=== PATIENT | female | born 1965 | race American Indian/Alaskan Native ===

== ENCOUNTER 2017-05-26 22:11 | Inpatient (IN) | payer MEDICAID ==
[2017-05-26 23:14] LABS: BASO # 0.1 K/uL (0.0-0.2); BASO % 0.5 % (0.0-2.0); EOS # 0.1 K/uL (0.0-0.7); EOS % 0.6 % (0.0-4.0); HEMOGLOBIN 8.6 g/dL (11.0-16.0); LYMPH # 1.1 K/uL (1.0-4.3); LYMPH % 8.5 % (20.0-40.0); MEAN CELL VOLUME 102.9 fL (81.0-99.0); MEAN CORPUSCULAR HEMOGLOBIN 32.9 pg (27.0-31.0); MEAN PLATELET VOLUME 8.5 fL (7.2-11.7); MONO # 1.2 K/uL (0.0-0.8); MONO % 9.3 % (0.0-10.0); NEUT # 10.1 K/uL (1.8-7.0); NEUT % 81.1 % (50.0-75.0); PLATELET COUNT 229 K/uL (130-400); RED CELL DISTRIBUTION WIDTH 14.6 % (11.5-14.5); WHITE BLOOD COUNT 12.5 K/uL (4.8-10.8)
[2017-05-26 23:17] LABS: SQUAMOUS EPITHIAL 3 /hpf (0-5); URINE BACTERIA RARE (<OCC); URINE BILIRUBIN NEGATIVE (NEGATIVE); URINE BLOOD NEGATIVE (NEGATIVE); URINE CLARITY Clear (Clear); URINE COLOR Straw (YELLOW); URINE GLUCOSE (UA) 1+ mg/dL (Normal); URINE LEUKOCYTE ESTERASE NEG Leu/uL (Negative); URINE PROTEIN 2+ mg/dL (NEGATIVE); URINE UROBILINOGEN NORMAL mg/dL (0.2-1.0)
[2017-05-26 23:26] LABS: ALB/GLOB RATIO 0.8 (1.0-2.1); ALBUMIN 3.8 g/dL (3.5-5.0); ALT/SGPT 21 U/L (9-52); AST/SGOT 21 U/L (14-36); BLOOD UREA NITROGEN 63 mg/dL (7-17); CALCIUM 9.3 mg/dl (8.6-10.4); GFR AFRICAN-AMERICAN 11; GFR NON-AFRICAN AMERICAN 9; LIPASE 353 U/L (23-300)
[2017-05-26 23:30] LABS: BENZODIAZEPINES, UR NEGATIVE (NEGATIVE); OPIATES, UR NEGATIVE (NEGATIVE); PHENCYCLIDINE, UR NEGATIVE (NEGATIVE)
[2017-05-26 23:35] LABS: BARBITURATES, UR POSITIVE (NEGATIVE)
[2017-05-26 23:43] LABS: ANISOCYTOSIS SLIGHT; BASOPHIL 1 % (0-2); EOSINOPHIL 1 % (0-4); LYMPHOCYTE 11 % (20-40); MONOCYTE 4 % (0-10); NEUTROPHIL 83 % (50-75); PLATELET ESTIMATE NORMAL (NORMAL); POIKILOCYTOSIS SLIGHT; TOTAL CELLS COUNTED 100
--- NOTE | 2017-05-27 00:52 | CT ---
EXAM: CT Abdomen and Pelvis Without Intravenous Contrast EXAM DATE/TIME: 05/26/2017 11:35 PM CLINICAL HISTORY: 52 years old, female; Pain; Abdominal pain; Localized; Upper; Additional info: Upper abdominal pain. R/O pancreatitis. TECHNIQUE: Axial computed tomography images of the abdomen and pelvis without intravenous contrast. All CT scans at this facility use one or more dose reduction techniques, viz.: automated exposure control; ma/kV adjustment per patient size (including targeted exams where dose is matched to indication; i.e. head); or iterative reconstruction technique. Coronal and sagittal reformatted images were created and reviewed. COMPARISON: There are no prior studies for comparison. FINDINGS: Limitations: Evaluation of the abdomen and pelvis is limited by lack of intravenous and oral contrast. Lower thorax: Heart size is normal. Lung bases are clear ABDOMEN: Liver: unremarkable Gallbladder and bile ducts: unremarkable Pancreas: There are coarse calcifications in the pancreas greatest in the pancreatic head. Lack of contrast limits evaluation of the pancreas. Spleen: There is a 4.4 x 4.3 x 4.7 cm cystic mass in the inferior aspect of the spleen. There is rim calcification. Adrenals: There is mild thickening of both adrenals. Kidneys and ureters: unremarkable Stomach and bowel: Stomach is incompletely distended which accentuates the gastric wall. There is a 5.5 x 5.7 x 6 cm cystic mass with a partially calcified rim in the left upper quadrant which appears to be within the gastric wall. There is an air-fluid level in the lesion.There is thickening of the duodenal wall. There is a duodenal diverticulum. Rotation is normal. There is mild proximal small bowel wall and fold thickening. There is fluid and air throughout the small bowel. There is no small bowel obstruction. Ileocecal region is unremarkable. Appendix and terminal ileum are unremarkable. There is moderate stool and contrast in the colon. There is diverticulosis Appendix: See stomach and bowel PELVIS: Bladder: unremarkable Reproductive: Uterus and adnexal structures are unremarkable. ABDOMEN and PELVIS: Intraperitoneal space: There is no free air or free fluid. Bones/joints: There are degenerative changes in the osseus structures. Soft tissues: There is a small fat containing umbilical hernia. Vasculature: There are multiple phleboliths. There are vascular calcifications. Lymph nodes: There is shotty adenopathy. IMPRESSION: Limited evaluation due to lack of oral and intravenous contrast; chronic calcific pancreatitis; gastric wall thickening with cystic lesion in the gastric wall possibly pseudocyst; cystic lesion in the spleen; mild duodenal and proximal jejunal wall thickening, no bowel obstruction Additional nonemergent findings as described above.
--- NOTE | 2017-05-27 01:04 | C.PDOC ---
Time Seen by Provider: 05/26/17 22:38 Chief Complaint (Nursing): Abdominal Pain History Per: Patient Onset/Duration Of Symptoms: Days (2) Current Symptoms Are (Timing): Still Present Severity: Moderate Location Of Pain/Discomfort: Epigastric, LUQ Radiation Of Pain To:: Back Quality Of Discomfort: "Pain" Associated Symptoms: Nausea, Vomiting Alleviating Factors: None Additional History Per: Prior Records Past Medical History Reviewed: Historical Data, Nursing Documentation, Vital Signs Vital Signs: Last Vital Signs Temp 98.1 F 05/26/17 22:18 Pulse 102 H 05/26/17 22:18 Resp 20 05/26/17 22:18 BP 148/78 05/26/17 22:18 Pulse Ox 100 05/26/17 22:18 - Medical History PMH: Asthma, HTN, Chronic Kidney Disease Other Surgeries: Dialysis shunt in left arm (not ready for use yet). Family History: States: Unknown Family Hx - Social History Hx Alcohol Use: No Hx Substance Use: Yes - Immunization History Hx Tetanus Toxoid Vaccination: No Hx Influenza Vaccination: Yes Hx Pneumococcal Vaccination: No Review Of Systems Except As Marked, All Systems Reviewed And Found Negative. Constitutional: Negative for: Fever Cardiovascular: Negative for: Chest Pain Respiratory: Negative for: Shortness of Breath Gastrointestinal: Positive for: Abdominal Pain Genitourinary: Negative for: Dysuria Musculoskeletal: Negative for: Neck Pain Neurological: Negative for: Weakness, Numbness Physical Exam - Physical Exam Appears: Chronically Ill, Other (Uncomfortable) Skin: Warm, Dry Head: Atraumatic, Normacephalic Eye(s): bilateral: PERRL, EOMI Neck: Normal ROM, Supple Cardiovascular: Rhythm Regular Respiratory: Normal Breath Sounds, No Accessory Muscle Use Gastrointestinal/Abdominal: Soft, Tenderness (epigastric/LUQ) Extremity: Normal ROM, Other (dialysis shunt in left arm with good thrill) Neurological/Psych: Oriented x3, Normal Motor, Normal Sensation ED Course And Treatment - Laboratory Results Result Diagrams: 05/26/17 23:11 05/26/17 23:11 Lab Interpretation: Abnormal Interpretation Of Abnormal: Elevated Lipase. Renal failure. O2 Sat by Pulse Oximetry: 100 Pulse Ox Interpretation: Normal - CT Scan/US CT abd/pelv Other Rad Studies (CT/US): Read By Radiologist, Radiology Report Reviewed CT/US Interpretation: IMPRESSION: Limited evaluation due to lack of oral and intravenous contrast;. chronic calcific pancreatitis; gastric wall thickening with cystic lesion in. the gastric wall possibly pseudocyst; cystic lesion in the spleen; mild. duodenal and proximal jejunal wall thickening, no bowel obstruction Progress Note: Pt is still in pain and tender after GI meds. Progress - Interventions Interventions:: Observation - Medications Administered Intravenous: Antiemetic, H-2 tito - Data Reviewed Data Reviewed: Lab, Diagnostic imaging, Old records - Patient Status Patient status: Unchanged - Continuity of Care Discussed patient case with:: Patient, ED Nurse, On-call PMD-pt unassigned - Patient Plan Patient Plan: Admission Disposition Discussed With : Baltazar Layne Comment: He accepted pt on hospitalist service. Doctor Will See Patient In The: Hospital Counseled Patient/Family Regarding: Studies Performed, Diagnosis - Disposition Disposition: HOSPITALIZED Disposition Time: 01:08 Condition: GUARDED - Clinical Impression Clinical Impression: Acute on chronic pancreatitis, Renal failure, Upper abdominal pain
[2017-05-27] MEDS ORDERED: Sodium Chloride 0.9% 500 ML IV ONE (01:10)
[2017-05-27] MEDS ORDERED: Sodium Chloride 0.9% 1,000 ML ONE (01:19)
[2017-05-27] MEDS ORDERED: Albuterol 0.083% Inhal Sol (2.5 mg/3 mL) UD INH PRN (01:48)
[2017-05-27] MEDS ORDERED: Sod Polystyrene Sulf 15 gm/60 ml Susp PO ONE ×2 (01:53→06:26)
[2017-05-27] MEDS ORDERED: Sod Polystyrene Sulf 15 gm/60 ml Susp ONE ×2 (02:03→06:33)
--- NOTE | 2017-05-27 02:25 | CP.PCM.HP ---
<AlaynaLaurie Chavo - Last Filed: 05/27/17 03:13> History of Present Illness - History of Present Illness History of Present Illness: CC: abdominal pain HPI: 52 year old female with PMHx of HTN, ESRD, Hep C, and asthma presents for 1 week of abdominal pain. Patient was discharged form [facility] yesterday where she said she was for 2 days for the same complaint. Patient said her abdominal pain is not better and she rates it 30/10. Patient says the abdominal pain is mostly on the left side. Patient has had decreased appetite with nausea and one episode of nonbilious nonbloody vomitus today. Patient did not take any medications today and did not get the medications she was discharged on yet. Patient also complains of constipation, although she had a bowel movement yesterday. Patient says she feels feverish, but does not know if she has had a fever. Patient denies chest pain, shortness of breath, or urinary symptoms. PMD: Dr. Michael Allergies: tylenol- nausea/ vomiting PMHx: HTN, ESRD, Hep C, Asthma Psurg: L av fistula placement 1 week ago at [facility] Famhx: Sister: DM, at 55 Mom: of brain aneurysm at 56 Social: smokes 2-3 cigarettes a day since 17y/o- stopped a few weeks ago, drinks 1/2 pint of liquor a day (last drink was before her last hospitalization) , drugs: marijuana, rehab in 2007 and was sober for 1 year Present on Admission - Present on Admission Any Indicators Present on Admission: No History of DVT/PE: No History of Uncontrolled Diabetes: No Urinary Catheter: No Decubitus Ulcer Present: No Review of Systems - Constitutional Constitutional: Fever - EENT Eyes: absent: Blurred Vision Nose/Mouth/Throat: absent: Sore Throat - Cardiovascular Cardiovascular: absent: Dyspnea, Leg Edema - Respiratory Respiratory: absent: Cough, Dyspnea, Dyspnea on Exertion - Gastrointestinal Gastrointestinal: Abdominal Pain, Constipation, Nausea, Vomiting. absent: Diarrhea, Hematochezia, Melena - Genitourinary Genitourinary: absent: Difficulty Urinating, Dysuria, Hematuria - Musculoskeletal Musculoskeletal: absent: Numbness, Tingling - Integumentary Integumentary: absent: Rash - Hematologic/Lymphatic Hematologic: absent: Easy Bleeding, Easy Bruising Past Patient History - Past Social History Smoking Status: Former Smoker - CARDIAC Hx Hypertension: Yes - PULMONARY Hx Asthma: Yes - NEUROLOGICAL HX Cerebrovascular Accident: Yes - RENAL Hx Chronic Kidney Disease: Yes - PSYCHIATRIC Hx Substance Use: Yes - SURGICAL HISTORY Other/Comment: RIGHT ARM SURGERY - BOIL - ANESTHESIA Hx Anesthesia: Yes Hx Anesthesia Reactions: No Meds Allergies/Adverse Reactions: Allergies Allergy/AdvReac Type Severity Reaction Status Date / Time acetaminophen [From Tylenol] Allergy Verified 05/26/17 22:29 Physical Exam - Constitutional Appears: Non-toxic, In Acute Distress - Head Exam Head Exam: ATRAUMATIC, NORMAL INSPECTION, NORMOCEPHALIC - Eye Exam Eye Exam: EOMI, Normal appearance - ENT Exam ENT Exam: Mucous Membranes Moist - Respiratory Exam Respiratory Exam: Clear to Auscultation Bilateral, NORMAL BREATHING PATTERN. absent: Rales, Rhonchi, Wheezes, Respiratory Distress, Stridor - Cardiovascular Exam Cardiovascular Exam: Tachycardia, REGULAR RHYTHM, +S1, +S2 - GI/Abdominal Exam GI & Abdominal Exam: Guarding, Normal Bowel Sounds, Tenderness. absent: Distended, Firm - Extremities Exam Extremities exam: Positive for: normal inspection. Negative for: pedal edema - Neurological Exam Neurological exam: Alert, Oriented x3 - Psychiatric Exam Psychiatric exam: Anxious - Skin Skin Exam: Intact, Normal Color, Warm Results - Vital Signs Recent Vital Signs: Last Vital Signs Temp 98.1 F 05/26/17 22:18 Pulse 102 H 05/26/17 22:18 Resp 20 05/26/17 22:18 BP 148/78 05/26/17 22:18 Pulse Ox 100 05/27/17 01:09 - Labs Result Diagrams: 05/26/17 23:11 05/26/17 23:11 Labs: Laboratory Results - last 24 hr 05/26/17 05/26/17 05/26/17 23:11 23:11 23:11 WBC 12.5 H RBC 2.60 L Hgb 8.6 L Hct 26.8 L MCV 102.9 H MCH 32.9 H MCHC 32.0 L RDW 14.6 H Plt Count 229 MPV 8.5 Neut % (Auto) 81.1 H Lymph % (Auto) 8.5 L [place] % (Auto) 9.3 Eos % (Auto) 0.6 Baso % (Auto) 0.5 Neut # (Auto) 10.1 H Lymph # (Auto) 1.1 [place] # (Auto) 1.2 H Eos # (Auto) 0.1 Baso # (Auto) 0.1 Neutrophils % (Manual) 83 H Lymphocytes % (Manual) 11 L Monocytes % (Manual) 4 Eosinophils % (Manual) 1 Basophils % (Manual) 1 Platelet Estimate Normal Poikilocytosis (manual Slight Anisocytosis (manual) Slight Macrocytosis (manual) Slight Sodium 141 Potassium 5.3 H Chloride 108 H Carbon Dioxide 17 L Anion Gap 22 H BUN 63 H Creatinine 5.1 H Est GFR ( Amer) 11 Est GFR (Non-Af Amer) 9 Random Glucose 120 H Calcium 9.3 Total Bilirubin 0.5 AST 21 ALT 21 Alkaline Phosphatase 88 Total Protein 8.3 Albumin 3.8 Globulin 4.6 H Albumin/Globulin Ratio 0.8 L Lipase 353 H Urine Color Straw Urine Clarity Clear Urine pH 7.0 Ur Specific [place] 1.012 Urine Protein 2+ H Urine Glucose (UA) 1+ Urine Ketones Negative Urine Blood Negative Urine Nitrate Negative Urine Bilirubin Negative Urine Urobilinogen Normal Ur Leukocyte Esterase Neg Urine WBC (Auto) 1 Ur Squamous Epith Cells 3 Urine Bacteria Rare Urine Opiates Screen Urine Methadone Screen Ur Barbiturates Screen Ur Phencyclidine Scrn Ur Amphetamines Screen U Benzodiazepines Scrn U Oth Cocaine Metabols U Cannabinoids Screen Alcohol, Quantitative < 10 05/26/17 23:11 WBC RBC Hgb Hct MCV MCH MCHC RDW Plt Count MPV Neut % (Auto) Lymph % (Auto) [place] % (Auto) Eos % (Auto) Baso % (Auto) Neut # (Auto) Lymph # (Auto) [place] # (Auto) Eos # (Auto) Baso # (Auto) Neutrophils % (Manual) Lymphocytes % (Manual) Monocytes % (Manual) Eosinophils % (Manual) Basophils % (Manual) Platelet Estimate Poikilocytosis (manual Anisocytosis (manual) Macrocytosis (manual) Sodium Potassium Chloride Carbon Dioxide Anion Gap BUN Creatinine Est GFR ( Amer) Est GFR (Non-Af Amer) Random Glucose Calcium Total Bilirubin AST ALT Alkaline Phosphatase Total Protein Albumin Globulin Albumin/Globulin Ratio Lipase Urine Color Urine Clarity Urine pH Ur Specific [place] Urine Protein Urine Glucose (UA) Urine Ketones Urine Blood Urine Nitrate Urine Bilirubin Urine Urobilinogen Ur Leukocyte Esterase Urine WBC (Auto) Ur Squamous Epith Cells Urine Bacteria Urine Opiates Screen Negative Urine Methadone Screen Negative Ur Barbiturates Screen Positive H Ur Phencyclidine Scrn Negative Ur Amphetamines Screen Negative U Benzodiazepines Scrn Negative U Oth Cocaine Metabols Negative U Cannabinoids Screen Positive H Alcohol, Quantitative Assessment & Plan - Assessment and Plan (Free Text) Assessment: Pancreatitis CT abd: chronic calcific pancreatitis, gastric wall thickening with cystic lesion in the gastric wall possibly pseudocyst, cystic lesion in the spleen, mild duodenal and proximal jejunal wall thickening, no bowel obstruction Lipase: .353 morphine .5mg q6h prn for pain NPO NS @100cc/hr Hyperkalemia K+: 5.3 monitor Kayexalate given EKG: sinus tach Anemia H/H: 8.6/26.8 Feosol 325mg daily f/u iron studies ESRD patient not currently on dialysis Nephro, Dr. Guzman consulted, help appreciated continue to monitor BUN/Cr Neurontin 200mg po BID Alcohol abuse seizure precautions CIWA protocol Ativan 1 mg q4h PRN Folic Acid, Thiamine, Multivitamin HTN Amlodipine 5mg po daily continue to monitor HLD Crestor 5mg po HS Asthma Albuterol nebulizer q6h PRN Prophylaxis SCDs Protonix 40mg po daily <Baltazar Layne - Last Filed: 05/27/17 06:33> Results - Vital Signs Recent Vital Signs: Last Vital Signs Temp 98.7 F 05/27/17 03:27 Pulse 94 H 05/27/17 03:27 Resp 20 05/27/17 03:27 BP 148/74 05/27/17 03:27 Pulse Ox 100 05/27/17 03:27 - Labs Result Diagrams: 05/27/17 05:17 05/27/17 05:17 Labs: Laboratory Results - last 24 hr 05/26/17 05/26/17 05/26/17 23:11 23:11 23:11 WBC 12.5 H RBC 2.60 L Hgb 8.6 L Hct 26.8 L MCV 102.9 H MCH 32.9 H MCHC 32.0 L RDW 14.6 H Plt Count 229 MPV 8.5 Neut % (Auto) 81.1 H Lymph % (Auto) 8.5 L [place] % (Auto) 9.3 Eos % (Auto) 0.6 Baso % (Auto) 0.5 Neut # (Auto) 10.1 H Lymph # (Auto) 1.1 [place] # (Auto) 1.2 H Eos # (Auto) 0.1 Baso # (Auto) 0.1 Neutrophils % (Manual) 83 H Lymphocytes % (Manual) 11 L Monocytes % (Manual) 4 Eosinophils % (Manual) 1 Basophils % (Manual) 1 Platelet Estimate Normal Poikilocytosis (manual Slight Anisocytosis (manual) Slight Macrocytosis (manual) Slight Sodium 141 Potassium 5.3 H Chloride 108 H Carbon Dioxide 17 L Anion Gap 22 H BUN 63 H Creatinine 5.1 H Est GFR ( Amer) 11 Est GFR (Non-Af Amer) 9 Random Glucose 120 H Calcium 9.3 Phosphorus Magnesium Iron TIBC % Saturation Total Bilirubin 0.5 AST 21 ALT 21 Alkaline Phosphatase 88 Total Protein 8.3 Albumin 3.8 Globulin 4.6 H Albumin/Globulin Ratio 0.8 L Triglycerides Cholesterol LDL Cholesterol Direct HDL Cholesterol Lipase 353 H Urine Color Straw Urine Clarity Clear Urine pH 7.0 Ur Specific [place] 1.012 Urine Protein 2+ H Urine Glucose (UA) 1+ Urine Ketones Negative Urine Blood Negative Urine Nitrate Negative Urine Bilirubin Negative Urine Urobilinogen Normal Ur Leukocyte Esterase Neg Urine WBC (Auto) 1 Ur Squamous Epith Cells 3 Urine Bacteria Rare Urine Opiates Screen Urine Methadone Screen Ur Barbiturates Screen Ur Phencyclidine Scrn Ur Amphetamines Screen U Benzodiazepines Scrn U Oth Cocaine Metabols U Cannabinoids Screen Alcohol, Quantitative < 10 Blood Type Antibody Screen 05/26/17 05/27/17 05/27/17 23:11 05:17 05:17 WBC 12.3 H RBC 2.78 L Hgb 9.1 L Hct 28.4 L MCV 102.2 H MCH 32.8 H MCHC 32.1 L RDW 14.5 Plt Count 269 MPV 8.4 Neut % (Auto) 87.0 H Lymph % (Auto) 6.2 L [place] % (Auto) 6.6 Eos % (Auto) 0.1 Baso % (Auto) 0.1 Neut # (Auto) 10.7 H Lymph # (Auto) 0.8 L [place] # (Auto) 0.8 Eos # (Auto) 0.0 Baso # (Auto) 0.0 Neutrophils % (Manual) 87 H Lymphocytes % (Manual) 6 L Monocytes % (Manual) 7 Eosinophils % (Manual) Basophils % (Manual) Platelet Estimate Normal Poikilocytosis (manual Slight Anisocytosis (manual) Slight Macrocytosis (manual) Sodium 142 Potassium 6.3 H* Chloride 112 H Carbon Dioxide 16 L Anion Gap 20 BUN 59 H Creatinine 4.8 H Est GFR ( Amer) 11 Est GFR (Non-Af Amer) 9 Random Glucose 132 H Calcium 9.1 Phosphorus 4.7 H Magnesium 1.4 L Iron TIBC % Saturation Total Bilirubin 0.5 AST 21 ALT 23 Alkaline Phosphatase 92 Total Protein 8.1 Albumin 3.7 Globulin 4.4 H Albumin/Globulin Ratio 0.8 L Triglycerides 153 H Cholesterol 164 LDL Cholesterol Direct 66 HDL Cholesterol 28 L Lipase Urine Color Urine Clarity Urine pH Ur Specific [place] Urine Protein Urine Glucose (UA) Urine Ketones Urine Blood Urine Nitrate Urine Bilirubin Urine Urobilinogen Ur Leukocyte Esterase Urine WBC (Auto) Ur Squamous Epith Cells Urine Bacteria Urine Opiates Screen Negative Urine Methadone Screen Negative Ur Barbiturates Screen Positive H Ur Phencyclidine Scrn Negative Ur Amphetamines Screen Negative U Benzodiazepines Scrn Negative U Oth Cocaine Metabols Negative U Cannabinoids Screen Positive H Alcohol, Quantitative Blood Type Antibody Screen 05/27/17 05/27/17 05/27/17 05:17 05:17 05:17 WBC RBC Hgb Hct MCV MCH MCHC RDW Plt Count MPV Neut % (Auto) Lymph % (Auto) [place] % (Auto) Eos % (Auto) Baso % (Auto) Neut # (Auto) Lymph # (Auto) [place] # (Auto) Eos # (Auto) Baso # (Auto) Neutrophils % (Manual) Lymphocytes % (Manual) Monocytes % (Manual) Eosinophils % (Manual) Basophils % (Manual) Platelet Estimate Poikilocytosis (manual Anisocytosis (manual) Macrocytosis (manual) Sodium Potassium Chloride Carbon Dioxide Anion Gap BUN Creatinine Est GFR ( Amer) Est GFR (Non-Af Amer) Random Glucose Calcium Phosphorus Magnesium Iron 11 L TIBC 215 L 217 L % Saturation 4.7 L 6 L Total Bilirubin AST ALT Alkaline Phosphatase Total Protein Albumin Globulin Albumin/Globulin Ratio Triglycerides Cholesterol LDL Cholesterol Direct HDL Cholesterol Lipase Urine Color Urine Clarity Urine pH Ur Specific [place] Urine Protein Urine Glucose (UA) Urine Ketones Urine Blood Urine Nitrate Urine Bilirubin Urine Urobilinogen Ur Leukocyte Esterase Urine WBC (Auto) Ur Squamous Epith Cells Urine Bacteria Urine Opiates Screen Urine Methadone Screen Ur Barbiturates Screen Ur Phencyclidine Scrn Ur Amphetamines Screen U Benzodiazepines Scrn U Oth Cocaine Metabols U Cannabinoids Screen Alcohol, Quantitative Blood Type O POSITIVE Antibody Screen Negative Assessment & Plan - Date & Time Date: 05/27/17 (I have seen and examined the patient. I agree with the findings and plan of care as documented by Dr. Catalan. Patient with acute pancreatitis. History of prior pancreatitis. Alcohol abuse. [facility] protocol. Symptomatic treatment. NPO. IVF. ESRD. Consult to nephro. Not currently on dialysis. Hyperkalemia. Kayexylate for now. Monitor and treat accordingly if continues to increase. Monitor for acute changes) Time: 06:31 Attending/Attestation - Attestation I have personally seen and examined this patient.: Yes I have fully participated in the care of the patient.: Yes I have reviewed all pertinent clinical information: Yes
[2017-05-27] MEDS: Sodium Chloride 0.9% 1,000 ML IV SCH ×3 (03:00→23:04)
[2017-05-27 05:35] LABS: BASO % 0.1 % (0.0-2.0); EOS % 0.1 % (0.0-4.0); HEMOGLOBIN 9.1 g/dL (11.0-16.0); LYMPH # 0.8 K/uL (1.0-4.3); LYMPH % 6.2 % (20.0-40.0); MEAN CELL VOLUME 102.2 fL (81.0-99.0); MEAN CORPUSCULAR HEMOGLOBIN 32.8 pg (27.0-31.0); MEAN CORPUSCULAR HGB CONC 32.1 g/dL (33.0-37.0); MEAN PLATELET VOLUME 8.4 fL (7.2-11.7); MONO # 0.8 K/uL (0.0-0.8); MONO % 6.6 % (0.0-10.0); NEUT # 10.7 K/uL (1.8-7.0); PLATELET COUNT 269 K/uL (130-400); RBC 2.78 Mil/uL (3.80-5.20); RED CELL DISTRIBUTION WIDTH 14.5 % (11.5-14.5); WHITE BLOOD COUNT 12.3 K/uL (4.8-10.8)
[2017-05-27 05:46] LABS: % IRON SATURATION 6 (20-55); TOTAL IRON BINDING CAPACITY 217 ug/dL (250-450)
[2017-05-27 05:49] LABS: LDL CHOLESTEROL 66 mg/dL (0-129)
[2017-05-27 06:09] LABS: LYMPHOCYTE 6 % (20-40); MONOCYTE 7 % (0-10); NEUTROPHIL 87 % (50-75); PLATELET ESTIMATE NORMAL (NORMAL); TOTAL CELLS COUNTED 100
[2017-05-27 06:10] LABS: ANISOCYTOSIS SLIGHT; POIKILOCYTOSIS SLIGHT
[2017-05-27 06:13] LABS: ALB/GLOB RATIO 0.8 (1.0-2.1); ALBUMIN 3.7 g/dL (3.5-5.0); ALT/SGPT 23 U/L (9-52); AST/SGOT 21 U/L (14-36); BLOOD UREA NITROGEN 59 mg/dL (7-17); CALCIUM 9.1 mg/dl (8.6-10.4); GFR AFRICAN-AMERICAN 11; GFR NON-AFRICAN AMERICAN 9; HDL CHOLESTEROL 28 mg/dL (30-70)
[2017-05-27] MEDS ORDERED: Calcium Gluconate 4.65 mEq/10 ml Inj IVP ONE (06:21)
[2017-05-27 06:23] LABS: IRON 11 ug/dL (37-170)
[2017-05-27] MEDS ORDERED: Albuterol 0.083% Inhal Sol (2.5 mg/3 mL) UD INH STA (06:23)
[2017-05-27] MEDS ORDERED: Sodium Bicarbonate (8.4%) 50 Meq Syringe IVP ONE (06:25)
[2017-05-27] MEDS ORDERED: Albuterol 0.083% Inhal Sol (2.5 mg/3 mL) UD ONE (06:30)
[2017-05-27 06:33] LABS: % IRON SATURATION 5 (20-55); TOTAL IRON BINDING CAPACITY 213 ug/dL (250-450)
[2017-05-27] MEDS ORDERED: Sodium Bicarbonate (8.4%) 50 Meq Syringe ONE (06:33)
[2017-05-27] MEDS ORDERED: Calcium Gluconate 4.65 mEq/10 ml Inj ONE (06:33)
[2017-05-27 06:44] LABS: FOLATE > 20.0 ng/mL
--- NOTE | 2017-05-27 07:59 | CP.PCM.PN ---
<Laurie Power - Last Filed: 05/27/17 16:37> Subjective - Date & Time of Evaluation Date of Evaluation: 05/27/17 Time of Evaluation: 07:58 - Subjective Subjective: Medicine progress note for Dr. Pacheco's service Patient was seen and examined at bedside in no acute distress. Patient reports feeling slightly better than when she came to the hospital. Patient says she still has abdominal pain, but it has improved. Patient denies chest pain, dyspnea, nausea, vomiting, fevers, headaches, dysuria, constipation. Per nursing , patient had a fever this morning. Objective - Vital Signs/Intake and Output Vital Signs (last 24 hours): Temp Pulse Resp BP Pulse Ox 98.3 F 99 H 16 160/89 H 98 05/27/17 06:52 05/27/17 06:52 05/27/17 06:52 05/27/17 06:52 05/27/17 06:52 - Medications Medications: Current Medications Albuterol Sulfate (Albuterol 0.083% Inhal Linda (2.5 Mg/3 Ml) Ud) 2.5 mg INH RQ6 PRN PRN Reason: Shortness of Breath Amlodipine Besylate (Norvasc) 5 mg PO DAILY [facility] Ferrous Sulfate (Feosol) 325 mg PO DAILY [facility] Folic Acid (Folic Acid) 1 mg PO DAILY [facility] Gabapentin (Neurontin) 200 mg PO BID [facility] Sodium Chloride (Sodium Chloride 0.9%) 1,000 mls @ 100 mls/hr IV .Q10H [facility] Last Admin: 05/27/17 03:00 Dose: 100 mls/hr Lorazepam (Ativan) 1 mg IVP Q4H PRN PRN Reason: Symptoms of alcohol withdrawl Morphine Sulfate (Morphine) 0.5 mg IVP Q6H PRN PRN Reason: Pain, severe (8-10) Last Admin: 05/27/17 02:54 Dose: 0.5 mg Multivitamins (Hexavitamin) 1 tab PO DAILY [facility] Pantoprazole Sodium (Protonix Ec Tab) 40 mg PO DAILY [facility] Rosuvastatin Calcium (Crestor) 5 mg PO HS [facility] Thiamine HCl (Vitamin B1 Tab) 100 mg PO DAILY [facility] - Labs Labs: 05/27/17 05:17 05/27/17 05:17 - Constitutional Appears: No Acute Distress - Head Exam Head Exam: ATRAUMATIC, NORMAL INSPECTION - Eye Exam Eye Exam: EOMI, Normal appearance - ENT Exam ENT Exam: Mucous Membranes Moist - Respiratory Exam Respiratory Exam: Clear to Ausculation Bilateral, Respiratory Distress, NORMAL BREATHING PATTERN. absent: Rales, Rhonchi, Wheezes - Cardiovascular Exam Cardiovascular Exam: REGULAR RHYTHM, +S1, +S2 - GI/Abdominal Exam GI & Abdominal Exam: Soft, Tenderness (mild epigastric with palpation), Normal Bowel Sounds. absent: Distended - Extremities Exam Extremities Exam: Normal Inspection. absent: Pedal Edema, Tenderness - Neurological Exam Neurological Exam: Alert, Awake, Oriented x3 - Psychiatric Exam Psychiatric exam: Normal Affect, Normal Mood - Skin Skin Exam: Dry, Intact, Normal Color, Warm Assessment and Plan (1) Alcohol abuse Status: Acute (2) Acute on chronic pancreatitis Status: Acute (3) ESRD (end stage renal disease) Status: Acute (4) Hyperkalemia Status: Acute - Assessment and Plan (Free Text) Assessment: Pancreatitis * CT abd: chronic calcific pancreatitis, gastric wall thickening with cystic lesion in the gastric wall possibly pseudocyst, cystic lesion in the spleen, mild duodenal and proximal jejunal wall thickening, no bowel obstruction * Lipase: .353 * Discontinued morphine .5mg q6h prn for pain (patient's pain is mild with deep palpation; otherwise, abdominal exam is negative; no facial grimacing) * NPO [patient is hungry; will consider advancing diet to CLD tomorrow] * NS @100cc/hr Hyperkalemia * K+: 5.3 at admission, Kayexalate given * Repeat CMP showed K+ increased to 6.9--> Kayexalate, calcium gluconate, sodium bicarb was given once * Repeat BMP s/p medications--> K+ 4.9 * EKG: sinus tach * Continue to monitor Anemia * H/H: 8.6/26.8 * Feosol 325mg daily * Iron, TIBC, %sat- low; likely due to iron deficiency and ERSD ESRD * Patient not currently on dialysis; AV fistula (LUE) [facility] 1 [place] ago [place] [facility] (per patient) * Nephro, Dr. Guzman consulted, help appreciated * Per nephro, patient will get dialysis today, 05/26/17, post phillip-cath placement with Dr. Luis * Surgery consult: Dr. Luis, help appreciated * patient going to the OR for portacath placement 05/26/17 * Continue to monitor BUN/Cr * Neurontin 200mg po BID Fever * Blood cx: f/u results * Urine cx: f/u results * Ice packs applied and Ibuprofen given Alcohol abuse * Seizure precautions * CIWA protocol * Ativan 1 mg q4h PRN * Folic Acid, Thiamine, Multivitamin HTN * Amlodipine 5mg po daily * continue to monitor HLD * Crestor 5mg po HS Asthma * Albuterol nebulizer q6h PRN Prophylaxis * SCDs * Protonix 40mg po daily * Heparin 5000 sc * NPO <Loc Pacheco - Last Filed: 05/27/17 19:08> Objective - Vital Signs/Intake and Output Vital Signs (last 24 hours): Temp Pulse Resp BP Pulse Ox 99 F 92 H 14 118/75 98 05/27/17 18:30 05/27/17 18:30 05/27/17 18:30 05/27/17 18:30 05/27/17 18:30 Intake and Output: 05/27/17 05/28/17 18:59 06:59 Intake Total 950 Balance 950 - Medications Medications: Current Medications Albuterol Sulfate (Albuterol 0.083% Inhal Linda (2.5 Mg/3 Ml) Ud) 2.5 mg INH RQ6 PRN PRN Reason: Shortness of Breath Amlodipine Besylate (Norvasc) 5 mg PO DAILY [facility] Last Admin: 05/27/17 09:04 Dose: 5 mg Calcium Acetate (Phoslo) 667 mg PO TIDCC [facility] Last Admin: 05/27/17 14:22 Dose: 667 mg Ferric Sodium Gluconate Complex (Ferrlecit) 125 mg IVPB DAILY [facility] Stop: 06/04/17 14:01 Last Admin: 05/27/17 14:22 Dose: 125 mg Folic Acid (Folic Acid) 1 mg PO DAILY [facility] Last Admin: 05/27/17 10:51 Dose: 1 mg Gabapentin (Neurontin) 100 mg PO DAILY [facility] Heparin Sodium (Porcine) (Heparin) 5,000 units SC Q12 [facility] Last Admin: 05/27/17 10:52 Dose: 5,000 units Hydromorphone HCl (Dilaudid) 0.5 mg IVP Q4H PRN PRN Reason: Pain, moderate (4-7) Sodium Chloride (Sodium Chloride 0.9%) 1,000 mls @ 100 mls/hr IV .Q10H [facility] Last Admin: 05/27/17 14:34 Dose: Not Given Lorazepam (Ativan) 1 mg IVP Q4H PRN PRN Reason: Symptoms of alcohol withdrawl Multivitamins (Hexavitamin) 1 tab PO DAILY [facility] Last Admin: 05/27/17 10:51 Dose: 1 tab Pantoprazole Sodium (Protonix Ec Tab) 40 mg PO DAILY [facility] Last Admin: 05/27/17 14:22 Dose: 40 mg Rosuvastatin Calcium (Crestor) 5 mg PO [facility] Thiamine HCl (Vitamin B1 Tab) 100 mg PO DAILY [facility] Last Admin: 05/27/17 10:56 Dose: 100 mg - Labs Labs: 05/27/17 05:17 05/27/17 13:28 Attending/Attestation - Attestation I have personally seen and examined this patient.: Yes I have fully participated in the care of the patient.: Yes I have reviewed all pertinent clinical information, including history, physical exam and plan: Yes Notes (Text): 05/27/17 19:03 Patient was seen and examined at 1:00 PM 05/27/17 569 A Exam, assessment and plan were gone over with the resident Also on ROS: Pain in the epigastric area is now more of a "soreness" Has not moved bowels NO n/v Also on Exam: GI: epigastric and RLQ soreness upon deep palpation, NO guarding/rebound tenderness Left Arm AV Fistula with + Thrill Spoke with Nephrology Dr. Handley who recommended HD later today after Perm Cath Placement Spoke with Vascular Surgeon Dr. Luis and his team will place Per Cath later today. Patient with fever: Ibuprofen 400 mg PO x 1 dose given. F/U Blood and Urine Cultures. Will likely start Clear Liquid morning 05/28/17. Loc Pacheco D.O.
[2017-05-27] MEDS ORDERED: Multiple Vitamins Oral Solution PO SCH (10:00)
[2017-05-27] MEDS: Multiple Vitamins Tab PO SCH (10:51)
--- NOTE | 2017-05-27 12:42 | CP.PCM.CON ---
History of Present Illness - History of Present Illness History of Present Illness: HPI: 52 year old female with PMHx of HTN, ESRD, Hep C, and asthma presents for 1 week of abdominal pain. Patient was discharged form [facility] yesterday where she said she was for 2 days for the same complaint. Patient said her abdominal pain is not better and she rates it 30/10. Patient says the abdominal pain is mostly on the left side. Patient has had decreased appetite with nausea and one episode of non-bilious nonbloody vomitus today. Patient did not take any medications today and did not get the medications she was discharged on yet. Patient also complains of constipation, although she had a bowel movement yesterday. Patient says she feels feverish, but does not know if she has had a fever. Patient denies chest pain, shortness of breath, or urinary symptoms. PMD: Dr. Michael Allergies: tylenol- nausea/ vomiting PMHx: HTN, ESRD, Hep C, Asthma Psurg: L av fistula placement 1 week ago at [facility]; I and D of right axillary boil Famhx: Sister: DM, at 55; no CKD Mom: of brain aneurysm at 56 Social: smokes 2-3 cigarettes a day since 17y/o- stopped a few weeks ago, drinks 1/2 pint of liquor a day (last drink was before her last hospitalization) , drugs: marijuana, rehab in 2007 and was sober for 1 year Review of Systems - Constitutional Constitutional: Chills, Fatigue, Weight Loss, Weakness - EENT Eyes: absent: As Per HPI, Blind Spots, Blurred Vision, Change in Vision, Decreased Night Vision, Diplopia, Discharge, Dry Eye, Exophthalmos, Floaters, Irritation, Itchy Eyes, Loss of Peripheral Vision, Pain, Photophobia, Requires Corrective Lenses, Sees Flashes, Spots in Vision, Tunnel Vision, Other Visual Disturbances, Loss of Vision, Other Ears: absent: As Per HPI, Decreased Hearing, Ear Discharge, Ear Pain, Tinnitus, Abnormal Hearing, Disequilibrium, Dizziness, Other Nose/Mouth/Throat: absent: As Per HPI, Epistaxis, Nasal Congestion, Nasal Discharge, Nasal Obstruction, Nasal Trauma, Nose Pain, Post Nasal Drip, Sinus Pain, Sinus Pressure, Bleeding Gums, Change in Voice, Dental Pain, Dry Mouth, Dysphagia, Halitosis, Hoarsness, Lip Swelling, Mouth Lesions, Mouth Pain, Odynophagia, Sore Throat, Throat Swelling, Tongue Swelling, Facial Pain, Neck Pain, Neck Mass, Other - Cardiovascular Cardiovascular: Dyspnea on Exertion - Respiratory Respiratory: Cough, Pain with Coughing - Gastrointestinal Gastrointestinal: Nausea, Vomiting - Genitourinary Genitourinary: As Per HPI - Musculoskeletal Musculoskeletal: Muscle Cramps, Muscle Weakness - Integumentary Integumentary: absent: As Per HPI, Acne, Alopecia, Bleeding Lesions, Change in Hair, Change in Nails, Change in Pigmentation, Changing Lesions, Dry Skin, Erythema, Furuncle, Hirsutism, Lesions, New Lesions, Non-Healing Lesions, Photosensitivity, Pruritus, Rash, Skin Pain, Skin Ulcer, Sores, Striae, Swelling , Unusual Bruising, Wounds, Jaundice, Other - Neurological Neurological: Headaches, Weakness Past Patient History - Past Medical History & Family History Past Medical History?: Yes - Past Social History Smoking Status: Former Smoker Chewing Tobacco Use: No Cigar Use: No Alcohol: > 2 Drinks/Day Drugs: Cannabis, Cocaine - CARDIAC Hx Cardiac Disorders: Yes Hx Hypertension: Yes - PULMONARY Hx Asthma: Yes - NEUROLOGICAL Hx Neurological Disorder: Yes HX Cerebrovascular Accident: Yes - HEENT Hx HEENT Problems: No - RENAL Hx Chronic Kidney Disease: Yes Hx Renal Failure: Yes Other/Comment: LEFT AVS - HD ACCESS NOT STARTED YET - ENDOCRINE/METABOLIC Hx Endocrine Disorders: No - HEMATOLOGICAL/ONCOLOGICAL Hx Blood Disorders: Yes Hx Hepatitis C: Yes - INTEGUMENTARY Hx Dermatological Problems: No - MUSCULOSKELETAL/RHEUMATOLOGICAL Hx Musculoskeletal Disorders: Yes Hx Falls: Yes - GASTROINTESTINAL Hx Gastrointestinal Disorders: Yes Hx Pancreatitis: Yes - GENITOURINARY/GYNECOLOGICAL Hx Genitourinary Disorders: No - PSYCHIATRIC Hx Psychophysiologic Disorder: Yes Hx Substance Use: Yes - SURGICAL HISTORY Hx Surgeries: Yes Hx Vascular Surgery: Yes Other/Comment: RIGHT ARM SURGERY - BOIL - ANESTHESIA Hx Anesthesia: Yes Hx Anesthesia Reactions: No Hx Malignant Hyperthermia: No Has any member of the family had a problem w/ anesthesia?: No Meds Allergies/Adverse Reactions: Allergies Allergy/AdvReac Type Severity Reaction Status Date / Time acetaminophen [From Tylenol] Allergy Verified 05/26/17 22:29 - Medications Medications: Current Medications Albuterol Sulfate (Albuterol 0.083% Inhal Linda (2.5 Mg/3 Ml) Ud) 2.5 mg INH RQ6 PRN PRN Reason: Shortness of Breath Amlodipine Besylate (Norvasc) 5 mg PO DAILY [facility] Last Admin: 05/27/17 09:04 Dose: 5 mg Ferrous Sulfate (Feosol) 325 mg PO DAILY [facility] Last Admin: 05/27/17 10:51 Dose: 325 mg Folic Acid (Folic Acid) 1 mg PO DAILY [facility] Last Admin: 05/27/17 10:51 Dose: 1 mg Gabapentin (Neurontin) 200 mg PO BID [facility] Last Admin: 05/27/17 10:51 Dose: 200 mg Heparin Sodium (Porcine) (Heparin) 5,000 units SC Q12 [facility] Last Admin: 05/27/17 10:52 Dose: 5,000 units Sodium Chloride (Sodium Chloride 0.9%) 1,000 mls @ 100 mls/hr IV .Q10H [facility] Last Admin: 05/27/17 03:00 Dose: 100 mls/hr Lorazepam (Ativan) 1 mg IVP Q4H PRN PRN Reason: Symptoms of alcohol withdrawl Morphine Sulfate (Morphine) 0.5 mg IVP Q6H PRN PRN Reason: Pain, severe (8-10) Last Admin: 05/27/17 02:54 Dose: 0.5 mg Multivitamins (Hexavitamin) 1 tab PO DAILY [facility] Last Admin: 05/27/17 10:51 Dose: 1 tab Pantoprazole Sodium (Protonix Ec Tab) 40 mg PO DAILY [facility] Rosuvastatin Calcium (Crestor) 5 mg PO HS [facility] Thiamine HCl (Vitamin B1 Tab) 100 mg PO DAILY [facility] Last Admin: 05/27/17 10:56 Dose: 100 mg Physical Exam - Constitutional Appears: No Acute Distress, Chronically Ill - Head Exam Head Exam: ATRAUMATIC, NORMAL INSPECTION - Eye Exam Eye Exam: EOMI, Normal appearance - Neck Exam Neck exam: Positive for: Normal Inspection. Negative for: Tenderness - Respiratory Exam Respiratory Exam: Clear to Auscultation Bilateral, NORMAL BREATHING PATTERN - Cardiovascular Exam Cardiovascular Exam: REGULAR RHYTHM, +S1 - GI/Abdominal Exam GI & Abdominal Exam: Soft, Tenderness - Extremities Exam Extremities exam: Positive for: normal inspection. Negative for: pedal edema - Neurological Exam Neurological exam: Alert, CN II-XII Intact - Skin Skin Exam: Dry, Warm Results - Vital Signs Recent Vital Signs: Last Vital Signs Temp 98.3 F 05/27/17 06:52 Pulse 99 H 05/27/17 06:52 Resp 16 05/27/17 06:52 BP 160/89 H 05/27/17 06:52 Pulse Ox 98 05/27/17 06:52 - Labs Result Diagrams: 05/27/17 05:17 05/27/17 05:17 Labs: Laboratory Results - last 24 hr 05/26/17 05/26/17 05/26/17 23:11 23:11 23:11 WBC 12.5 H RBC 2.60 L Hgb 8.6 L Hct 26.8 L MCV 102.9 H MCH 32.9 H MCHC 32.0 L RDW 14.6 H Plt Count 229 MPV 8.5 Neut % (Auto) 81.1 H Lymph % (Auto) 8.5 L [place] % (Auto) 9.3 Eos % (Auto) 0.6 Baso % (Auto) 0.5 Neut # (Auto) 10.1 H Lymph # (Auto) 1.1 [place] # (Auto) 1.2 H Eos # (Auto) 0.1 Baso # (Auto) 0.1 Neutrophils % (Manual) 83 H Lymphocytes % (Manual) 11 L Monocytes % (Manual) 4 Eosinophils % (Manual) 1 Basophils % (Manual) 1 Platelet Estimate Normal Poikilocytosis (manual Slight Anisocytosis (manual) Slight Macrocytosis (manual) Slight Sodium 141 Potassium 5.3 H Chloride 108 H Carbon Dioxide 17 L Anion Gap 22 H BUN 63 H Creatinine 5.1 H Est GFR ( Amer) 11 Est GFR (Non-Af Amer) 9 Random Glucose 120 H Hemoglobin A1c Calcium 9.3 Phosphorus Magnesium Iron TIBC % Saturation Total Bilirubin 0.5 AST 21 ALT 21 Alkaline Phosphatase 88 Total Protein 8.3 Albumin 3.8 Globulin 4.6 H Albumin/Globulin Ratio 0.8 L Triglycerides Cholesterol LDL Cholesterol Direct HDL Cholesterol Lipase 353 H Vitamin B12 Folate Urine Color Straw Urine Clarity Clear Urine pH 7.0 Ur Specific [place] 1.012 Urine Protein 2+ H Urine Glucose (UA) 1+ Urine Ketones Negative Urine Blood Negative Urine Nitrate Negative Urine Bilirubin Negative Urine Urobilinogen Normal Ur Leukocyte Esterase Neg Urine WBC (Auto) 1 Ur Squamous Epith Cells 3 Urine Bacteria Rare Urine Opiates Screen Urine Methadone Screen Ur Barbiturates Screen Ur Phencyclidine Scrn Ur Amphetamines Screen U Benzodiazepines Scrn U Oth Cocaine Metabols U Cannabinoids Screen Alcohol, Quantitative < 10 Blood Type Antibody Screen 05/26/17 05/27/17 05/27/17 23:11 05:17 05:17 WBC 12.3 H RBC 2.78 L Hgb 9.1 L Hct 28.4 L MCV 102.2 H MCH 32.8 H MCHC 32.1 L RDW 14.5 Plt Count 269 MPV 8.4 Neut % (Auto) 87.0 H Lymph % (Auto) 6.2 L [place] % (Auto) 6.6 Eos % (Auto) 0.1 Baso % (Auto) 0.1 Neut # (Auto) 10.7 H Lymph # (Auto) 0.8 L [place] # (Auto) 0.8 Eos # (Auto) 0.0 Baso # (Auto) 0.0 Neutrophils % (Manual) 87 H Lymphocytes % (Manual) 6 L Monocytes % (Manual) 7 Eosinophils % (Manual) Basophils % (Manual) Platelet Estimate Normal Poikilocytosis (manual Slight Anisocytosis (manual) Slight Macrocytosis (manual) Sodium 142 Potassium 6.3 H* Chloride 112 H Carbon Dioxide 16 L Anion Gap 20 BUN 59 H Creatinine 4.8 H Est GFR ( Amer) 11 Est GFR (Non-Af Amer) 9 Random Glucose 132 H Hemoglobin A1c Calcium 9.1 Phosphorus 4.7 H Magnesium 1.4 L Iron TIBC % Saturation Total Bilirubin 0.5 AST 21 ALT 23 Alkaline Phosphatase 92 Total Protein 8.1 Albumin 3.7 Globulin 4.4 H Albumin/Globulin Ratio 0.8 L Triglycerides 153 H Cholesterol 164 LDL Cholesterol Direct 66 HDL Cholesterol 28 L Lipase Vitamin B12 808 Folate > 20.0 Urine Color Urine Clarity Urine pH Ur Specific [place] Urine Protein Urine Glucose (UA) Urine Ketones Urine Blood Urine Nitrate Urine Bilirubin Urine Urobilinogen Ur Leukocyte Esterase Urine WBC (Auto) Ur Squamous Epith Cells Urine Bacteria Urine Opiates Screen Negative Urine Methadone Screen Negative Ur Barbiturates Screen Positive H Ur Phencyclidine Scrn Negative Ur Amphetamines Screen Negative U Benzodiazepines Scrn Negative U Oth Cocaine Metabols Negative U Cannabinoids Screen Positive H Alcohol, Quantitative Blood Type Antibody Screen 05/27/17 05/27/17 05/27/17 05:17 05:17 05:17 WBC RBC Hgb Hct MCV MCH MCHC RDW Plt Count MPV Neut % (Auto) Lymph % (Auto) [place] % (Auto) Eos % (Auto) Baso % (Auto) Neut # (Auto) Lymph # (Auto) [place] # (Auto) Eos # (Auto) Baso # (Auto) Neutrophils % (Manual) Lymphocytes % (Manual) Monocytes % (Manual) Eosinophils % (Manual) Basophils % (Manual) Platelet Estimate Poikilocytosis (manual Anisocytosis (manual) Macrocytosis (manual) Sodium Potassium Chloride Carbon Dioxide Anion Gap BUN Creatinine Est GFR ( Amer) Est GFR (Non-Af Amer) Random Glucose Hemoglobin A1c 5.4 Calcium Phosphorus Magnesium Iron 11 L TIBC 213 L 217 L % Saturation 5 L 6 L Total Bilirubin AST ALT Alkaline Phosphatase Total Protein Albumin Globulin Albumin/Globulin Ratio Triglycerides Cholesterol LDL Cholesterol Direct HDL Cholesterol Lipase Vitamin B12 Folate Urine Color Urine Clarity Urine pH Ur Specific [place] Urine Protein Urine Glucose (UA) Urine Ketones Urine Blood Urine Nitrate Urine Bilirubin Urine Urobilinogen Ur Leukocyte Esterase Urine WBC (Auto) Ur Squamous Epith Cells Urine Bacteria Urine Opiates Screen Urine Methadone Screen Ur Barbiturates Screen Ur Phencyclidine Scrn Ur Amphetamines Screen U Benzodiazepines Scrn U Oth Cocaine Metabols U Cannabinoids Screen Alcohol, Quantitative Blood Type Antibody Screen 05/27/17 05:17 WBC RBC Hgb Hct MCV MCH MCHC RDW Plt Count MPV Neut % (Auto) Lymph % (Auto) [place] % (Auto) Eos % (Auto) Baso % (Auto) Neut # (Auto) Lymph # (Auto) [place] # (Auto) Eos # (Auto) Baso # (Auto) Neutrophils % (Manual) Lymphocytes % (Manual) Monocytes % (Manual) Eosinophils % (Manual) Basophils % (Manual) Platelet Estimate Poikilocytosis (manual Anisocytosis (manual) Macrocytosis (manual) Sodium Potassium Chloride Carbon Dioxide Anion Gap BUN Creatinine Est GFR ( Amer) Est GFR (Non-Af Amer) Random Glucose Hemoglobin A1c Calcium Phosphorus Magnesium Iron TIBC % Saturation Total Bilirubin AST ALT Alkaline Phosphatase Total Protein Albumin Globulin Albumin/Globulin Ratio Triglycerides Cholesterol LDL Cholesterol Direct HDL Cholesterol Lipase Vitamin B12 Folate Urine Color Urine Clarity Urine pH Ur Specific [place] Urine Protein Urine Glucose (UA) Urine Ketones Urine Blood Urine Nitrate Urine Bilirubin Urine Urobilinogen Ur Leukocyte Esterase Urine WBC (Auto) Ur Squamous Epith Cells Urine Bacteria Urine Opiates Screen Urine Methadone Screen Ur Barbiturates Screen Ur Phencyclidine Scrn Ur Amphetamines Screen U Benzodiazepines Scrn U Oth Cocaine Metabols U Cannabinoids Screen Alcohol, Quantitative Blood Type O POSITIVE Antibody Screen Negative Assessment & Plan (1) Hepatitis C carrier Status: Acute (2) ESRD (end stage renal disease) Status: Acute (3) Hypertensive CKD, ESRD on dialysis Status: Acute (4) Hyperkalemia Status: Acute (5) Iron deficiency anemia Status: Acute - Assessment and Plan (Free Text) Plan: Needs permcath- AV access not mature Dialysis later IV Fe check hep panel, HIV follow up chemistries
--- NOTE | 2017-05-27 13:22 | CP.PCM.PCO ---
Physician Communication Note - Physician Communication Note Physician Communication Note: To OR for Permacath today
[2017-05-27 13:54] LABS: CALCIUM 8.9 mg/dl (8.6-10.4)
[2017-05-27] MEDS: Ferric Sodium Gluconat Complex 62.5 mg/5 ml Vial IVPB SCH (14:22)
[2017-05-27] MEDS: Pantoprazole 40 mg EC Tab PO SCH (14:22)
[2017-05-27] MEDS ORDERED: HEPARIN-NS 5,000 UNITS/500 ML 5,000 UNIT/500 ML BAG IV ONE (16:17)
[2017-05-27] MEDS ORDERED: Propofol 10 mg/ml Inj (20 ML) ONE (16:21)
[2017-05-27] MEDS ORDERED: Midazolam 2 MG/2 ML VIAL ONE (16:21)
[2017-05-27] MEDS ORDERED: HYDROmorphone 0.5 mg/0.5 ml ISec IVP PRN (16:28)
[2017-05-27] MEDS ORDERED: ceFAZolin 1 gm in NS 1 GM/100 ML BAG IVPB ONE (16:45)
[2017-05-27] MEDS ORDERED: Lidocaine 2% Inj (20ml) ONE (16:48)
[2017-05-27] MEDS ORDERED: Sodium Chloride 0.9% 0 ML IV ONE (16:49)
--- NOTE | 2017-05-27 17:52 | PCM.SURG1 ---
Surgeon's Initial Post Op Note - Surgeon's Notes Surgeon: Dr. Luis Tap Dancer: Pedro PGY1 Type of Anesthesia: IV Sedation, Local Pre-Operative Diagnosis: Renal Disease Operative Findings: see operative report Post-Operative Diagnosis: same Operation Performed: Right IJ Permacath Placement Specimen/Specimens Removed: none Estimated Blood Loss: EBL {In ML}: 100 Blood Products Given: N/A Drains Used: No Drains Post-Op Condition: Good Date of Surgery/Procedure: 05/27/17 Time of Surgery/Procedure: 17:52
--- NOTE | 2017-05-27 18:52 | RAD ---
HISTORY: R IJ Permacath COMPARISON: No prior. FINDINGS: LUNGS: No active pulmonary disease. PLEURA: No significant pleural effusion identified, no pneumothorax apparent. CARDIOVASCULAR: No radiographic findings to suggest acute or significant cardiovascular disease. Venous access catheter in satisfactory position. OSSEOUS STRUCTURES: No significant abnormalities. VISUALIZED UPPER ABDOMEN: Normal. OTHER FINDINGS: None. IMPRESSION: No adverse findings/ no pneumothorax following PermCath placement which appears to be in satisfactory position.
[2017-05-27 20:52] LABS: HEPATITIS B SURFACE AG Negative (NEGATIVE)
[2017-05-27 20:57] LABS: HEPATITIS B CORE AB NEGATIVE (NEGATIVE)
[2017-05-27 22:12] LABS: HEPATITIS C ANTIBODY REACTIVE (NEGATIVE)
[2017-05-27] MEDS: HYDROmorphone 0.5 mg/0.5 ml ISec IVP PRN (23:58)
[2017-05-28] MEDS: Sodium Chloride 0.9% 1,000 ML IV SCH ×2 (01:14→08:04)
--- NOTE | 2017-05-28 04:58 | OP ---
PROCEDURE DATE: 05/27/2017 PREOPERATIVE DIAGNOSIS: Renal failure. POSTOPERATIVE DIAGNOSIS: Renal failure. PROCEDURES CARRIED OUT: Placement of Perm-A-Cath in right jugular vein with C-arm fluoroscopy with ultrasound-guided puncture and micropuncture technique. SURGEON: Ankur Luis Jr., MD BOARD CERTIFIED ORTHODONTIST: Dr. Grayson Vasquez. ANESTHESIOLOGIST: Mr. Hernandez. INDICATIONS: The patient is a 52-year-old woman who recently had a fistula created in left arm in another hospital, which is excellent fistula, but is not ready for use. OPERATIVE FINDINGS: The catheter was inserted relatively uneventfully via the jugular vein. Using micropuncture technique and ultrasound guidance, the right jugular vein was cannulated. Under fluoroscopic control, the guidewire was advanced centrally. The initial wire did not go as planned. We have to open the second kit to allow for the second puncture. After this, stent underwent unremarkably. We then brought the catheter out in the appropriate location on the right chest wall, had good flow both in and out ____ ,so the catheter originated on the right chest wall, went to the jugular vein, and terminated in the superior vena cava. It was secured to the skin with sutures, and the procedure was terminated. So the operation carried out was Perm-A-Cath in right jugular vein with C-arm fluoroscopy with ultrasound-guided puncture and micropuncture technique. Ultrasound images of the neck showed that the vein was 13 mm in diameter with normal compressibility and no intraluminal thrombosis. Ankur Luis Jr., MD
[2017-05-28] MEDS: HYDROmorphone 0.5 mg/0.5 ml ISec IVP PRN (05:20)
--- NOTE | 2017-05-28 07:53 | CP.PCM.PN ---
Subjective - Date & Time of Evaluation Date of Evaluation: 05/28/17 Time of Evaluation: 07:00 - Subjective Subjective: Vascular Surgery progress note. Dr. Luis Pt seen and examined at bedside. No N/V/D. No Abdominal pain. Does report some tenderness at right chest permacath site. No new complaints. Objective - Vital Signs/Intake and Output Vital Signs (last 24 hours): Temp Pulse Resp BP Pulse Ox 99.2 F 103 H 20 155/87 H 97 05/28/17 00:24 05/28/17 00:24 05/28/17 00:24 05/28/17 00:24 05/28/17 00:24 Intake and Output: 05/28/17 05/28/17 06:59 18:59 Intake Total 800 Balance 800 - Medications Medications: Current Medications Albuterol Sulfate (Albuterol 0.083% Inhal Linda (2.5 Mg/3 Ml) Ud) 2.5 mg INH RQ6 PRN PRN Reason: Shortness of Breath Amlodipine Besylate (Norvasc) 5 mg PO DAILY [facility] Last Admin: 05/27/17 09:04 Dose: 5 mg Calcium Acetate (Phoslo) 667 mg PO TIDCC [facility] Last Admin: 05/27/17 23:03 Dose: Not Given Ferric Sodium Gluconate Complex (Ferrlecit) 125 mg IVPB DAILY [facility] Stop: 06/04/17 14:01 Last Admin: 05/27/17 14:22 Dose: 125 mg Folic Acid (Folic Acid) 1 mg PO DAILY [facility] Last Admin: 05/27/17 10:51 Dose: 1 mg Gabapentin (Neurontin) 100 mg PO DAILY [facility] Heparin Sodium (Porcine) (Heparin) 5,000 units SC Q12 [facility] Last Admin: 05/27/17 10:52 Dose: 5,000 units Hydromorphone HCl (Dilaudid) 0.5 mg IVP Q4H PRN PRN Reason: Pain, moderate (4-7) Last Admin: 05/28/17 05:20 Dose: 0.5 mg Sodium Chloride (Sodium Chloride 0.9%) 1,000 mls @ 100 mls/hr IV .Q10H [facility] Last Admin: 05/28/17 01:14 Dose: 100 mls/hr Lorazepam (Ativan) 1 mg IVP Q4H PRN PRN Reason: Symptoms of alcohol withdrawl Multivitamins (Hexavitamin) 1 tab PO DAILY [facility] Last Admin: 05/27/17 10:51 Dose: 1 tab Pantoprazole Sodium (Protonix Ec Tab) 40 mg PO DAILY [facility] Last Admin: 05/27/17 14:22 Dose: 40 mg Rosuvastatin Calcium (Crestor) 5 mg PO HS [facility] Last Admin: 05/27/17 23:03 Dose: Not Given Thiamine HCl (Vitamin B1 Tab) 100 mg PO DAILY [facility] Last Admin: 05/27/17 10:56 Dose: 100 mg - Labs Labs: 05/27/17 05:17 05/27/17 13:28 - Constitutional Appears: Well, Non-toxic - Head Exam Head Exam: ATRAUMATIC, NORMAL INSPECTION, NORMOCEPHALIC - Eye Exam Eye Exam: EOMI - ENT Exam ENT Exam: Mucous Membranes Moist - Respiratory Exam Respiratory Exam: NORMAL BREATHING PATTERN. absent: Accessory Muscle Use, Respiratory Distress - Cardiovascular Exam Cardiovascular Exam: absent: RRR Additional comments: Right chest wall permacath site tender to palpation. Dressings clean, dry and intact. No signs of bleeding. - GI/Abdominal Exam GI & Abdominal Exam: Soft. absent: Distended, Guarding, Rigid, Tenderness - Extremities Exam Extremities Exam: Normal Inspection. absent: Calf Tenderness - Neurological Exam Neurological Exam: Alert, Awake, Oriented x3 - Skin Skin Exam: Dry, Intact, Normal Color, Warm Assessment and Plan - Assessment and Plan (Free Text) Assessment: 52yo F s/p Right IJ Permacath placement. POD 1 Plan: - monitor for signs of bleeding - may continue to use permacath for HD until AVF matures - No further vascular surgery intervention Further recs as per Dr. Janelle Vasquez PGY1 surgery pager: [phone]
[2017-05-28 08:40] LABS: BASO % 0.4 % (0.0-2.0); EOS # 0.1 K/uL (0.0-0.7); EOS % 0.5 % (0.0-4.0); HEMOGLOBIN 7.6 g/dL (11.0-16.0); LYMPH # 1.2 K/uL (1.0-4.3); LYMPH % 10.6 % (20.0-40.0); MEAN CELL VOLUME 100.8 fL (81.0-99.0); MEAN CORPUSCULAR HEMOGLOBIN 32.7 pg (27.0-31.0); MEAN CORPUSCULAR HGB CONC 32.4 g/dL (33.0-37.0); MEAN PLATELET VOLUME 8.1 fL (7.2-11.7); MONO # 0.8 K/uL (0.0-0.8); MONO % 7.6 % (0.0-10.0); NEUT % 80.9 % (50.0-75.0); RBC 2.32 Mil/uL (3.80-5.20); RED CELL DISTRIBUTION WIDTH 14.4 % (11.5-14.5); WHITE BLOOD COUNT 11.1 K/uL (4.8-10.8)
[2017-05-28 09:03] LABS: ALB/GLOB RATIO 0.8 (1.0-2.1); ALBUMIN 3.2 g/dL (3.5-5.0)
--- NOTE | 2017-05-28 10:19 | CP.PCM.PN ---
Addendum entered and electronically signed by Laurie Power 05/28/17 16:39 : Hepatitis C Hepatitis C Ab: reactive Patient must follow up outpatient for further long-term management. Original Note: <Laurie Power - Last Filed: 05/28/17 15:42> Subjective - Date & Time of Evaluation Date of Evaluation: 05/28/17 Time of Evaluation: 10:16 - Subjective Subjective: Medicine progress note for Dr. Pacheco's service Pateint was seen and examined at bedside in no acute distress. Patient reports having abdominal pain in the rlq and epigastric areas. She also reports she is hungry, but has a decreased appetite. She is interested in trying clear liquids today. Patient says she had a normal BM this morning. Paitent denies chest pain , nausea, vomiting, leg pain and swelling, dyspnea, and dysuria. Objective - Vital Signs/Intake and Output Vital Signs (last 24 hours): Temp Pulse Resp BP Pulse Ox 99.8 F H 100 H 18 130/77 100 05/28/17 07:25 05/28/17 07:25 05/28/17 07:25 05/28/17 07:25 05/28/17 07:25 Intake and Output: 05/28/17 05/28/17 06:59 18:59 Intake Total 800 Balance 800 - Medications Medications: Current Medications Albuterol Sulfate (Albuterol 0.083% Inhal Linda (2.5 Mg/3 Ml) Ud) 2.5 mg INH RQ6 PRN PRN Reason: Shortness of Breath Amlodipine Besylate (Norvasc) 5 mg PO DAILY [facility] Last Admin: 05/27/17 09:04 Dose: 5 mg Calcium Acetate (Phoslo) 667 mg PO TIDCC [facility] Last Admin: 05/28/17 08:21 Dose: 667 mg Ferric Sodium Gluconate Complex (Ferrlecit) 125 mg IVPB DAILY [facility] Stop: 06/04/17 14:01 Last Admin: 05/27/17 14:22 Dose: 125 mg Folic Acid (Folic Acid) 1 mg PO DAILY [facility] Last Admin: 05/27/17 10:51 Dose: 1 mg Gabapentin (Neurontin) 100 mg PO DAILY [facility] Heparin Sodium (Porcine) (Heparin) 5,000 units SC Q12 [facility] Last Admin: 05/27/17 10:52 Dose: 5,000 units Hydromorphone HCl (Dilaudid) 0.5 mg IVP Q4H PRN PRN Reason: Pain, moderate (4-7) Last Admin: 05/28/17 05:20 Dose: 0.5 mg Sodium Chloride (Sodium Chloride 0.9%) 1,000 mls @ 100 mls/hr IV .Q10H [facility] Last Admin: 05/28/17 08:04 Dose: Not Given Lorazepam (Ativan) 1 mg IVP Q4H PRN PRN Reason: Symptoms of alcohol withdrawl Multivitamins (Hexavitamin) 1 tab PO DAILY [facility] Last Admin: 05/27/17 10:51 Dose: 1 tab Pantoprazole Sodium (Protonix Ec Tab) 40 mg PO DAILY [facility] Last Admin: 05/27/17 14:22 Dose: 40 mg Rosuvastatin Calcium (Crestor) 5 mg PO HS [facility] Last Admin: 05/27/17 23:03 Dose: Not Given Thiamine HCl (Vitamin B1 Tab) 100 mg PO DAILY [facility] Last Admin: 05/27/17 10:56 Dose: 100 mg - Labs Labs: 05/28/17 08:36 05/28/17 08:36 - Additional Findings Additional findings: - Constitutional Appears: No Acute Distress - Head Exam Head Exam: ATRAUMATIC, NORMAL INSPECTION - Eye Exam Eye Exam: EOMI, Normal appearance - ENT Exam ENT Exam: Mucous Membranes Moist - Respiratory Exam Respiratory Exam: Clear to Ausculation Bilateral, Respiratory Distress, NORMAL BREATHING PATTERN. absent: Rales, Rhonchi, Wheezes - Cardiovascular Exam Cardiovascular Exam: REGULAR RHYTHM, +S1, +S2 - GI/Abdominal Exam GI & Abdominal Exam: Soft, Tenderness (mild epigastric with palpation), Normal Bowel Sounds. absent: Distended - Extremities Exam Extremities Exam: Normal Inspection. absent: Pedal Edema, Tenderness - Neurological Exam Neurological Exam: Alert, Awake, Oriented x3 - Psychiatric Exam Psychiatric exam: Normal Affect, Normal Mood - Skin Skin Exam: Dry, Intact, Normal Color, Warm; right chest-dialysis catheter; left UE AV fistula Assessment and Plan (1) Alcohol abuse Status: Acute (2) Acute on chronic pancreatitis Status: Acute (3) ESRD (end stage renal disease) Status: Acute (4) Hyperkalemia Status: Acute - Assessment and Plan (Free Text) Plan: Pancreatitis * CT abd: chronic calcific pancreatitis, gastric wall thickening with cystic lesion in the gastric wall possibly pseudocyst, cystic lesion in the spleen, mild duodenal and proximal jejunal wall thickening, no bowel obstruction * Lipase: .353 * Discontinued morphine .5mg q6h prn for pain (patient's pain is mild with deep palpation; otherwise, abdominal exam is negative; no facial grimacing) * Advanced diet to [facility]D * NS @100cc/hr Hyperkalemia * K+: 5.3 at admission, Kayexalate given * Repeat CMP showed K+ increased to 6.9--> Kayexalate, calcium gluconate, sodium bicarb was given once * Repeat BMP s/p medications--> K+ 4.9 * EKG: sinus tach * Continue to monitor * s/p dialysis, electrolytes have improved Anemia * H/H: 8.6/26.8 * Feosol 325mg daily * Iron, TIBC, %sat- low; likely due to iron deficiency and ERSD * 05/28/17, Hgb 7.6--> type and cross ordered * Transfused 1 unit PRBC on 05/28/17 * Bedside guaiac performed by resident- negative ESRD * [place] [facility] [place] * Dialysis MWF via phillip-cath * Nephro, Dr. Guzman consulted, help appreciated * Per nephro, patient will get dialysis today, 05/26/17, post phillip-cath placement with Dr. Luis * Surgery consult: Dr. Luis, help appreciated * patient going to the OR for portacath placement 05/26/17 * s/p dialysis- BUN/Cr * Continue to monitor BUN/Cr Fever * Blood cx: f/u results * Urine cx: f/u results * Lactate: 0.7 * Ice packs applied and Ibuprofen given once on 05/27/17 * Ibuprofen given for fever and pain on 05/28/17 Alcohol abuse * Seizure precautions * CIWA protocol * Ativan 1 mg q4h PRN * Folic Acid, Thiamine, Multivitamin HTN * Amlodipine 5mg po daily * continue to monitor HLD * Crestor 5mg po HS Asthma * Albuterol nebulizer q6h PRN Prophylaxis * SCDs * Protonix 40mg po daily * Heparin 5000 sc- HOLD, anemia * Advance diet to [facility]D <Waqar Pachecoantonio Avendano - Last Filed: 05/28/17 20:00> Objective - Vital Signs/Intake and Output Vital Signs (last 24 hours): Temp Pulse Resp BP Pulse Ox 98.7 F 92 H 18 125/66 96 05/28/17 18:01 05/28/17 16:52 05/28/17 15:21 05/28/17 15:21 05/28/17 15:21 Intake and Output: 05/28/17 05/29/17 18:59 06:59 Intake Total 600 Balance 600 - Medications Medications: Current Medications Acetaminophen (Tylenol 325mg Tab) 650 mg PO Q6 PRN Stop: 05/29/17 18:00 Last Admin: 05/28/17 18:01 Dose: 650 mg Albuterol Sulfate (Albuterol 0.083% Inhal Linda (2.5 Mg/3 Ml) Ud) 2.5 mg INH RQ6 PRN PRN Reason: Shortness of Breath Amlodipine Besylate (Norvasc) 5 mg PO DAILY [facility] Last Admin: 05/28/17 10:48 Dose: 5 mg Calcium Acetate (Phoslo) 667 mg PO TIDCC [facility] Last Admin: 05/28/17 17:10 Dose: 667 mg Ferric Sodium Gluconate Complex (Ferrlecit) 125 mg IVPB DAILY [facility] Stop: 06/04/17 14:01 Last Admin: 05/28/17 10:48 Dose: 125 mg Folic Acid (Folic Acid) 1 mg PO DAILY [facility] Last Admin: 05/28/17 10:48 Dose: 1 mg Gabapentin (Neurontin) 100 mg PO DAILY [facility] Last Admin: 05/28/17 10:49 Dose: 100 mg Heparin Sodium (Porcine) (Heparin) 5,000 units SC Q12 [facility] Last Admin: 05/28/17 13:21 Dose: Not Given Hydromorphone HCl (Dilaudid) 0.5 mg IVP Q4H PRN PRN Reason: Pain, moderate (4-7) Last Admin: 05/28/17 05:20 Dose: 0.5 mg Lorazepam (Ativan) 1 mg IVP Q4H PRN PRN Reason: Symptoms of alcohol withdrawl Multivitamins (Hexavitamin) 1 tab PO DAILY [facility] Last Admin: 03/20/18 10:48 Dose: 1 tab Pantoprazole Sodium (Protonix Ec Tab) 40 mg PO DAILY [facility] Last Admin: 05/28/17 10:49 Dose: 40 mg Rosuvastatin Calcium (Crestor) 5 mg PO HS [facility] Last Admin: 05/27/17 23:03 Dose: Not Given Thiamine HCl (Vitamin B1 Tab) 100 mg PO DAILY [facility] Last Admin: 05/28/17 10:48 Dose: 100 mg - Labs Labs: 05/28/17 18:01 05/28/17 08:36 Attending/Attestation - Attestation I have personally seen and examined this patient.: Yes I have fully participated in the care of the patient.: Yes I have reviewed all pertinent clinical information, including history, physical exam and plan: Yes Notes (Text): 05/28/17 19:51 Patient was seen and examined at 4:30 PM 05/28/17 569 A Exam, assessment and plan were gone over with the resident. Also on ROS: NO n/v with the start of clear liquids NO abdominal pain at the time of my exam Also on Exam: GI: BS x 4, NT, ND, NO HSM, NO gaurding/rebound tenderness Patient is NPO after midnight tonight for Upper EGD with Dr. Henderson in the morning 05/29/17 to rule out gastric cyst. Low HgB/Hct and patient to require transfusion. However notified by Nurse Blake that blood work was drawn proximal to NS infusion. Therefore CBC was repeated and HgB/Hct still low therefor explained to Nurse Blake to transfuse already ordered unit at 8:30 PM and another unit at 1:30 AM. Bedside Guaiac performed by resident was negative. Patient for HD #2 05/29/17. F/U Blood and Urine Cultures Please note that when further questioned patient explained that Tylenol caused her to have some nausea in the past but NO edema, NO tongue swelling, NO throat discomfort/dysphagia/odynophagia, NO pruritis, NO rashes. Therefore Tylenol will be used for Fever and/or pain as needed. Loc Pacheco D.O.
--- NOTE | 2017-05-28 10:38 | CP.PCM.PN ---
Subjective - Date & Time of Evaluation Date of Evaluation: 05/28/17 Time of Evaluation: 10:37 - Subjective Subjective: seen and examined hgb 7.6 hep c positive s/p rt permcath s/p first hd last night no n/v/d/sob/cp/cough/f/c/dizziness/weakness/numbness/rash Objective - Vital Signs/Intake and Output Vital Signs (last 24 hours): Temp Pulse Resp BP Pulse Ox 99.8 F H 100 H 18 130/77 100 05/28/17 07:25 05/28/17 07:25 05/28/17 07:25 05/28/17 07:25 05/28/17 07:25 Intake and Output: 05/28/17 05/28/17 06:59 18:59 Intake Total 800 Balance 800 - Medications Medications: Current Medications Albuterol Sulfate (Albuterol 0.083% Inhal Linda (2.5 Mg/3 Ml) Ud) 2.5 mg INH RQ6 PRN PRN Reason: Shortness of Breath Amlodipine Besylate (Norvasc) 5 mg PO DAILY [facility] Last Admin: 05/27/17 09:04 Dose: 5 mg Calcium Acetate (Phoslo) 667 mg PO TIDCC [facility] Last Admin: 05/28/17 08:21 Dose: 667 mg Ferric Sodium Gluconate Complex (Ferrlecit) 125 mg IVPB DAILY [facility] Stop: 06/04/17 14:01 Last Admin: 05/27/17 14:22 Dose: 125 mg Folic Acid (Folic Acid) 1 mg PO DAILY [facility] Last Admin: 05/27/17 10:51 Dose: 1 mg Gabapentin (Neurontin) 100 mg PO DAILY [facility] Heparin Sodium (Porcine) (Heparin) 5,000 units SC Q12 [facility] Last Admin: 05/27/17 10:52 Dose: 5,000 units Hydromorphone HCl (Dilaudid) 0.5 mg IVP Q4H PRN PRN Reason: Pain, moderate (4-7) Last Admin: 05/28/17 05:20 Dose: 0.5 mg Sodium Chloride (Sodium Chloride 0.9%) 1,000 mls @ 100 mls/hr IV .Q10H [facility] Last Admin: 05/28/17 08:04 Dose: Not Given Lorazepam (Ativan) 1 mg IVP Q4H PRN PRN Reason: Symptoms of alcohol withdrawl Multivitamins (Hexavitamin) 1 tab PO DAILY [facility] Last Admin: 05/27/17 10:51 Dose: 1 tab Pantoprazole Sodium (Protonix Ec Tab) 40 mg PO DAILY [facility] Last Admin: 05/27/17 14:22 Dose: 40 mg Rosuvastatin Calcium (Crestor) 5 mg PO HS [facility] Last Admin: 05/27/17 23:03 Dose: Not Given Thiamine HCl (Vitamin B1 Tab) 100 mg PO DAILY [facility] Last Admin: 05/27/17 10:56 Dose: 100 mg - Labs Labs: 05/28/17 08:36 05/28/17 08:36 - Constitutional Appears: Non-toxic, No Acute Distress, Chronically Ill - Head Exam Head Exam: NORMAL INSPECTION, NORMOCEPHALIC - Eye Exam Eye Exam: Normal appearance, PERRL - ENT Exam ENT Exam: Mucous Membranes Moist, Normal Exam - Neck Exam Neck Exam: Full ROM (rt chest permcath), Normal Inspection - Respiratory Exam Respiratory Exam: Clear to Ausculation Bilateral, NORMAL BREATHING PATTERN - Cardiovascular Exam Cardiovascular Exam: REGULAR RHYTHM, RRR - GI/Abdominal Exam GI & Abdominal Exam: Distended, Soft - Extremities Exam Extremities Exam: Full ROM (lue avf thrill), Normal Inspection - Neurological Exam Neurological Exam: Alert, Awake, Oriented x3 - Psychiatric Exam Psychiatric exam: Normal Affect, Normal Mood - Skin Skin Exam: Dry, Intact Assessment and Plan (1) Acute on chronic pancreatitis Status: Acute (2) Alcohol abuse Status: Acute (3) ESRD (end stage renal disease) Status: Acute (4) Hepatitis C carrier Status: Acute (5) Hyperkalemia Status: Acute (6) Iron deficiency anemia Status: Acute - Assessment and Plan (Free Text) Assessment: iv iron, tara consider blood transfusion, repeat hgb later today permcath in place hd tomorrow outpt placement, sw aware may dc iv fluids
[2017-05-28] MEDS: Multiple Vitamins Tab PO SCH (10:48)
[2017-05-28] MEDS: Ferric Sodium Gluconat Complex 62.5 mg/5 ml Vial IVPB SCH (10:48)
[2017-05-28] MEDS: Pantoprazole 40 mg EC Tab PO SCH (10:49)
--- NOTE | 2017-05-28 12:47 | PN ---
DATE: 05/28/2017. LOCATION: [facility], bed A. SUBJECTIVE: This is 52 years old female seen for GI consultation initially on 05/27/2017, reexamined again today with a complaint of abdominal pain on and off as well as some severe discomfort around the new Perma catheter, but appeared to be awake, alert, and oriented. The entire chart is reviewed including, but not limited to the most recent lab and radiologist study results current and previous medications list, current and previous medical events. Today's lab is still pending but the patient had leucocytosis with low hemoglobin and hematocrit, but normal platelet count with low CO2 content of 17 indicative of metabolic acidosis, BUN is 53, creatinine is 4.6 with normal liver function test, but elevated triglyceride with elevated lipase initially 353. Initial CAT scan of the abdomen and pelvis report reviewed indicative of chronic calcified pancreatitis with cystic lesion in the gastric wall most likely pseudocyst with cystic lesion in the spleen. PHYSICAL EXAMINATION: GENERAL: A 52 years old female. VITAL SIGNS: Temperature of 99.2, pulse of 100, blood pressure 150/80, with respiratory rate 20 to 22. HEENT: Showed pale, dry mucous membrane. Nonicteric sclerae. LUNGS: Few scattered crepitations with decreased air entry at bases. HEART: Positive S1 and S2. ABDOMEN: Soft tenderness. No mass or organomegaly. No rebound tenderness or guarding. RECTAL: The patient refused. EXTREMITIES: Without significant clubbing, cyanosis or edema. NEUROLOGIC: No reported new neurological deficits, sensory or motor. IMPRESSION: 1. Reexacerbation of acute pancreatitis on top of chronic pancreatitis. 2. Know history of hypertension, bronchial asthma and chronic renal disease on hemodialysis. 3. History of substance abuse. 4. Abnormal CAT scan of the abdomen and pelvis with evidence of gastritis as well as gastric cystic lesion as well as splenic cystic lesion. SUGGESTIONS: 1. Agree with your plan. 2. Proton pump inhibitors. 3. Repeat serum, lipase, amylase level. 4. Upper GI with small bowel follow through. 5. The patient may need upper endoscopy when she is more stable clinically. 6. Correct underlying electrolyte imbalance. 7. Further recommendation to follow. Alfonso Kent MD
[2017-05-28] MEDS ORDERED: Magnesium Sulfate 1 gm in D5W 1 GM/100 ML BAG IVPB ONE (13:02)
--- NOTE | 2017-05-28 15:17 | RAD ---
PROCEDURE: Intraoperative Fluoroscopy. HISTORY: RENAL FAILURE FINDINGS: Fluoroscopic assistance was provided for venous access. Please refer to the operative report from PORTIA Whitney , MD ANTONIO. Total fluoroscopic time (continuous mode) utilized during the procedure: 49.8 seconds. Total exam DLP: (mGy) 8.38. .
[2017-05-28 18:04] LABS: BASO % 0.3 % (0.0-2.0); EOS # 0.1 K/uL (0.0-0.7); EOS % 0.6 % (0.0-4.0); LYMPH # 1.2 K/uL (1.0-4.3); MEAN CELL VOLUME 100.4 fL (81.0-99.0); MEAN CORPUSCULAR HEMOGLOBIN 32.1 pg (27.0-31.0); MEAN PLATELET VOLUME 8.9 fL (7.2-11.7); MONO % 8.6 % (0.0-10.0); NEUT # 9.6 K/uL (1.8-7.0); NEUT % 80.5 % (50.0-75.0); RBC 2.19 Mil/uL (3.80-5.20); RED CELL DISTRIBUTION WIDTH 14.3 % (11.5-14.5); WHITE BLOOD COUNT 11.9 K/uL (4.8-10.8)
--- NOTE | 2017-05-28 19:13 | CARD ---
APPROVED REPORT EKG Measurement Heart [id number] <Conclusion> Normal sinus rhythm Normal ECG
--- NOTE | 2017-05-28 19:15 | CARD ---
APPROVED REPORT EKG Measurement Heart [id number] <Conclusion> Sinus tachycardia Otherwise normal ECG
[2017-05-29] MEDS ORDERED: Aluminum Hydroxide/Magnesium Hydroxide Susp (30 mL) PO STA (00:07)
[2017-05-29] MEDS: HYDROmorphone 0.5 mg/0.5 ml ISec IVP PRN (03:05)
--- NOTE | 2017-05-29 07:05 | CP.PCM.PN ---
<Laurie Power - Last Filed: 05/29/17 12:49> Subjective - Date & Time of Evaluation Date of Evaluation: 05/29/17 Time of Evaluation: 07:05 - Subjective Subjective: Medicine progress note for Dr. Pacheco's service Patient was seen and examined at bedside in no acute distress. Patient is upset that she keeps getting pricked and bruised with needles; she also did not like her liquid diet because it has no flavor; however, she tolerated the diet. Denies nausea/vomiting, diarrhea, constipation. She had a normal BM this morning. She also complains that she was given tylenol overnight as she says it causes her abdominal pain. Patient reports she has abdominal "soreness" but not pain. Patient denies chest pain, n/v, diarrhea, constipation, leg pain/swelling , dysuria, shortness of breath. Objective - Vital Signs/Intake and Output Vital Signs (last 24 hours): Temp Pulse Resp BP Pulse Ox 99.4 F 87 20 128/72 98 05/29/17 03:40 05/29/17 03:40 05/29/17 03:40 05/29/17 03:40 05/29/17 00:07 Intake and Output: 05/29/17 05/29/17 06:59 18:59 Intake Total 1649 Balance 1649 - Medications Medications: Current Medications Acetaminophen (Tylenol 325mg Tab) 650 mg PO Q6 PRN Stop: 05/29/17 18:00 Last Admin: 05/28/17 18:01 Dose: 650 mg Albuterol Sulfate (Albuterol 0.083% Inhal Linda (2.5 Mg/3 Ml) Ud) 2.5 mg INH RQ6 PRN PRN Reason: Shortness of Breath Amlodipine Besylate (Norvasc) 5 mg PO DAILY [facility] Last Admin: 05/28/17 10:48 Dose: 5 mg Calcium Acetate (Phoslo) 667 mg PO TIDCC [facility] Last Admin: 05/28/17 17:10 Dose: 667 mg Ferric Sodium Gluconate Complex (Ferrlecit) 125 mg IVPB DAILY [facility] Stop: 06/04/17 14:01 Last Admin: 05/28/17 10:48 Dose: 125 mg Folic Acid (Folic Acid) 1 mg PO DAILY [facility] Last Admin: 05/28/17 10:48 Dose: 1 mg Gabapentin (Neurontin) 100 mg PO DAILY [facility] Last Admin: 05/28/17 10:49 Dose: 100 mg Heparin Sodium (Porcine) (Heparin) 5,000 units SC Q12 [facility] Last Admin: 05/28/17 13:21 Dose: Not Given Hydromorphone HCl (Dilaudid) 0.5 mg IVP Q4H PRN PRN Reason: Pain, moderate (4-7) Last Admin: 05/29/17 03:05 Dose: 0.5 mg Lorazepam (Ativan) 1 mg IVP Q4H PRN PRN Reason: Symptoms of alcohol withdrawl Multivitamins (Hexavitamin) 1 tab PO DAILY [facility] Last Admin: 05/28/17 10:48 Dose: 1 tab Pantoprazole Sodium (Protonix Ec Tab) 40 mg PO DAILY [facility] Last Admin: 05/28/17 10:49 Dose: 40 mg Rosuvastatin Calcium (Crestor) 5 mg PO HS [facility] Last Admin: 05/28/17 21:36 Dose: 5 mg Thiamine HCl (Vitamin B1 Tab) 100 mg PO DAILY [facility] Last Admin: 05/28/17 10:48 Dose: 100 mg - Labs Labs: 05/28/17 18:01 05/28/17 08:36 - Additional Findings Additional findings: - Constitutional Appears: No Acute Distress - Head Exam Head Exam: ATRAUMATIC, NORMAL INSPECTION - Eye Exam Eye Exam: EOMI, Normal appearance - ENT Exam ENT Exam: Mucous Membranes Moist - Respiratory Exam Respiratory Exam: Wheezes, Respiratory Distress, NORMAL BREATHING PATTERN. absent: Rales, Rhonchi - Cardiovascular Exam Cardiovascular Exam: REGULAR RHYTHM, +S1, +S2 - GI/Abdominal Exam GI & Abdominal Exam: Soft, Tenderness (diffuse with palpation), Normal Bowel Sounds. absent: Distended - Extremities Exam Extremities Exam: Normal Inspection. absent: Pedal Edema, Tenderness - Neurological Exam Neurological Exam: Alert, Awake, Oriented x3 - Psychiatric Exam Psychiatric exam: Normal Affect, Normal Mood - Skin Skin Exam: Dry, Intact, Normal Color, Warm; right chest-dialysis catheter; left UE AV fistula Assessment and Plan (1) Alcohol abuse Status: Acute (2) Acute on chronic pancreatitis Status: Acute (3) ESRD (end stage renal disease) Status: Acute (4) Hyperkalemia Status: Acute - Assessment and Plan (Free Text) Plan: Pancreatitis * CT abd: chronic calcific pancreatitis, gastric wall thickening with cystic lesion in the gastric wall possibly pseudocyst, cystic lesion in the spleen, mild duodenal and proximal jejunal wall thickening, no bowel obstruction * Lipase: .353 * GI consulted- Dr. Henderson, help appreciated * Patient is NPO for EGD scheduled for 05/29/17. 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 * Advanced diet as tolerated * NS @100cc/hr * Sucralfate 1g PO QID for 8 weeks (per GI) * Reglan 5mg IV TID PRN (per GI) Hyperkalemia * K+: 5.3 at admission, Kayexalate given * Repeat CMP showed K+ increased to 6.9--> Kayexalate, calcium gluconate, sodium bicarb was given once * Repeat BMP s/p medications--> K+ 4.9 * EKG: sinus tach * Continue to monitor * s/p dialysis, electrolytes have improved Anemia * H/H: 8.6/26.8 * Feosol 325mg daily * Iron, TIBC, %sat- low * 05/28/17, Hgb 7.6--> type and cross ordered * Transfused 2 unit PRBC on 05/28/17--> Hgb 9.4 * Bedside guaiac performed by resident- negative ESRD * AV fistula (LUE) placed at [facility] 1 week prior to admission (per patient) * Dialysis MWF via phillip-cath * Nephro, Dr. Guzman consulted, help appreciated * Per nephro, patient will get dialysis today, 05/26/17, post phillip-cath placement with Dr. Luis * Surgery consult: Dr. Luis, help appreciated * Portacath placement 05/26/17 * Continue to monitor BUN/Cr Fever * Blood cx: negative x24hr * Urine cx: f/u results * Lactate: 0.7 * Ice packs applied and Ibuprofen given once on 05/27/17 * Ibuprofen given for fever and pain on 05/28/17 * Tylenol may be given for fever/pain per Dr. Pacheco who spoke with patient about reaction to tylenol. Hepatitis C * Hepatitis C Ab: reactive * Patient must follow up outpatient for further fpc management. Alcohol abuse * Seizure precautions * CIWA protocol * Ativan 1 mg q4h PRN * Folic Acid, Thiamine, Multivitamin HTN * Amlodipine 5mg po daily * continue to monitor HLD * Crestor 5mg po HS Asthma * Albuterol nebulizer q6h PRN Prophylaxis * SCDs * Protonix 40mg po daily * Heparin 5000 sc- HOLD, anemia * Advance diet to CLD * NO NARCOTICS <Loc Pacheco - Last Filed: 05/29/17 15:40> Objective - Vital Signs/Intake and Output Vital Signs (last 24 hours): Temp Pulse Resp BP Pulse Ox 99.1 F 92 H 20 144/81 100 05/29/17 12:05 05/29/17 12:24 05/29/17 12:05 05/29/17 12:05 05/29/17 11:41 Intake and Output: 05/29/17 05/29/17 06:59 18:59 Intake Total 1649 150 Balance 1649 150 - Medications Medications: Current Medications Acetaminophen (Tylenol 325mg Tab) 650 mg PO Q6 PRN Stop: 05/29/17 18:00 Last Admin: 05/28/17 18:01 Dose: 650 mg Albuterol Sulfate (Albuterol 0.083% Inhal Linda (2.5 Mg/3 Ml) Ud) 2.5 mg INH RQ6 PRN PRN Reason: Shortness of Breath Amlodipine Besylate (Norvasc) 5 mg PO DAILY [facility] Last Admin: 05/29/17 13:56 Dose: Not Given Calcium Acetate (Phoslo) 667 mg PO TIDCC [facility] Last Admin: 05/29/17 13:56 Dose: Not Given Ferric Sodium Gluconate Complex (Ferrlecit) 125 mg IVPB DAILY [facility] Stop: 06/04/17 14:01 Last Admin: 05/28/17 10:48 Dose: 125 mg Folic Acid (Folic Acid) 1 mg PO DAILY [facility] Last Admin: 05/29/17 13:56 Dose: Not Given Gabapentin (Neurontin) 100 mg PO DAILY [facility] Last Admin: 05/29/17 13:56 Dose: Not Given Heparin Sodium (Porcine) (Heparin) 5,000 units SC Q12 [facility] Last Admin: 05/28/17 13:21 Dose: Not Given Lorazepam (Ativan) 1 mg IVP Q4H PRN PRN Reason: Symptoms of alcohol withdrawl Multivitamins (Hexavitamin) 1 tab PO DAILY [facility] Last Admin: 05/29/17 13:56 Dose: Not Given Pantoprazole Sodium (Protonix Ec Tab) 40 mg PO DAILY [facility] Last Admin: 05/29/17 13:56 Dose: Not Given Rosuvastatin Calcium (Crestor) 5 mg PO HS [facility] Last Admin: 05/28/17 21:36 Dose: 5 mg Thiamine HCl (Vitamin B1 Tab) 100 mg PO DAILY [facility] Last Admin: 05/29/17 13:56 Dose: Not Given - Labs Labs: 05/29/17 07:03 05/29/17 07:03 Attending/Attestation - Attestation I have personally seen and examined this patient.: Yes I have fully participated in the care of the patient.: Yes I have reviewed all pertinent clinical information, including history, physical exam and plan: Yes Notes (Text): 05/29/17 15:30 Patient was seen and examined at 9:15 AM 05/29/17 569 A Exam, assessment and plan were gone over with the resident. Also on ROS: Patient was very frustrated at the time of my exam explaining that she was in and out of hospitals first at [facility] and then here and that doctors kept on ordering tests. Explained to patient that this was because the individuals involved in her health care were concerned about what happened to her. Explained to her that because of her long history of drinking alcohol that her pancreatitis was not healthy and that is why she was in and out of hospitals. Explained to her that her alcohol abuse has also lead to the possibility of the formation of inflammation in her esophagus/stomach/small intestine, formation of ulcers, and/or formation of varices in these areas that may be the cause of her anemia leading to the need for blood transfusions. Also that it was recommended that Upper EGD be performed to check for these things. I also stressed to patient that we were not forcing treatment upon her nor were we keeping her here against her will and that the extent to which she wanted care was up to her. I told her that as her physician, I had the responsibility to the do best that I could for her and I recommended her to continue with the treatment plan. She expressed understanding and appeared to be less frustrated. Also on Exam: Left Arm AV Fistula (+) Thrill Spoke with Dr. Santiago casey Upper EGD and unofficial report is that she has mild varices in the esophagus and stomach as well as gastritis and duodenitis. These are likely secondary to her alcohol abuse Considering her elevated WBC and low grade fevers and her history, MRCP without contrast was ordered to check for possibility of pancreatic cyst/abscess secondary to the history of pancreatitis. Loc Pacheco D.O.
[2017-05-29 07:38] LABS: BASO # 0.1 K/uL (0.0-0.2); EOS # 0.1 K/uL (0.0-0.7); EOS % 0.4 % (0.0-4.0)
[2017-05-29 07:43] LABS: ALB/GLOB RATIO 0.8 (1.0-2.1); CALCIUM 8.6 mg/dl (8.6-10.4)
[2017-05-29 07:45] LABS: BASO % 0.4 % (0.0-2.0); LYMPH # 0.8 K/uL (1.0-4.3); LYMPH % 5.7 % (20.0-40.0); MEAN CORPUSCULAR HEMOGLOBIN 31.8 pg (27.0-31.0); MEAN PLATELET VOLUME 8.4 fL (7.2-11.7); MONO # 0.9 K/uL (0.0-0.8); MONO % 6.9 % (0.0-10.0); NEUT # 11.6 K/uL (1.8-7.0); NEUT % 86.6 % (50.0-75.0); NRBC % 0.1 % (0.0-2.0); PLATELET COUNT 299 K/uL (130-400); RBC 2.97 Mil/uL (3.80-5.20); RED CELL DISTRIBUTION WIDTH 20.3 % (11.5-14.5); WHITE BLOOD COUNT 13.4 K/uL (4.8-10.8)
[2017-05-29 07:58] LABS: HEMOGLOBIN 9.4 g/dL (11.0-16.0)
[2017-05-29 07:59] LABS: MEAN CELL VOLUME 93.4 fL (81.0-99.0)
--- NOTE | 2017-05-29 08:29 | CP.PCM.PN ---
Subjective - Date & Time of Evaluation Date of Evaluation: 05/29/17 Time of Evaluation: 08:26 - Subjective Subjective: lying flat scheduled for HD today c/o some pain no chest pain no sob no nausea no vomiting no itch no fever no headache Objective - Vital Signs/Intake and Output Vital Signs (last 24 hours): Temp Pulse Resp BP Pulse Ox 98.7 F 87 18 125/76 96 05/29/17 07:30 05/29/17 07:30 05/29/17 07:30 05/29/17 07:30 05/29/17 07:30 Intake and Output: 05/29/17 05/29/17 06:59 18:59 Intake Total 1649 Balance 1649 - Medications Medications: Current Medications Acetaminophen (Tylenol 325mg Tab) 650 mg PO Q6 PRN Stop: 05/29/17 18:00 Last Admin: 05/28/17 18:01 Dose: 650 mg Albuterol Sulfate (Albuterol 0.083% Inhal Linda (2.5 Mg/3 Ml) Ud) 2.5 mg INH RQ6 PRN PRN Reason: Shortness of Breath Amlodipine Besylate (Norvasc) 5 mg PO DAILY [facility] Last Admin: 05/28/17 10:48 Dose: 5 mg Calcium Acetate (Phoslo) 667 mg PO TIDCC [facility] Last Admin: 05/28/17 17:10 Dose: 667 mg Ferric Sodium Gluconate Complex (Ferrlecit) 125 mg IVPB DAILY [facility] Stop: 06/04/17 14:01 Last Admin: 05/28/17 10:48 Dose: 125 mg Folic Acid (Folic Acid) 1 mg PO DAILY [facility] Last Admin: 05/28/17 10:48 Dose: 1 mg Gabapentin (Neurontin) 100 mg PO DAILY [facility] Last Admin: 05/28/17 10:49 Dose: 100 mg Heparin Sodium (Porcine) (Heparin) 5,000 units SC Q12 [facility] Last Admin: 05/28/17 13:21 Dose: Not Given Hydromorphone HCl (Dilaudid) 0.5 mg IVP Q4H PRN PRN Reason: Pain, moderate (4-7) Last Admin: 05/29/17 03:05 Dose: 0.5 mg Lorazepam (Ativan) 1 mg IVP Q4H PRN PRN Reason: Symptoms of alcohol withdrawl Multivitamins (Hexavitamin) 1 tab PO DAILY [facility] Last Admin: 05/28/17 10:48 Dose: 1 tab Pantoprazole Sodium (Protonix Ec Tab) 40 mg PO DAILY [facility] Last Admin: 05/28/17 10:49 Dose: 40 mg Rosuvastatin Calcium (Crestor) 5 mg PO HS [facility] Last Admin: 05/28/17 21:36 Dose: 5 mg Thiamine HCl (Vitamin B1 Tab) 100 mg PO DAILY [facility] Last Admin: 05/28/17 10:48 Dose: 100 mg - Labs Labs: 05/29/17 07:03 05/29/17 07:03 - Constitutional Appears: No Acute Distress, Chronically Ill - Head Exam Head Exam: ATRAUMATIC, NORMAL INSPECTION - Eye Exam Eye Exam: EOMI, Normal appearance - ENT Exam ENT Exam: Mucous Membranes Moist - Neck Exam Neck Exam: Full ROM. absent: Lymphadenopathy - Respiratory Exam Respiratory Exam: Clear to Ausculation Bilateral. absent: Accessory Muscle Use - GI/Abdominal Exam GI & Abdominal Exam: Soft. absent: Tenderness - Extremities Exam Extremities Exam: absent: Pedal Edema Additional comments: AVF on left arm with good access permcath in right chest - Neurological Exam Neurological Exam: Alert, Oriented x3 Assessment and Plan - Assessment and Plan (Free Text) Assessment: ESRD, new patient HD today await placement HTN ETOH use HCV
[2017-05-29 08:51] LABS: ANISOCYTOSIS SLIGHT; BANDS 2 % (0-2); LYMPHOCYTE 7 % (20-40); MONOCYTE 3 % (0-10); NEUTROPHIL 88 % (50-75); PLATELET ESTIMATE NORMAL (NORMAL); TOTAL CELLS COUNTED 100
[2017-05-29 08:52] LABS: HYPOCHROMIC SLIGHT; POLYCHROMIC SLIGHT
[2017-05-29] MEDS ORDERED: Propofol 10 mg/ml Inj (20 ML) ONE (10:48)
[2017-05-29] MEDS ORDERED: Lidocaine Hydrochloride 5 ML INJ ONE (11:27)
[2017-05-29] MEDS: Pantoprazole 40 mg EC Tab PO SCH (13:56)
[2017-05-29] MEDS: Multiple Vitamins Tab PO SCH (13:56)
--- NOTE | 2017-05-29 15:38 | MRI ---
PROCEDURE: Magnetic Resonance Cholangiopancreatography HISTORY: hx chronic pancreatitis; r/o pseudocyst or abscess COMPARISON: CT abdomen/ pelvis 05/27/2017. TECHNIQUE: Multiplanar, multisequence MR images of the abdomen were obtained, including heavily T2 weighted MRCP images of the biliary system. Rotating maximum intensity projection images of the biliary system were generated. FINDINGS: MRCP: The common bile duct is of a normal caliber. No evidence of choledocholithiasis. No intrahepatic biliary ductal dilatation. LIVER: Unremarkable. GALLBLADDER: Unremarkable. SPLEEN: Spleen is normal in size and signal intensity. No focal mass. PANCREAS: Two masses in the region of pancreatic tail, 1 of which displaces stomach an was described as possibly intramural on CT examination of 05/27/2017. A 2nd mass abuts the anterior inferior border of the spleen with some mass effect upon the spleen but does not appear intrasplenic. The mass associated with the posterior gastric wall shows low T1 and intermediate T2 signal and the mass in the region of the spleen shows intermediate T1 and high T2 weighted signal. These difference is likely reflect different degrees of proteinaceous/hemorrhagic content. These likely represent pseudocysts. More medial mass associated with the gastric wall measures 4.7 x 5.5 cm and the more lateral mass abutting the spleen measures 4.0 x 3.8 cm. There is questionable focal pointing of the contour of the mass abutting the stomach with tip pointing extending towards the gastric lumen, likely intramural. This may reflect communication with the gastric lumen. ADRENALS: Unremarkable. KIDNEYS: Unremarkable. AORTA: No aneurysm. ASCITES: None. OTHER FINDINGS: None. IMPRESSION: Two cystic masses in the region of the pancreatic tail, 1 possibly extending into the posterior gastric wall and the other abutting the spleen. Likely pseudocysts. Questionable communication of the gastric associated mass with the gastric lumen. This may reflect prior communication and current open communication is not clearly demonstrated on the basis of this examination.
[2017-05-29] MEDS: Ferric Sodium Gluconat Complex 62.5 mg/5 ml Vial IVPB SCH (16:33)
--- NOTE | 2017-05-30 03:40 | CON ---
DATE: 05/27/2017 I was called for GI consultation by the admitting medical team. The patient is seen and fully examined on 05/27/2017 as requested by the admitting medical staff. The entire chart is reviewed including but not limited to the most recent lab and radiology study results, current and the previous medication list, current and the previous medical events, allergies to medication list, as well as all the available medical records. HISTORY OF PRESENT ILLNESS: This is a 52-year-old female with a known history of alcoholism that was recurrent, acute on top of chronic pancreatitis, who was admitted to the hospital with a main complaint of severe abdominal pain associated with recurrent nausea and vomiting as well as left lower and left upper quadrant abdominal pain on and off. No reported active bleeding, chest pain, palpitation, chills or fever at the time of her admission. PAST MEDICAL HISTORY: Including but not limited to; 1. Bronchial asthma. 2. Chronic renal failure, on hemodialysis. 3. Hypertension. 4. Reported chronic pancreatitis. SOCIAL HISTORY: Positive for substance abuse, but denied any recent history of cigarette smoking or alcohol intake. FAMILY HISTORY: Unknown. ALLERGIES TO MEDICATIONS: NONE. CURRENT MEDICATIONS: Medication list post admission was reviewed. After being admitted to the hospital, the patient was found to have leukocytosis of 12.5, hemoglobin 8.6, hematocrit 26.8, potassium 5.3, low CO2 content of 17 indicative of metabolic acidosis, BUN 63, creatinine 5.1, blood glucose level of 120. It was reported also there was some elevation of serum lipase level. Abdominal and pelvic CAT scan report seen indicative of chronic calcified pancreatitis with calcific wall thickening with possible pseudocyst. PHYSICAL EXAMINATION: GENERAL: A 52-year-old female, awake, alert, and oriented, complaining of abdominal pain. VITAL SIGNS: Afebrile, with pulse of 98, respiratory rate 20 to 22, blood pressure 144/76. HEENT: Showed pale, dry oral mucous membrane with slightly bilateral icteric sclerae. LYMPH NODES: No lymphadenitis or lymphadenopathy. LUNGS: Few scattered crepitations with decreased air entry at bases. HEART: Positive S1 and S2, with increased rate. ABDOMEN: Soft with generalized tenderness mainly in the mid epigastric as well as mid abdominal line and left upper quadrant area. No mass or organomegaly. No rebound tenderness or guarding. RECTAL: The patient refused. EXTREMITIES: With lower extremity edematous changes. No clubbing or cyanosis. NEUROLOGIC: No reported new neurological deficits, sensory or motor. IMPRESSION: 1. Recurrent acute pancreatitis on top of chronic pancreatitis. 2. Re-exacerbation of peptic ulcer disease. 3. Reported pseudocyst, most likely it is pancreatic pseudocyst rather than gastric wall cyst. 4. Past medical history including mainly chronic renal failure, on hemodialysis; hypertension; bronchial asthma. 5. Anemia most likely secondary to above. 6. Leukocytosis, rule out infected pancreatic pseudocyst. 7. Metabolic acidosis that could be again secondary to her chronic disease and infectious process. SUGGESTIONS: 1. Agree with your plan. 2. Proton pump inhibitor. 3. Blood culture x2. 4. Upper endoscopy when the patient is more stable clinically. 5. Reglan IV. 6. Surgical consultation. 7. Further recommendation to follow. Thank you for letting me participate in your patient's case management. Alfonso Kent MD
--- NOTE | 2017-05-30 07:41 | CP.PCM.PN ---
Subjective - Date & Time of Evaluation Date of Evaluation: 05/30/17 Time of Evaluation: 07:40 - Subjective Subjective: Medicine progress note for Dr. Pacheco's service Patient was seen and examined at bedside in no acute distress. Patient reports she no longer has pain or soreness in the abdomen. She states she is tolerating her diet, but does not eat much because she does not like the food. Patient denies chest pain, abdominal pain, dyspnea, nausea, vomiting, fevers, dysuria, diarrhea, constipation. Objective - Vital Signs/Intake and Output Vital Signs (last 24 hours): Temp Pulse Resp BP Pulse Ox 98.1 F 85 20 135/80 99 05/29/17 23:25 05/29/17 23:25 05/29/17 23:25 05/29/17 23:25 05/29/17 23:25 Intake and Output: 05/30/17 05/30/17 06:59 18:59 Intake Total 400 Balance 400 - Medications Medications: Current Medications Albuterol Sulfate (Albuterol 0.083% Inhal Linda (2.5 Mg/3 Ml) Ud) 2.5 mg INH RQ6 PRN PRN Reason: Shortness of Breath Amlodipine Besylate (Norvasc) 5 mg PO DAILY [facility] Last Admin: 05/29/17 13:56 Dose: Not Given Calcium Acetate (Phoslo) 667 mg PO TIDCC [facility] Last Admin: 05/29/17 18:36 Dose: 667 mg Ferric Sodium Gluconate Complex (Ferrlecit) 125 mg IVPB DAILY [facility] Stop: 06/04/17 14:01 Last Admin: 05/29/17 16:33 Dose: 125 mg Folic Acid (Folic Acid) 1 mg PO DAILY [facility] Last Admin: 05/29/17 13:56 Dose: Not Given Gabapentin (Neurontin) 100 mg PO DAILY [facility] Last Admin: 05/29/17 13:56 Dose: Not Given Heparin Sodium (Porcine) (Heparin) 5,000 units SC Q12 [facility] Last Admin: 05/28/17 13:21 Dose: Not Given Lorazepam (Ativan) 1 mg IVP Q4H PRN PRN Reason: Symptoms of alcohol withdrawl Multivitamins (Hexavitamin) 1 tab PO DAILY [facility] Last Admin: 05/29/17 13:56 Dose: Not Given Pantoprazole Sodium (Protonix Ec Tab) 40 mg PO DAILY [facility] Last Admin: 05/29/17 13:56 Dose: Not Given Rosuvastatin Calcium (Crestor) 5 mg PO HS [facility] Last Admin: 05/29/17 21:14 Dose: 5 mg Thiamine HCl (Vitamin B1 Tab) 100 mg PO DAILY [facility] Last Admin: 05/29/17 13:56 Dose: Not Given - Labs Labs: 05/29/17 07:03 05/29/17 07:03 - Additional Findings Additional findings: - Constitutional Appears: No Acute Distress - Head Exam Head Exam: ATRAUMATIC, NORMAL INSPECTION - Eye Exam Eye Exam: EOMI, Normal appearance - ENT Exam ENT Exam: Mucous Membranes Moist - Respiratory Exam Respiratory Exam: Respiratory Distress, NORMAL BREATHING PATTERN. absent: Rales , Rhonchi, Wheezes - Cardiovascular Exam Cardiovascular Exam: REGULAR RHYTHM, +S1, +S2 - GI/Abdominal Exam GI & Abdominal Exam: Soft, Normal Bowel Sounds. absent: Distended, Tenderness - Extremities Exam Extremities Exam: Normal Inspection. absent: Pedal Edema, Tenderness - Neurological Exam Neurological Exam: Alert, Awake, Oriented x3 - Psychiatric Exam Psychiatric exam: Normal Affect, Normal Mood - Skin Skin Exam: Dry, Intact, Normal Color, Warm; right chest-dialysis catheter; left UE AV fistula Assessment and Plan (1) Alcohol abuse Status: Acute (2) Acute on chronic pancreatitis Status: Acute (3) ESRD (end stage renal disease) Status: Acute (4) Hyperkalemia Status: Acute - Assessment and Plan (Free Text) Plan: Pancreatitis * CT abd: chronic calcific pancreatitis, gastric wall thickening with cystic lesion in the gastric wall possibly pseudocyst, cystic lesion in the spleen, mild duodenal and proximal jejunal wall thickening, no bowel obstruction * Lipase: .353 * GI consulted- Dr. Henderson, help appreciated * EGD and MRCP performed on 05/29/17. 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 * Soft diet * NS @100cc/hr * Sucralfate 1g PO QID for 8 weeks (per GI) * Reglan 5mg IV TID PRN (per GI) Pancreatic pseudocyst * 2 cystic masses in pancreatitc tail, 1 possibly extending into posterior gastric wall and other abutting the spleen; likley pseudocysts; questionable communication of the gastric associated mass w/the gastric lumen; may reflect prior communication and current open communication is not clearly demonstrated. * Option would be to perform Endoscopic Drainage vs. Percutaneous Drainage vs. Surgical Drainage. * Surgery consulted, Dr. Santa; help appreciated * Dr. Henderson contacting [facility] for possible endoscopic drainage. * Patient signed form for release of medical records [place] [facility]- will compare prior imaging. Hyperkalemia * K+: 5.3 at admission, Kayexalate given * Repeat CMP showed K+ increased to 6.9--> Kayexalate, calcium gluconate, sodium bicarb was given once * Repeat BMP s/p medications--> K+ 4.9 * EKG: sinus tach * Continue to monitor * s/p dialysis, electrolytes have improved ESRD * AV fistula (LUE) placed at [facility] 1 week prior to admission (per patient) * Dialysis MWF via phillip-cath * Nephro, Dr. Guzman consulted, help appreciated * Per nephro, patient will get dialysis today, 05/26/17, post phillip-cath placement with Dr. Luis * planning and placement for outpatient dialysis, likely accepted to [facility]. * Surgery consult: Dr. Luis, help appreciated * Portacath placement 05/26/17 * Continue to monitor BUN/Cr Anemia * currently stable- hgb 11.2 on 05/30/17 * Feosol 325mg daily * Iron, TIBC, %sat- low * 05/28/17, Hgb 7.6--> type and cross ordered * Transfused 2 unit PRBC on 05/28/17--> Hgb 9.4 * Bedside guaiac performed by resident- negative Fever * Blood cx: negative * Urine cx: negative * Lactate: 0.7 * Ice packs applied and Ibuprofen given once on 05/27/17 * Ibuprofen given for fever and pain on 05/28/17 * Tylenol may be given for fever/pain per Dr. Pacheco who spoke with patient about reaction to tylenol. Hepatitis C * Hepatitis C Ab: reactive * Patient must follow up outpatient for further snf management. Alcohol abuse * Seizure precautions * CIWA protocol * Ativan 1 mg q4h PRN * Folic Acid, Thiamine, Multivitamin HTN * Amlodipine 5mg po daily * continue to monitor HLD * Crestor 5mg po HS Asthma * Albuterol nebulizer q6h PRN Prophylaxis * SCDs * Protonix 40mg po daily * Heparin 5000 sc- HOLD, anemia * Advance diet to soft * NO NARCOTICS
--- NOTE | 2017-05-30 07:45 | CP.PCM.CON ---
History of Present Illness - History of Present Illness History of Present Illness: General Surgery - Dr. Santa 52 yo F w/ hx of ETOH and substance abuse, chronic pancreatitis, presented to hospital on 05/27 with complaints of severe abdominal pain. She had recently been in [facility] but they discharged her and her pain worsened so she decided to come to [facility]. Pt describes the pain as more left sided, LUQ/LLQ and some in epigastric region. Pt states initially pain was severe but pt states it has improved since admission and currently comfortable with pain regimen. She admits to nausea but denies any vomiting and is tolerating small amount of diet. No Fevers, chills, SOB or chest pain. Yesterday pt went for EGD with Dr. Henderson and was found to have gastroesophageal varices and erythematous antrum and duodenum. An MRCP was also done which showed 2 cystic masses in the tail of the pancreas, likely pseudocysts, one abutting the stomach and another more laterally which is abutting the spleen. Surgery is consulted for pseudocyst. PMH: HTN, ESRD, HepC, Asthma PSH: L arm AVF recently done at [facility], Poss. Cystgastrostomy several years ago ( pt unclear on history) +Tobacco and ETOH use, Cocaine and Marijuana use Review of Systems - Review of Systems All systems: reviewed and no additional remarkable complaints except (as per HPI ) Past Patient History - Past Medical History & Family History Past Medical History?: Yes - Past Social History Smoking Status: Former Smoker Chewing Tobacco Use: No Cigar Use: No Alcohol: > 2 Drinks/Day Drugs: Cannabis, Cocaine - CARDIAC Hx Cardiac Disorders: Yes Hx Hypertension: Yes - PULMONARY Hx Asthma: Yes - NEUROLOGICAL Hx Neurological Disorder: Yes HX Cerebrovascular Accident: Yes - HEENT Hx HEENT Problems: No - RENAL Hx Chronic Kidney Disease: Yes Hx Renal Failure: Yes Other/Comment: LEFT AVS - HD ACCESS NOT STARTED YET - ENDOCRINE/METABOLIC Hx Endocrine Disorders: No - HEMATOLOGICAL/ONCOLOGICAL Hx Blood Disorders: Yes Hx Hepatitis C: Yes - INTEGUMENTARY Hx Dermatological Problems: No - MUSCULOSKELETAL/RHEUMATOLOGICAL Hx Musculoskeletal Disorders: Yes Hx Falls: Yes - GASTROINTESTINAL Hx Gastrointestinal Disorders: Yes Hx Pancreatitis: Yes - GENITOURINARY/GYNECOLOGICAL Hx Genitourinary Disorders: No - PSYCHIATRIC Hx Psychophysiologic Disorder: Yes Hx Substance Use: Yes - SURGICAL HISTORY Hx Surgeries: Yes Hx Vascular Surgery: Yes Other/Comment: RIGHT ARM SURGERY - BOIL - ANESTHESIA Hx Anesthesia: Yes Hx Anesthesia Reactions: No Hx Malignant Hyperthermia: No Has any member of the family had a problem w/ anesthesia?: No Meds Allergies/Adverse Reactions: Allergies Allergy/AdvReac Type Severity Reaction Status Date / Time acetaminophen [From Tylenol] Allergy Verified 05/26/17 22:29 - Medications Medications: Current Medications Albuterol Sulfate (Albuterol 0.083% Inhal Linda (2.5 Mg/3 Ml) Ud) 2.5 mg INH RQ6 PRN PRN Reason: Shortness of Breath Amlodipine Besylate (Norvasc) 5 mg PO DAILY [facility] Last Admin: 05/29/17 13:56 Dose: Not Given Calcium Acetate (Phoslo) 667 mg PO TIDCC [facility] Last Admin: 05/29/17 18:36 Dose: 667 mg Ferric Sodium Gluconate Complex (Ferrlecit) 125 mg IVPB DAILY [facility] Stop: 06/04/17 14:01 Last Admin: 05/29/17 16:33 Dose: 125 mg Folic Acid (Folic Acid) 1 mg PO DAILY [facility] Last Admin: 05/29/17 13:56 Dose: Not Given Gabapentin (Neurontin) 100 mg PO DAILY [facility] Last Admin: 05/29/17 13:56 Dose: Not Given Heparin Sodium (Porcine) (Heparin) 5,000 units SC Q12 [facility] Last Admin: 05/28/17 13:21 Dose: Not Given Lorazepam (Ativan) 1 mg IVP Q4H PRN PRN Reason: Symptoms of alcohol withdrawl Multivitamins (Hexavitamin) 1 tab PO DAILY [facility] Last Admin: 05/29/17 13:56 Dose: Not Given Pantoprazole Sodium (Protonix Ec Tab) 40 mg PO DAILY [facility] Last Admin: 05/29/17 13:56 Dose: Not Given Rosuvastatin Calcium (Crestor) 5 mg PO HS [facility] Last Admin: 05/29/17 21:14 Dose: 5 mg Thiamine HCl (Vitamin B1 Tab) 100 mg PO DAILY [facility] Last Admin: 05/29/17 13:56 Dose: Not Given Physical Exam - Constitutional Appears: No Acute Distress - Head Exam Head Exam: ATRAUMATIC, NORMAL INSPECTION, NORMOCEPHALIC - Eye Exam Eye Exam: Normal appearance - Respiratory Exam Respiratory Exam: NORMAL BREATHING PATTERN. absent: Respiratory Distress - Cardiovascular Exam Cardiovascular Exam: REGULAR RHYTHM - GI/Abdominal Exam GI & Abdominal Exam: Guarding, Soft, Tenderness (Epigastric and LUQ/LLQ). absent: Distended, Rebound, Rigid - Neurological Exam Neurological exam: Alert, Oriented x3 - Psychiatric Exam Psychiatric exam: Normal Affect, Normal Mood - Skin Skin Exam: Dry, Intact Results - Vital Signs Recent Vital Signs: Last Vital Signs Temp 98.1 F 05/29/17 23:25 Pulse 85 05/29/17 23:25 Resp 20 05/29/17 23:25 BP 135/80 05/29/17 23:25 Pulse Ox 99 05/29/17 23:25 - Labs Result Diagrams: 05/29/17 07:03 05/29/17 07:03 Labs: Laboratory Results - last 24 hr 05/27/17 05/29/17 05/29/17 19:56 07:03 07:03 WBC 13.4 H RBC 2.97 L Hgb 9.4 L D Hct 27.8 L MCV 93.4 D MCH 31.8 H MCHC 34.0 RDW 20.3 H Plt Count 299 MPV 8.4 Neut % (Auto) 86.6 H Lymph % (Auto) 5.7 L [place] % (Auto) 6.9 Eos % (Auto) 0.4 Baso % (Auto) 0.4 Neut # (Auto) 11.6 H Lymph # (Auto) 0.8 L [place] # (Auto) 0.9 H Eos # (Auto) 0.1 Baso # (Auto) 0.1 Neutrophils % (Manual) 88 H Band Neutrophils % 2 Lymphocytes % (Manual) 7 L Monocytes % (Manual) 3 Platelet Estimate Normal Polychromasia Slight Hypochromasia (manual) Slight Anisocytosis (manual) Slight Sodium 139 Potassium 4.7 Chloride 102 Carbon Dioxide 22 Anion Gap 20 BUN 20 H Creatinine 3.2 H Est GFR ( Amer) 18 Est GFR (Non-Af Amer) 15 Random Glucose 100 Calcium 8.6 Phosphorus 4.2 Magnesium 1.6 Total Bilirubin 0.8 AST 26 ALT 21 Alkaline Phosphatase 84 Total Protein 6.8 Albumin 3.0 L Globulin 3.8 Albumin/Globulin Ratio 0.8 L PTH Intact Whole Molec 231 H Assessment & Plan - Assessment and Plan (Free Text) Assessment: 52 yo F w/ chronic pancreatitis and pseudocysts -Cont. medical management for pancreatitis -Will review imaging and DW attending -Further reccs to follow
[2017-05-30 09:02] LABS: BASO % 0.4 % (0.0-2.0); EOS # 0.1 K/uL (0.0-0.7); EOS % 1.5 % (0.0-4.0); HEMOGLOBIN 11.2 g/dL (11.0-16.0); LYMPH # 1.1 K/uL (1.0-4.3); LYMPH % 12.2 % (20.0-40.0); MEAN CELL VOLUME 94.6 fL (81.0-99.0); MEAN CORPUSCULAR HGB CONC 33.8 g/dL (33.0-37.0); MEAN PLATELET VOLUME 7.9 fL (7.2-11.7); MONO # 0.6 K/uL (0.0-0.8); MONO % 6.7 % (0.0-10.0); NEUT % 79.2 % (50.0-75.0); RBC 3.5 Mil/uL (3.80-5.20); RED CELL DISTRIBUTION WIDTH 20.2 % (11.5-14.5); WHITE BLOOD COUNT 8.8 K/uL (4.8-10.8)
[2017-05-30 09:21] LABS: ALB/GLOB RATIO 0.9 (1.0-2.1); ALBUMIN 3.6 g/dL (3.5-5.0)
[2017-05-30] MEDS: Ferric Sodium Gluconat Complex 62.5 mg/5 ml Vial IVPB SCH (09:55)
[2017-05-30] MEDS: Pantoprazole 40 mg EC Tab PO SCH (09:55)
[2017-05-30] MEDS: Multiple Vitamins Tab PO SCH (09:55)
--- NOTE | 2017-05-30 10:00 | CP.PCM.PN ---
Subjective - Date & Time of Evaluation Date of Evaluation: 05/30/17 Time of Evaluation: 09:56 - Subjective Subjective: stable dialysis pt feels better no n, v, f, chills, diarrhea, SOB BP controlled Hg increased with IV Fe pancreatic pseudocyst noted- surgical plans pending Objective - Vital Signs/Intake and Output Vital Signs (last 24 hours): Temp Pulse Resp BP Pulse Ox 98.6 F 82 18 135/82 96 05/30/17 07:50 05/30/17 07:50 05/30/17 07:50 05/30/17 09:54 05/30/17 07:50 Intake and Output: 05/30/17 05/30/17 06:59 18:59 Intake Total 400 Balance 400 - Medications Medications: Current Medications Albuterol Sulfate (Albuterol 0.083% Inhal Linda (2.5 Mg/3 Ml) Ud) 2.5 mg INH RQ6 PRN PRN Reason: Shortness of Breath Amlodipine Besylate (Norvasc) 5 mg PO DAILY [facility] Last Admin: 05/30/17 09:55 Dose: 5 mg Calcium Acetate (Phoslo) 667 mg PO TIDCC [facility] Last Admin: 05/30/17 08:32 Dose: 667 mg Ferric Sodium Gluconate Complex (Ferrlecit) 125 mg IVPB DAILY [facility] Stop: 06/04/17 14:01 Last Admin: 05/30/17 09:55 Dose: 125 mg Folic Acid (Folic Acid) 1 mg PO DAILY [facility] Last Admin: 05/30/17 09:55 Dose: 1 mg Gabapentin (Neurontin) 100 mg PO DAILY [facility] Last Admin: 05/30/17 09:55 Dose: 100 mg Heparin Sodium (Porcine) (Heparin) 5,000 units SC Q12 [facility] Last Admin: 05/28/17 13:21 Dose: Not Given Lorazepam (Ativan) 1 mg IVP Q4H PRN PRN Reason: Symptoms of alcohol withdrawl Multivitamins (Hexavitamin) 1 tab PO DAILY [facility] Last Admin: 05/30/17 09:55 Dose: 1 tab Pantoprazole Sodium (Protonix Ec Tab) 40 mg PO DAILY [facility] Last Admin: 05/30/17 09:55 Dose: 40 mg Rosuvastatin Calcium (Crestor) 5 mg PO HS [facility] Last Admin: 05/29/17 21:14 Dose: 5 mg Thiamine HCl (Vitamin B1 Tab) 100 mg PO DAILY [facility] Last Admin: 05/30/17 09:55 Dose: 100 mg - Labs Labs: 05/30/17 08:58 05/30/17 08:58 - Constitutional Appears: No Acute Distress, Chronically Ill - Head Exam Head Exam: ATRAUMATIC, NORMAL INSPECTION - Eye Exam Eye Exam: EOMI, Normal appearance - Neck Exam Neck Exam: Normal Inspection. absent: Tenderness - Respiratory Exam Respiratory Exam: Clear to Ausculation Bilateral, NORMAL BREATHING PATTERN - Cardiovascular Exam Cardiovascular Exam: REGULAR RHYTHM, +S1 - GI/Abdominal Exam GI & Abdominal Exam: Soft. absent: Tenderness - Extremities Exam Extremities Exam: Normal Inspection. absent: Tenderness - Neurological Exam Neurological Exam: Alert, CN II-XII Intact - Skin Skin Exam: Dry, Warm Assessment and Plan (1) Hepatitis C carrier Status: Acute (2) ESRD (end stage renal disease) Status: Acute (3) Hypertensive CKD, ESRD on dialysis Status: Acute (4) Hyperkalemia Status: Acute (5) Iron deficiency anemia Status: Acute - Assessment and Plan (Free Text) Plan: Dialysis MWF Increase flows at dialysis Same meds- monitor Hg Await surgical plans
--- NOTE | 2017-05-30 11:01 | PN ---
DATE: 05/30/2017. LOCATION: [facility], bed A. SUBJECTIVE: This is 52 years old female, seen and examined in rounds with recurrent episode of abdominal pain again, but no reported active bleeding with intermittent period of dyspepsia, still on hemodialysis. No chest pain, palpitations, significant shortness of breath and no reported chills or fever. The patient had MRCP yesterday as directed by myself, report is seen indicative of 2 cystic mass in the region of the pancreatic tail extending to the posterior gastric wall. Today's lab is pending and the patient had leukocytosis with low hemoglobin and hematocrit, as well as increased BUN and creatinine with low albumin. Serum lipase, amylase level for today is still pending and her hepatitis profile reported to be negative. PHYSICAL EXAMINATION: GENERAL: A 52 years old female appeared to be awake, alert, and oriented, complaining of abdominal pain. VITAL SIGNS: Afebrile with pulse of 80, respiratory rate 20 to 22 and blood pressure 132/82. HEENT: Showed mildly pale dry oral mucous membrane. Non icteric sclerae. LUNGS: Few scattered crepitation. Decreased air entry at bases. HEART: Positive S1 and S2. ABDOMEN: Soft. Bowel sound are present. No mass or organomegaly. No rebound tenderness or guarding. EXTREMITIES: Without significant edema, clubbing or cyanosis. NEUROLOGIC: No reported new neurological deficits, sensory or motor. IMPRESSION: 1. Recurrent acute pancreatitis on top of chronic pancreatitis. 2. Pancreatic pseudocyst with questionable drainage into the gastric cavity only by MRCP. 3. Known history of bronchial asthma, hypertension, chronic renal disease on hemodialysis. 4. Anemia secondary to above. 5. History of substance abuse. 6. Abnormal CAT scan of the abdominal and pelvis as well as abnormal MRCP. SUGGESTIONS: 1. Continue current management. 2. Surgical reevaluation. 3. The patient is a candidate for drainage of the pancreatic cyst into the gastric cavity approach that could be done surgically also. 4. I will try to contact [facility] for possible for such approach endoscopically, which is not done in [facility] so far. This case discussed with at length. Will follow up closely. Alfonso Kent MD
[2017-05-31] MEDS: Pantoprazole 40 mg EC Tab PO SCH (09:45)
[2017-05-31] MEDS: Multiple Vitamins Tab PO SCH (09:45)
[2017-05-31] MEDS: Ferric Sodium Gluconat Complex 62.5 mg/5 ml Vial IVPB SCH (09:45)
--- NOTE | 2017-05-31 10:15 | CON ---
DATE: 05/30/2017 HISTORY OF PRESENT ILLNESS: This is a young black female with history of chronic alcoholism and repeated episodes of admission to the hospital. Her last admission recently was about a week ago at [facility] where she was seen and discharged. She was given no information as to what she has. She was admitted here because of epigastric pains and this was attributed to chronic bouts of pancreatitis and two 5 cm of possibly pseudocyst of the pancreas. She also has a history of renal failure and she is due for a dialysis. This is evident by the lab work showing high BUN and high creatinine on her lab work. All the other laboratory findings seem to be okay. At the present time, the patient does not have any complaint of any pain, but she admits to continued drinking, at least a pint of vodka everyday accompanied by multiple wine coolers. The patient is well-built, a little frail and she has a shunt that is reading temperature on the left arm, but at the present time I do not think that she is a good candidate for any bypass procedures thus far, cysts were our concern. First of all, the cysts are well reducible and they are due to recent bleeding, at least the wall of the cyst before doing any internal bypass procedures. So at the present time, I am not going to recommend any surgery for this patient and that she can promise us she would stop drinking and if the cyst gets bigger and more symptomatic, then we will consider it especially bearing in mind the possible kidney problem. Mustapha Santa MD
[2017-05-31 11:43] LABS: BASO # 0.1 K/uL (0.0-0.2); BASO % 1.1 % (0.0-2.0); EOS # 0.1 K/uL (0.0-0.7); HEMOGLOBIN 9.9 g/dL (11.0-16.0); LYMPH # 1.6 K/uL (1.0-4.3); LYMPH % 16.1 % (20.0-40.0); MEAN CELL VOLUME 94.7 fL (81.0-99.0); MEAN CORPUSCULAR HEMOGLOBIN 31.2 pg (27.0-31.0); MEAN PLATELET VOLUME 7.5 fL (7.2-11.7); MONO # 0.5 K/uL (0.0-0.8); MONO % 5.1 % (0.0-10.0); NEUT # 7.6 K/uL (1.8-7.0); NEUT % 76.7 % (50.0-75.0); RBC 3.17 Mil/uL (3.80-5.20); RED CELL DISTRIBUTION WIDTH 19.2 % (11.5-14.5); WHITE BLOOD COUNT 9.9 K/uL (4.8-10.8)
[2017-05-31 12:04] LABS: ALB/GLOB RATIO 0.8 (1.0-2.1); ALBUMIN 3.4 g/dL (3.5-5.0); CALCIUM 8.5 mg/dl (8.6-10.4)
--- NOTE | 2017-05-31 14:08 | CP.PCM.PN ---
Subjective - Date & Time of Evaluation Date of Evaluation: 05/31/17 Time of Evaluation: 14:05 - Subjective Subjective: Seen at dialysis today- UF 800ml Feels much better BP controlled No treatment for pseudocyst planned Outpt dialysis arranged- TTS starting 06/04 AV fistula patent- will monitor maturation Objective - Vital Signs/Intake and Output Vital Signs (last 24 hours): Temp Pulse Resp BP Pulse Ox 98.2 F 81 16 153/96 H 97 05/31/17 11:37 05/31/17 12:00 05/31/17 11:37 05/31/17 13:45 05/31/17 11:20 Intake and Output: 05/31/17 05/31/17 06:59 18:59 Intake Total 600 Balance 600 - Medications Medications: Current Medications Albuterol Sulfate (Albuterol 0.083% Inhal Linda (2.5 Mg/3 Ml) Ud) 2.5 mg INH RQ6 PRN PRN Reason: Shortness of Breath Last Admin: 05/31/17 08:35 Dose: 2.5 mg Amlodipine Besylate (Norvasc) 5 mg PO DAILY [facility] Last Admin: 05/31/17 09:47 Dose: Not Given Calcium Acetate (Phoslo) 667 mg PO TIDCC [facility] Last Admin: 05/31/17 07:53 Dose: 667 mg Ferric Sodium Gluconate Complex (Ferrlecit) 125 mg IVPB DAILY [facility] Stop: 06/04/17 14:01 Last Admin: 05/31/17 09:45 Dose: 125 mg Folic Acid (Folic Acid) 1 mg PO DAILY [facility] Last Admin: 05/31/17 09:45 Dose: 1 mg Gabapentin (Neurontin) 100 mg PO DAILY [facility] Last Admin: 05/31/17 09:46 Dose: 100 mg Heparin Sodium (Porcine) (Heparin) 5,000 units SC Q12 [facility] Last Admin: 05/28/17 13:21 Dose: Not Given Lorazepam (Ativan) 1 mg IVP Q4H PRN PRN Reason: Symptoms of alcohol withdrawl Mirtazapine (Remeron) 15 mg PO HS [facility] Multivitamins (Hexavitamin) 1 tab PO DAILY [facility] Last Admin: 05/31/17 09:45 Dose: 1 tab Pantoprazole Sodium (Protonix Ec Tab) 40 mg PO DAILY [facility] Last Admin: 05/31/17 09:45 Dose: 40 mg Rosuvastatin Calcium (Crestor) 5 mg PO [facility] Last Admin: 05/30/17 21:10 Dose: 5 mg Thiamine HCl (Vitamin B1 Tab) 100 mg PO DAILY [facility] Last Admin: 05/31/17 09:45 Dose: 100 mg - Labs Labs: 05/31/17 11:35 05/31/17 11:35 - Head Exam Head Exam: ATRAUMATIC, NORMAL INSPECTION - Eye Exam Eye Exam: EOMI, Normal appearance - Neck Exam Neck Exam: Normal Inspection. absent: Tenderness - Respiratory Exam Respiratory Exam: Clear to Ausculation Bilateral, NORMAL BREATHING PATTERN - Cardiovascular Exam Cardiovascular Exam: REGULAR RHYTHM, +S1 - GI/Abdominal Exam GI & Abdominal Exam: Soft. absent: Tenderness - Extremities Exam Extremities Exam: Normal Inspection. absent: Tenderness - Neurological Exam Neurological Exam: Alert, CN II-XII Intact - Skin Skin Exam: Dry, Warm Assessment and Plan (1) Hepatitis C carrier Status: Acute (2) ESRD (end stage renal disease) Status: Acute (3) Hypertensive CKD, ESRD on dialysis Status: Acute (4) Hyperkalemia Status: Acute (5) Iron deficiency anemia Status: Acute - Assessment and Plan (Free Text) Plan: Outpt dialysis arrangements made TTS; orders given Would continue present meds
--- NOTE | 2017-05-31 15:03 | CP.PCM.PN ---
Subjective - Date & Time of Evaluation Date of Evaluation: 05/31/17 Time of Evaluation: 15:01 - Subjective Subjective: Surgery Progress note. Dr. Santa Pt seen and examined at bedside. No acute events overnight. No N/V/D. Reports abd pain is slightly improved this morning. No new complaints Objective - Vital Signs/Intake and Output Vital Signs (last 24 hours): Temp Pulse Resp BP Pulse Ox 98.2 F 81 16 153/96 H 97 05/31/17 11:37 05/31/17 12:00 05/31/17 11:37 05/31/17 13:45 05/31/17 11:20 Intake and Output: 05/31/17 05/31/17 06:59 18:59 Intake Total 600 300 Balance 600 300 - Medications Medications: Current Medications Albuterol Sulfate (Albuterol 0.083% Inhal Linda (2.5 Mg/3 Ml) Ud) 2.5 mg INH RQ6 PRN PRN Reason: Shortness of Breath Last Admin: 05/31/17 08:35 Dose: 2.5 mg Amlodipine Besylate (Norvasc) 5 mg PO DAILY [facility] Last Admin: 05/31/17 09:47 Dose: Not Given Calcium Acetate (Phoslo) 667 mg PO TIDCC [facility] Last Admin: 05/31/17 12:00 Dose: Not Given Ferric Sodium Gluconate Complex (Ferrlecit) 125 mg IVPB DAILY [facility] Stop: 06/04/17 14:01 Last Admin: 05/31/17 09:45 Dose: 125 mg Folic Acid (Folic Acid) 1 mg PO DAILY [facility] Last Admin: 05/31/17 09:45 Dose: 1 mg Gabapentin (Neurontin) 100 mg PO DAILY [facility] Last Admin: 05/31/17 09:46 Dose: 100 mg Heparin Sodium (Porcine) (Heparin) 5,000 units SC Q12 [facility] Last Admin: 05/28/17 13:21 Dose: Not Given Lorazepam (Ativan) 1 mg IVP Q4H PRN PRN Reason: Symptoms of alcohol withdrawl Mirtazapine (Remeron) 15 mg PO HS [facility] Multivitamins (Hexavitamin) 1 tab PO DAILY [facility] Last Admin: 05/31/17 09:45 Dose: 1 tab Pantoprazole Sodium (Protonix Ec Tab) 40 mg PO DAILY [facility] Last Admin: 05/31/17 09:45 Dose: 40 mg Rosuvastatin Calcium (Crestor) 5 mg PO HS [facility] Last Admin: 05/30/17 21:10 Dose: 5 mg Thiamine HCl (Vitamin B1 Tab) 100 mg PO DAILY [facility] Last Admin: 05/31/17 09:45 Dose: 100 mg - Labs Labs: 05/31/17 11:35 05/31/17 11:35 - Constitutional Appears: Non-toxic, No Acute Distress - Head Exam Head Exam: ATRAUMATIC, NORMAL INSPECTION, NORMOCEPHALIC - Eye Exam Eye Exam: EOMI, Normal appearance - ENT Exam ENT Exam: Mucous Membranes Moist - Respiratory Exam Respiratory Exam: NORMAL BREATHING PATTERN. absent: Accessory Muscle Use, Respiratory Distress - Cardiovascular Exam Cardiovascular Exam: absent: RRR - GI/Abdominal Exam GI & Abdominal Exam: Soft, Tenderness (Mild epigastric tenderness to palpation) . absent: Distended, Firm, Guarding, Rigid, Rebound - Extremities Exam Extremities Exam: Normal Inspection. absent: Calf Tenderness - Neurological Exam Neurological Exam: Alert, Awake, Oriented x3 - Skin Skin Exam: Dry, Intact, Normal Color, Warm Assessment and Plan - Assessment and Plan (Free Text) Assessment: 52y F with possible pancreatic pseudocysts Plan: - No planned surgical interventions - F/u GI plan - May need ERCP vs EUS w/ intervention - Continue current management Further recs as per Dr. Kiet Vasquez PGY1 surgery pager: [phone]
--- NOTE | 2017-05-31 16:02 | CP.PCM.PCO ---
Physician Communication Note - Physician Communication Note Physician Communication Note: Please see above
[2017-05-31 16:17] VITALS: BP 134/83; RESP 20; TEMP 98.7; O2SAT 96
[2017-05-31 17:37] VITALS: PULSE 89
--- NOTE | 2017-05-31 20:09 | CP.PCM.DIS ---
Provider - Provider Date of Admission: 05/27/17 01:10 Attending physician: Loc Pacheco MD Primary care physician: PMD: Dr. Lopez Consults: GI: Dr Alfonso Henderson Gen Surg: Dr Santa Nephrology: Dr Handley Vascular Surg: Dr Luis Time Spent in preparation of Discharge (in minutes): 35 Hospital Course - Lab Results Lab Results: Micro Results 05/27/17 20:00 Blood Blood Culture - Preliminary NO GROWTH AFTER 3 DAYS 05/27/17 19:30 Blood Blood Culture - Preliminary NO GROWTH AFTER 3 DAYS 05/28/17 11:45 Urine,Clean Catch Urine Culture - Final No Growth (<1,000 CFU/ML) Most Recent Lab Values WBC 9.9 K/uL (4.8-10.8) 05/31/17 11:35 RBC 3.17 Mil/uL (3.80-5.20) L 05/31/17 11:35 Hgb 9.9 g/dL (11.0-16.0) L 05/31/17 11:35 Hct 30.0 % (34.0-47.0) L 05/31/17 11:35 MCV 94.7 fL (81.0-99.0) 05/31/17 11:35 MCH 31.2 pg (27.0-31.0) H 05/31/17 11:35 MCHC 33.0 g/dL (33.0-37.0) 05/31/17 11:35 RDW 19.2 % (11.5-14.5) H 05/31/17 11:35 Plt Count 310 K/uL (130-400) 05/31/17 11:35 MPV 7.5 fL (7.2-11.7) 05/31/17 11:35 Neut % (Auto) 76.7 % (50.0-75.0) H 05/31/17 11:35 Lymph % (Auto) 16.1 % (20.0-40.0) L 05/31/17 11:35 [place] % (Auto) 5.1 % (0.0-10.0) 05/31/17 11:35 Eos % (Auto) 1.0 % (0.0-4.0) 05/31/17 11:35 Baso % (Auto) 1.1 % (0.0-2.0) 05/31/17 11:35 Neut # (Auto) 7.6 K/uL (1.8-7.0) H 05/31/17 11:35 Lymph # (Auto) 1.6 K/uL (1.0-4.3) 05/31/17 11:35 [place] # (Auto) 0.5 K/uL (0.0-0.8) 05/31/17 11:35 Eos # (Auto) 0.1 K/uL (0.0-0.7) 05/31/17 11:35 Baso # (Auto) 0.1 K/uL (0.0-0.2) 05/31/17 11:35 Neutrophils % (Manual) 88 % (50-75) H 05/29/17 07:03 Band Neutrophils % 2 % (0-2) 05/29/17 07:03 Lymphocytes % (Manual) 7 % (20-40) L 05/29/17 07:03 Monocytes % (Manual) 3 % (0-10) 05/29/17 07:03 Eosinophils % (Manual) 1 % (0-4) 05/26/17 23:11 Basophils % (Manual) 1 % (0-2) 05/26/17 23:11 Platelet Estimate Normal (NORMAL) 05/29/17 07:03 Polychromasia Slight 05/29/17 07:03 Hypochromasia (manual) Slight 05/29/17 07:03 Poikilocytosis (manual Slight 05/27/17 05:17 Anisocytosis (manual) Slight 05/29/17 07:03 Macrocytosis (manual) Slight 05/26/17 23:11 Sodium 137 mmol/L (132-148) 05/31/17 11:35 Potassium 4.2 mmol/L (3.6-5.2) 05/31/17 11:35 Chloride 99 mmol/L (98-107) 05/31/17 11:35 Carbon Dioxide 24 mmol/L (22-30) 05/31/17 11:35 Anion Gap 18 (10-20) 05/31/17 11:35 BUN 20 mg/dL (7-17) H 05/31/17 11:35 Creatinine 2.7 mg/dL (0.7-1.2) H 05/31/17 11:35 Est GFR ( Amer) 22 05/31/17 11:35 Est GFR (Non-Af Amer) 18 05/31/17 11:35 Random Glucose 113 mg/dL (65-105) H 05/31/17 11:35 Hemoglobin A1c 5.4 % (4.2-6.5) 05/27/17 05:17 Lactic Acid 0.7 mmol/L (0.7-2.1) 05/28/17 11:45 Calcium 8.5 mg/dl (8.6-10.4) L 05/31/17 11:35 Phosphorus 3.1 mg/dL (2.5-4.5) 05/31/17 11:35 Magnesium 1.6 mg/dL (1.6-2.3) 05/31/17 11:35 Iron 11 ug/dL (37-170) L 05/27/17 05:17 TIBC 213 ug/dL (250-450) L 05/27/17 05:17 % Saturation 5 (20-55) L 05/27/17 05:17 Total Bilirubin 0.4 mg/dL (0.2-1.3) 05/31/17 11:35 AST 45 U/L (14-36) H D 05/31/17 11:35 ALT 27 U/L (9-52) 05/31/17 11:35 Alkaline Phosphatase 102 U/L (38-126) 05/31/17 11:35 Total Protein 7.4 g/dL (6.3-8.3) 05/31/17 11:35 Albumin 3.4 g/dL (3.5-5.0) L 05/31/17 11:35 Globulin 4.0 gm/dL (2.2-3.9) H 05/31/17 11:35 Albumin/Globulin Ratio 0.8 (1.0-2.1) L 05/31/17 11:35 Triglycerides 153 mg/dL (0-149) H 05/27/17 05:17 Cholesterol 164 mg/dL (0-199) 05/27/17 05:17 LDL Cholesterol Direct 66 mg/dL (0-129) 05/27/17 05:17 HDL Cholesterol 28 mg/dL (30-70) L 05/27/17 05:17 Lipase 353 U/L (23-300) H 05/26/17 23:11 Vitamin B12 808 pg/mL (239-931) 05/27/17 05:17 Folate > 20.0 ng/mL 05/27/17 05:17 PTH Intact Whole Molec 231 pg/mL (14-64) H 05/27/17 19:56 Urine Color Straw (YELLOW) 05/26/17 23:11 Urine Clarity Clear (Clear) 05/26/17 23:11 Urine pH 7.0 (5.0-8.0) 05/26/17 23:11 Ur Specific [place] 1.012 (1.003-1.030) 05/26/17 23:11 Urine Protein 2+ mg/dL (NEGATIVE) H 05/26/17 23:11 Urine Glucose (UA) 1+ mg/dL (Normal) 05/26/17 23:11 Urine Ketones Negative mg/dL (NEGATIVE) 05/26/17 23:11 Urine Blood Negative (NEGATIVE) 05/26/17 23:11 Urine Nitrate Negative (NEGATIVE) 05/26/17 23:11 Urine Bilirubin Negative (NEGATIVE) 05/26/17 23:11 Urine Urobilinogen Normal mg/dL (0.2-1.0) 05/26/17 23:11 Ur Leukocyte Esterase Neg [place]/uL (Negative) 05/26/17 23:11 Urine WBC (Auto) 1 /hpf (0-5) 05/26/17 23:11 Ur Squamous Epith Cells 3 /hpf (0-5) 05/26/17 23:11 Urine Bacteria Rare (<OCC) 05/26/17 23:11 Stool Occult Blood Negative (NEGATIVE) 05/28/17 12:34 Urine Opiates Screen Negative (NEGATIVE) 05/26/17 23:11 Urine Methadone Screen Negative (NEGATIVE) 05/26/17 23:11 Ur Barbiturates Screen Positive (NEGATIVE) H 05/26/17 23:11 Ur Phencyclidine Scrn Negative (NEGATIVE) 05/26/17 23:11 Ur Amphetamines Screen Negative (NEGATIVE) 05/26/17 23:11 U Benzodiazepines Scrn Negative (NEGATIVE) 05/26/17 23:11 U Oth Cocaine Metabols Negative (NEGATIVE) 05/26/17 23:11 U Cannabinoids Screen Positive (NEGATIVE) H 05/26/17 23:11 Alcohol, Quantitative < 10 mg/dl (0-10) 05/26/17 23:11 Hep Bs Antigen Negative (NEGATIVE) 05/27/17 19:56 Hep Bs Antibody Negative (NEGATIVE) 05/27/17 19:56 Hep B Core IgM Ab Negative (NEGATIVE) 18 19:56 Hepatitis C Antibody Reactive (NEGATIVE) 05/27/17 19:56 HIV 1&2 Antibody Screen Negative (NEGATIVE) 05/27/17 19:56 Blood Type O POSITIVE 05/28/17 11:45 Antibody Screen Negative 05/28/17 11:45 - Hospital Course Hospital Course: CC: abdominal pain HPI: 52 year old female with PMHx of HTN, ESRD, Hep C, and asthma presents for 1 week of abdominal pain. Patient was discharged form [facility] yesterday where she said she was for 2 days for the same complaint. Patient said her abdominal pain is not better and she rates it 30/10. Patient says the abdominal pain is mostly on the left side. Patient has had decreased appetite with nausea and one episode of nonbilious nonbloody vomitus today. Patient did not take any medications today and did not get the medications she was discharged on yet. Patient also complains of constipation, although she had a bowel movement yesterday. Patient says she feels feverish, but does not know if she has had a fever. Patient denies chest pain, shortness of breath, or urinary symptoms. PMD: Dr. Michael Allergies: tylenol- nausea/ vomiting PMHx: HTN, ESRD, Hep C, Asthma Psurg: L av fistula placement 1 week ago at [facility] Famhx: Sister: DM, at 55 Mom: of brain aneurysm at 56 Social: smokes 2-3 cigarettes a day since 17y/o- stopped a few weeks ago, drinks 1/2 pint of liquor a day (last drink was before her last hospitalization) , drugs: marijuana, rehab in 2007 and was sober for 1 year HOSPITAL COURSE: Patient was admitted for abdominal pain. CT showed pancreatic pseudocysts however these cysts were compared from recent imaging retrieved from [facility] and the cysts were stable (no increase in size). In addition, the cysts were smaller than the threshold for operation or intervention. Her abdominal pain was likely related to acute on chronic pancreatitis due to her alcohol use. She also had a permacath placed for HD. She received HD here in house and will start outpatient HD at [facility]. She has a AV fistula placed at [facility] prior to admission. Please see the latest A/P for further details regarding her management course: Pancreatitis * CT abd: chronic calcific pancreatitis, gastric wall thickening with cystic lesion in the gastric wall possibly pseudocyst, cystic lesion in the spleen, mild duodenal and proximal jejunal wall thickening, no bowel obstruction * Lipase: .353 * GI consulted- Dr. Henderson, help appreciated * EGD and MRCP performed on 05/29/17. 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 * Soft diet * NS @100cc/hr * Sucralfate 1g PO QID for 8 weeks (per GI) * Reglan 5mg IV TID PRN (per GI) Pancreatic pseudocyst * 2 cystic masses in pancreatitc tail, 1 possibly extending into posterior gastric wall and other abutting the spleen; likley pseudocysts; questionable communication of the gastric associated mass w/the gastric lumen; may reflect prior communication and current open communication is not clearly demonstrated. * Option would be to perform Endoscopic Drainage vs. Percutaneous Drainage vs. Surgical Drainage. * Surgery consulted, Dr. Santa; help appreciated * Dr. Henderson contacting [facility] for possible endoscopic drainage. * Patient signed form for release of medical records from [facility]- will compare prior imaging. Hyperkalemia * K+: 5.3 at admission, Kayexalate given * Repeat CMP showed K+ increased to 6.9--> Kayexalate, calcium gluconate, sodium bicarb was given once * Repeat BMP s/p medications--> K+ 4.9 * EKG: sinus tach * Continue to monitor * s/p dialysis, electrolytes have improved ESRD * AV fistula (LUE) placed at [facility] 1 week prior to admission (per patient) * Dialysis MWF via phillip-cath * Nephro, Dr. Guzman consulted, help appreciated * Per nephro, patient will get dialysis today, 05/26/17, post phillip-cath placement with Dr. Luis * planning and placement for outpatient dialysis, likely accepted to [facility]. * Surgery consult: Dr. Luis, help appreciated * Portacath placement 05/26/17 * Continue to monitor BUN/Cr Anemia * currently stable- hgb 11.2 on 05/30/17 * Feosol 325mg daily * Iron, TIBC, %sat- low * 05/28/17, Hgb 7.6--> type and cross ordered * Transfused 2 unit PRBC on 05/28/17--> Hgb 9.4 * Bedside guaiac performed by resident- negative Fever * Blood cx: negative * Urine cx: negative * Lactate: 0.7 * Ice packs applied and Ibuprofen given once on 05/27/17 * Ibuprofen given for fever and pain on 05/28/17 * Tylenol may be given for fever/pain per Dr. Pacheco who spoke with patient about reaction to tylenol. Hepatitis C * Hepatitis C Ab: reactive * Patient must follow up outpatient for further half-way management. Alcohol abuse * Seizure precautions * CIWA protocol * Ativan 1 mg q4h PRN * Folic Acid, Thiamine, Multivitamin HTN * Amlodipine 5mg po daily * continue to monitor HLD * Crestor 5mg po HS Asthma * Albuterol nebulizer q6h PRN Prophylaxis * SCDs * Protonix 40mg po daily * Heparin 5000 sc- HOLD, anemia * Advance diet to soft * NO NARCOTICS Discharge Exam - Additional Findings Additional findings: - Additional Findings Additional findings: - Constitutional Appears: No Acute Distress - Head Exam Head Exam: ATRAUMATIC, NORMAL INSPECTION - Eye Exam Eye Exam: EOMI, Normal appearance - ENT Exam ENT Exam: Mucous Membranes Moist - Respiratory Exam Respiratory Exam: Respiratory Distress, NORMAL BREATHING PATTERN. absent: Rales , Rhonchi, Wheezes - Cardiovascular Exam Cardiovascular Exam: REGULAR RHYTHM, +S1, +S2 - GI/Abdominal Exam GI & Abdominal Exam: Soft, Normal Bowel Sounds. absent: Distended, Tenderness - Extremities Exam Extremities Exam: Normal Inspection. absent: Pedal Edema, Tenderness - Neurological Exam Neurological Exam: Alert, Awake, Oriented x3 - Psychiatric Exam Psychiatric exam: Normal Affect, Normal Mood - Skin Skin Exam: Dry, Intact, Normal Color, Warm; right chest-dialysis catheter; left UE AV fistula Discharge Plan - Discharge Medications Prescriptions: amLODIPine [Norvasc] 5 mg PO DAILY #30 tab Atorvastatin 20 mg PO DAILY #30 Calcium Acetate [Phoslo] 667 mg PO TIDCC #90 tab Ferrous Sulfate 325 mg PO DAILY #30 Folic Acid 1 mg PO DAILY #30 tab Gabapentin [Neurontin] 100 mg PO DAILY #30 cap Pantoprazole [Protonix EC Tab] 40 mg PO DAILY #30 tab Thiamine [Vitamin B1 Tab] 100 mg PO DAILY #30 tab - Follow Up Plan Condition: GUARDED Disposition: HOME/ ROUTINE Instructions: Smoking: Not Just Harmful to Your Lungs and Heart, Hyperkalemia ( DC), Anemia Caused by Low Iron, Adult (DC), Quitting Smoking, Alcohol Abuse and Alcoholism (DC), Chronic Pancreatitis (DC), Amlodipine, Atorvastatin, Calcium Acetate, Ferrous Sulfate, Folic Acid, Gabapentin, Pantoprazole, Thiamine, End Stage Kidney Disease (DC), Renal Failure Diet (DC), Acute Abdominal Pain (DC), Acute Abdominal Pain (GEN) Additional Instructions: The following instructions were given to patient: 1). Please have the following prescriptions filled at your pharmacy and take as directed: Amlodipine 5 mg, 1 tablet by mouth 1x/day (breakfast), Dispense #30, NO refills Calcium Acetate 667 mg, 1 tablet by mouth 3x/day (breakfast, lunch, dinner), Dispense #90, NO refills Ferrous Sulfate 325 mg, 1 tablet by mouth 1x/day (breakfast), Dispense #30, NO refills Folic Acid 1 mg, 1 tablet by mouth 1x/day (breakfast), Dispense #30, NO refills Gabapentin 100 mg, 1 tablet by mouth 1x/day (breakfast), Dispense #30, NO refills Atorvastatin 20 mg, 1 tablet by mouth 1x/day (lunch), Dispense #30, NO refills Protonix 40 mg, 1 tablet by mouth 1x/day (breakfast), Dispense #30, NO refills Thiamine 100 mg, 1 tablet by mouth 1x/day (breakfast), Dispense #30, NO refills 2). You have been set up for outpatient Dialysis at [facility] located at [facility] [address] [place] [address] in [place], [place] for Tuesdays, , and Saturday. Your first Dialysis day starts on Saturday06/04/17 at 10:15 AM. Your transportation has also been arranged to and from [facility] with [employer] and they will be by your residence at 9:30 AM on your Dialysis days. 3). You must schedule follow up with your Primary Care Physician Dr. Lopez. Through Dr. Lopez's office you must obtain referral for [facility] for continued monitoring of your Pancreatic Cysts for which you will need to have repeat CT Abdomen in 3 months time to make sure that the 2 cysts have not increased in size. 4). You will need to follow up with [facility] recommended to you by Dr. Lopez for follow up of your Hepatitis C. 5). You must STOP drinking alcohol as you will worsen your Liver and Pancreas, both of which you will not be able to live without as in you will . Please call [phone] or [phone] to find a Alcoholics Anonymous near you. Please do this as this will save your life. 6). Please follow up with the Vascular Surgeon Dr. Tim Simms at [facility] who placed your Left Arm AV Fistula as instructed by him. 7). If your symptoms return, please safely go to nearest Emergency Room. 8). I believe you are good person. Be good to yourself. Believe in yourself. Please take care.
== END 2017-05-31 18:30 | disposition home or self-care (01) | DRG 557 ==
LOC: C.ER 22:11 → C.9E 05-27 01:10 → C.5S 05-27 06:53
PROVIDERS: ADMIT Family Medicine; ATTEND Family Medicine
PROC: 0JH63XZ Insertion of Tunneled Vascular Access Device into Chest Subcutaneous Tissue and Fascia, Percutaneous Approach (ICD-10-PCS; 2017-05-27)
PROC: 02HV33Z Insertion of Infusion Device into Superior Vena Cava, Percutaneous Approach (ICD-10-PCS; 2017-05-27)
PROC: B518ZZA Fluoroscopy of Superior Vena Cava, Guidance (ICD-10-PCS; 2017-05-27)
PROC: 5A1D70Z Performance of Urinary Filtration, Intermittent, Less than 6 Hours Per Day (ICD-10-PCS; 2017-05-27)
PROC: 5A1D70Z Performance of Urinary Filtration, Intermittent, Less than 6 Hours Per Day (ICD-10-PCS; 2017-05-29)
PROC: 0DB68ZX Excision of Stomach, Via Natural or Artificial Opening Endoscopic, Diagnostic (ICD-10-PCS; principal; 2017-05-29 10:53)
PROC: 5A1D70Z Performance of Urinary Filtration, Intermittent, Less than 6 Hours Per Day (ICD-10-PCS; 2017-05-31)
DX: K85.20 Alcohol induced acute pancreatitis without necrosis or infection (principal); K86.3 Pseudocyst of pancreas; E87.2 Acidosis; I12.0 Hypertensive chronic kidney disease with stage 5 chronic kidney disease or end stage renal disease; E87.5 Hyperkalemia; N18.6 End stage renal disease; I85.00 Esophageal varices without bleeding; D50.9 Iron deficiency anemia, unspecified; F10.10 Alcohol abuse, uncomplicated; B18.2 Chronic viral hepatitis C; K29.50 Unspecified chronic gastritis without bleeding; K44.9 Diaphragmatic hernia without obstruction or gangrene; K86.0 Alcohol-induced chronic pancreatitis; K29.80 Duodenitis without bleeding; K59.00 Constipation, unspecified; K21.0 Gastro-esophageal reflux disease with esophagitis; E78.5 Hyperlipidemia, unspecified; I86.4 Gastric varices; J45.909 Unspecified asthma, uncomplicated; F10.21 Alcohol dependence, in remission; F12.11 Cannabis abuse, in remission; Z99.2 Dependence on renal dialysis; Z86.73 Personal history of transient ischemic attack (TIA), and cerebral infarction without residual deficits; Z87.891 Personal history of nicotine dependence

== ENCOUNTER 2017-08-28 16:10 | Observation (INO) | payer MEDICAID ==
--- NOTE | 2017-08-28 17:08 | C.PDOC ---
History Of Present Illness 52 yo female comes to ER for evaluation due to missed her dialysis session yesterday as "they did not come to pick me up"; she states she was supposed to have another session today but again transportation did not show up. Patient states her regular dialysis is scheduled on Tuesdays, , and Saturdays, last dialysius was Saturday. She reports currently feeling nauseous and weak; otherwise patient denie fever, chills, chest pain or shortness of breath. She has no other complaints. Hop Weigher: Dr. Sam Alfaro Time Seen by Provider: 08/28/17 16:38 Chief Complaint (Nursing): Medical Clearance History Per: Patient History/Exam Limitations: no limitations Onset/Duration Of Symptoms: Days (3) Current Symptoms Are (Timing): Still Present Severity: Mild Additional History Per: Patient Past Medical History Reviewed: Historical Data, Nursing Documentation, Vital Signs Vital Signs: Last Vital Signs Temp 98.3 F 08/30/17 07:30 Pulse 76 08/30/17 07:30 Resp 20 08/30/17 07:30 BP 140/72 08/30/17 07:30 Pulse Ox 100 08/30/17 07:30 - Medical History PMH: Asthma, HTN, Pancreatitis, Chronic Kidney Disease Surgical History: No Surg Hx - [facility] Procedures (05/27/17) EXCISION OF STOMACH, ENDO, DIAGN (05/27/17) FLUOROSCOPY OF SUPERIOR VENA CAVA, GUIDANCE (05/27/17) INSERTION OF INFUSION DEV INTO SUP VENA CAVA, PERC APPROACH (05/27/17) INSERTION OF VAD INTO CHEST SUBCU/FASCIA, PERC APPROACH (05/27/17) Family History: States: No Known Family Hx - Social History Hx Alcohol Use: No Hx Substance Use: Yes - Immunization History Hx Tetanus Toxoid Vaccination: No Hx Influenza Vaccination: Yes Hx Pneumococcal Vaccination: No Review Of Systems Constitutional: Positive for: Weakness. Negative for: Fever, Chills Cardiovascular: Negative for: Chest Pain, Palpitations Respiratory: Negative for: Cough, Shortness of Breath Gastrointestinal: Positive for: Nausea. Negative for: Vomiting, Abdominal Pain Neurological: Negative for: Headache, Dizziness Physical Exam - Physical Exam Appears: Well, Non-toxic, No Acute Distress Skin: Normal Color, Warm, Dry, No Rash Eye(s): bilateral: Normal Inspection Oral Mucosa: Moist Neck: Normal ROM, Supple Chest: Other (dialysis catheter in right uppper chest) Cardiovascular: Rhythm Regular, Murmur (3/6 holosystolic murmur) Respiratory: Normal Breath Sounds, No Rales, No Rhonchi Gastrointestinal/Abdominal: Normal Exam, Bowel Sounds, Soft, No Tenderness Back: Normal Inspection Extremity: Normal ROM, No Pedal Edema, No Deformity, No Swelling, Other (AV fistula in left forearm, + palpable thrill) Pulses: Left Dorsalis Pedis: Normal, Right Dorsalis Pedis: Normal Neurological/Psych: Oriented x3 ED Course And Treatment - Laboratory Results Result Diagrams: 08/28/17 16:58 08/28/17 16:58 ECG: Interpreted By Me, Viewed By Me (NSR 76 bpm, normal axis, no acute ST/T wave changes, no peaked T waves) ECG Interpretation: Normal - Radiology CXR: Interpreted by Me, Viewed By Me CXR Interpretation: Yes: No Acute Disease. No: Infiltrates Progress Note: Blood work, EKG, CXR ordered and reviewed. Patient's PMD is Dr. Michael, typically admits to Dr. Noriega, however he does not accept medicaid/ care patients. Admitted patient to medical service manager mission. - Physician Consult Information Physician Contacted: Shlomo Barrios Outcome Of Conversation: Discussed patient with medicine manager mission, agrees with admission for ESRD on HD needing dialysis, acidosis. Disposition - Disposition Disposition: HOSPITALIZED Disposition Time: 18:20 Condition: STABLE - Clinical Impression Clinical Impression: ESRD (end stage renal disease) on dialysis, ESRD needing dialysis, Acidosis - Scribe Statement The provider has reviewed the documentation as recorded by the Scribe (Jolynn Isidro) Provider Attestation: All medical record entries made by the Scribe were at my direction and personally dictated by me. I have reviewed the chart and agree that the record accurately reflects my personal performance of the history, physical exam, medical decision making, and the department course for this patient. I have also personally directed, reviewed, and agree with the discharge instructions and disposition. Decision To Admit - Pt Status Changed To: Hospital Disposition Of: Observation - . Bed Request Type: Telemetry Admitting Physician: Shlomo Barrios Patient Diagnosis: ESRD (end stage renal disease) on dialysis, Acidosis, ESRD needing dialysis
[2017-08-28 17:10] LABS: BASO % 0.6 % (0.0-2.0); EOS # 0.1 K/uL (0.0-0.7); EOS % 2.8 % (0.0-4.0); LYMPH # 1.9 K/uL (1.0-4.3); LYMPH % 36.8 % (20.0-40.0); MEAN CORPUSCULAR HEMOGLOBIN 33.2 pg (27.0-31.0); MEAN CORPUSCULAR HGB CONC 33.5 g/dL (33.0-37.0); MEAN PLATELET VOLUME 7.7 fL (7.2-11.7); MONO # 0.3 K/uL (0.0-0.8); MONO % 5.6 % (0.0-10.0); NEUT # 2.9 K/uL (1.8-7.0); NEUT % 54.2 % (50.0-75.0); NRBC % 0.1 % (0.0-2.0); RED CELL DISTRIBUTION WIDTH 16.3 % (11.5-14.5); WHITE BLOOD COUNT 5.3 K/uL (4.8-10.8)
[2017-08-28 17:14] LABS: MEAN CELL VOLUME 99.3 fL (81.0-99.0)
[2017-08-28 17:34] LABS: ALB/GLOB RATIO 1.2 (1.0-2.1); ALBUMIN 4.4 g/dL (3.5-5.0); ALT/SGPT 22 U/L (9-52); AST/SGOT 32 U/L (14-36); BLOOD UREA NITROGEN 50 mg/dL (7-17); CALCIUM 9.3 mg/dl (8.6-10.4); GFR AFRICAN-AMERICAN 12; GFR NON-AFRICAN AMERICAN 10
[2017-08-28 18:17] LABS: B-TYPE NATRIURETIC PEPTIDE 2930 pg/mL (0-900)
--- NOTE | 2017-08-28 19:35 | RAD ---
PROCEDURE: CHEST RADIOGRAPH, 1 VIEW HISTORY: SOB COMPARISON: Portable chest 05/27/2017. FINDINGS: LUNGS: No acute pulmonary disease appreciated. PLEURA: No pneumothorax or pleural fluid seen. CARDIOVASCULAR: Normal. OSSEOUS STRUCTURES: No significant abnormalities. VISUALIZED UPPER ABDOMEN: Normal. OTHER FINDINGS: Permanent right central venous dialysis catheter again evident. IMPRESSION: No interval acute cardiopulmonary disease appreciated.
--- NOTE | 2017-08-28 23:53 | CP.PCM.HP ---
History of Present Illness - History of Present Illness History of Present Illness: History Of Present Illness 52yo female, comes to ER for evaluation because the patient missed her dialysis session yesterday as "they did not come to pick her up"; she states she was supposed to have another session today but did not have transportation as well. Patient states her regular dialysis is scheduled on Saturday, , and Saturday. She reports feeling nauseous and weak; otherwise patient denies any fever, chills, chest pain or shortness of breath. She has no other medical complaints. Past Patient History - Past Medical History & Family History Past Medical History?: Yes - Past Social History Smoking Status: Former Smoker - CARDIAC Hx Hypertension: Yes - PULMONARY Hx Asthma: Yes - NEUROLOGICAL Hx Neurological Disorder: Yes HX Cerebrovascular Accident: Yes - HEENT Hx HEENT Problems: No - RENAL Hx Chronic Kidney Disease: Yes - ENDOCRINE/METABOLIC Hx Endocrine Disorders: No - HEMATOLOGICAL/ONCOLOGICAL Hx Blood Disorders: Yes Hx Hepatitis C: Yes - INTEGUMENTARY Hx Dermatological Problems: No - MUSCULOSKELETAL/RHEUMATOLOGICAL Hx Musculoskeletal Disorders: Yes Hx Falls: Yes - GASTROINTESTINAL Hx Pancreatitis: Yes - GENITOURINARY/GYNECOLOGICAL Hx Genitourinary Disorders: No - PSYCHIATRIC Hx Substance Use: Yes - SURGICAL HISTORY Hx Surgeries: Yes Hx Vascular Surgery: Yes Other/Comment: RIGHT ARM SURGERY - BOIL - ANESTHESIA Hx Anesthesia: Yes Hx Anesthesia Reactions: No Hx Malignant Hyperthermia: No Meds Allergies/Adverse Reactions: Allergies Allergy/AdvReac Type Severity Reaction Status Date / Time acetaminophen [From Tylenol] Allergy Verified 08/28/17 16:27 Results - Vital Signs Recent Vital Signs: Last Vital Signs Temp 98.2 F 08/28/17 20:15 Pulse 73 08/28/17 20:48 Resp 20 08/28/17 20:15 BP 142/80 08/28/17 20:15 Pulse Ox 98 08/28/17 20:48 - Labs Result Diagrams: 08/28/17 16:58 08/28/17 16:58 Labs: Laboratory Results - last 24 hr 08/28/17 08/28/17 08/28/17 16:58 16:58 17:16 WBC 5.3 RBC 3.00 L Hgb 10.0 L Hct 29.8 L MCV 99.3 H D MCH 33.2 H MCHC 33.5 RDW 16.3 H Plt Count 236 MPV 7.7 Neut % (Auto) 54.2 Lymph % (Auto) 36.8 [place] % (Auto) 5.6 Eos % (Auto) 2.8 Baso % (Auto) 0.6 Neut # (Auto) 2.9 Lymph # (Auto) 1.9 [place] # (Auto) 0.3 Eos # (Auto) 0.1 Baso # (Auto) 0.0 Sodium 143 Potassium 5.2 Chloride 113 H Carbon Dioxide 14 L Anion Gap 20 BUN 50 H Creatinine 4.5 H Est GFR ( Amer) 12 Est GFR (Non-Af Amer) 10 POC Glucose (mg/dL) Random Glucose 86 Calcium 9.3 Total Bilirubin 0.5 AST 32 ALT 22 Alkaline Phosphatase 147 H D Troponin I < 0.0120 NT-Pro-B Natriuret Pep 2930 H Total Protein 8.1 Albumin 4.4 Globulin 3.7 Albumin/Globulin Ratio 1.2 Beta HCG, Quant 3.95 08/28/17 20:53 WBC RBC Hgb Hct MCV MCH MCHC RDW Plt Count MPV Neut % (Auto) Lymph % (Auto) [place] % (Auto) Eos % (Auto) Baso % (Auto) Neut # (Auto) Lymph # (Auto) [place] # (Auto) Eos # (Auto) Baso # (Auto) Sodium Potassium Chloride Carbon Dioxide Anion Gap BUN Creatinine Est GFR ( Amer) Est GFR (Non-Af Amer) POC Glucose (mg/dL) 80 Random Glucose Calcium Total Bilirubin AST ALT Alkaline Phosphatase Troponin I NT-Pro-B Natriuret Pep Total Protein Albumin Globulin Albumin/Globulin Ratio Beta HCG, Quant
[2017-08-29] MEDS ORDERED: Simethicone 80 mg Chewtab PO ONE (02:55)
[2017-08-29] MEDS: Pantoprazole 40 mg EC Tab PO SCH (09:35)
[2017-08-29] MEDS ORDERED: Pneumococcal 23-Valent Vaccine IM ONE ×2 (10:00→14:15)
--- NOTE | 2017-08-29 11:01 | CP.PCM.CON ---
History of Present Illness - History of Present Illness History of Present Illness: 52yo female, comes to ER for evaluation because the patient missed her dialysis session yesterday as "they did not come to pick her up"; she states she was supposed to have another session today but did not have transportation as well. Patient states her regular dialysis is scheduled on Saturday, , and Saturday. She reports feeling nauseous and weak; otherwise patient denies any fever, chills, chest pain or shortness of breath. She has no other medical complaints. PMH: ESRD HTN DM 2 HEP C DL NEUROPATHY PSH: AV FISTULA Review of Systems - Constitutional Constitutional: Fatigue, Weakness - EENT Eyes: absent: As Per HPI, Blind Spots, Blurred Vision, Change in Vision, Decreased Night Vision, Diplopia, Discharge, Dry Eye, Exophthalmos, Floaters, Irritation, Itchy Eyes, Loss of Peripheral Vision, Pain, Photophobia, Requires Corrective Lenses, Sees Flashes, Spots in Vision, Tunnel Vision, Other Visual Disturbances, Loss of Vision, Other Ears: absent: As Per HPI, Decreased Hearing, Ear Discharge, Ear Pain, Tinnitus, Abnormal Hearing, Disequilibrium, Dizziness, Other Nose/Mouth/Throat: absent: As Per HPI, Epistaxis, Nasal Congestion, Nasal Discharge, Nasal Obstruction, Nasal Trauma, Nose Pain, Post Nasal Drip, Sinus Pain, Sinus Pressure, Bleeding Gums, Change in Voice, Dental Pain, Dry Mouth, Dysphagia, Halitosis, Hoarsness, Lip Swelling, Mouth Lesions, Mouth Pain, Odynophagia, Sore Throat, Throat Swelling, Tongue Swelling, Facial Pain, Neck Pain, Neck Mass, Other - Cardiovascular Cardiovascular: absent: As Per HPI, Acrocyanosis, Chest Pain, Chest Pain at Rest , Chest Pain with Activity, Claudication, Diaphoresis, Dyspnea, Dyspnea on Exertion, Edema, Irregular Heart Rhythm, Pain Radiating to Arm/Neck/Jaw, Leg Edema, Leg Ulcers, Lightheadedness, Orthopnea, Palpitations, Paroxysmal Nocturnal Dyspnea, Pedal Edema, Radiating Pain, Rapid Heart Rate, Slow Heart Rate, Syncope, Other - Respiratory Respiratory: Dyspnea - Gastrointestinal Gastrointestinal: absent: As Per HPI, Abdominal Pain, Belching, Bloating, Change in Bowel Habits, Change in Stool Character, Coffee Ground Emesis, Constipation, Cramping, Diarrhea, Dyspepsia, Dysphagia, Early Satiety, Excessive Flatus, Fecal Incontinence, Heartburn, Hematemesis, Hematochezia, Loose Stools, Melena, Nausea, Odynophagia, Temesmus, Vomiting, Other - Genitourinary Genitourinary: As Per HPI - Musculoskeletal Musculoskeletal: Muscle Cramps, Muscle Weakness, Myalgias - Integumentary Integumentary: absent: As Per HPI, Acne, Alopecia, Bleeding Lesions, Change in Hair, Change in Nails, Change in Pigmentation, Changing Lesions, Dry Skin, Erythema, Furuncle, Hirsutism, Lesions, New Lesions, Non-Healing Lesions, Photosensitivity, Pruritus, Rash, Skin Pain, Skin Ulcer, Sores, Striae, Swelling , Unusual Bruising, Wounds, Jaundice, Other - Neurological Neurological: Weakness Past Patient History - Past Medical History & Family History Past Medical History?: Yes - Past Social History Smoking Status: Former Smoker Chewing Tobacco Use: No Cigar Use: No Alcohol: Occasional Drugs: Cocaine - CARDIAC Hx Hypertension: Yes - PULMONARY Hx Asthma: Yes - NEUROLOGICAL Hx Neurological Disorder: Yes HX Cerebrovascular Accident: Yes - HEENT Hx HEENT Problems: No - RENAL Hx Chronic Kidney Disease: Yes - ENDOCRINE/METABOLIC Hx Endocrine Disorders: No - HEMATOLOGICAL/ONCOLOGICAL Hx Blood Disorders: Yes Hx Hepatitis C: Yes - INTEGUMENTARY Hx Dermatological Problems: No - MUSCULOSKELETAL/RHEUMATOLOGICAL Hx Musculoskeletal Disorders: Yes Hx Falls: Yes - GASTROINTESTINAL Hx Pancreatitis: Yes - GENITOURINARY/GYNECOLOGICAL Hx Genitourinary Disorders: No - PSYCHIATRIC Hx Substance Use: Yes - SURGICAL HISTORY Hx Surgeries: Yes Hx Vascular Surgery: Yes Other/Comment: RIGHT ARM SURGERY - BOIL - ANESTHESIA Hx Anesthesia: Yes Hx Anesthesia Reactions: No Hx Malignant Hyperthermia: No Meds Allergies/Adverse Reactions: Allergies Allergy/AdvReac Type Severity Reaction Status Date / Time acetaminophen [From Tylenol] Allergy Verified 08/28/17 16:27 - Medications Medications: Current Medications Amlodipine Besylate (Norvasc) 5 mg PO DAILY [facility]CLUD[facility] Last Admin: 08/29/17 10:49 Dose: Not Given Calcium Acetate (Phoslo) 667 mg PO TIDCC COUNT INCLUDES [facility] Last Admin: 08/29/17 08:10 Dose: 667 mg Ferrous Sulfate (Feosol) 325 mg PO DAILY [facility] Last Admin: 08/29/17 09:33 Dose: 325 mg Folic Acid (Folic Acid) 1 mg PO DAILY [facility] Last Admin: 08/29/17 09:33 Dose: 1 mg Gabapentin (Neurontin) 100 mg PO DAILY [facility] Last Admin: 08/29/17 09:33 Dose: 100 mg Heparin Sodium (Porcine) (Heparin) 5,000 units SC Q12 [facility] Last Admin: 08/29/17 09:33 Dose: 5,000 units Pantoprazole Sodium (Protonix Ec Tab) 40 mg PO DAILY [facility] Last Admin: 08/29/17 09:35 Dose: 40 mg Rosuvastatin Calcium (Crestor) 10 mg PO HS COUNT [facility] Last Admin: 08/28/17 23:09 Dose: Not Given Thiamine HCl (Vitamin B1 Tab) 100 mg PO DAILY [facility] Last Admin: 08/29/17 09:33 Dose: 100 mg Physical Exam - Constitutional Appears: Non-toxic, Chronically Ill - Head Exam Head Exam: ATRAUMATIC, NORMAL INSPECTION - Eye Exam Eye Exam: EOMI, Normal appearance - Neck Exam Neck exam: Positive for: Normal Inspection. Negative for: Tenderness - Respiratory Exam Respiratory Exam: Clear to Auscultation Bilateral, NORMAL BREATHING PATTERN - Cardiovascular Exam Cardiovascular Exam: REGULAR RHYTHM, +S1 - GI/Abdominal Exam GI & Abdominal Exam: Soft. absent: Tenderness - Extremities Exam Extremities exam: Positive for: normal inspection. Negative for: tenderness - Neurological Exam Neurological exam: Alert, CN II-XII Intact - Skin Skin Exam: Dry, Warm Results - Vital Signs Recent Vital Signs: Last Vital Signs Temp 98 F 08/29/17 10:10 Pulse 67 08/29/17 10:10 Resp 20 08/29/17 10:10 BP 144/76 08/29/17 10:10 Pulse Ox 99 08/29/17 09:27 - Labs Result Diagrams: 08/28/17 16:58 08/28/17 16:58 Labs: Laboratory Results - last 24 hr 08/28/17 08/28/17 08/28/17 16:58 16:58 17:16 WBC 5.3 RBC 3.00 L Hgb 10.0 L Hct 29.8 L MCV 99.3 H D MCH 33.2 H MCHC 33.5 RDW 16.3 H Plt Count 236 MPV 7.7 Neut % (Auto) 54.2 Lymph % (Auto) 36.8 [place] % (Auto) 5.6 Eos % (Auto) 2.8 Baso % (Auto) 0.6 Neut # (Auto) 2.9 Lymph # (Auto) 1.9 [place] # (Auto) 0.3 Eos # (Auto) 0.1 Baso # (Auto) 0.0 Sodium 143 Potassium 5.2 Chloride 113 H Carbon Dioxide 14 L Anion Gap 20 BUN 50 H Creatinine 4.5 H Est GFR ( Amer) 12 Est GFR (Non-Af Amer) 10 POC Glucose (mg/dL) Random Glucose 86 Calcium 9.3 Total Bilirubin 0.5 AST 32 ALT 22 Alkaline Phosphatase 147 H D Troponin I < 0.0120 NT-Pro-B Natriuret Pep 2930 H Total Protein 8.1 Albumin 4.4 Globulin 3.7 Albumin/Globulin Ratio 1.2 Beta HCG, Quant 3.95 08/28/17 08/29/17 20:53 06:10 WBC RBC Hgb Hct MCV MCH MCHC RDW Plt Count MPV Neut % (Auto) Lymph % (Auto) [place] % (Auto) Eos % (Auto) Baso % (Auto) Neut # (Auto) Lymph # (Auto) [place] # (Auto) Eos # (Auto) Baso # (Auto) Sodium Potassium Chloride Carbon Dioxide Anion Gap BUN Creatinine Est GFR ( Amer) Est GFR (Non-Af Amer) POC Glucose (mg/dL) 80 97 Random Glucose Calcium Total Bilirubin AST ALT Alkaline Phosphatase Troponin I NT-Pro-B Natriuret Pep Total Protein Albumin Globulin Albumin/Globulin Ratio Beta HCG, Quant Assessment & Plan (1) Dialysis patient, noncompliant Status: Acute (2) Chronic kidney disease, stage IV (severe) Status: Acute (3) ESRD (end stage renal disease) Status: Acute (4) Hepatitis C carrier Status: Acute - Assessment and Plan (Free Text) Plan: DIALYSIS TTS \\INCREASE DIALYSIS COMPLIANCE CHECK LABS
--- NOTE | 2017-08-29 15:35 | CARD ---
APPROVED REPORT EKG Measurement Heart [id number] <Conclusion> Normal sinus rhythm Normal ECG
[2017-08-29 16:28] VITALS: RESP 20
[2017-08-29 16:31] VITALS: O2SAT 100
[2017-08-30 08:41] VITALS: BP 140/72; PULSE 76; TEMP 98.3
[2017-08-30] MEDS: Pantoprazole 40 mg EC Tab PO SCH (09:25)
--- NOTE | 2017-08-30 10:47 | CP.PCM.PN ---
Subjective - Date & Time of Evaluation Date of Evaluation: 08/29/17 Time of Evaluation: 19:35 - Subjective Subjective: The patient seen and examined Objective - Vital Signs/Intake and Output Vital Signs (last 24 hours): Temp Pulse Resp BP Pulse Ox 98.3 F 76 20 140/72 100 08/30/17 07:30 08/30/17 07:30 08/30/17 07:30 08/30/17 07:30 08/30/17 07:30 - Medications Medications: Current Medications Amlodipine Besylate (Norvasc) 5 mg PO DAILY [facility] Last Admin: 08/30/17 09:25 Dose: 5 mg Calcium Acetate (Phoslo) 667 mg PO TIDCC [facility] Last Admin: 08/30/17 07:54 Dose: 667 mg Ferrous Sulfate (Feosol) 325 mg PO DAILY [facility] Last Admin: 08/30/17 09:25 Dose: 325 mg Folic Acid (Folic Acid) 1 mg PO DAILY [facility] Last Admin: 08/30/17 09:25 Dose: 1 mg Gabapentin (Neurontin) 100 mg PO DAILY [facility] Last Admin: 08/30/17 09:25 Dose: 100 mg Heparin Sodium (Porcine) (Heparin) 5,000 units SC Q12 [facility] Last Admin: 08/30/17 09:25 Dose: 5,000 units Heparin Sodium (Porcine) (Heparin) 3,700 units IVP TTS [facility] Last Admin: 08/29/17 11:52 Dose: 3,700 units Pantoprazole Sodium (Protonix Ec Tab) 40 mg PO DAILY [facility] Last Admin: 08/30/17 09:25 Dose: 40 mg Rosuvastatin Calcium (Crestor) 10 mg PO HS [facility] Last Admin: 08/29/17 22:23 Dose: 10 mg Thiamine HCl (Vitamin B1 Tab) 100 mg PO DAILY [facility] Last Admin: 08/30/17 09:26 Dose: 100 mg - Labs Labs: 08/28/17 16:58 08/28/17 16:58
--- NOTE | 2017-08-30 14:57 | CP.PCM.PN ---
Subjective - Date & Time of Evaluation Date of Evaluation: 08/30/17 Time of Evaluation: 14:54 - Subjective Subjective: stable dialysis 08/29 feels better no n, v, SOB, fevers, chills wants to go home Objective - Vital Signs/Intake and Output Vital Signs (last 24 hours): Temp Pulse Resp BP Pulse Ox 98.3 F 76 20 140/72 100 08/30/17 07:30 08/30/17 07:30 08/30/17 07:30 08/30/17 07:30 08/30/17 07:30 - Medications Medications: Current Medications Amlodipine Besylate (Norvasc) 5 mg PO DAILY [facility] Last Admin: 08/30/17 09:25 Dose: 5 mg Calcium Acetate (Phoslo) 667 mg PO TIDCC [facility] Last Admin: 08/30/17 12:09 Dose: 667 mg Ferrous Sulfate (Feosol) 325 mg PO DAILY [facility] Last Admin: 08/30/17 09:25 Dose: 325 mg Folic Acid (Folic Acid) 1 mg PO DAILY [facility] Last Admin: 08/30/17 09:25 Dose: 1 mg Gabapentin (Neurontin) 100 mg PO DAILY [facility] Last Admin: 08/30/17 09:25 Dose: 100 mg Heparin Sodium (Porcine) (Heparin) 5,000 units SC Q12 [facility] Last Admin: 08/30/17 09:25 Dose: 5,000 units Heparin Sodium (Porcine) (Heparin) 3,700 units IVP TTS [facility] Last Admin: 08/29/17 11:52 Dose: 3,700 units Pantoprazole Sodium (Protonix Ec Tab) 40 mg PO DAILY [facility] Last Admin: 08/30/17 09:25 Dose: 40 mg Rosuvastatin Calcium (Crestor) 10 mg PO HS [facility] Last Admin: 08/29/17 22:23 Dose: 10 mg Thiamine HCl (Vitamin B1 Tab) 100 mg PO DAILY [facility] Last Admin: 08/30/17 09:26 Dose: 100 mg - Labs Labs: 08/28/17 16:58 08/28/17 16:58 - Constitutional Appears: No Acute Distress, Chronically Ill - Eye Exam Eye Exam: EOMI, Normal appearance - Neck Exam Neck Exam: Full ROM, Normal Inspection. absent: Tenderness - Respiratory Exam Respiratory Exam: Clear to Ausculation Bilateral, NORMAL BREATHING PATTERN - Cardiovascular Exam Cardiovascular Exam: REGULAR RHYTHM, +S1 - GI/Abdominal Exam GI & Abdominal Exam: Soft, Tenderness - Extremities Exam Extremities Exam: Normal Inspection. absent: Tenderness - Neurological Exam Neurological Exam: Alert, CN II-XII Intact - Skin Skin Exam: Dry, Warm Assessment and Plan (1) Dialysis patient, noncompliant Status: Acute (2) ESRD (end stage renal disease) Status: Acute (3) Hepatitis C carrier Status: Acute - Assessment and Plan (Free Text) Plan: ok for discharge pt will be followed as outpatient for dialysis- next time 08/31
--- NOTE | 2017-08-30 15:03 | CP.PCM.PN ---
Subjective - Date & Time of Evaluation Date of Evaluation: 08/30/17 Time of Evaluation: 15:01 - Subjective Subjective: PT CLEARED FOR D/C HOME TODAY PER DR. WILLSON. ALL HOME MEDS REFILLED. PT TO CONTINUE HER USUAL HD SESSIONS. DR. LUNDY ALSO AWARE OF D/C TODAY AND IN AGREEMENT. NO FURTHER ORDERS. -FOLLOW UP WITH DR. WILLSON OR YOUR PRIMARY DOCTOR IN THE OFFICE WITHIN 1 WEEK-- -CALL THE OFFICE FOR APPOINTMENT TIME. -FOLLOW UP WITH DR. LUNDY IN THE OFFICE WITHIN 1-2 WEEKS---CALL FOR APPOINTMENT TIME. -CONTINUE DIALYSIS USUAL. -CONTINUE YOUR HOME MEDICATIONS USUAL. ALL OF YOUR MEDICATIONS HAVE BEEN REFILLED. -FOR FURTHER QUESTIONS, CONTACT DR. WILLSON. Objective - Vital Signs/Intake and Output Vital Signs (last 24 hours): Temp Pulse Resp BP Pulse Ox 98.3 F 76 20 140/72 100 08/30/17 07:30 08/30/17 07:30 08/30/17 07:30 08/30/17 07:30 08/30/17 07:30 - Medications Medications: Current Medications Amlodipine Besylate (Norvasc) 5 mg PO DAILY [facility] Last Admin: 08/30/17 09:25 Dose: 5 mg Calcium Acetate (Phoslo) 667 mg PO TIDCC [facility] Last Admin: 08/30/17 12:09 Dose: 667 mg Ferrous Sulfate (Feosol) 325 mg PO DAILY [facility] Last Admin: 08/30/17 09:25 Dose: 325 mg Folic Acid (Folic Acid) 1 mg PO DAILY [facility] Last Admin: 08/30/17 09:25 Dose: 1 mg Gabapentin (Neurontin) 100 mg PO DAILY [facility] Last Admin: 08/30/17 09:25 Dose: 100 mg Heparin Sodium (Porcine) (Heparin) 5,000 units SC Q12 [facility] Last Admin: 08/30/17 09:25 Dose: 5,000 units Heparin Sodium (Porcine) (Heparin) 3,700 units IVP TTS [facility] Last Admin: 08/29/17 11:52 Dose: 3,700 units Pantoprazole Sodium (Protonix Ec Tab) 40 mg PO DAILY [facility] Last Admin: 08/30/17 09:25 Dose: 40 mg Rosuvastatin Calcium (Crestor) 10 mg PO HS [facility] Last Admin: 08/29/17 22:23 Dose: 10 mg Thiamine HCl (Vitamin B1 Tab) 100 mg PO DAILY [facility] Last Admin: 08/30/17 09:26 Dose: 100 mg - Labs Labs: 08/28/17 16:58 08/28/17 16:58
--- NOTE | 2017-08-30 18:03 | CP.PCM.DIS ---
Provider - Provider Date of Admission: 08/28/17 18:20 Attending physician: Shlomo Barrios MD Time Spent in preparation of Discharge (in minutes): 45 Hospital Course - Lab Results Lab Results: Most Recent Lab Values WBC 5.3 K/uL (4.8-10.8) 08/28/17 16:58 RBC 3.00 Mil/uL (3.80-5.20) L 08/28/17 16:58 Hgb 10.0 g/dL (11.0-16.0) L 08/28/17 16:58 Hct 29.8 % (34.0-47.0) L 08/28/17 16:58 MCV 99.3 fL (81.0-99.0) H D 08/28/17 16:58 MCH 33.2 pg (27.0-31.0) H 08/28/17 16:58 MCHC 33.5 g/dL (33.0-37.0) 08/28/17 16:58 RDW 16.3 % (11.5-14.5) H 08/28/17 16:58 Plt Count 236 K/uL (130-400) 08/28/17 16:58 MPV 7.7 fL (7.2-11.7) 08/28/17 16:58 Neut % (Auto) 54.2 % (50.0-75.0) 08/28/17 16:58 Lymph % (Auto) 36.8 % (20.0-40.0) 08/28/17 16:58 [place] % (Auto) 5.6 % (0.0-10.0) 08/28/17 16:58 Eos % (Auto) 2.8 % (0.0-4.0) 08/28/17 16:58 Baso % (Auto) 0.6 % (0.0-2.0) 08/28/17 16:58 Neut # (Auto) 2.9 K/uL (1.8-7.0) 08/28/17 16:58 Lymph # (Auto) 1.9 K/uL (1.0-4.3) 08/28/17 16:58 [place] # (Auto) 0.3 K/uL (0.0-0.8) 08/28/17 16:58 Eos # (Auto) 0.1 K/uL (0.0-0.7) 08/28/17 16:58 Baso # (Auto) 0.0 K/uL (0.0-0.2) 08/28/17 16:58 Sodium 143 mmol/L (132-148) 08/28/17 16:58 Potassium 5.2 mmol/L (3.6-5.2) 08/28/17 16:58 Chloride 113 mmol/L (98-107) H 08/28/17 16:58 Carbon Dioxide 14 mmol/L (22-30) L 08/28/17 16:58 Anion Gap 20 (10-20) 08/28/17 16:58 BUN 50 mg/dL (7-17) H 08/28/17 16:58 Creatinine 4.5 mg/dL (0.7-1.2) H 08/28/17 16:58 Est GFR ( Amer) 12 08/28/17 16:58 Est GFR (Non-Af Amer) 10 08/28/17 16:58 POC Glucose (mg/dL) 115 mg/dL (65-110) H 08/30/17 10:58 Random Glucose 86 mg/dL (65-105) 08/28/17 16:58 Calcium 9.3 mg/dl (8.6-10.4) 08/28/17 16:58 Total Bilirubin 0.5 mg/dL (0.2-1.3) 08/28/17 16:58 AST 32 U/L (14-36) 08/28/17 16:58 ALT 22 U/L (9-52) 08/28/17 16:58 Alkaline Phosphatase 147 U/L (38-126) H D 08/28/17 16:58 Troponin I < 0.0120 ng/mL (0.00-0.120) 08/28/17 16:58 NT-Pro-B Natriuret Pep 2930 pg/mL (0-900) H 08/28/17 16:58 Total Protein 8.1 g/dL (6.3-8.3) 08/28/17 16:58 Albumin 4.4 g/dL (3.5-5.0) 08/28/17 16:58 Globulin 3.7 gm/dL (2.2-3.9) 08/28/17 16:58 Albumin/Globulin Ratio 1.2 (1.0-2.1) 08/28/17 16:58 Beta HCG, Quant 3.95 mIU/ML 08/28/17 17:16 - Hospital Course Hospital Course: PT CLEARED FOR D/C HOME TODAY . ALL HOME MEDS REFILLED. PT TO CONTINUE HER USUAL HD SESSIONS. DR. LUNDY ALSO AWARE OF D/C TODAY AND IN AGREEMENT. NO FURTHER ORDERS. -FOLLOW UP WITH YOUR PRIMARY DOCTOR IN THE OFFICE WITHIN 1 WEEK---CALL THE OFFICE FOR APPOINTMENT TIME. -FOLLOW UP WITH DR. LUNDY IN THE OFFICE WITHIN 1-2 WEEKS---CALL FOR APPOINTMENT TIME. -CONTINUE DIALYSIS USUAL. -CONTINUE YOUR HOME MEDICATIONS USUAL. ALL OF YOUR MEDICATIONS HAVE BEEN REFILLED. -FOR FURTHER QUESTIONS, CONTACT DR. BARRIOS. Discharge Exam - Head Exam Head Exam: ATRAUMATIC, NORMAL INSPECTION Discharge Plan - Discharge Medications Prescriptions: Atorvastatin 20 mg PO DAILY #30 Ferrous Sulfate 325 mg PO DAILY #30 Folic Acid 1 mg PO DAILY #30 tab Gabapentin [Neurontin] 100 mg PO DAILY #30 cap amLODIPine [Norvasc] 5 mg PO DAILY #30 tab Calcium Acetate [Phoslo] 667 mg PO TIDCC #90 tab Pantoprazole [Protonix EC Tab] 40 mg PO DAILY #30 tab Thiamine [Vitamin B1 Tab] 100 mg PO DAILY #30 tab - Follow Up Plan Condition: GOOD Disposition: HOME/ ROUTINE Instructions: Dialysis Diet , Hemodialysis (DC), End Stage Kidney Disease (DC) Additional Instructions: -FOLLOW UP WITH DR. BARRIOS OR YOUR PRIMARY DOCTOR IN THE OFFICE WITHIN 1 WEEK-- -CALL THE OFFICE FOR APPOINTMENT TIME. -FOLLOW UP WITH DR. LUNDY IN THE OFFICE WITHIN 1-2 WEEKS---CALL FOR APPOINTMENT TIME. -CONTINUE DIALYSIS USUAL. -CONTINUE YOUR HOME MEDICATIONS USUAL. ALL OF YOUR MEDICATIONS HAVE BEEN REFILLED. -FOR FURTHER QUESTIONS, CONTACT DR. BARRIOS. Referrals: Damian Lundy MD [Staff Provider] - José Manuel Alfaro MD [Staff Provider] - Shlomo Barrios MD [Staff Provider] -
== END 2017-08-30 15:39 | disposition home or self-care (01) ==
LOC: C.ER 16:10 → C.9E 18:20 → C.6T 19:36
PROVIDERS: ADMIT Internal Medicine; ATTEND Internal Medicine
DX: I12.0 Hypertensive chronic kidney disease with stage 5 chronic kidney disease or end stage renal disease (principal); N18.6 End stage renal disease; Z87.891 Personal history of nicotine dependence; Z91.15 Patient's noncompliance with renal dialysis; J45.909 Unspecified asthma, uncomplicated; B18.2 Chronic viral hepatitis C; E11.22 Type 2 diabetes mellitus with diabetic chronic kidney disease
CPT/HCPCS: 71045; 80053; 82948; 83880; 84484; 84702; 85025; 90471; 90732; 93005; 96372; 96374; 99283; C9113; G0257; G0378; J1644

== ENCOUNTER 2017-09-18 12:47 | Emergency (ER) | payer MEDICAID ==
[2017-09-18 13:07] VITALS: O2SAT 100
--- NOTE | 2017-09-18 14:28 | C.PDOC ---
History Of Present Illness 52-year-old female, PMHx includes Hypertension, ESRD (HD //Sat), is brought to the emergency department by EMS with complaints of missed dialysis. Patient states she missed her dialysis yesterday, and received a phone call, stating she needed to come in for dialysis, but patient reports "they did not come to pick me up, so I'm not going." After which, 911 was called and pt brought to ED for evaluation. Denies any fevers, chills, chest pain or shortness of breath. No other complaints at this time. Time Seen by Provider: 09/18/17 13:01 Chief Complaint (Nursing): GI Problem History Per: Patient History/Exam Limitations: no limitations Current Symptoms Are (Timing): Still Present Past Medical History Reviewed: Historical Data, Nursing Documentation, Vital Signs Vital Signs: Last Vital Signs Temp 98.1 F 09/18/17 12:55 Pulse 85 09/18/17 15:21 Resp 15 09/18/17 15:21 BP 100/79 09/18/17 15:21 Pulse Ox 100 09/18/17 15:21 - Medical History PMH: Asthma, HTN, Pancreatitis, End Stage Renal Disease, Chronic Kidney Disease - [facility] Procedures (05/27/17) EXCISION OF STOMACH, ENDO, DIAGN (05/27/17) FLUOROSCOPY OF SUPERIOR VENA CAVA, GUIDANCE (05/27/17) INSERTION OF INFUSION DEV INTO SUP VENA CAVA, PERC APPROACH (05/27/17) INSERTION OF VAD INTO CHEST SUBCU/FASCIA, PERC APPROACH (05/27/17) Family History: States: No Known Family Hx - Social History Hx Alcohol Use: No Hx Substance Use: Yes - Immunization History Hx Tetanus Toxoid Vaccination: No Hx Influenza Vaccination: Yes Hx Pneumococcal Vaccination: Yes Review Of Systems Constitutional: Negative for: Fever, Chills Cardiovascular: Negative for: Chest Pain, Palpitations Respiratory: Negative for: Shortness of Breath Gastrointestinal: Positive for: Nausea. Negative for: Vomiting Physical Exam - Physical Exam Appears: Non-toxic, No Acute Distress Skin: Normal Color, Warm, Dry, No Rash Head: Atraumatic, Normacephalic Eye(s): bilateral: Normal Inspection, PERRL, EOMI Nose: Normal Oral Mucosa: Moist Lips: Normal Appearing Neck: Normal ROM Cardiovascular: Rhythm Regular, No Murmur Respiratory: Normal Breath Sounds, No Accessory Muscle Use Gastrointestinal/Abdominal: Soft, No Tenderness Back: Normal Inspection Extremity: Normal ROM, No Deformity, No Swelling Neurological/Psych: Oriented x3, Normal Speech ED Course And Treatment O2 Sat by Pulse Oximetry: 100 (RA) Pulse Ox Interpretation: Normal Progress Note: Patient was evaluated by Social service and transportation set up for tomorrow. Patient is very agitated about lack of services and understands that if she is not takent to dialysis tomorrow she should return to the ED for dialysis. Disposition Counseled Patient/Family Regarding: Diagnosis, Need For Followup - Disposition Referrals: Vinnie Michael MD [Medical Doctor] - Disposition: HOME/ ROUTINE Disposition Time: 15:33 Condition: STABLE Instructions: Hemodialysis Forms: [facility] (Albanian) - Clinical Impression Clinical Impression: ESRD (end stage renal disease) on dialysis - Scribe Statement The provider has reviewed the documentation as recorded by the Scribe (Akash Yeh) All medical record entries made by the Scribe were at my direction and personally dictated by me. I have reviewed the chart and agree that the record accurately reflects my personal performance of the history, physical exam, medical decision making, and the department course for this patient. I have also personally directed, reviewed, and agree with the discharge instructions and disposition.
[2017-09-18 15:22] VITALS: PULSE 85
[2017-09-18 16:26] VITALS: BP 113/80; RESP 17; TEMP 98.5
== END 2017-09-18 16:21 | disposition home or self-care (01) ==
LOC: C.ER 12:47
DX: N18.6 End stage renal disease (principal); Z99.2 Dependence on renal dialysis

== ENCOUNTER 2017-10-12 10:30 | Inpatient (IN) | payer MEDICAID ==
[2017-10-12 11:10] LABS: BASO % 0.9 % (0.0-2.0); EOS % 0.3 % (0.0-4.0); LYMPH # 1.3 K/uL (1.0-4.3); LYMPH % 27.4 % (20.0-40.0); MEAN CELL VOLUME 100.6 fL (81.0-99.0); MEAN CORPUSCULAR HEMOGLOBIN 34.2 pg (27.0-31.0); MONO # 0.2 K/uL (0.0-0.8); MONO % 3.7 % (0.0-10.0); NEUT # 3.2 K/uL (1.8-7.0); NEUT % 67.7 % (50.0-75.0); RBC 3.61 Mil/uL (3.80-5.20); WHITE BLOOD COUNT 4.8 K/uL (4.8-10.8)
--- NOTE | 2017-10-12 11:13 | C.PDOC ---
History Of Present Illness 52 year old female with PMHx of acid reflux and End Stage Renal Disease presents to the ED complaining of abdominal pain for 2 days. Associated symptoms include fever, vomiting, diarrhea, and nausea. She denies any SOB, chest pain, dysuria, vaginal discharge, vaginal bleeding, or any other symptoms. Patient currently goes to dialysis on Tuesdays, , and Saturdays. Time Seen by Provider: 10/12/17 10:45 Chief Complaint (Nursing): Abdominal Pain History Per: Patient History/Exam Limitations: no limitations Onset/Duration Of Symptoms: Days Current Symptoms Are (Timing): Still Present Radiation Of Pain To:: None Associated Symptoms: Fever, Nausea, Vomiting, Diarrhea. denies: Urinary Symptoms Past Medical History Reviewed: Historical Data, Nursing Documentation, Vital Signs Vital Signs: Last Vital Signs Temp 99.2 F 10/12/17 10:44 Pulse 82 10/12/17 10:44 Resp 17 10/12/17 10:44 BP 152/81 H 10/12/17 10:44 Pulse Ox 96 10/12/17 12:52 - Medical History PMH: Asthma, HTN, Pancreatitis, End Stage Renal Disease, Chronic Kidney Disease Other Surgeries: Hx of surgeries - [facility] Procedures (05/27/17) EXCISION OF STOMACH, ENDO, DIAGN (05/27/17) FLUOROSCOPY OF SUPERIOR VENA CAVA, GUIDANCE (05/27/17) INSERTION OF INFUSION DEV INTO SUP VENA CAVA, PERC APPROACH (05/27/17) INSERTION OF VAD INTO CHEST SUBCU/FASCIA, PERC APPROACH (05/27/17) Family History: States: No Known Family Hx - Social History Hx Alcohol Use: No Hx Substance Use: No - Immunization History Hx Tetanus Toxoid Vaccination: No Hx Influenza Vaccination: Yes Hx Pneumococcal Vaccination: No Review Of Systems Except As Marked, All Systems Reviewed And Found Negative. Gastrointestinal: Positive for: Abdominal Pain Physical Exam - Physical Exam Appears: Non-toxic, No Acute Distress Skin: Dry Head: Atraumatic, Normacephalic Eye(s): bilateral: Normal Inspection Nose: Normal Oral Mucosa: Moist Neck: Supple Chest: Symmetrical, Other ((+) dialysis catheter in place in right acw ) Cardiovascular: Rhythm Regular, No Murmur Respiratory: Normal Breath Sounds, No Rales, No Rhonchi, No Wheezing Gastrointestinal/Abdominal: Tenderness (hypogastrium tenderness), No Guarding, No Rebound Neurological/Psych: Oriented x3, Normal Speech ED Course And Treatment - Laboratory Results Result Diagrams: 10/12/17 11:04 10/12/17 11:04 ECG: Interpreted By Me, Viewed By Me ECG Rhythm: Sinus Rhythm ECG Interpretation: No Acute Changes Interpretation Of ECG: Normal interval, normal axis, no ST/T wave changes Rate From EC O2 Sat by Pulse Oximetry: 96 (RA) Pulse Ox Interpretation: Normal - CT Scan/US CT ABD/PEL Other Rad Studies (CT/US): Read By Radiologist, Radiology Report Reviewed CT/US Interpretation: Accession No. : [id number]. Patient Name / ID : MASSIEL HORNE / [id number]. Exam Date : 10/12/2017 11:50:14 ( Approved ). Study Comment : Sex / Age : F / 52Y. Creator : Jordan Calixto MD. Dictator : Jordan Calixto MD. 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 Approver2 : Report Date : 10/12/2017 12:16:58. My Comment : . Date of service: 10/12/2017. PROCEDURE: CT Abdomen and Pelvis without intravenous contrast. HISTORY: abd pain. COMPARISON: Abdomen pelvis CT without contrast 05/27/2017. TECHNIQUE: Helical CT of the abdomen and pelvis was performed without oral or intravenous contrast as per referring physician request. Contrast dose: None. Radiation dose: Total exam DLP = 191.98 mGy- cm. This CT exam was performed using one or more of the following dose reduction techniques: Automated exposure control, adjustment of the mA and/or kV according to patient size, and/or use of iterative reconstruction technique. FINDINGS: LOWER THORAX: An apparent catheter now terminates at the right atrium with lung bases otherwise unremarkable in the interval. LIVER: Unremarkable. No gross lesion or ductal dilatation. GALLBLADDER AND BILE DUCTS : Unremarkable. PANCREAS: Heterogeneous calcifications are scattered throughout the pancreas with 2 adjacent cysts at the distal body and tail diminished in size overall with the aggregate of these 2 cysts measuring 8.9 x 4.2 cm. Overall pattern reflects chronic pancreatitis. SPLEEN: Granuloma or other calcification noted at the periphery of the low spleen which is otherwise unremarkable. Stable appearance. ADRENALS: Unremarkable. No mass. KIDNEYS AND URETERS: Unremarkable. No hydronephrosis. No solid mass. VASCULATURE: Unremarkable. No aortic aneurysm. BOWEL: Unremarkable. No obstruction. No gross mural thickening. APPENDIX: Unremarkable. Normal appendix. PERITONEUM: Unremarkable. No free fluid. No free air. LYMPH NODES: Unremarkable. No enlarged lymph nodes. BLADDER: Mural thickening the urinary bladder is not excluded, however, the bladder is decompressed. Clinically correlate nevertheless for potential interval cystitis. REPRODUCTIVE: Unremarkable. BONES: No acute fracture. OTHER FINDINGS: Tiny umbilical hernia is identified containing only fat. IMPRESSION: 1. Chronic pancreatitis pattern including numerous calcifications into moderate-size cyst at the tail which are Saman but smaller in size in aggregate. Emphysematous changes have resolved related to the more medial of the 2 cysts. 2. Potential cystitis. Urinary bladder is limited evaluation due to decompression, however, the wall still looks thicker than normal. Clinically correlate further. 3. Interval dialysis catheterization or other catheter identified terminating at the right atrium. Medical Decision Making Medical Decision Making: Impression: Abdominal pain Plan: - CT abd/pel - EKG - Labs - CXR - Pepcid 20mg IVP - Zofran 4mg IVP patient resting comfortably, discussed with Dr. Jaimes and will admit to medical surgical floor. Disposition Discussed With : Lolis Jaimes Doctor Will See Patient In The: Hospital Counseled Patient/Family Regarding: Studies Performed, Diagnosis - Disposition Disposition Time: 12:35 Condition: FAIR Forms: [facility] (Yi) - Clinical Impression Clinical Impression: Pancreatitis, ESRD (end stage renal disease) - Scribe Statement The provider has reviewed the documentation as recorded by the Gladysibbharati Masters All medical record entries made by the Scribe were at my direction and personally dictated by me. I have reviewed the chart and agree that the record accurately reflects my personal performance of the history, physical exam, medical decision making, and the department course for this patient. I have also personally directed, reviewed, and agree with the discharge instructions and disposition.
[2017-10-12 11:17] LABS: HEMOGLOBIN 12.3 g/dL (11.0-16.0)
[2017-10-12 11:23] LABS: CALCIUM 9.6 mg/dl (8.6-10.4); GFR AFRICAN-AMERICAN 16; GFR NON-AFRICAN AMERICAN 13; LIPASE 1068 U/L (23-300)
[2017-10-12 11:25] LABS: ALB/GLOB RATIO 1.1 (1.0-2.1); ALBUMIN 4.8 g/dL (3.5-5.0); ALT/SGPT 24 U/L (9-52); AST/SGOT 63 U/L (14-36); BLOOD UREA NITROGEN 25 mg/dL (7-17)
[2017-10-12 11:31] LABS: B-TYPE NATRIURETIC PEPTIDE 1360 pg/mL (0-900)
--- NOTE | 2017-10-12 12:18 | CT ---
Date of service: 10/12/2017 PROCEDURE: CT Abdomen and Pelvis without intravenous contrast HISTORY: abd pain COMPARISON: Abdomen pelvis CT without contrast 05/27/2017. TECHNIQUE: Helical CT of the abdomen and pelvis was performed without oral or intravenous contrast as per referring physician request. Contrast dose: None Radiation dose: Total exam DLP = 191.98 mGy-cm. This CT exam was performed using one or more of the following dose reduction techniques: Automated exposure control, adjustment of the mA and/or kV according to patient size, and/or use of iterative reconstruction technique. FINDINGS: LOWER THORAX: An apparent catheter now terminates at the right atrium with lung bases otherwise unremarkable in the interval. LIVER: Unremarkable. No gross lesion or ductal dilatation. GALLBLADDER AND BILE DUCTS: Unremarkable. PANCREAS: Heterogeneous calcifications are scattered throughout the pancreas with 2 adjacent cysts at the distal body and tail diminished in size overall with the aggregate of these 2 cysts measuring 8.9 x 4.2 cm. Overall pattern reflects chronic pancreatitis. SPLEEN: Granuloma or other calcification noted at the periphery of the low spleen which is otherwise unremarkable. Stable appearance. ADRENALS: Unremarkable. No mass. KIDNEYS AND URETERS: Unremarkable. No hydronephrosis. No solid mass. VASCULATURE: Unremarkable. No aortic aneurysm. BOWEL: Unremarkable. No obstruction. No gross mural thickening. APPENDIX: Unremarkable. Normal appendix. PERITONEUM: Unremarkable. No free fluid. No free air. LYMPH NODES: Unremarkable. No enlarged lymph nodes. BLADDER: Mural thickening the urinary bladder is not excluded, however, the bladder is decompressed. Clinically correlate nevertheless for potential interval cystitis. REPRODUCTIVE: Unremarkable. BONES: No acute fracture. OTHER FINDINGS: Tiny umbilical hernia is identified containing only fat. IMPRESSION: 1. Chronic pancreatitis pattern including numerous calcifications into moderate-size cyst at the tail which are Saman but smaller in size in aggregate. Emphysematous changes have resolved related to the more medial of the 2 cysts. 2. Potential cystitis. Urinary bladder is limited evaluation due to decompression, however, the wall still looks thicker than normal. Clinically correlate further. 3. Interval dialysis catheterization or other catheter identified terminating at the right atrium.
--- NOTE | 2017-10-12 17:56 | RAD ---
Date of service: 10/12/2017 PROCEDURE: CHEST RADIOGRAPH, 1 VIEW HISTORY: abd pain COMPARISON: Portable chest 08/28/2017. FINDINGS: LUNGS: No interval pulmonary disease appreciated bilaterally. PLEURA: No pneumothorax or pleural fluid seen. CARDIOVASCULAR: Permanent right center venous dialysis catheter deployment unchanged. Normal size cardiac silhouette. No pulmonary vascular derangement present. OSSEOUS STRUCTURES: No significant abnormalities. VISUALIZED UPPER ABDOMEN: Normal. OTHER FINDINGS: None. IMPRESSION: No interval acute cardiopulmonary disease appreciated.
[2017-10-12] MEDS ORDERED: Dextrose 50% SYRINGE Inj (50 ml) IV STA ×2 (18:40→18:44)
[2017-10-12] MEDS: (Novolin R) Insulin Human Regular 100 units/ml vial SC SCH (22:13)
[2017-10-13] MEDS: Albuterol HFA 90 mcg/actuation (8 g) IH SCH ×4 (01:25→16:26)
[2017-10-13 06:54] LABS: BARBITURATES, UR NEGATIVE (NEGATIVE); BENZODIAZEPINES, UR NEGATIVE (NEGATIVE); OPIATES, UR NEGATIVE (NEGATIVE); PHENCYCLIDINE, UR NEGATIVE (NEGATIVE)
[2017-10-13] MEDS: (Novolin R) Insulin Human Regular 100 units/ml vial SC SCH ×4 (07:52→22:21)
[2017-10-13 08:12] LABS: HEMOGLOBIN 12.1 g/dL (11.0-16.0); MEAN CELL VOLUME 100.4 fL (81.0-99.0); MEAN CORPUSCULAR HEMOGLOBIN 33.9 pg (27.0-31.0); MEAN CORPUSCULAR HGB CONC 33.8 g/dL (33.0-37.0); MEAN PLATELET VOLUME 8.9 fL (7.2-11.7); RBC 3.56 Mil/uL (3.80-5.20); RED CELL DISTRIBUTION WIDTH 15.6 % (11.5-14.5); WHITE BLOOD COUNT 3.7 K/uL (4.8-10.8)
[2017-10-13 08:39] LABS: AMYLASE 513 U/L (30-110); HDL CHOLESTEROL 68 mg/dL (30-70); LIPASE 1800 U/L (23-300)
[2017-10-13 08:40] LABS: IRON 58 ug/dL (37-170)
[2017-10-13 08:41] LABS: CALCIUM 9.6 mg/dl (8.6-10.4)
[2017-10-13 08:51] LABS: % IRON SATURATION 22 (20-55); B-TYPE NATRIURETIC PEPTIDE 1160 pg/mL (0-900); LDL CHOLESTEROL 68 mg/dL (0-129); TOTAL IRON BINDING CAPACITY 267 ug/dL (250-450)
[2017-10-13] MEDS: Enoxaparin 30 mg Syringe SC SCH (09:49)
--- NOTE | 2017-10-13 12:56 | CP.PCM.CON ---
<Jay Jay Curry - Last Filed: 10/13/17 12:46> History of Present Illness - History of Present Illness History of Present Illness: PGY6 GI Fellow Consult Note Patient is a 52yo female with PMHx significant for HCV infection, ESRD on HD T/R /Sat, EtOH abuse, marijuana abuse, HTN, prior pancreatitis with pseudocyst formation who presented to the ED yesterday with abdominal pain. The patient states that since the onset of dialysis treatments, she seems to feel nauseated/ fatigued after each session. evening following HD she became nauseated and vomited, later developing mild diffuse abdominal cramping pain. Saturday morning she ate small breakfast but again became nauseated and vomited multiple times and notes development of several episodes of loose stool. As she felt symptoms were worsening, she came to the ED for further evaluation. Admits that prior to onset of symptoms she was at a cookout where she ate BBQ chicken/ burgers. Does not know if anyone else was sick. Denies recent EtOH use but does admit to near daily marijuana use. 12 system ROS performed and otherwise negative PMHx: See HPI PSHx: Left AVF FHx: Sister - DM Social: Denies tobacco, EtOH presently; +marijuana use Endo: May 2017 - EGD - GOV1, H pylori gastritis, LA A esophagitis, hiatal hernia Past Patient History - Past Medical History & Family History Past Medical History?: Yes - Past Social History Smoking Status: Never Smoked - CARDIAC Hx Hypertension: Yes - PULMONARY Hx Asthma: Yes - NEUROLOGICAL Hx Neurological Disorder: Yes HX Cerebrovascular Accident: Yes - HEENT Hx HEENT Problems: No - RENAL Hx Chronic Kidney Disease: Yes - ENDOCRINE/METABOLIC Hx Endocrine Disorders: No - HEMATOLOGICAL/ONCOLOGICAL Hx Blood Disorders: Yes Hx Hepatitis C: Yes - INTEGUMENTARY Hx Dermatological Problems: No - MUSCULOSKELETAL/RHEUMATOLOGICAL Hx Musculoskeletal Disorders: Yes Hx Falls: Yes - GASTROINTESTINAL Hx Pancreatitis: Yes - GENITOURINARY/GYNECOLOGICAL Hx Genitourinary Disorders: No - PSYCHIATRIC Hx Substance Use: No - SURGICAL HISTORY Hx Surgeries: Yes Hx Vascular Surgery: Yes Other/Comment: RIGHT ARM SURGERY - BOIL - ANESTHESIA Hx Anesthesia: Yes Hx Anesthesia Reactions: No Hx Malignant Hyperthermia: No Meds Allergies/Adverse Reactions: Allergies Allergy/AdvReac Type Severity Reaction Status Date / Time acetaminophen [From Tylenol] Allergy Verified 10/12/17 10:42 - Medications Medications: Current Medications Albuterol (Ventolin Hfa 90 Mcg/Actuation (8 G)) 1 puff IH Q6H [facility] Last Admin: 10/13/17 11:37 Dose: 1 puff Calcium Acetate (Phoslo) 667 mg PO TIDCC [facility] Last Admin: 10/13/17 12:08 Dose: 667 mg Enoxaparin Sodium (Lovenox) 30 mg SC DAILY [facility] Last Admin: 10/13/17 09:49 Dose: Not Given Ferrous Sulfate (Feosol) 325 mg PO DAILY [facility] Last Admin: 10/13/17 09:58 Dose: 325 mg Folic Acid (Folic Acid) 1 mg PO DAILY [facility] Last Admin: 10/13/17 09:58 Dose: 1 mg Gabapentin (Neurontin) 100 mg PO DAILY [facility] Last Admin: 10/13/17 09:58 Dose: 100 mg Insulin Human Regular (Novolin R) 0 unit SC ACHS [facility] PRN Reason: Protocol Last Admin: 10/13/17 11:39 Dose: Not Given Thiamine HCl (Vitamin B1 Tab) 100 mg PO DAILY [facility] Last Admin: 10/13/17 09:58 Dose: 100 mg Physical Exam - Constitutional Appears: No Acute Distress, Chronically Ill - Eye Exam Eye Exam: EOMI, PERRL - ENT Exam ENT Exam: Mucous Membranes Moist - Respiratory Exam Respiratory Exam: Clear to Auscultation Bilateral. absent: Rales, Rhonchi, Wheezes - Cardiovascular Exam Cardiovascular Exam: RRR, +S1, +S2 - GI/Abdominal Exam GI & Abdominal Exam: Normal Bowel Sounds, Soft. absent: Distended, Firm, Guarding, Organomegaly, Rigid, Tenderness - Extremities Exam Extremities exam: Positive for: normal inspection. Negative for: pedal edema Additional comments: LUE AV fistula - Neurological Exam Neurological exam: Alert, Oriented x3 - Psychiatric Exam Psychiatric exam: Normal Affect, Normal Mood - Skin Skin Exam: Dry, Warm - Additional Findings Additional findings: right chest dialysis catheter Results - Vital Signs Recent Vital Signs: Last Vital Signs Temp 98.7 F 10/13/17 07:51 Pulse 80 10/13/17 07:51 Resp 20 10/13/17 07:51 BP 155/79 H 10/13/17 07:51 Pulse Ox 99 10/13/17 07:51 - Labs Result Diagrams: 10/13/17 08:01 08/05/18 08:01 Labs: Laboratory Results - last 24 hr 10/12/17 10/12/17 10/13/17 18:33 18:36 06:32 WBC RBC Hgb Hct MCV MCH MCHC RDW Plt Count MPV Sodium Potassium Chloride Carbon Dioxide Anion Gap BUN Creatinine Est GFR ( Amer) Est GFR (Non-Af Amer) POC Glucose (mg/dL) 60 L 57 L Random Glucose Hemoglobin A1c Calcium Iron TIBC % Saturation NT-Pro-B Natriuret Pep Triglycerides Cholesterol LDL Cholesterol Direct HDL Cholesterol Amylase Lipase Vitamin B12 Folate TSH 3rd Generation Urine Opiates Screen Negative Urine Methadone Screen Negative Ur Barbiturates Screen Negative Ur Phencyclidine Scrn Negative Ur Amphetamines Screen Negative U Benzodiazepines Scrn Negative U Oth Cocaine Metabols Negative U Cannabinoids Screen Positive H Alcohol, Quantitative 10/13/17 10/13/17 10/13/17 08:01 08:01 08:01 WBC RBC Hgb Hct MCV MCH MCHC RDW Plt Count MPV Sodium Potassium Chloride Carbon Dioxide Anion Gap BUN Creatinine Est GFR ( Amer) Est GFR (Non-Af Amer) POC Glucose (mg/dL) Random Glucose Hemoglobin A1c 5.3 Calcium Iron 58 TIBC 267 % Saturation 22 NT-Pro-B Natriuret Pep 1160 H Triglycerides 131 Cholesterol 188 LDL Cholesterol Direct 68 HDL Cholesterol 68 Amylase 513 H Lipase 1800 H Vitamin B12 696 Folate 13.0 TSH 3rd Generation Urine Opiates Screen Urine Methadone Screen Ur Barbiturates Screen Ur Phencyclidine Scrn Ur Amphetamines Screen U Benzodiazepines Scrn U Oth Cocaine Metabols U Cannabinoids Screen Alcohol, Quantitative < 10 10/13/17 10/13/17 08:01 08:01 WBC 3.7 L RBC 3.56 L Hgb 12.1 Hct 35.7 MCV 100.4 H MCH 33.9 H MCHC 33.8 RDW 15.6 H Plt Count 187 MPV 8.9 Sodium 140 Potassium 3.4 L Chloride 97 L Carbon Dioxide 27 Anion Gap 19 BUN 16 Creatinine 3.0 H Est GFR ( Amer) 20 Est GFR (Non-Af Amer) 16 POC Glucose (mg/dL) Random Glucose 103 Hemoglobin A1c Calcium 9.6 Iron TIBC % Saturation NT-Pro-B Natriuret Pep Triglycerides Cholesterol LDL Cholesterol Direct HDL Cholesterol Amylase Lipase Vitamin B12 Folate TSH 3rd Generation 0.63 Urine Opiates Screen Urine Methadone Screen Ur Barbiturates Screen Ur Phencyclidine Scrn Ur Amphetamines Screen U Benzodiazepines Scrn U Oth Cocaine Metabols U Cannabinoids Screen Alcohol, Quantitative Assessment & Plan - Assessment and Plan (Free Text) Assessment: Patient is a 52yo female with PMHx significant for HCV infection, ESRD on HD T/R /Sat, EtOH abuse, marijuana abuse, HTN, prior pancreatitis with pseudocyst formation who presented to the ED yesterday with abdominal pain -Abdominal pain/nausea/vomiting/diarrhea - mostly resolved, suspect mild enteritis -ESRD on HD -Chronic HCV -Chronic pancreatitis per imaging with 2 pseudocyts noted -Hyperlipasemia in setting of ESRD -Marijuana abuse Plan: -Recommend conservative, supportive care -Suspect renal etiology vs acute enteritis or food-bourne illness following recent BBQ; symptoms resolved -HD as scheduled, nephrology consulted -Recommend follow up of HCV infection - HCV Ab with reflex to DNA quant ordered -Pseudocyts notes on CT scan, decreased in size from prior imaging; no intervention planned at this time -Diet as tolerated -OK to D/C from GI standpoint - Date & Time Date: 10/13/17 Time: 11:50 <Chris Zurita - Last Filed: 10/13/17 15:09> Meds - Medications Medications: Current Medications Albuterol (Ventolin Hfa 90 Mcg/Actuation (8 G)) 1 puff IH Q6H [facility] Last Admin: 10/13/17 11:37 Dose: 1 puff Calcium Acetate (Phoslo) 667 mg PO TIDCC [facility] Last Admin: 10/13/17 12:08 Dose: 667 mg Enoxaparin Sodium (Lovenox) 30 mg SC DAILY [facility] Last Admin: 10/13/17 09:49 Dose: Not Given Ferrous Sulfate (Feosol) 325 mg PO DAILY [facility] Last Admin: 10/13/17 09:58 Dose: 325 mg Folic Acid (Folic Acid) 1 mg PO DAILY [facility] Last Admin: 10/13/17 09:58 Dose: 1 mg Gabapentin (Neurontin) 100 mg PO DAILY [facility] Last Admin: 10/13/17 09:58 Dose: 100 mg Insulin Human Regular (Novolin R) 0 unit SC ACHS [facility] PRN Reason: Protocol Last Admin: 10/13/17 11:39 Dose: Not Given Thiamine HCl (Vitamin B1 Tab) 100 mg PO DAILY [facility] Last Admin: 10/13/17 09:58 Dose: 100 mg Results - Vital Signs Recent Vital Signs: Last Vital Signs Temp 98.7 F 10/13/17 07:51 Pulse 80 10/13/17 07:51 Resp 20 10/13/17 07:51 BP 155/79 H 10/13/17 07:51 Pulse Ox 99 10/13/17 07:51 - Labs Result Diagrams: 10/13/17 08:01 10/13/17 08:01 Labs: Laboratory Results - last 24 hr 10/12/17 10/12/17 10/13/17 18:33 18:36 06:32 WBC RBC Hgb Hct MCV MCH MCHC RDW Plt Count MPV Sodium Potassium Chloride Carbon Dioxide Anion Gap BUN Creatinine Est GFR ( Amer) Est GFR (Non-Af Amer) POC Glucose (mg/dL) 60 L 57 L Random Glucose Hemoglobin A1c Calcium Iron TIBC % Saturation NT-Pro-B Natriuret Pep Triglycerides Cholesterol LDL Cholesterol Direct HDL Cholesterol Amylase Lipase Vitamin B12 Folate TSH 3rd Generation Urine Opiates Screen Negative Urine Methadone Screen Negative Ur Barbiturates Screen Negative Ur Phencyclidine Scrn Negative Ur Amphetamines Screen Negative U Benzodiazepines Scrn Negative U Oth Cocaine Metabols Negative U Cannabinoids Screen Positive H Alcohol, Quantitative 10/13/17 10/13/17 10/13/17 08:01 08:01 08:01 WBC RBC Hgb Hct MCV MCH MCHC RDW Plt Count MPV Sodium Potassium Chloride Carbon Dioxide Anion Gap BUN Creatinine Est GFR ( Amer) Est GFR (Non-Af Amer) POC Glucose (mg/dL) Random Glucose Hemoglobin A1c 5.3 Calcium Iron 58 TIBC 267 % Saturation 22 NT-Pro-B Natriuret Pep 1160 H Triglycerides 131 Cholesterol 188 LDL Cholesterol Direct 68 HDL Cholesterol 68 Amylase 513 H Lipase 1800 H Vitamin B12 696 Folate 13.0 TSH 3rd Generation Urine Opiates Screen Urine Methadone Screen Ur Barbiturates Screen Ur Phencyclidine Scrn Ur Amphetamines Screen U Benzodiazepines Scrn U Oth Cocaine Metabols U Cannabinoids Screen Alcohol, Quantitative < 10 10/13/17 10/13/17 08:01 08:01 WBC 3.7 L RBC 3.56 L Hgb 12.1 Hct 35.7 MCV 100.4 H MCH 33.9 H MCHC 33.8 RDW 15.6 H Plt Count 187 MPV 8.9 Sodium 140 Potassium 3.4 L Chloride 97 L Carbon Dioxide 27 Anion Gap 19 BUN 16 Creatinine 3.0 H Est GFR ( Amer) 20 Est GFR (Non-Af Amer) 16 POC Glucose (mg/dL) Random Glucose 103 Hemoglobin A1c Calcium 9.6 Iron TIBC % Saturation NT-Pro-B Natriuret Pep Triglycerides Cholesterol LDL Cholesterol Direct HDL Cholesterol Amylase Lipase Vitamin B12 Folate TSH 3rd Generation 0.63 Urine Opiates Screen Urine Methadone Screen Ur Barbiturates Screen Ur Phencyclidine Scrn Ur Amphetamines Screen U Benzodiazepines Scrn U Oth Cocaine Metabols U Cannabinoids Screen Alcohol, Quantitative Attending/Attestation - Attestation I have personally seen and examined this patient.: Yes I have fully participated in the care of the patient.: Yes I have reviewed all pertinent clinical information: Yes Notes (Text): 10/13/17 15:03 Chart, labs, imaging reviewed. Pt interviewed and examined. The pt reports complete resolution of what appears to be an acute gastroenteritis. Tolerating regular diet w/o postprandial symptoms, or altered bowels. . Agree with Dr. Curry's findings on exam, assessment and plan. Discussed with the patient.
[2017-10-13 20:35] LABS: AMYLASE 458 U/L (30-110); HDL CHOLESTEROL 71 mg/dL (30-70); LIPASE 1410 U/L (23-300)
[2017-10-13 20:36] LABS: IRON 29 ug/dL (37-170)
[2017-10-13 20:46] LABS: LDL CHOLESTEROL 69 mg/dL (0-129)
[2017-10-13 20:52] LABS: % IRON SATURATION 11 (20-55); TOTAL IRON BINDING CAPACITY 255 ug/dL (250-450)
[2017-10-13 21:41] LABS: FOLATE > 20.0 ng/mL
[2017-10-14] MEDS: Albuterol HFA 90 mcg/actuation (8 g) IH SCH ×4 (02:56→19:25)
--- NOTE | 2017-10-14 03:16 | HP ---
Copied To: Lolis Jaimes MD Attending MD: Lolis Jaimes MD DATE: 10/13/2017 CHIEF COMPLAINT: Abdominal pain, nausea, vomiting. HISTORY OF PRESENT ILLNESS: Ms. Tatyana Brown is a 52-year-old female, new patient for me, came with abdominal pain that started two days ago associated with fever, vomiting, diarrhea, and nausea. She denies any shortness of breath. No chest pain. No dysuria. No vaginal discharge. No vaginal bleeding or any other symptoms. The patient currently goes to dialysis on Saturday, , and Saturday. No urinary symptoms. PAST MEDICAL HISTORY: As above, asthma, hypertension, pancreatitis, end-stage renal disease, chronic kidney disease. FAMILY HISTORY: Father and mother noncontributory. HABITS: No alcohol. No substance abuse. No drugs. ALLERGIES: ACETAMINOPHEN. MEDICATIONS: I reviewed all medicines. PHYSICAL EXAMINATION: VITAL SIGNS: Temperature 98.2, pulse 82, respiratory rate 17, blood pressure 150/80, and pulse oximetry 96%. HEENT: Head, normocephalic and atraumatic. Eyes, PERRLA. Extraocular muscles intact. Conjunctivae clear. Nose patent. Mucous membranes moist. NECK: Supple. No carotid bruits, JVD, or thyromegaly. CHEST: Bilaterally symmetrical. HEART: S1 and S2 positive. LUNGS: Clear to auscultation. ABDOMEN: Soft. Bowel sounds positive. No organomegaly. EXTREMITIES: No edema, no cyanosis. NEUROLOGICAL: The patient is awake and alert, moving all four extremities. No focal deficits. LABORATORY DATA: White blood cell count 4.8, hemoglobin 12.3, hematocrit 36.3, platelets 232. Sodium 141, potassium 4.7, BUN 25, creatinine 3.7, glucose 92. ASSESSMENT AND PLAN: Ms. Tatyana Brown is a 52-year-old lady with history of renal insufficiency, on hemodialysis three times a week, has history of asthma, hypertension, pancreatitis, end-stage renal disease, came with nausea, vomiting, diarrhea, abdominal pain, and feverish feeling. The patient is admitted with rule out pancreatitis, abdominal pain, Gastrointestinal and deep venous thrombosis prophylaxis. Repeat labs. We will follow up. Lolis Jaimes MD [facility] # [id number]
[2017-10-14] MEDS: (Novolin R) Insulin Human Regular 100 units/ml vial SC SCH ×4 (07:44→22:50)
[2017-10-14 08:03] LABS: HEMOGLOBIN 12.1 g/dL (11.0-16.0); MEAN CELL VOLUME 100.7 fL (81.0-99.0); MEAN CORPUSCULAR HEMOGLOBIN 33.8 pg (27.0-31.0); MEAN CORPUSCULAR HGB CONC 33.6 g/dL (33.0-37.0); MEAN PLATELET VOLUME 9.1 fL (7.2-11.7); RBC 3.57 Mil/uL (3.80-5.20); RED CELL DISTRIBUTION WIDTH 15.3 % (11.5-14.5)
[2017-10-14 08:17] LABS: CALCIUM 9.7 mg/dl (8.6-10.4)
[2017-10-14] MEDS: Enoxaparin 30 mg Syringe SC SCH (09:35)
--- NOTE | 2017-10-14 11:06 | CP.PCM.CON ---
History of Present Illness - History of Present Illness History of Present Illness: ESRD patient f/up with Dr Handley asked RN to call Dr Handley dialysis unit was also informed Past Patient History - Past Medical History & Family History Past Medical History?: Yes - Past Social History Smoking Status: Never Smoked - CARDIAC Hx Hypertension: Yes - PULMONARY Hx Asthma: Yes - NEUROLOGICAL Hx Neurological Disorder: Yes HX Cerebrovascular Accident: Yes - HEENT Hx HEENT Problems: No - RENAL Hx Chronic Kidney Disease: Yes - ENDOCRINE/METABOLIC Hx Endocrine Disorders: No - HEMATOLOGICAL/ONCOLOGICAL Hx Blood Disorders: Yes Hx Hepatitis C: Yes - INTEGUMENTARY Hx Dermatological Problems: No - MUSCULOSKELETAL/RHEUMATOLOGICAL Hx Musculoskeletal Disorders: Yes Hx Falls: Yes - GASTROINTESTINAL Hx Pancreatitis: Yes - GENITOURINARY/GYNECOLOGICAL Hx Genitourinary Disorders: No - PSYCHIATRIC Hx Substance Use: No - SURGICAL HISTORY Hx Surgeries: Yes Hx Vascular Surgery: Yes Other/Comment: RIGHT ARM SURGERY - BOIL - ANESTHESIA Hx Anesthesia: Yes Hx Anesthesia Reactions: No Hx Malignant Hyperthermia: No Meds Allergies/Adverse Reactions: Allergies Allergy/AdvReac Type Severity Reaction Status Date / Time acetaminophen [From Tylenol] Allergy Verified 10/12/17 10:42 - Medications Medications: Current Medications Albuterol (Ventolin Hfa 90 Mcg/Actuation (8 G)) 1 puff IH Q6H [facility] Last Admin: 10/14/17 08:24 Dose: 1 puff Calcium Acetate (Phoslo) 667 mg PO TIDCC [facility] Last Admin: 10/14/17 07:55 Dose: 667 mg Enoxaparin Sodium (Lovenox) 30 mg SC DAILY [facility] Last Admin: 10/14/17 09:35 Dose: 30 mg Ferrous Sulfate (Feosol) 325 mg PO DAILY [facility] Last Admin: 10/14/17 09:35 Dose: 325 mg Folic Acid (Folic Acid) 1 mg PO DAILY [facility] Last Admin: 10/14/17 09:35 Dose: 1 mg Gabapentin (Neurontin) 100 mg PO DAILY [facility] Last Admin: 10/14/17 09:35 Dose: 100 mg Insulin Human Regular (Novolin R) 0 unit SC ACHS [facility] PRN Reason: Protocol Last Admin: 10/14/17 07:44 Dose: 1 unit Thiamine HCl (Vitamin B1 Tab) 100 mg PO DAILY [facility] Last Admin: 10/14/17 09:35 Dose: 100 mg Results - Vital Signs Recent Vital Signs: Last Vital Signs Temp 97.9 F 10/14/17 08:02 Pulse 73 10/14/17 08:02 Resp 20 10/14/17 08:02 BP 126/96 H 10/14/17 08:02 Pulse Ox 99 10/14/17 08:02 - Labs Result Diagrams: 10/14/17 07:42 10/14/17 07:42 Labs: Laboratory Results - last 24 hr 10/12/17 10/12/17 10/13/17 19:01 21:05 01:27 WBC RBC Hgb Hct MCV MCH MCHC RDW Plt Count MPV Sodium Potassium Chloride Carbon Dioxide Anion Gap BUN Creatinine Est GFR ( Amer) Est GFR (Non-Af Amer) POC Glucose (mg/dL) 272 H 120 H 80 Random Glucose Hemoglobin A1c Calcium Iron TIBC % Saturation Triglycerides Cholesterol LDL Cholesterol Direct HDL Cholesterol Amylase Lipase Vitamin B12 Folate TSH 3rd Generation 10/13/17 10/13/17 10/13/17 06:07 07:17 08:01 WBC RBC Hgb Hct MCV MCH MCHC RDW Plt Count MPV Sodium Potassium Chloride Carbon Dioxide Anion Gap BUN Creatinine Est GFR ( Amer) Est GFR (Non-Af Amer) POC Glucose (mg/dL) 100 101 Random Glucose Hemoglobin A1c Calcium Iron TIBC % Saturation Triglycerides Cholesterol LDL Cholesterol Direct HDL Cholesterol Amylase Lipase Vitamin B12 Folate 13.0 TSH 3rd Generation 10/13/17 10/13/17 10/13/17 11:07 16:27 20:16 WBC RBC Hgb Hct MCV MCH MCHC RDW Plt Count MPV Sodium Potassium Chloride Carbon Dioxide Anion Gap BUN Creatinine Est GFR ( Amer) Est GFR (Non-Af Amer) POC Glucose (mg/dL) 127 H 133 H Random Glucose Hemoglobin A1c 5.3 Calcium Iron TIBC % Saturation Triglycerides Cholesterol LDL Cholesterol Direct HDL Cholesterol Amylase Lipase Vitamin B12 Folate TSH 3rd Generation 10/13/17 10/13/17 10/13/17 20:16 20:16 21:31 WBC RBC Hgb Hct MCV MCH MCHC RDW Plt Count MPV Sodium Potassium Chloride Carbon Dioxide Anion Gap BUN Creatinine Est GFR ( Amer) Est GFR (Non-Af Amer) POC Glucose (mg/dL) 104 Random Glucose Hemoglobin A1c Calcium Iron 29 L TIBC 255 % Saturation 11 L Triglycerides 132 Cholesterol 178 LDL Cholesterol Direct 69 HDL Cholesterol 71 H Amylase 458 H Lipase 1410 H Vitamin B12 778 Folate > 20.0 TSH 3rd Generation 10/14/17 10/14/17 07:42 07:42 WBC 4.0 L RBC 3.57 L Hgb 12.1 Hct 35.9 MCV 100.7 H MCH 33.8 H MCHC 33.6 RDW 15.3 H Plt Count 184 MPV 9.1 Sodium 139 Potassium 3.6 Chloride 100 Carbon Dioxide 27 Anion Gap 15 BUN 23 H Creatinine 4.3 H Est GFR ( Amer) 13 Est GFR (Non-Af Amer) 11 POC Glucose (mg/dL) Random Glucose 126 H Hemoglobin A1c Calcium 9.7 Iron TIBC % Saturation Triglycerides Cholesterol LDL Cholesterol Direct HDL Cholesterol Amylase Lipase Vitamin B12 Folate TSH 3rd Generation 0.44 L
--- NOTE | 2017-10-14 11:53 | CP.PCM.CON ---
History of Present Illness - History of Present Illness History of Present Illness: PMHx significant for HCV infection, ESRD on HD T/R/Sat, EtOH abuse, marijuana abuse, HTN, prior pancreatitis with pseudocyst formation who presented to the ED with abdominal pain, nausea, vomiting, diarrhea. The patient states that since the onset of dialysis treatments, she seems to feel nauseated/fatigued after each session. evening following HD she became nauseated and vomited, later developing mild diffuse abdominal cramping pain. Saturday morning she ate small breakfast but again became nauseated and vomited multiple times and notes development of several episodes of loose stool. As she felt symptoms were worsening, she came to the ED for further evaluation. Admits that prior to onset of symptoms she was at a cookout where she ate BBQ chicken/burgers. Does not know if anyone else was sick. Denies recent EtOH use but does admit to near daily marijuana use. No IV illicit drug use PMH: ESRD- ON DIALYSIS X 6 MOS HTN NEPHROSCLEROSIS HEP C POSITIVE CHRONIC PANCREATITIS PSH- AV FISTULA, AXILLARY ABSCESS I AND D Review of Systems - Constitutional Constitutional: Lethargy, Weakness - EENT Eyes: absent: As Per HPI, Blind Spots, Blurred Vision, Change in Vision, Decreased Night Vision, Diplopia, Discharge, Dry Eye, Exophthalmos, Floaters, Irritation, Itchy Eyes, Loss of Peripheral Vision, Pain, Photophobia, Requires Corrective Lenses, Sees Flashes, Spots in Vision, Tunnel Vision, Other Visual Disturbances, Loss of Vision, Other Ears: absent: As Per HPI, Decreased Hearing, Ear Discharge, Ear Pain, Tinnitus, Abnormal Hearing, Disequilibrium, Dizziness, Other - Cardiovascular Cardiovascular: Chest Pain with Activity. absent: As Per HPI, Acrocyanosis, Chest Pain, Chest Pain at Rest, Claudication, Diaphoresis, Dyspnea, Dyspnea on Exertion, Edema, Irregular Heart Rhythm, Pain Radiating to Arm/Neck/Jaw, Leg Edema, Leg Ulcers, Lightheadedness, Orthopnea, Palpitations, Paroxysmal Nocturnal Dyspnea, Pedal Edema, Radiating Pain, Rapid Heart Rate, Slow Heart Rate, Syncope, Other - Respiratory Respiratory: absent: As Per HPI, Cough, Dyspnea, Hemoptysis, Dyspnea on Exertion , Wheezing, Snoring, Stridor, Pain on Inspiration, Chest Congestion, Excessive Mucous Production, Change in Mucous Color, Pain with Coughing, Other - Gastrointestinal Gastrointestinal: As Per HPI - Musculoskeletal Musculoskeletal: Muscle Cramps, Muscle Weakness, Myalgias - Integumentary Integumentary: absent: As Per HPI, Acne, Alopecia, Bleeding Lesions, Change in Hair, Change in Nails, Change in Pigmentation, Changing Lesions, Dry Skin, Erythema, Furuncle, Hirsutism, Lesions, New Lesions, Non-Healing Lesions, Photosensitivity, Pruritus, Rash, Skin Pain, Skin Ulcer, Sores, Striae, Swelling , Unusual Bruising, Wounds, Jaundice, Other - Neurological Neurological: Weakness Past Patient History - Past Medical History & Family History Past Medical History?: Yes Past Family History: Reviewed and not pertinent - Past Social History Smoking Status: Never Smoked Chewing Tobacco Use: No Cigar Use: No Alcohol: Occasional Home Situation {Lives}: With Family - CARDIAC Hx Hypertension: Yes - PULMONARY Hx Asthma: Yes - NEUROLOGICAL Hx Neurological Disorder: Yes HX Cerebrovascular Accident: Yes - HEENT Hx HEENT Problems: No - RENAL Hx Chronic Kidney Disease: Yes - ENDOCRINE/METABOLIC Hx Endocrine Disorders: No - HEMATOLOGICAL/ONCOLOGICAL Hx Blood Disorders: Yes Hx Hepatitis C: Yes - INTEGUMENTARY Hx Dermatological Problems: No - MUSCULOSKELETAL/RHEUMATOLOGICAL Hx Musculoskeletal Disorders: Yes Hx Falls: Yes - GASTROINTESTINAL Hx Pancreatitis: Yes - GENITOURINARY/GYNECOLOGICAL Hx Genitourinary Disorders: No - PSYCHIATRIC Hx Substance Use: No - SURGICAL HISTORY Hx Surgeries: Yes Hx Vascular Surgery: Yes Other/Comment: RIGHT ARM SURGERY - BOIL - ANESTHESIA Hx Anesthesia: Yes Hx Anesthesia Reactions: No Hx Malignant Hyperthermia: No Meds Allergies/Adverse Reactions: Allergies Allergy/AdvReac Type Severity Reaction Status Date / Time acetaminophen [From Tylenol] Allergy Verified 10/12/17 10:42 - Medications Medications: Current Medications Albuterol (Ventolin Hfa 90 Mcg/Actuation (8 G)) 1 puff IH Q6H [facility] Last Admin: 10/14/17 08:24 Dose: 1 puff Calcium Acetate (Phoslo) 667 mg PO TIDCC [facility] Last Admin: 10/14/17 11:33 Dose: 667 mg Enoxaparin Sodium (Lovenox) 30 mg SC DAILY [facility] Last Admin: 10/14/17 09:35 Dose: 30 mg Ferrous Sulfate (Feosol) 325 mg PO DAILY [facility] Last Admin: 10/14/17 09:35 Dose: 325 mg Folic Acid (Folic Acid) 1 mg PO DAILY [facility] Last Admin: 10/14/17 09:35 Dose: 1 mg Gabapentin (Neurontin) 100 mg PO DAILY [facility] Last Admin: 10/14/17 09:35 Dose: 100 mg Insulin Human Regular (Novolin R) 0 unit SC ACHS [facility] PRN Reason: Protocol Last Admin: 10/14/17 11:36 Dose: 1 unit Thiamine HCl (Vitamin B1 Tab) 100 mg PO DAILY [facility] Last Admin: 10/14/17 09:35 Dose: 100 mg Physical Exam - Head Exam Head Exam: ATRAUMATIC, NORMAL INSPECTION - Eye Exam Eye Exam: EOMI, Normal appearance - Neck Exam Neck exam: Positive for: Normal Inspection. Negative for: Tenderness - Respiratory Exam Respiratory Exam: Clear to Auscultation Bilateral, NORMAL BREATHING PATTERN - Cardiovascular Exam Cardiovascular Exam: REGULAR RHYTHM, +S1 - GI/Abdominal Exam GI & Abdominal Exam: Soft, Tenderness - Extremities Exam Extremities exam: Positive for: normal inspection. Negative for: tenderness - Neurological Exam Neurological exam: Alert, Oriented x3 - Skin Skin Exam: Dry, Warm Results - Vital Signs Recent Vital Signs: Last Vital Signs Temp 97.9 F 10/14/17 08:02 Pulse 73 10/14/17 08:02 Resp 20 10/14/17 08:02 BP 126/96 H 10/14/17 08:02 Pulse Ox 99 10/14/17 08:02 - Labs Result Diagrams: 10/14/17 07:42 10/14/17 07:42 Labs: Laboratory Results - last 24 hr 10/12/17 10/12/17 10/13/17 19:01 21:05 01:27 WBC RBC Hgb Hct MCV MCH MCHC RDW Plt Count MPV Sodium Potassium Chloride Carbon Dioxide Anion Gap BUN Creatinine Est GFR ( Amer) Est GFR (Non-Af Amer) POC Glucose (mg/dL) 272 H 120 H 80 Random Glucose Hemoglobin A1c Calcium Iron TIBC % Saturation Triglycerides Cholesterol LDL Cholesterol Direct HDL Cholesterol Amylase Lipase Vitamin B12 Folate TSH 3rd Generation 10/13/17 10/13/17 10/13/17 06:07 07:17 08:01 WBC RBC Hgb Hct MCV MCH MCHC RDW Plt Count MPV Sodium Potassium Chloride Carbon Dioxide Anion Gap BUN Creatinine Est GFR ( Amer) Est GFR (Non-Af Amer) POC Glucose (mg/dL) 100 101 Random Glucose Hemoglobin A1c Calcium Iron TIBC % Saturation Triglycerides Cholesterol LDL Cholesterol Direct HDL Cholesterol Amylase Lipase Vitamin B12 Folate 13.0 TSH 3rd Generation 10/13/17 10/13/17 10/13/17 11:07 16:27 20:16 WBC RBC Hgb Hct MCV MCH MCHC RDW Plt Count MPV Sodium Potassium Chloride Carbon Dioxide Anion Gap BUN Creatinine Est GFR ( Amer) Est GFR (Non-Af Amer) POC Glucose (mg/dL) 127 H 133 H Random Glucose Hemoglobin A1c 5.3 Calcium Iron TIBC % Saturation Triglycerides Cholesterol LDL Cholesterol Direct HDL Cholesterol Amylase Lipase Vitamin B12 Folate TSH 3rd Generation 10/13/17 10/13/17 10/13/17 20:16 20:16 21:31 WBC RBC Hgb Hct MCV MCH MCHC RDW Plt Count MPV Sodium Potassium Chloride Carbon Dioxide Anion Gap BUN Creatinine Est GFR ( Amer) Est GFR (Non-Af Amer) POC Glucose (mg/dL) 104 Random Glucose Hemoglobin A1c Calcium Iron 29 L TIBC 255 % Saturation 11 L Triglycerides 132 Cholesterol 178 LDL Cholesterol Direct 69 HDL Cholesterol 71 H Amylase 458 H Lipase 1410 H Vitamin B12 778 Folate > 20.0 TSH 3rd Generation 10/14/17 10/14/17 10/14/17 07:14 07:42 07:42 WBC 4.0 L RBC 3.57 L Hgb 12.1 Hct 35.9 MCV 100.7 H MCH 33.8 H MCHC 33.6 RDW 15.3 H Plt Count 184 MPV 9.1 Sodium 139 Potassium 3.6 Chloride 100 Carbon Dioxide 27 Anion Gap 15 BUN 23 H Creatinine 4.3 H Est GFR ( Amer) 13 Est GFR (Non-Af Amer) 11 POC Glucose (mg/dL) 153 H Random Glucose 126 H Hemoglobin A1c Calcium 9.7 Iron TIBC % Saturation Triglycerides Cholesterol LDL Cholesterol Direct HDL Cholesterol Amylase Lipase Vitamin B12 Folate TSH 3rd Generation 0.44 L 10/14/17 11:17 WBC RBC Hgb Hct MCV MCH MCHC RDW Plt Count MPV Sodium Potassium Chloride Carbon Dioxide Anion Gap BUN Creatinine Est GFR ( Amer) Est GFR (Non-Af Amer) POC Glucose (mg/dL) 161 H Random Glucose Hemoglobin A1c Calcium Iron TIBC % Saturation Triglycerides Cholesterol LDL Cholesterol Direct HDL Cholesterol Amylase Lipase Vitamin B12 Folate TSH 3rd Generation Assessment & Plan (1) Acute pancreatitis Status: Acute (2) Chronic pancreatitis Status: Acute (3) ESRD (end stage renal disease) Status: Acute (4) Hypertensive chronic kidney disease with stage 5 chronic kidney disease or end stage renal disease Status: Acute (5) Hepatitis C antibody test positive Status: Acute - Assessment and Plan (Free Text) Plan: GI plans- monitor amylase, lipase dialysis TTS recheck chemistries BP control
--- NOTE | 2017-10-14 12:19 | CARD ---
APPROVED REPORT Date of service: 10/12/2017 EKG Measurement Heart [id number] <Conclusion> Normal sinus rhythm Normal ECG
[2017-10-15 06:48] LABS: HEMOGLOBIN 11.7 g/dL (11.0-16.0); MEAN CELL VOLUME 100.6 fL (81.0-99.0); MEAN CORPUSCULAR HEMOGLOBIN 33.8 pg (27.0-31.0); MEAN CORPUSCULAR HGB CONC 33.6 g/dL (33.0-37.0); MEAN PLATELET VOLUME 8.9 fL (7.2-11.7); RBC 3.46 Mil/uL (3.80-5.20); RED CELL DISTRIBUTION WIDTH 15.3 % (11.5-14.5); WHITE BLOOD COUNT 4.1 K/uL (4.8-10.8)
[2017-10-15 07:33] LABS: ALB/GLOB RATIO 1.2 (1.0-2.1); ALBUMIN 4.2 g/dL (3.5-5.0); CALCIUM 9.4 mg/dl (8.6-10.4)
[2017-10-15] MEDS: (Novolin R) Insulin Human Regular 100 units/ml vial SC SCH ×4 (08:25→22:10)
[2017-10-15] MEDS: Albuterol HFA 90 mcg/actuation (8 g) IH SCH ×2 (10:08→20:24)
--- NOTE | 2017-10-15 10:30 | CP.PCM.PN ---
Subjective - Date & Time of Evaluation Date of Evaluation: 10/15/17 Time of Evaluation: 10:28 - Subjective Subjective: seen and examined in hd today improved abdominal pain tolerating po diet Objective - Vital Signs/Intake and Output Vital Signs (last 24 hours): Temp Pulse Resp BP Pulse Ox 98 F 78 16 157/97 H 99 10/15/17 09:05 10/15/17 09:05 10/15/17 09:05 10/15/17 10:05 10/15/17 09:05 Intake and Output: 10/15/17 10/15/17 06:59 18:59 Intake Total 150 Balance 150 - Medications Medications: Current Medications Albuterol (Ventolin Hfa 90 Mcg/Actuation (8 G)) 1 puff IH Q6H [facility] Last Admin: 10/15/17 10:08 Dose: Not Given Calcium Acetate (Phoslo) 667 mg PO TIDCC [facility] Last Admin: 10/15/17 08:30 Dose: 667 mg Enoxaparin Sodium (Lovenox) 30 mg SC DAILY [facility] Last Admin: 10/14/17 09:35 Dose: 30 mg Ferrous Sulfate (Feosol) 325 mg PO DAILY [facility] Last Admin: 10/14/17 09:35 Dose: 325 mg Folic Acid (Folic Acid) 1 mg PO DAILY [facility] Last Admin: 10/14/17 09:35 Dose: 1 mg Gabapentin (Neurontin) 100 mg PO DAILY [facility] Last Admin: 10/14/17 09:35 Dose: 100 mg Insulin Human Regular (Novolin R) 0 unit SC [facility] PRN Reason: Protocol Last Admin: 10/15/17 08:25 Dose: Not Given Thiamine HCl (Vitamin B1 Tab) 100 mg PO DAILY [facility] Last Admin: 10/14/17 09:35 Dose: 100 mg - Labs Labs: 10/15/17 06:30 10/15/17 06:30 - Constitutional Appears: Toxic, No Acute Distress, Chronically Ill - Head Exam Head Exam: NORMAL INSPECTION, NORMOCEPHALIC - Eye Exam Eye Exam: Normal appearance, PERRL - ENT Exam ENT Exam: Mucous Membranes Moist, Normal Exam - Neck Exam Neck Exam: Full ROM, Normal Inspection - Respiratory Exam Respiratory Exam: Clear to Ausculation Bilateral, NORMAL BREATHING PATTERN - Cardiovascular Exam Cardiovascular Exam: REGULAR RHYTHM, RRR - GI/Abdominal Exam GI & Abdominal Exam: Distended, Soft - Extremities Exam Extremities Exam: Full ROM, Normal Inspection - Neurological Exam Neurological Exam: Alert, Awake - Psychiatric Exam Psychiatric exam: Normal Affect, Normal Mood - Skin Skin Exam: Dry, Intact, Warm Assessment and Plan (1) Hypertension Status: Acute (2) Acute pancreatitis Status: Acute (3) ESRD (end stage renal disease) Status: Acute (4) Hepatitis C antibody test positive Status: Acute - Assessment and Plan (Free Text) Assessment: hd today tts. 3K bath improving lipase levels, GI eval hold phoslo
[2017-10-15] MEDS: Enoxaparin 30 mg Syringe SC SCH ×2 (11:03→12:38)
[2017-10-15 15:39] VITALS: RESP 20
--- NOTE | 2017-10-15 23:44 | PN ---
Copied To: Lolis Jaimes MD Attending MD: Lolis Jaimes MD DATE: 10/15/2017 SUBJECTIVE: The patient is a 52-year-old female. Looking comfortable. Abdominal pain is better. She is able to hold food, tolerating diet. No fever. No chills. No hematuria or hematochezia. PHYSICAL EXAMINATION: VITAL SIGNS: Temperature 98, pulse is 78, respiratory rate is 16, blood pressure 167/97, pulse oximetry is 99. HEENT: Head is normocephalic and atraumatic. Eyes, PERRLA. Extraocular muscles intact. Conjunctivae clear. Nose patent. Mucous membranes moist. NECK: Supple. No carotid bruits, JVD, or thyromegaly. CHEST: Bilaterally symmetrical. HEART: S1 and S2 positive. LUNGS: Clear to auscultation. ABDOMEN: Soft. Nontender. No organomegaly. EXTREMITIES: No edema. No cyanosis. NEUROLOGIC: The patient is awake and alert. Moving all four extremities. No focal deficits. MEDICATIONS: Ventolin, PhosLo, Lovenox, ferrous sulfate, folic acid, Neurontin, Novolin, vitamin B1. LABORATORY DATA: White blood cells 4, hemoglobin 11.7, hematocrit is 34.8, platelets noted . Sodium 140, potassium 3.7, BUN 24, creatinine 4.8, glucose 110. ASSESSMENT AND PLAN: Ms. Tatyana Brown is a 52-year-old lady with leukopenia, renal insufficiency, hyperglycemia, has hypertension, acute pancreatitis, improving very well, end-stage renal disease, hepatitis C. improved lipase. Gastrointestinal evaluation. Hold PhosLo. Appreciated Dr. Lewis, Dr. Handley, and Dr. Eliel Lemon's notes. Gastrointestinal and deep venous thrombosis prophylaxis. Repeat labs. We will follow up. MD Cedrick Lynn 10/15/2017 19:15:52 MTDD
[2017-10-16 06:32] LABS: HEMOGLOBIN 11.8 g/dL (11.0-16.0); MEAN CELL VOLUME 101.6 fL (81.0-99.0); MEAN CORPUSCULAR HEMOGLOBIN 34.6 pg (27.0-31.0); MEAN CORPUSCULAR HGB CONC 34.1 g/dL (33.0-37.0); MEAN PLATELET VOLUME 8.8 fL (7.2-11.7); RBC 3.42 Mil/uL (3.80-5.20); RED CELL DISTRIBUTION WIDTH 15.6 % (11.5-14.5); WHITE BLOOD COUNT 4.1 K/uL (4.8-10.8)
[2017-10-16] MEDS: Albuterol HFA 90 mcg/actuation (8 g) IH SCH ×2 (07:32→13:50)
[2017-10-16 07:41] LABS: CALCIUM 9.4 mg/dl (8.6-10.4)
[2017-10-16 08:13] VITALS: BP 130/87; PULSE 89; TEMP 98.2; O2SAT 99
[2017-10-16] MEDS: (Novolin R) Insulin Human Regular 100 units/ml vial SC SCH ×2 (08:29→12:19)
[2017-10-16] MEDS: Enoxaparin 30 mg Syringe SC SCH (10:30)
--- NOTE | 2017-10-16 12:52 | CP.PCM.PN ---
Subjective - Date & Time of Evaluation Date of Evaluation: 10/16/17 Time of Evaluation: 12:50 - Subjective Subjective: Stable dialysis 8/7 Abdominal pains better BP controlled no new complaint Objective - Vital Signs/Intake and Output Vital Signs (last 24 hours): Temp Pulse Resp BP Pulse Ox 98.2 F 89 20 130/87 99 10/16/17 08:00 10/16/17 08:00 10/16/17 08:00 10/16/17 08:00 10/16/17 08:00 Intake and Output: 10/16/17 10/16/17 06:59 18:59 Intake Total 150 Balance 150 - Medications Medications: Current Medications Albuterol (Ventolin Hfa 90 Mcg/Actuation (8 G)) 1 puff IH Q6H [facility] Last Admin: 10/16/17 07:32 Dose: 1 puff Enoxaparin Sodium (Lovenox) 30 mg SC DAILY [facility] Last Admin: 10/16/17 10:30 Dose: Not Given Ferrous Sulfate (Feosol) 325 mg PO DAILY [facility] Last Admin: 10/16/17 10:30 Dose: 325 mg Folic Acid (Folic Acid) 1 mg PO DAILY [facility] Last Admin: 10/16/17 10:30 Dose: 1 mg Gabapentin (Neurontin) 100 mg PO DAILY [facility] Last Admin: 10/16/17 10:30 Dose: 100 mg Heparin Sodium (Porcine) (Heparin) 3,700 units IVP TTS [facility] Last Admin: 10/15/17 11:25 Dose: 3,700 units Insulin Human Regular (Novolin R) 0 unit SC ACHS [facility] PRN Reason: Protocol Last Admin: 10/16/17 12:19 Dose: 1 unit Thiamine HCl (Vitamin B1 Tab) 100 mg PO DAILY [facility] Last Admin: 10/16/17 10:30 Dose: 100 mg - Labs Labs: 10/16/17 06:22 10/16/17 06:22 - Constitutional Appears: No Acute Distress, Chronically Ill - Head Exam Head Exam: ATRAUMATIC, NORMAL INSPECTION - Eye Exam Eye Exam: EOMI, Normal appearance - Neck Exam Neck Exam: Normal Inspection. absent: Tenderness - Respiratory Exam Respiratory Exam: Clear to Ausculation Bilateral, NORMAL BREATHING PATTERN - Cardiovascular Exam Cardiovascular Exam: REGULAR RHYTHM, +S1 - GI/Abdominal Exam GI & Abdominal Exam: Soft. absent: Tenderness - Extremities Exam Extremities Exam: Normal Inspection. absent: Pedal Edema, Tenderness - Neurological Exam Neurological Exam: Awake, CN II-XII Intact - Skin Skin Exam: Dry, Warm Assessment and Plan (1) Acute pancreatitis Status: Acute (2) Chronic pancreatitis Status: Acute (3) ESRD (end stage renal disease) Status: Acute (4) Hypertensive chronic kidney disease with stage 5 chronic kidney disease or end stage renal disease Status: Acute (5) Hepatitis C antibody test positive Status: Acute - Assessment and Plan (Free Text) Plan: same dialysis Fe IV can be given at outpt unit Likely discharge soon
--- NOTE | 2017-10-16 14:11 | PN ---
Copied To: Lolis Jaimes MD Attending MD: Lolis Jaimes MD DATE: 10/14/2017 SUBJECTIVE: The patient is a 52-year-old female. The patient is seen and examined at the bedside on 10/14/2017. Looking comfortable. No nausea or vomiting. No headache or dizziness. No chest pain. No palpitation. No fever. No chills. No hematuria. No hematochezia. PHYSICAL EXAMINATION: VITAL SIGNS: Temperature 97.9, pulse 73, respiratory rate 20, blood pressure 126/96, pulse oximetry 99%. HEENT: Head normocephalic and atraumatic. Eyes PERRLA. Extraocular muscles intact. Conjunctivae clear. Nose patent. Mucous membrane moist. NECK: Supple. No carotid bruits. No thyromegaly. CHEST: Bilaterally symmetric. HEART: S1 and S2 positive. LUNGS: Clear to auscultation. ABDOMEN: Soft. Bowel sounds present. No organomegaly. EXTREMITIES: No edema. No cyanosis. NEUROLOGIC: The patient is awake and alert. Moving all four extremities. No focal deficits. LABORATORY DATA: White blood cells 4, hemoglobin 12.1, hematocrit 35.9, platelets 184. Sodium , potassium 3.6, BUN 23, creatinine 4.3, and glucose 126. ASSESSMENT AND PLAN: Ms. Kevin Joe is a 52-year-old female with leukopenia, renal insufficiency, hyperglycemia, on hemodialysis three times a week, history of hepatitis C positive, history of ethanol abuse and marijuana abuse, hypertension, history of pancreatis with pseudocyst formation in the past, getting dialysis. 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 Tolerating food very well. Continue present treatment. Gastrointestinal prophylaxis, out of bed, physical therapy. We will follow up. Lolis Jaimes MD MTDD
== END 2017-10-16 15:17 | disposition home or self-care (01) | DRG 204 ==
LOC: C.ER 10:30 → C.9E 12:34 → C.3T 13:10
PROVIDERS: ADMIT Internal Medicine; ATTEND Internal Medicine
DX: K85.90 Acute pancreatitis without necrosis or infection, unspecified (principal); B18.2 Chronic viral hepatitis C; I12.0 Hypertensive chronic kidney disease with stage 5 chronic kidney disease or end stage renal disease; N18.6 End stage renal disease; D72.819 Decreased white blood cell count, unspecified; F12.10 Cannabis abuse, uncomplicated; J45.909 Unspecified asthma, uncomplicated; K21.9 Gastro-esophageal reflux disease without esophagitis; K86.1 Other chronic pancreatitis; Z99.2 Dependence on renal dialysis

== ENCOUNTER 2017-11-07 08:18 | Emergency (ER) | payer MEDICAID ==
[2017-11-07 08:51] VITALS: BMI 19.7
[2017-11-07 09:01] VITALS: RESP 20
--- NOTE | 2017-11-07 09:37 | C.PDOC ---
History Of Present Illness 52 y/o female with history of ESRD (Tue, Thurs and sat) presents to ED with c/o abdominal pain, nausea, diarrhea and vomiting for 5 days. Patient vomited this morning and states symptoms developed after eating at cookout 5 days ago. Patient denies fever, chills, blood in stool, dysuria, chest pain, sob or any other complaints at this time. Time Seen by Provider: 11/07/17 09:18 Chief Complaint (Nursing): Abdominal Pain History Per: Patient History/Exam Limitations: no limitations Onset/Duration Of Symptoms: Days Current Symptoms Are (Timing): Still Present Location Of Pain/Discomfort: Diffuse Past Medical History Reviewed: Historical Data, Nursing Documentation, Vital Signs Vital Signs: Last Vital Signs Temp 98.3 F 11/07/17 11:54 Pulse 75 11/07/17 15:09 Resp 20 11/07/17 15:09 BP 145/79 11/07/17 15:09 Pulse Ox 100 11/07/17 15:09 - Medical History PMH: Asthma, HTN, Pancreatitis, End Stage Renal Disease, Chronic Kidney Disease Surgical History: No Surg Hx - [facility] Procedures (05/27/17) EXCISION OF STOMACH, ENDO, DIAGN (05/27/17) FLUOROSCOPY OF SUPERIOR VENA CAVA, GUIDANCE (05/27/17) INSERTION OF INFUSION DEV INTO SUP VENA CAVA, PERC APPROACH (05/27/17) INSERTION OF VAD INTO CHEST SUBCU/FASCIA, PERC APPROACH (05/27/17) Family History: States: No Known Family Hx - Social History Hx Alcohol Use: No Hx Substance Use: No - Immunization History Hx Tetanus Toxoid Vaccination: No Hx Influenza Vaccination: Yes Hx Pneumococcal Vaccination: No Review Of Systems Except As Marked, All Systems Reviewed And Found Negative. Gastrointestinal: Positive for: Nausea, Vomiting, Abdominal Pain, Diarrhea Physical Exam - Physical Exam Appears: Non-toxic, No Acute Distress Skin: Warm, Dry, No Rash Head: Atraumatic, Normacephalic Eye(s): bilateral: Normal Inspection Oral Mucosa: Moist Neck: Supple Cardiovascular: Rhythm Regular Respiratory: Normal Breath Sounds, No Rales, No Rhonchi, No Wheezing Gastrointestinal/Abdominal: Soft, Tenderness (diffuse), No Guarding, No Rebound Neurological/Psych: Oriented x3, Normal Speech, Normal Cognition ED Course And Treatment - Laboratory Results Result Diagrams: 11/07/17 09:49 11/07/17 09:49 O2 Sat by Pulse Oximetry: 100 (RA) Pulse Ox Interpretation: Normal Medical Decision Making Medical Decision Making: Impression: Gastroenteritis Plan: Kim Ambrosio, CXR, EKG, Labs Progress: On re evaluation, patient still c/o abdominal pain CT abdomen with PO contrast ordered Disposition - Disposition Referrals: [facility] [Outside] [facility] [Outside] [facility] [place] [Outside] Disposition: HOME/ ROUTINE Disposition Time: 16:28 Condition: IMPROVED Instructions: Viral Gastroenteritis Forms: [facility] ([place]) - POA Present On Arrival: Pressure Ulcer - Clinical Impression Clinical Impression: Gastroenteritis - Scribe Statement The provider has reviewed the documentation as recorded by the Scribbharati Piper All medical record entries made by the Scribe were at my direction and personally dictated by me. I have reviewed the chart and agree that the record accurately reflects my personal performance of the history, physical exam, medical decision making, and the department course for this patient. I have also personally directed, reviewed, and agree with the discharge instructions and disposition.
[2017-11-07 09:54] LABS: BASO % 0.8 % (0.0-2.0); EOS % 0.7 % (0.0-4.0); HEMOGLOBIN 10.8 g/dL (11.0-16.0); LYMPH # 1.2 K/uL (1.0-4.3); MEAN CELL VOLUME 100.9 fL (81.0-99.0); MEAN CORPUSCULAR HEMOGLOBIN 35.2 pg (27.0-31.0); MEAN CORPUSCULAR HGB CONC 34.9 g/dL (33.0-37.0); MONO # 0.2 K/uL (0.0-0.8); MONO % 3.8 % (0.0-10.0); NEUT # 3.5 K/uL (1.8-7.0); NEUT % 70.7 % (50.0-75.0); RBC 3.06 Mil/uL (3.80-5.20); RED CELL DISTRIBUTION WIDTH 14.3 % (11.5-14.5)
[2017-11-07 10:13] LABS: ALB/GLOB RATIO 1.1 (1.0-2.1); ALBUMIN 4.1 g/dL (3.5-5.0); CALCIUM 8.8 mg/dl (8.6-10.4)
[2017-11-07 10:37] LABS: URINE BILIRUBIN NEGATIVE (NEGATIVE); URINE BLOOD 1+ (NEGATIVE); URINE CLARITY Clear (Clear); URINE COLOR Yellow (YELLOW); URINE GLUCOSE (UA) 1+ mg/dL (Normal); URINE LEUKOCYTE ESTERASE NEG Leu/uL (Negative); URINE PROTEIN 3+ mg/dL (NEGATIVE); URINE UROBILINOGEN NORMAL mg/dL (0.2-1.0)
[2017-11-07 10:39] LABS: SQUAMOUS EPITHIAL 2 /hpf (0-5)
--- NOTE | 2017-11-07 11:24 | RAD ---
Date of service: 11/07/2017 PROCEDURE: CHEST RADIOGRAPH, 1 VIEW HISTORY: abd pain COMPARISON: Chest radiograph dated 10/12/2017. FINDINGS: LUNGS: Clear. PLEURA: No pneumothorax or pleural fluid seen. CARDIOVASCULAR: Sclerotic aortic calcifications. Cardiomediastinal silhouette stably prominent. OSSEOUS STRUCTURES: Unchanged. VISUALIZED UPPER ABDOMEN: Normal. OTHER FINDINGS: Right internal jugular access tunneled hemodialysis catheter, unchanged. IMPRESSION: No active disease.
[2017-11-07] MEDS ORDERED: Iohexol 240 (50 ml) PO ONE (11:26)
[2017-11-07] MEDS ORDERED: Iohexol 240 (50 ml) ONE (11:53)
[2017-11-07 11:54] VITALS: TEMP 98.3
[2017-11-07] MEDS ORDERED: Morphine 4 MG/ML VIAL IV ONE (14:15)
[2017-11-07] MEDS ORDERED: Morphine 4 MG/ML VIAL ONE (14:22)
[2017-11-07 15:10] VITALS: BP 145/79; PULSE 75; O2SAT 100
--- NOTE | 2017-11-07 15:20 | CT ---
Date of service: 11/07/2017 PROCEDURE: CT Abdomen and Pelvis without intravenous contrast HISTORY: abdominal pain COMPARISON: 10/12/2017 TECHNIQUE: Without contrast.. Contrast dose: 0 Radiation dose: Total exam DLP = 212.29 mGy-cm. This CT exam was performed using one or more of the following dose reduction techniques: Automated exposure control, adjustment of the mA and/or kV according to patient size, and/or use of iterative reconstruction technique. FINDINGS: LOWER THORAX: No infiltrate. The tip of a tunneled central venous dialysis catheter is noted. LIVER: Unremarkable. No gross lesion or ductal dilatation. GALLBLADDER AND BILE DUCTS: Unremarkable. PANCREAS: Pancreas is significant for numerous coarse calcifications consistent with chronic pancreatitis. There is dilatation of the pancreatic duct in the pancreatic body and head unchanged from previous. In the distal body/ tail of the pancreas there are 2 adjacent fluid density structures with peripheral calcification, immediately abutting 1 another. These measure approximately 4.1 cm and 4.3 cm in diameter, respectively. Likely calcified pancreatic pseudocysts. Unchanged in size and morphology compared to 10/12/2017. No other pancreatic mass identified. SPLEEN: Unremarkable. ADRENALS: Unremarkable. No mass. KIDNEYS AND URETERS: Unremarkable. No hydronephrosis. No solid mass. VASCULATURE: Unremarkable. No aortic aneurysm. BOWEL: Mild circumferential mural thickening of the distal gastric antrum, nonspecific. This may be somewhat artifactual due to lack of adequate distention. Nevertheless, concerning for nonspecific antritis. The duodenal bulb was unremarkable. There is nonspecific thickening of the wall of the 2nd and 3rd portions of the duodenum consistent with nonspecific duodenitis. There is no evidence of bowel obstruction. There is balbuena colonic diverticulosis, most profound in the sigmoid colon. There is no evidence of diverticulitis. APPENDIX: Unremarkable. Normal appendix. PERITONEUM: Unremarkable. No free fluid. No free air. LYMPH NODES: Unremarkable. No enlarged lymph nodes. BLADDER: Unremarkable. REPRODUCTIVE: Normal uterus BONES: No acute fracture. OTHER FINDINGS: None. IMPRESSION: Two peripherally calcified pancreatic pseudocysts in the distal body and tail of the pancreas unchanged in size and morphology compared to examination of 10/12/2017. Chronic pancreatitis. Dilated pancreatic duct. No evidence of acute pancreatitis. Nonspecific gastric antritis and nonspecific duodenitis involving the 2nd and 3rd portions of the duodenum. Pancolonic diverticulosis. No evidence of diverticulitis. Additional minor findings as above.
--- NOTE | 2017-11-08 19:54 | CARD ---
APPROVED REPORT Date of service: 11/07/2017 EKG Measurement Heart [id number] <Conclusion> Normal sinus rhythm Possible Left atrial enlargement Borderline ECG
== END 2017-11-07 16:10 | disposition home or self-care (01) ==
LOC: C.ER 08:18
DX: K52.9 Noninfective gastroenteritis and colitis, unspecified (principal); I12.0 Hypertensive chronic kidney disease with stage 5 chronic kidney disease or end stage renal disease; N18.6 End stage renal disease
CPT/HCPCS: 71045; 74176; 80053; 81001; 83690; 85025; 87086; 93005; 96374; 96375; 99285; J2270; J2405; Q9966

== ENCOUNTER 2017-11-08 11:10 | Inpatient (IN) | payer MEDICAID ==
[2017-11-08 11:10] VITALS: BMI 19.7
[2017-11-08] MEDS ORDERED: Morphine 4 MG/ML VIAL IV STA (12:40)
[2017-11-08] MEDS ORDERED: Morphine 4 MG/ML VIAL ONE (12:47)
[2017-11-08 12:57] LABS: BASO % 0.5 % (0.0-2.0); EOS % 0.2 % (0.0-4.0); HEMOGLOBIN 11.3 g/dL (11.0-16.0); LYMPH # 0.7 K/uL (1.0-4.3); LYMPH % 12.2 % (20.0-40.0); MEAN CELL VOLUME 101.5 fL (81.0-99.0); MEAN CORPUSCULAR HEMOGLOBIN 34.7 pg (27.0-31.0); MEAN CORPUSCULAR HGB CONC 34.2 g/dL (33.0-37.0); MEAN PLATELET VOLUME 9.3 fL (7.2-11.7); MONO # 0.2 K/uL (0.0-0.8); NEUT % 83.1 % (50.0-75.0); NRBC % 0.1 % (0.0-2.0); RBC 3.24 Mil/uL (3.80-5.20); RED CELL DISTRIBUTION WIDTH 14.8 % (11.5-14.5); WHITE BLOOD COUNT 6.1 K/uL (4.8-10.8)
[2017-11-08 13:27] LABS: INR 1.1; PROTHROMBIN TIME 11.5 SECONDS (9.7-12.2)
[2017-11-08 13:48] LABS: ALB/GLOB RATIO 1.1 (1.0-2.1); ALBUMIN 4.3 g/dL (3.5-5.0); ALT/SGPT 17 U/L (9-52); AST/SGOT 28 U/L (14-36); BLOOD UREA NITROGEN 49 mg/dL (7-17); CALCIUM 9.6 mg/dl (8.6-10.4); GFR NON-AFRICAN AMERICAN 10; LIPASE 1128 U/L (23-300)
--- NOTE | 2017-11-08 13:52 | RAD ---
Date of service: 11/08/2017 PROCEDURE: Radiographs of the chest and abdomen (obstructive series) HISTORY: abd pain COMPARISON: Chest radiograph and CT scan of the abdomen pelvis dated 11/07/2017. TECHNIQUE: AP radiograph of the chest, with upright and supine radiographs of the abdomen. FINDINGS: CHEST: Lungs: Clear. Cardiovascular: Normal size heart. No pulmonary vascular congestion. Pleura: No pleural fluid. No pneumothorax. Other findings: Right internal jugular access tunneled hemodialysis catheter with tips in the right atrium. ABDOMEN AND PELVIS: Bowel: Unremarkable bowel gas pattern. No evidence of mechanical obstruction. Enteric contrast within the colon. Free air: None. Bones: Unremarkable. Other findings: None. IMPRESSION: Unremarkable radiographs of chest and abdomen. No evidence of mechanical bowel obstruction.
--- NOTE | 2017-11-08 14:54 | C.PDOC ---
History Of Present Illness 52yo female, PMHx includes ESRD, presents to the emergency department with complaints of abdominal pain, nausea/vomiting/diarrhea. Patient was seen in ED yesterday and returned due to persistent symptoms. Her last dialysis was three days ago. She denies chest pain, shortness of breath, fever, or any other associated symptoms. No other complaints at this time. Time Seen by Provider: 11/08/17 11:55 Chief Complaint (Nursing): Abdominal Pain History Per: Patient History/Exam Limitations: no limitations Onset/Duration Of Symptoms: Days Current Symptoms Are (Timing): Still Present Past Medical History Reviewed: Historical Data, Nursing Documentation, Vital Signs Vital Signs: Last Vital Signs Temp 98.3 F 11/08/17 15:20 Pulse 78 11/08/17 15:20 Resp 18 11/08/17 16:52 BP 131/74 11/08/17 15:20 Pulse Ox 99 11/08/17 17:21 - Medical History PMH: Asthma, HTN, Pancreatitis, End Stage Renal Disease, Chronic Kidney Disease - [facility] Procedures (05/27/17) EXCISION OF STOMACH, ENDO, DIAGN (05/27/17) FLUOROSCOPY OF SUPERIOR VENA CAVA, GUIDANCE (05/27/17) INSERTION OF INFUSION DEV INTO SUP VENA CAVA, PERC APPROACH (05/27/17) INSERTION OF VAD INTO CHEST SUBCU/FASCIA, PERC APPROACH (05/27/17) Family History: States: No Known Family Hx - Social History Hx Alcohol Use: Yes Hx Substance Use: Yes - Immunization History Hx Tetanus Toxoid Vaccination: No Hx Influenza Vaccination: Yes Hx Pneumococcal Vaccination: Yes Review Of Systems Constitutional: Negative for: Fever, Chills Cardiovascular: Negative for: Chest Pain Gastrointestinal: Positive for: Nausea, Vomiting, Abdominal Pain, Diarrhea Musculoskeletal: Negative for: Back Pain Neurological: Negative for: Weakness, Numbness, Headache, Dizziness Physical Exam - Physical Exam Appears: Non-toxic, No Acute Distress Skin: Normal Color, Warm, Dry, No Rash Head: Atraumatic, Normacephalic Eye(s): bilateral: Normal Inspection Nose: Normal Oral Mucosa: Moist Lips: Normal Appearing Neck: Normal ROM Cardiovascular: Rhythm Regular, No Murmur Respiratory: Normal Breath Sounds, No Accessory Muscle Use Gastrointestinal/Abdominal: Soft, Tenderness (diffuse), No Guarding, No Rebound Back: Normal Inspection Extremity: Normal ROM, No Deformity, No Swelling Neurological/Psych: Oriented x3, Normal Speech ED Course And Treatment - Laboratory Results Result Diagrams: 11/08/17 12:52 11/08/17 13:17 ECG: Interpreted By Me, Viewed By Me ECG Rhythm: Sinus Rhythm ECG Interpretation: No Acute Changes Rate From EC O2 Sat by Pulse Oximetry: 99 (RA) Pulse Ox Interpretation: Normal Medical Decision Making Medical Decision Making: reviewed patient ct scan from yesterday. will not repeat ct scan will admit for acute on chronic pancreatitis Disposition Discussed With Dr.: Azul Caceres Counseled Patient/Family Regarding: Studies Performed, Diagnosis - Disposition Disposition: HOSPITALIZED Disposition Time: 14:54 Condition: FAIR - Clinical Impression Clinical Impression: Pancreatitis, ESRD (end stage renal disease) - Scribe Statement The provider has reviewed the documentation as recorded by the Scribe (Akash Yeh) Provider Attestation: All medical record entries made by the Scribe were at my direction and personally dictated by me. I have reviewed the chart and agree that the record accurately reflects my personal performance of the history, physical exam, medical decision making, and the department course for this patient. I have also personally directed, reviewed, and agree with the discharge instructions and disposition.
--- NOTE | 2017-11-08 19:31 | CP.PCM.HP ---
History of Present Illness - History of Present Illness History of Present Illness: COMPREHENSIVE HISTORY & PHYSICAL EXAM HPI Patient admitted for emergency room complaining of abdominal pain nausea and vomiting. Patient took some alcohol a few days ago and since then patient been complaining of abdominal pain. In the emergency room patient had high amylase and lipase level. On further inquiry and review of old charts it is determined the patient is a chronic pancreatitis with pseudocyst and has frequent admissions in the hospital for alcohol abuse and pancreatitis. Patient also had an MRCP done the beginning of this year which did not reveal any stones. PAST HIST. History of chronic renal failure on hemodialysis recently diagnosed borderline diabetes and history of hypertension. PERSONAL HIST: Smoking. N Alcohol. Every day Allergy N Travel_- . FAMILY HIST : ROS : Constitutional: Negative for weight change, chills, night sweats, fatigue and usage of assist device. Eyes: Negative for redness, swelling, itching, discharge, vision changes, blurry vision, double vision, glaucoma, cataracts, Ears: Negative for hearing loss, ringing, , tinnitus, vertigo Nose: Negative for rhinorrhea, stuffiness, sniffing, itching, postnasal drip, discoloration, nasal congestion and epistaxis. Throat: Negative for throat clearing, sore throat, hoarseness, difficulty swallowing and difficulty speaking. Respiratory: Negative for cough, , sputum production, chest tightness, wheezing, pleuritic chest pain ,daytime somnolence, chronic cough, hemoptysis, snoring at night, Cardiovascular: Negative for chest pain, palpitations, orthopnea, PND, Edema of legs, leg cramps, angina, claudication, , irregular heartbeat, Neurology: Negative for irritability, muscle weakness, numbness and tingling, seizures, tremors, migraines, slurred speech, syncope, memory loss, mood changes , recurrent headaches Gastrointestinal: Mid abdominal pain constant associated with nausea and vomiting no diarrhea or constipation. Genitourinary: Negative for frequent urination, hematuria, discharge, incontinence, urinary retention, frequent UTI, Psychiatric: Negative for depression, anxiety/panic, suicidal tendencies, Musculoskeletal: Negative for swollen joints, back pain, , neck pain, morning stiffness of joints, . Skin: Negative for rash, ulcers, itching, dry skin and pigmented lesions. P/E: Constitutional: Appears stated age and in no apparent distress. Head: Normocephalic. Ears: External ear canals patent without inflammation. Tympanic membranes intact with normal light reflex and landmark. Eyes: Pupils are central, bilaterally equal, symmetrical and reacts to light with normal movements and no icterus or pallor. Nose: External nares are patent. Mucosa is pink Mouth-Throat: Good general appearance and condition. No post-pharyngeal/oropharyngeal erythema and tonsillar hypertrophy. Good dental hygiene. Neck-Lymphatic: Neck is supple with normal ROM, no thyromegaly, lymph nodes or masses. JVD is normal with no carotid bruit. Lungs: Clear to percussion and auscultation with bilateral normal air entry. Cardiovascular: S1 and S2 are normal with no murmurs, gallops and rub. GI Exam: No hepatomegaly. Abdomen is soft and tender. No Organomegaly , masses or hernias are evident and bowel sounds are normal and active. Neurology: Higher function and all cranial nerves intact, with no gross motor or sensory deficit. Superficial and deep reflexes are normal with downwards planters. No cerebellar deficit with normal gait. Musculoskeletal: No tender spots with normal curvature of the spine with no swelling or restricted ROM of the small and large joints. Extremities: Homans sign absent. Intact pulses with no pitting edema, calf tenderness or skin color changes. Skin: No rash, eruptions or abnormal skin pigmentation LAB/RADIOLOGY: ASSESMENT : Acute on chronic pancreatitis with pseudocyst precipitated by alcohol ingestion. Chronic renal on hemodialysis and hypertension PLAN: Nothing by mouth IV fluids GI evaluation. Present on Admission - Present on Admission Any Indicators Present on Admission: No Past Patient History - Past Medical History & Family History Past Medical History?: Yes - Past Social History Smoking Status: Light Smoker < 10 Cigarettes Daily - CARDIAC Hx Hypertension: Yes - PULMONARY Hx Asthma: Yes - NEUROLOGICAL Hx Neurological Disorder: Yes HX Cerebrovascular Accident: Yes - HEENT Hx HEENT Problems: No - RENAL Hx Chronic Kidney Disease: Yes - ENDOCRINE/METABOLIC Hx Endocrine Disorders: Yes Hx Diabetes Mellitus Type 2: Yes - HEMATOLOGICAL/ONCOLOGICAL Hx Blood Disorders: Yes Hx Hepatitis C: Yes - INTEGUMENTARY Hx Dermatological Problems: No - MUSCULOSKELETAL/RHEUMATOLOGICAL Hx Musculoskeletal Disorders: Yes Hx Falls: Yes - GASTROINTESTINAL Hx Pancreatitis: Yes - GENITOURINARY/GYNECOLOGICAL Hx Genitourinary Disorders: No - PSYCHIATRIC Hx Substance Use: Yes - SURGICAL HISTORY Hx Surgeries: Yes Hx Arteriovenous Shunt: Yes (LEFT ARM) Hx Vascular Surgery: Yes Other/Comment: RIGHT ARM SURGERY - BOIL. LEFT ARM AV SHUNT - ANESTHESIA Hx Anesthesia: Yes Hx Anesthesia Reactions: No Hx Malignant Hyperthermia: No Meds Allergies/Adverse Reactions: Allergies Allergy/AdvReac Type Severity Reaction Status Date / Time acetaminophen [From Tylenol] Allergy RASH Verified 11/08/17 11:18 tomato Allergy RASH Verified 11/08/17 11:18 Results - Vital Signs Recent Vital Signs: Last Vital Signs Temp 98.3 F 11/08/17 15:20 Pulse 78 11/08/17 15:20 Resp 18 11/08/17 16:52 BP 131/74 11/08/17 15:20 Pulse Ox 99 11/08/17 18:11 - Labs Result Diagrams: 11/08/17 12:52 11/08/17 13:17 Labs: Laboratory Results - last 24 hr 11/08/17 11/08/17 11/08/17 12:52 12:52 13:17 WBC 6.1 RBC 3.24 L Hgb 11.3 Hct 32.9 L MCV 101.5 H MCH 34.7 H MCHC 34.2 RDW 14.8 H Plt Count 206 MPV 9.3 Neut % (Auto) 83.1 H Lymph % (Auto) 12.2 L [place] % (Auto) 4.0 Eos % (Auto) 0.2 Baso % (Auto) 0.5 Neut # (Auto) 5.0 Lymph # (Auto) 0.7 L [place] # (Auto) 0.2 Eos # (Auto) 0.0 Baso # (Auto) 0.0 PT 11.5 INR 1.1 APTT 39 H Sodium 142 Potassium 5.0 Chloride 108 H Carbon Dioxide 15 L Anion Gap 23 H BUN 49 H Creatinine 4.4 H Est GFR ( Amer) 13 Est GFR (Non-Af Amer) 10 Random Glucose 88 Calcium 9.6 Magnesium 1.5 L Total Bilirubin 0.6 AST 28 ALT 17 Alkaline Phosphatase 143 H Troponin I < 0.0120 Total Protein 8.4 H Albumin 4.3 Globulin 4.1 H Albumin/Globulin Ratio 1.1 Lipase 1128 H
[2017-11-08] MEDS: Albuterol HFA 90 mcg/actuation (8 g) IH SCH ×2 (20:57)
[2017-11-08] MEDS: Sodium Chloride 0.45% 1,000 ML IV SCH (20:57)
[2017-11-09] MEDS ORDERED: Promethazine/Cod 6.25mg-10mg/5ml Syr UD PO SCH
[2017-11-09] MEDS: Albuterol HFA 90 mcg/actuation (8 g) IH SCH ×4 (01:34→19:04)
[2017-11-09 07:45] LABS: AMYLASE 431 U/L (30-110); LIPASE 459 U/L (23-300)
--- NOTE | 2017-11-09 10:25 | CP.PCM.CON ---
History of Present Illness - History of Present Illness History of Present Illness: 52yo female with PMHx including ESRD, HIV, pancreatitis who presents to the emergency department with complaints of abdominal pain, nausea/vomiting/ diarrhea. Patient was seen in ED yesterday and returned due to persistent symptoms. She denies chest pain, shortness of breath, fever, or any other associated symptoms. Patient missed dialysis treatment due to above symptoms. Patient currently on dialysis at inpatient dialysis unit, uf goal 1300ml, qb 350 Review of Systems - Constitutional Constitutional: Chills, Fatigue, Fever - EENT Eyes: absent: Blurred Vision, Change in Vision Nose/Mouth/Throat: absent: Nasal Congestion, Sore Throat, Facial Pain - Cardiovascular Cardiovascular: absent: Chest Pain, Palpitations, Pedal Edema - Respiratory Respiratory: absent: Cough, Dyspnea - Gastrointestinal Gastrointestinal: Abdominal Pain, Diarrhea. absent: Nausea - Musculoskeletal Musculoskeletal: absent: Arthralgias, Joint Swelling - Integumentary Integumentary: absent: Lesions, Rash, Skin Ulcer - Neurological Neurological: absent: Dizziness, Headaches - Psychiatric Psychiatric: absent: Confusion, Depression - Hematologic/Lymphatic Hematologic: absent: Easy Bleeding, Easy Bruising Past Patient History - Past Medical History & Family History Past Medical History?: Yes - Past Social History Smoking Status: Light Smoker < 10 Cigarettes Daily - CARDIAC Hx Hypertension: Yes - PULMONARY Hx Asthma: Yes - NEUROLOGICAL Hx Neurological Disorder: Yes HX Cerebrovascular Accident: No - HEENT Hx HEENT Problems: No - RENAL Hx Chronic Kidney Disease: Yes Hx Dialysis: Yes Type of Dialysis Access: permacatheter/AVS - ENDOCRINE/METABOLIC Hx Endocrine Disorders: Yes Hx Diabetes Mellitus Type 2: Yes (but not on diabetic pills) - HEMATOLOGICAL/ONCOLOGICAL Hx Blood Disorders: Yes Hx Hepatitis C: Yes - INTEGUMENTARY Hx Dermatological Problems: No - MUSCULOSKELETAL/RHEUMATOLOGICAL Hx Musculoskeletal Disorders: Yes Hx Falls: Yes (2 years ago) - GASTROINTESTINAL Hx Pancreatitis: Yes - GENITOURINARY/GYNECOLOGICAL Hx Genitourinary Disorders: No - PSYCHIATRIC Hx Substance Use: Yes (marijuana) - SURGICAL HISTORY Hx Surgeries: Yes Hx Arteriovenous Shunt: Yes (LEFT ARM) Hx Vascular Surgery: Yes Other/Comment: RIGHT ARM SURGERY - BOIL. LEFT ARM AV SHUNT - ANESTHESIA Hx Anesthesia: Yes Hx Anesthesia Reactions: No Hx Malignant Hyperthermia: No Has any member of the family had a problem w/ anesthesia?: No Meds Allergies/Adverse Reactions: Allergies Allergy/AdvReac Type Severity Reaction Status Date / Time acetaminophen [From Tylenol] Allergy RASH Verified 11/08/17 11:18 tomato Allergy RASH Verified 11/08/17 11:18 - Medications Medications: Current Medications Albuterol (Ventolin Hfa 90 Mcg/Actuation (8 G)) 1 puff IH RQ6 [facility] Last Admin: 11/09/17 09:01 Dose: Not Given Calcium Acetate (Phoslo) 667 mg PO TID [facility] Famotidine (Pepcid) 20 mg PO DAILY [facility] Ferrous Sulfate (Feosol) 325 mg PO DAILY [facility] Folic Acid (Folic Acid) 1 mg PO DAILY [facility] Gabapentin (Neurontin) 100 mg PO DAILY [facility] Heparin Sodium (Porcine) (Heparin) 5,000 units SC BID [facility] Last Admin: 11/08/17 20:58 Dose: 5,000 units Sodium Chloride (Sodium Chloride 0.45%) 1,000 mls @ 80 mls/hr IV .[id number] [facility] Last Admin: 11/08/17 20:57 Dose: 80 mls/hr Ketorolac Tromethamine (Toradol) 20 mg IM Q6H PRN PRN Reason: Pain, moderate (4-7) Last Admin: 11/08/17 22:24 Dose: 20 mg Thiamine HCl (Vitamin B1 Tab) 100 mg PO DAILY [facility] Physical Exam - Constitutional Appears: Non-toxic, Chronically Ill - Head Exam Head Exam: ATRAUMATIC, NORMAL INSPECTION - Eye Exam Eye Exam: EOMI, Normal appearance - ENT Exam ENT Exam: Mucous Membranes Moist, Normal Oropharynx - Neck Exam Neck exam: Negative for: Tenderness, Thyromegaly - Respiratory Exam Respiratory Exam: Clear to Auscultation Bilateral. absent: Rhonchi, Wheezes - Cardiovascular Exam Cardiovascular Exam: +S1, +S2. absent: JVD, Rubs - GI/Abdominal Exam GI & Abdominal Exam: Normal Bowel Sounds, Soft. absent: Tenderness - Extremities Exam Extremities exam: Negative for: pedal edema, tenderness - Back Exam Back exam: absent: paraspinal tenderness, tenderness - Neurological Exam Neurological exam: Alert, Oriented x3 - Psychiatric Exam Psychiatric exam: Depressed, Normal Affect - Skin Skin Exam: Dry, Intact Results - Vital Signs Recent Vital Signs: Last Vital Signs Temp 98.2 F 11/09/17 08:00 Pulse 82 11/09/17 08:00 Resp 20 11/09/17 08:00 BP 129/74 11/09/17 08:00 Pulse Ox 100 11/09/17 08:00 - Labs Result Diagrams: 11/08/17 12:52 11/08/17 13:17 Labs: Laboratory Results - last 24 hr 11/08/17 11/08/17 11/08/17 12:52 12:52 13:17 WBC 6.1 RBC 3.24 L Hgb 11.3 Hct 32.9 L MCV 101.5 H MCH 34.7 H MCHC 34.2 RDW 14.8 H Plt Count 206 MPV 9.3 Neut % (Auto) 83.1 H Lymph % (Auto) 12.2 L [place] % (Auto) 4.0 Eos % (Auto) 0.2 Baso % (Auto) 0.5 Neut # (Auto) 5.0 Lymph # (Auto) 0.7 L [place] # (Auto) 0.2 Eos # (Auto) 0.0 Baso # (Auto) 0.0 PT 11.5 INR 1.1 APTT 39 H Sodium 142 Potassium 5.0 Chloride 108 H Carbon Dioxide 15 L Anion Gap 23 H BUN 49 H Creatinine 4.4 H Est GFR ( Amer) 13 Est GFR (Non-Af Amer) 10 Random Glucose 88 Calcium 9.6 Magnesium 1.5 L Total Bilirubin 0.6 AST 28 ALT 17 Alkaline Phosphatase 143 H Troponin I < 0.0120 Total Protein 8.4 H Albumin 4.3 Globulin 4.1 H Albumin/Globulin Ratio 1.1 Amylase Lipase 1128 H 11/09/17 07:09 WBC RBC Hgb Hct MCV MCH MCHC RDW Plt Count MPV Neut % (Auto) Lymph % (Auto) [place] % (Auto) Eos % (Auto) Baso % (Auto) Neut # (Auto) Lymph # (Auto) [place] # (Auto) Eos # (Auto) Baso # (Auto) PT INR APTT Sodium Potassium Chloride Carbon Dioxide Anion Gap BUN Creatinine Est GFR ( Amer) Est GFR (Non-Af Amer) Random Glucose Calcium Magnesium Total Bilirubin AST ALT Alkaline Phosphatase Troponin I Total Protein Albumin Globulin Albumin/Globulin Ratio Amylase 431 H Lipase 459 H Assessment & Plan (1) Dependence on renal dialysis Status: Acute (2) Abdominal pain Status: Acute (3) ESRD (end stage renal disease) Status: Acute (4) Chronic pancreatitis Status: Acute (5) Dialysis patient, noncompliant Status: Acute (6) Hypertension Status: Acute - Assessment and Plan (Free Text) Assessment: Abdominal pain of unclear etiology, suggest gi evaluation Consider change in pain meds to non nsaid Tolerating dialysis well, uf goal today 1300ml Electrolytes acceptable Bp controlled Monitor daily calorie intake
[2017-11-09] MEDS: Sodium Chloride 0.45% 1,000 ML IV SCH ×2 (10:52→14:09)
--- NOTE | 2017-11-09 12:08 | CP.PCM.CON ---
<Fabien Gann - Last Filed: 11/09/17 14:19> History of Present Illness - History of Present Illness History of Present Illness: GI Fellow PGY4, Consult note. Tatyana Brown is a 52yo F with hx of ESRD on HD, HCV, chronic pancreatitis presenting with abdominal pain. Patient states pain is having intermittent, sharp, diffuse abdominal pain x 1 month. It is not associated with food, but she been having problems vomiting, non-bloody contents after eating. She does not have good follow up with providers, and has not had many of her chronic problems treated (HCV, H. pylori), but she does take medications consistently. Chart history shows EGD in 05/2017 which revealed type 1 Gastrovarices, gastritis. Path results with + H.pylori. She did not follow up with Dr. Henderson for this. PMHx: See HPI PSHx: Left AVF FHx: Sister - DM, cancer Social: Denies tobacco, EtOH presently; +marijuana use Endo: May 2017 - EGD - GOV1, H pylori gastritis, LA A esophagitis, hiatal hernia 12pt ROS completed and negative except for above. Past Patient History - Past Medical History & Family History Past Medical History?: Yes - Past Social History Smoking Status: Light Smoker < 10 Cigarettes Daily - CARDIAC Hx Hypertension: Yes - PULMONARY Hx Asthma: Yes - NEUROLOGICAL Hx Neurological Disorder: Yes HX Cerebrovascular Accident: No - HEENT Hx HEENT Problems: No - RENAL Hx Chronic Kidney Disease: Yes Hx Dialysis: Yes Type of Dialysis Access: permacatheter/AVS - ENDOCRINE/METABOLIC Hx Endocrine Disorders: Yes Hx Diabetes Mellitus Type 2: Yes (but not on diabetic pills) - HEMATOLOGICAL/ONCOLOGICAL Hx Blood Disorders: Yes Hx Hepatitis C: Yes - INTEGUMENTARY Hx Dermatological Problems: No - MUSCULOSKELETAL/RHEUMATOLOGICAL Hx Musculoskeletal Disorders: Yes Hx Falls: Yes (2 years ago) - GASTROINTESTINAL Hx Pancreatitis: Yes - GENITOURINARY/GYNECOLOGICAL Hx Genitourinary Disorders: No - PSYCHIATRIC Hx Substance Use: Yes (marijuana) - SURGICAL HISTORY Hx Surgeries: Yes Hx Arteriovenous Shunt: Yes (LEFT ARM) Hx Vascular Surgery: Yes Other/Comment: RIGHT ARM SURGERY - BOIL. LEFT ARM AV SHUNT - ANESTHESIA Hx Anesthesia: Yes Hx Anesthesia Reactions: No Hx Malignant Hyperthermia: No Has any member of the family had a problem w/ anesthesia?: No Meds Allergies/Adverse Reactions: Allergies Allergy/AdvReac Type Severity Reaction Status Date / Time acetaminophen [From Tylenol] Allergy RASH Verified 11/08/17 11:18 tomato Allergy RASH Verified 11/08/17 11:18 - Medications Medications: Current Medications Albuterol (Ventolin Hfa 90 Mcg/Actuation (8 G)) 1 puff IH RQ6 [facility] Last Admin: 11/09/17 09:01 Dose: Not Given Calcium Acetate (Phoslo) 667 mg PO TID [facility] Last Admin: 11/09/17 10:52 Dose: Not Given Famotidine (Pepcid) 20 mg PO DAILY [facility] Last Admin: 11/09/17 10:52 Dose: Not Given Ferrous Sulfate (Feosol) 325 mg PO DAILY [facility] Last Admin: 11/09/17 10:52 Dose: Not Given Folic Acid (Folic Acid) 1 mg PO DAILY [facility] Last Admin: 11/09/17 10:52 Dose: Not Given Gabapentin (Neurontin) 100 mg PO DAILY [facility] Last Admin: 11/09/17 10:52 Dose: Not Given Heparin Sodium (Porcine) (Heparin) 5,000 units SC BID [facility] Last Admin: 11/09/17 10:52 Dose: Not Given Sodium Chloride (Sodium Chloride 0.45%) 1,000 mls @ 80 mls/hr IV .[id number] [facility] Last Admin: 11/09/17 10:52 Dose: Not Given Ketorolac Tromethamine (Toradol) 20 mg IM Q6H PRN PRN Reason: Pain, moderate (4-7) Last Admin: 11/08/17 22:24 Dose: 20 mg Thiamine HCl (Vitamin B1 Tab) 100 mg PO DAILY [facility] Last Admin: 11/09/17 10:52 Dose: Not Given Physical Exam - Constitutional Appears: Non-toxic, No Acute Distress, Chronically Ill - Head Exam Head Exam: NORMAL INSPECTION - Eye Exam Eye Exam: Normal appearance - ENT Exam ENT Exam: Mucous Membranes Moist - Respiratory Exam Respiratory Exam: Clear to Auscultation Bilateral, NORMAL BREATHING PATTERN. absent: Wheezes - Cardiovascular Exam Cardiovascular Exam: REGULAR RHYTHM, +S1, +S2 - GI/Abdominal Exam GI & Abdominal Exam: Guarding, Normal Bowel Sounds, Soft, Tenderness. absent: Organomegaly - Extremities Exam Extremities exam: Positive for: normal inspection - Neurological Exam Neurological exam: Alert, CN II-XII Intact, Oriented x3 - Psychiatric Exam Psychiatric exam: Normal Affect, Normal Mood - Skin Skin Exam: Dry, Normal Color Results - Vital Signs Recent Vital Signs: Last Vital Signs Temp 98 F 11/09/17 09:10 Pulse 73 11/09/17 09:10 Resp 16 11/09/17 09:10 BP 145/80 11/09/17 11:40 Pulse Ox 100 11/09/17 09:10 - Labs Result Diagrams: 11/08/17 12:52 11/08/17 13:17 Labs: Laboratory Results - last 24 hr 11/08/17 11/08/17 11/08/17 12:52 12:52 13:17 WBC 6.1 RBC 3.24 L Hgb 11.3 Hct 32.9 L MCV 101.5 H MCH 34.7 H MCHC 34.2 RDW 14.8 H Plt Count 206 MPV 9.3 Neut % (Auto) 83.1 H Lymph % (Auto) 12.2 L [place] % (Auto) 4.0 Eos % (Auto) 0.2 Baso % (Auto) 0.5 Neut # (Auto) 5.0 Lymph # (Auto) 0.7 L [place] # (Auto) 0.2 Eos # (Auto) 0.0 Baso # (Auto) 0.0 PT 11.5 INR 1.1 APTT 39 H Sodium 142 Potassium 5.0 Chloride 108 H Carbon Dioxide 15 L Anion Gap 23 H BUN 49 H Creatinine 4.4 H Est GFR ( Amer) 13 Est GFR (Non-Af Amer) 10 Random Glucose 88 Calcium 9.6 Magnesium 1.5 L Total Bilirubin 0.6 AST 28 ALT 17 Alkaline Phosphatase 143 H Troponin I < 0.0120 Total Protein 8.4 H Albumin 4.3 Globulin 4.1 H Albumin/Globulin Ratio 1.1 Amylase Lipase 1128 H 11/09/17 07:09 WBC RBC Hgb Hct MCV MCH MCHC RDW Plt Count MPV Neut % (Auto) Lymph % (Auto) [place] % (Auto) Eos % (Auto) Baso % (Auto) Neut # (Auto) Lymph # (Auto) [place] # (Auto) Eos # (Auto) Baso # (Auto) PT INR APTT Sodium Potassium Chloride Carbon Dioxide Anion Gap BUN Creatinine Est GFR ( Amer) Est GFR (Non-Af Amer) Random Glucose Calcium Magnesium Total Bilirubin AST ALT Alkaline Phosphatase Troponin I Total Protein Albumin Globulin Albumin/Globulin Ratio Amylase 431 H Lipase 459 H Assessment & Plan - Assessment and Plan (Free Text) Assessment: 52f with abdominal pain #Abdominal pain #H. pylori infection #Esophagitis/Gastritis #Chronic pancreatitis #GOV1 #HCV #Diverticulosis #ESRD on HD PLAN: -Abdominal u/s -Begin quad. therapy for H. Pylori. Continue for 14 days. She will need to have stool Ag test 2 weeks s/p treatment -f/u HCV treatment as outpt. -Advance to full liquid diet -Zofran IV prn -No endoscopic procedure needed at this time, however if symptoms continue or unable to tolerate diet with medical treatment, then EGD should be done. - Date & Time Date: 11/09/17 Time: 12:24 <Chris Zurita - Last Filed: 11/09/17 16:32> Meds - Medications Medications: Current Medications Albuterol (Ventolin Hfa 90 Mcg/Actuation (8 G)) 1 puff IH RQ6 [facility] Last Admin: 11/09/17 15:06 Dose: Not Given Bismuth Subsalicylate (Pepto Bismol) 262 mg PO QID [facility] Calcium Acetate (Phoslo) 667 mg PO TID [facility] Last Admin: 11/09/17 14:07 Dose: 667 mg Doxycycline Hyclate (Doryx) 100 mg PO Q12H [facility] PRN Reason: Protocol Ferrous Sulfate (Feosol) 325 mg PO DAILY [facility] Last Admin: 11/09/17 14:07 Dose: 325 mg Folic Acid (Folic Acid) 1 mg PO DAILY [facility] Last Admin: 11/09/17 10:52 Dose: Not Given Gabapentin (Neurontin) 100 mg PO DAILY [facility] Last Admin: 11/09/17 14:07 Dose: 100 mg Heparin Sodium (Porcine) (Heparin) 5,000 units SC BID [facility] Last Admin: 11/09/17 10:52 Dose: Not Given Metronidazole (Flagyl) 500 mg PO BID [facility] PRN Reason: Protocol Ondansetron HCl (Zofran Inj) 4 mg IVP Q8H PRN PRN Reason: Nausea/Vomiting Pantoprazole Sodium (Protonix Ec Tab) 40 mg PO BID [facility] Thiamine HCl (Vitamin B1 Tab) 100 mg PO DAILY [facility] Last Admin: 11/09/17 14:07 Dose: 100 mg Results - Vital Signs Recent Vital Signs: Last Vital Signs Temp 97.7 F 11/09/17 12:10 Pulse 83 11/09/17 12:10 Resp 17 11/09/17 12:10 BP 167/90 H 11/09/17 12:10 Pulse Ox 100 11/09/17 12:10 - Labs Result Diagrams: 11/08/17 12:52 11/08/17 13:17 Labs: Laboratory Results - last 24 hr 11/09/17 07:09 Amylase 431 H Lipase 459 H Attending/Attestation - Attestation I have personally seen and examined this patient.: Yes I have fully participated in the care of the patient.: Yes I have reviewed all pertinent clinical information: Yes Notes (Text): 11/09/17 16:30 Chart reviewed. The patient was interviewed and examined this afternoon. Agree with the above findings. Assessment and recommendations, as outlined above, were discussed with Dr. aGnn.
--- NOTE | 2017-11-09 14:15 | CP.PCM.PN ---
Subjective - Date & Time of Evaluation Date of Evaluation: 11/09/17 Time of Evaluation: 14:14 - Subjective Subjective: CHIEF COMPLAINTS TODAY : Abdominal pain is less still nauseous but no vomiting ROS. HEENT : N. Resp : No cough, wheezing ,pleuritic CP ,or hemoptysis Cardio : No anginal CP, PND, orthopnea, palpitation GI : No r GI bleeding . MEDICAL TECHNICIAN : No headache, vertigo, focal deficit. Musculoskel : No joint swelling , Derm : No rash Psych : Normal affect. Ext : No swelling ,calf pain PE. Pt. is alert awake in no distress. V.S As noted in the chart Head ,ear nose,throat and eyes : Normal. Neck : Supple with normal carotids. Lungs: Clear air entry. Heart : S1 & S2 normal with S4. No murmur. Abd : Soft tender with normal bowel sounds. Neuro : Moves all ext. with no localized deficit. Ext : No edema with intact pulses.Non tender calves Derm : No rashes or decubitus ulcer. LABS/RADIOLOGY: ASSESSMENT/PLAN : GI evaluation noted continue present medications Objective - Vital Signs/Intake and Output Vital Signs (last 24 hours): Temp Pulse Resp BP Pulse Ox 97.7 F 83 17 167/90 H 100 11/09/17 12:10 11/09/17 12:10 11/09/17 12:10 11/09/17 12:10 11/09/17 12:10 Intake and Output: 11/09/17 11/09/17 11:59 23:59 Intake Total 740 Balance 740 - Medications Medications: Current Medications Albuterol (Ventolin Hfa 90 Mcg/Actuation (8 G)) 1 puff IH RQ6 [facility] Last Admin: 11/09/17 09:01 Dose: Not Given Calcium Acetate (Phoslo) 667 mg PO TID [facility] Last Admin: 11/09/17 14:07 Dose: 667 mg Famotidine (Pepcid) 20 mg PO DAILY [facility] Last Admin: 11/09/17 10:52 Dose: Not Given Ferrous Sulfate (Feosol) 325 mg PO DAILY [facility] Last Admin: 11/09/17 14:07 Dose: 325 mg Folic Acid (Folic Acid) 1 mg PO DAILY [facility] Last Admin: 11/09/17 10:52 Dose: Not Given Gabapentin (Neurontin) 100 mg PO DAILY [facility] Last Admin: 11/09/17 14:07 Dose: 100 mg Heparin Sodium (Porcine) (Heparin) 5,000 units SC BID [facility] Last Admin: 11/09/17 10:52 Dose: Not Given Sodium Chloride (Sodium Chloride 0.45%) 1,000 mls @ 80 mls/hr IV .[id number] [facility] Last Admin: 11/09/17 14:09 Dose: 80 mls/hr Ketorolac Tromethamine (Toradol) 20 mg IM Q6H PRN PRN Reason: Pain, moderate (4-7) Last Admin: 11/09/17 12:26 Dose: 20 mg Thiamine HCl (Vitamin B1 Tab) 100 mg PO DAILY [facility] Last Admin: 11/09/17 14:07 Dose: 100 mg - Labs Labs: 11/08/17 12:52 11/08/17 13:17 PT 11.5 SECONDS (9.7-12.2) 11/08/17 12:52 INR 1.1 11/08/17 12:52 APTT 39 SECONDS (21-34) H 11/08/17 12:52
--- NOTE | 2017-11-09 17:07 | US ---
Date of service: 11/09/2017 HISTORY: pancreatitis, r/o biliary disease COMPARISON: Comparison made with prior CT scan abdomen pelvis dated 11/07/2017. TECHNIQUE: Sonographic evaluation of the abdomen. FINDINGS: LIVER: Liver measures approximately 17 cm in CC dimension. Cm. Liver demonstrates smooth contour however slight increased echotexture likely due to fatty infiltration however other infiltrative hepatic cellular disease process not excluded. Liver parenchyma. No mass. No intrahepatic bile duct dilatation. GALLBLADDER: Unremarkable. No gallstones. No pericholecystic fluid collections or sonographic Michaels sign COMMON BILE DUCT: Measures 4.0 mm. No stones. No dilatation. PANCREAS: There appear to be two large cystic structures in the pancreatic distal body and tail region likely representing pseudocysts. . Peripheral calcification along the jones of the pseudocysts limit evaluation to some degree. And note that these the partially peripherally calcified pseudocyst seen to much better advantage on prior CT scan. Pancreatic parenchymal of the calcifications are also present though less well seen on this study compared prior CT scan. Please refer that exam and corresponding report for additional details. RIGHT KIDNEY: Measures 9.3 x 4.3 x 3.9cm. Normal echogenicity. No calculus, mass, or hydronephrosis. LEFT KIDNEY: Measures 7.5 x 4.1 x 4.1 small midpole cyst measuring approximately 1.1 cm in greatest dimension. Normal echogenicity. No calculus, mass, or hydronephrosis. SPLEEN: Normal in size and contour. No mass. AORTA: No aneurysmal dilatation. IVC: Unremarkable. OTHER FINDINGS: None. IMPRESSION: Mild fatty hepatic infiltration however other infiltrative hepatic cellular disease process not excluded. There are 2 of pancreatic pseudocyst and pancreatic parenchymal calcifications all of which are seen to better advantage prior CT scan of the abdomen pelvis. Please refer to that CT scan and corresponding report for additional details.
[2017-11-09] MEDS: Bismuth Subsalicylate 262 mg Chew Tab PO SCH ×2 (18:24→22:21)
[2017-11-09] MEDS: Pantoprazole 40 mg EC Tab PO SCH (18:24)
[2017-11-10] MEDS: Albuterol HFA 90 mcg/actuation (8 g) IH SCH ×4 (02:21→19:05)
[2017-11-10] MEDS: Pantoprazole 40 mg EC Tab PO SCH ×2 (09:43→18:17)
[2017-11-10] MEDS: Bismuth Subsalicylate 262 mg Chew Tab PO SCH ×4 (09:47→21:40)
--- NOTE | 2017-11-10 14:53 | CP.PCM.PN ---
<Fabien Gann - Last Filed: 11/10/17 18:02> Subjective - Date & Time of Evaluation Date of Evaluation: 11/10/17 Time of Evaluation: 14:52 - Subjective Subjective: GI Fellow PGY4 Improved abdominal pain. Tolerating diet. 5pt ROS neg except for above. Objective - Vital Signs/Intake and Output Vital Signs (last 24 hours): Temp Pulse Resp BP Pulse Ox 99.3 F 80 20 133/73 100 11/10/17 07:44 11/10/17 07:44 11/10/17 07:44 11/10/17 07:44 11/10/17 07:44 Intake and Output: 11/10/17 11/10/17 06:59 18:59 Intake Total 440 500 Balance 440 500 - Medications Medications: Current Medications Albuterol (Ventolin Hfa 90 Mcg/Actuation (8 G)) 1 puff IH RQ6 [facility] Last Admin: 11/10/17 08:46 Dose: 1 puff Bismuth Subsalicylate (Pepto Bismol) 262 mg PO QID [facility] Last Admin: 11/10/17 13:35 Dose: 262 mg Calcium Acetate (Phoslo) 667 mg PO TID [facility] Last Admin: 11/10/17 13:35 Dose: 667 mg Doxycycline Hyclate (Doryx) 100 mg PO Q12H [facility] PRN Reason: Protocol Last Admin: 11/10/17 14:15 Dose: 100 mg Ferrous Sulfate (Feosol) 325 mg PO DAILY [facility] Last Admin: 11/10/17 09:43 Dose: 325 mg Folic Acid (Folic Acid) 1 mg PO DAILY [facility] Last Admin: 11/10/17 09:43 Dose: 1 mg Gabapentin (Neurontin) 100 mg PO DAILY [facility] Last Admin: 11/10/17 09:43 Dose: 100 mg Heparin Sodium (Porcine) (Heparin) 5,000 units SC BID [facility] Last Admin: 11/10/17 09:42 Dose: 5,000 units Metronidazole (Flagyl) 500 mg PO BID [facility] PRN Reason: Protocol Last Admin: 11/10/17 09:43 Dose: 500 mg Morphine Sulfate (Morphine) 2 mg IV Q4 PRN PRN Reason: pain Last Admin: 11/10/17 09:54 Dose: 2 mg Ondansetron HCl (Zofran Inj) 4 mg IVP Q8H PRN PRN Reason: Nausea/Vomiting Pantoprazole Sodium (Protonix Ec Tab) 40 mg PO BID [facility] Last Admin: 11/10/17 09:43 Dose: 40 mg Thiamine HCl (Vitamin B1 Tab) 100 mg PO DAILY [facility] Last Admin: 11/10/17 09:43 Dose: 100 mg - Labs Labs: 11/08/17 12:52 11/08/17 13:17 PT 11.5 SECONDS (9.7-12.2) 11/08/17 12:52 INR 1.1 11/08/17 12:52 APTT 39 SECONDS (21-34) H 11/08/17 12:52 - Constitutional Appears: No Acute Distress, Older Than Stated Age, Chronically Ill - Eye Exam Eye Exam: Normal appearance - ENT Exam ENT Exam: Mucous Membranes Moist - Respiratory Exam Respiratory Exam: Clear to Ausculation Bilateral, NORMAL BREATHING PATTERN - Cardiovascular Exam Cardiovascular Exam: REGULAR RHYTHM - GI/Abdominal Exam GI & Abdominal Exam: Soft, Normal Bowel Sounds. absent: Tenderness - Extremities Exam Extremities Exam: Normal Inspection - Neurological Exam Neurological Exam: Alert, Awake, Oriented x3 - Psychiatric Exam Psychiatric exam: Normal Affect, Normal Mood - Skin Skin Exam: Dry, Normal Color Assessment and Plan - Assessment and Plan (Free Text) Assessment: 52f with abdominal pain #Abdominal pain #H. pylori infection #Esophagitis/Gastritis #Chronic pancreatitis #GOV1 #HCV #Diverticulosis #ESRD on HD PLAN: -Abdominal u/s unremarkable -Begin quad. therapy for H. Pylori. Continue for 14 days. She will need to have stool Ag test 2 weeks s/p treatment -f/u HCV treatment as outpt. -Advance to low sodium regular diet. -Zofran IV prn -No endoscopic procedure needed at this time, however if symptoms continue or unable to tolerate diet with medical treatment, then EGD should be done. <Chris Zurita - Last Filed: 11/10/17 18:16> Objective - Vital Signs/Intake and Output Vital Signs (last 24 hours): Temp Pulse Resp BP Pulse Ox 99.0 F 76 20 145/76 99 11/10/17 15:22 11/10/17 15:22 11/10/17 15:22 11/10/17 15:22 11/10/17 15:22 Intake and Output: 11/10/17 11/10/17 06:59 18:59 Intake Total 440 500 Balance 440 500 - Medications Medications: Current Medications Albuterol (Ventolin Hfa 90 Mcg/Actuation (8 G)) 1 puff IH RQ6 [facility] Last Admin: 11/10/17 14:00 Dose: Not Given Bismuth Subsalicylate (Pepto Bismol) 262 mg PO QID [facility] Last Admin: 11/10/17 13:35 Dose: 262 mg Calcium Acetate (Phoslo) 667 mg PO TID [facility] Last Admin: 11/10/17 13:35 Dose: 667 mg Doxycycline Hyclate (Doryx) 100 mg PO Q12H [facility] PRN Reason: Protocol Last Admin: 11/10/17 14:15 Dose: 100 mg Ferrous Sulfate (Feosol) 325 mg PO DAILY [facility] Last Admin: 11/10/17 09:43 Dose: 325 mg Folic Acid (Folic Acid) 1 mg PO DAILY [facility] Last Admin: 11/10/17 09:43 Dose: 1 mg Gabapentin (Neurontin) 100 mg PO DAILY [facility] Last Admin: 11/10/17 09:43 Dose: 100 mg Heparin Sodium (Porcine) (Heparin) 5,000 units SC BID [facility] Last Admin: 11/10/17 09:42 Dose: 5,000 units Metronidazole (Flagyl) 500 mg PO BID [facility] PRN Reason: Protocol Last Admin: 11/10/17 09:43 Dose: 500 mg Morphine Sulfate (Morphine) 2 mg IV Q4 PRN PRN Reason: pain Last Admin: 11/10/17 16:08 Dose: 2 mg Ondansetron HCl (Zofran Inj) 4 mg IVP Q8H PRN PRN Reason: Nausea/Vomiting Pantoprazole Sodium (Protonix Ec Tab) 40 mg PO BID [facility] Last Admin: 11/10/17 09:43 Dose: 40 mg Thiamine HCl (Vitamin B1 Tab) 100 mg PO DAILY [facility] Last Admin: 11/10/17 09:43 Dose: 100 mg - Labs Labs: 11/08/17 12:52 11/08/17 13:17 PT 11.5 SECONDS (9.7-12.2) 11/08/17 12:52 INR 1.1 11/08/17 12:52 APTT 39 SECONDS (21-34) H 11/08/17 12:52 Attending/Attestation - Attestation I have personally seen and examined this patient.: Yes I have fully participated in the care of the patient.: Yes I have reviewed all pertinent clinical information, including history, physical exam and plan: Yes Notes (Text): 11/10/17 18:15 Chart reviewed. The patient was interviewed and examined this evening. States abdominal pain improved. Tolerating regular diet. Assessment and recommendations, as outlined above, were discussed with Dr. Gann.
--- NOTE | 2017-11-10 15:13 | CP.PCM.PN ---
Subjective - Date & Time of Evaluation Date of Evaluation: 11/10/17 Time of Evaluation: 15:13 - Subjective Subjective: GI evaluation noted patient on H. pylori treatment Lipase is normalized. Will discharge patient if stable in a.m. Objective - Vital Signs/Intake and Output Vital Signs (last 24 hours): Temp Pulse Resp BP Pulse Ox 99.3 F 80 20 133/73 100 11/10/17 07:44 11/10/17 07:44 11/10/17 07:44 11/10/17 07:44 11/10/17 07:44 Intake and Output: 11/10/17 11/10/17 11:59 23:59 Intake Total 200 500 Balance 200 500 - Medications Medications: Current Medications Albuterol (Ventolin Hfa 90 Mcg/Actuation (8 G)) 1 puff IH RQ6 [facility] Last Admin: 11/10/17 08:46 Dose: 1 puff Bismuth Subsalicylate (Pepto Bismol) 262 mg PO QID [facility] Last Admin: 11/10/17 13:35 Dose: 262 mg Calcium Acetate (Phoslo) 667 mg PO TID [facility] Last Admin: 11/10/17 13:35 Dose: 667 mg Doxycycline Hyclate (Doryx) 100 mg PO Q12H [facility] PRN Reason: Protocol Last Admin: 11/10/17 14:15 Dose: 100 mg Ferrous Sulfate (Feosol) 325 mg PO DAILY [facility] Last Admin: 11/10/17 09:43 Dose: 325 mg Folic Acid (Folic Acid) 1 mg PO DAILY [facility] Last Admin: 11/10/17 09:43 Dose: 1 mg Gabapentin (Neurontin) 100 mg PO DAILY [facility] Last Admin: 11/10/17 09:43 Dose: 100 mg Heparin Sodium (Porcine) (Heparin) 5,000 units SC BID [facility] Last Admin: 11/10/17 09:42 Dose: 5,000 units Metronidazole (Flagyl) 500 mg PO BID [facility] PRN Reason: Protocol Last Admin: 11/10/17 09:43 Dose: 500 mg Morphine Sulfate (Morphine) 2 mg IV Q4 PRN PRN Reason: pain Last Admin: 11/10/17 09:54 Dose: 2 mg Ondansetron HCl (Zofran Inj) 4 mg IVP Q8H PRN PRN Reason: Nausea/Vomiting Pantoprazole Sodium (Protonix Ec Tab) 40 mg PO BID [facility] Last Admin: 11/10/17 09:43 Dose: 40 mg Thiamine HCl (Vitamin B1 Tab) 100 mg PO DAILY [facility] Last Admin: 11/10/17 09:43 Dose: 100 mg - Labs Labs: 11/08/17 12:52 11/08/17 13:17 PT 11.5 SECONDS (9.7-12.2) 11/08/17 12:52 INR 1.1 11/08/17 12:52 APTT 39 SECONDS (21-34) H 11/08/17 12:52
[2017-11-11] MEDS: Albuterol HFA 90 mcg/actuation (8 g) IH SCH ×4 (01:29→19:29)
[2017-11-11 07:47] LABS: HEMOGLOBIN 9.8 g/dL (11.0-16.0); MEAN CELL VOLUME 101.2 fL (81.0-99.0); MEAN CORPUSCULAR HEMOGLOBIN 34.4 pg (27.0-31.0); MEAN PLATELET VOLUME 8.8 fL (7.2-11.7); RBC 2.84 Mil/uL (3.80-5.20); RED CELL DISTRIBUTION WIDTH 14.6 % (11.5-14.5); WHITE BLOOD COUNT 4.2 K/uL (4.8-10.8)
[2017-11-11 08:12] LABS: ALB/GLOB RATIO 1.1 (1.0-2.1); ALBUMIN 4.1 g/dL (3.5-5.0); CALCIUM 9.8 mg/dl (8.6-10.4)
[2017-11-11] MEDS: Pantoprazole 40 mg EC Tab PO SCH ×2 (11:00→17:42)
[2017-11-11] MEDS: Bismuth Subsalicylate 262 mg Chew Tab PO SCH ×4 (11:00→23:05)
--- NOTE | 2017-11-11 11:11 | CP.PCM.PN ---
Subjective - Date & Time of Evaluation Date of Evaluation: 11/11/17 Time of Evaluation: 11:09 - Subjective Subjective: Feels better No more abdominal pains 2 pancreatic pseudocysts seen on US Stable dialysis 11/09 Objective - Vital Signs/Intake and Output Vital Signs (last 24 hours): Temp Pulse Resp BP Pulse Ox 98.5 F 76 20 152/88 H 100 11/11/17 07:39 11/11/17 07:39 11/11/17 07:39 11/11/17 07:39 11/11/17 07:39 Intake and Output: 11/11/17 11/11/17 06:59 18:59 Intake Total 650 Balance 650 - Medications Medications: Current Medications Albuterol (Ventolin Hfa 90 Mcg/Actuation (8 G)) 1 puff IH RQ6 [facility] Last Admin: 11/11/17 01:29 Dose: Not Given Bismuth Subsalicylate (Pepto Bismol) 262 mg PO QID [facility] Last Admin: 11/11/17 11:00 Dose: 262 mg Calcium Acetate (Phoslo) 667 mg PO TID [facility] Last Admin: 11/11/17 10:59 Dose: 667 mg Doxycycline Hyclate (Doryx) 100 mg PO Q12H [facility] PRN Reason: Protocol Last Admin: 11/11/17 02:45 Dose: 100 mg Ferrous Sulfate (Feosol) 325 mg PO DAILY [facility] Last Admin: 11/11/17 11:00 Dose: 325 mg Folic Acid (Folic Acid) 1 mg PO DAILY [facility] Last Admin: 11/11/17 10:59 Dose: 1 mg Gabapentin (Neurontin) 100 mg PO DAILY [facility] Last Admin: 11/11/17 11:00 Dose: 100 mg Heparin Sodium (Porcine) (Heparin) 5,000 units SC BID [facility] Last Admin: 11/11/17 10:59 Dose: 5,000 units Metronidazole (Flagyl) 500 mg PO BID [facility] PRN Reason: Protocol Last Admin: 11/11/17 10:59 Dose: 500 mg Morphine Sulfate (Morphine) 2 mg IV Q4 PRN PRN Reason: pain Last Admin: 11/10/17 21:39 Dose: 2 mg Ondansetron HCl (Zofran Inj) 4 mg IVP Q8H PRN PRN Reason: Nausea/Vomiting Pantoprazole Sodium (Protonix Ec Tab) 40 mg PO BID [facility] Last Admin: 11/11/17 11:00 Dose: 40 mg Thiamine HCl (Vitamin B1 Tab) 100 mg PO DAILY [facility] Last Admin: 11/11/17 10:59 Dose: 100 mg - Labs Labs: 11/11/17 07:41 11/11/17 07:41 PT 11.5 SECONDS (9.7-12.2) 11/08/17 12:52 INR 1.1 11/08/17 12:52 APTT 39 SECONDS (21-34) H 11/08/17 12:52 - Constitutional Appears: No Acute Distress, Chronically Ill - Head Exam Head Exam: ATRAUMATIC, NORMAL INSPECTION - Eye Exam Eye Exam: EOMI, Normal appearance - Neck Exam Neck Exam: Normal Inspection. absent: Tenderness - Respiratory Exam Respiratory Exam: Clear to Ausculation Bilateral, NORMAL BREATHING PATTERN - Cardiovascular Exam Cardiovascular Exam: REGULAR RHYTHM, +S1 - GI/Abdominal Exam GI & Abdominal Exam: Soft. absent: Tenderness - Extremities Exam Extremities Exam: Normal Inspection. absent: Tenderness - Neurological Exam Neurological Exam: Awake, CN II-XII Intact - Skin Skin Exam: Dry, Warm Assessment and Plan (1) Abdominal pain Status: Acute (2) ESRD (end stage renal disease) Status: Acute (3) Acute on chronic pancreatitis Status: Acute - Assessment and Plan (Free Text) Plan: Dialysis TTS Disposition, meds as per medicine
--- NOTE | 2017-11-11 14:32 | CP.PCM.PN ---
Subjective - Date & Time of Evaluation Date of Evaluation: 11/11/17 Time of Evaluation: 14:31 - Subjective Subjective: abdominal pain is less No n/v U/S abd. same as CT D/C home in am Objective - Vital Signs/Intake and Output Vital Signs (last 24 hours): Temp Pulse Resp BP Pulse Ox 98.5 F 70 20 138/82 100 11/11/17 07:39 11/11/17 08:30 11/11/17 07:39 11/11/17 08:30 11/11/17 07:39 Intake and Output: 11/11/17 11/11/17 11:59 23:59 Intake Total 300 Balance 300 - Medications Medications: Current Medications Albuterol (Ventolin Hfa 90 Mcg/Actuation (8 G)) 1 puff IH RQ6 [facility] Last Admin: 11/11/17 13:18 Dose: 1 puff Bismuth Subsalicylate (Pepto Bismol) 262 mg PO QID [facility] Last Admin: 11/11/17 11:00 Dose: 262 mg Calcium Acetate (Phoslo) 667 mg PO TID [facility] Last Admin: 11/11/17 10:59 Dose: 667 mg Doxycycline Hyclate (Doryx) 100 mg PO Q12H [facility] PRN Reason: Protocol Last Admin: 11/11/17 02:45 Dose: 100 mg Ferrous Sulfate (Feosol) 325 mg PO DAILY [facility] Last Admin: 11/11/17 11:00 Dose: 325 mg Folic Acid (Folic Acid) 1 mg PO DAILY [facility] Last Admin: 11/11/17 10:59 Dose: 1 mg Gabapentin (Neurontin) 100 mg PO DAILY [facility] Last Admin: 11/11/17 11:00 Dose: 100 mg Heparin Sodium (Porcine) (Heparin) 5,000 units SC BID [facility] Last Admin: 11/11/17 10:59 Dose: 5,000 units Metronidazole (Flagyl) 500 mg PO BID [facility] PRN Reason: Protocol Last Admin: 11/11/17 10:59 Dose: 500 mg Morphine Sulfate (Morphine) 2 mg IV Q4 PRN PRN Reason: pain Last Admin: 11/10/17 21:39 Dose: 2 mg Ondansetron HCl (Zofran Inj) 4 mg IVP Q8H PRN PRN Reason: Nausea/Vomiting Pantoprazole Sodium (Protonix Ec Tab) 40 mg PO BID [facility] Last Admin: 11/11/17 11:00 Dose: 40 mg Thiamine HCl (Vitamin B1 Tab) 100 mg PO DAILY [facility] Last Admin: 11/11/17 10:59 Dose: 100 mg - Labs Labs: 11/11/17 07:41 11/11/17 07:41 PT 11.5 SECONDS (9.7-12.2) 11/08/17 12:52 INR 1.1 11/08/17 12:52 APTT 39 SECONDS (21-34) H 11/08/17 12:52
--- NOTE | 2017-11-11 15:01 | CP.PCM.PN ---
<Fabien Gann - Last Filed: 11/11/17 17:49> Subjective - Date & Time of Evaluation Date of Evaluation: 11/11/17 Time of Evaluation: 15:00 - Subjective Subjective: GI Fellow PGY4 Pain improved. Eating well, tolerating diet. No complaints. 5pt ROS neg except for above. Objective - Vital Signs/Intake and Output Vital Signs (last 24 hours): Temp Pulse Resp BP Pulse Ox 98.5 F 70 20 138/82 100 11/11/17 07:39 11/11/17 08:30 11/11/17 07:39 11/11/17 08:30 11/11/17 07:39 Intake and Output: 11/11/17 11/11/17 06:59 18:59 Intake Total 650 Balance 650 - Medications Medications: Current Medications Albuterol (Ventolin Hfa 90 Mcg/Actuation (8 G)) 1 puff IH RQ6 [facility] Last Admin: 11/11/17 13:18 Dose: 1 puff Bismuth Subsalicylate (Pepto Bismol) 262 mg PO QID [facility] Last Admin: 11/11/17 14:44 Dose: 262 mg Calcium Acetate (Phoslo) 667 mg PO TID [facility] Last Admin: 11/11/17 14:43 Dose: 667 mg Doxycycline Hyclate (Doryx) 100 mg PO Q12H [facility] PRN Reason: Protocol Last Admin: 11/11/17 14:44 Dose: 100 mg Ferrous Sulfate (Feosol) 325 mg PO DAILY [facility] Last Admin: 11/11/17 11:00 Dose: 325 mg Folic Acid (Folic Acid) 1 mg PO DAILY [facility] Last Admin: 11/11/17 10:59 Dose: 1 mg Gabapentin (Neurontin) 100 mg PO DAILY [facility] Last Admin: 11/11/17 11:00 Dose: 100 mg Heparin Sodium (Porcine) (Heparin) 5,000 units SC BID [facility] Last Admin: 11/11/17 10:59 Dose: 5,000 units Metronidazole (Flagyl) 500 mg PO BID [facility] PRN Reason: Protocol Last Admin: 11/11/17 10:59 Dose: 500 mg Morphine Sulfate (Morphine) 2 mg IV Q4 PRN PRN Reason: pain Last Admin: 11/10/17 21:39 Dose: 2 mg Ondansetron HCl (Zofran Inj) 4 mg IVP Q8H PRN PRN Reason: Nausea/Vomiting Pantoprazole Sodium (Protonix Ec Tab) 40 mg PO BID [facility] Last Admin: 11/11/17 11:00 Dose: 40 mg Thiamine HCl (Vitamin B1 Tab) 100 mg PO DAILY [facility] Last Admin: 11/11/17 10:59 Dose: 100 mg - Labs Labs: 11/11/17 07:41 11/11/17 07:41 PT 11.5 SECONDS (9.7-12.2) 11/08/17 12:52 INR 1.1 11/08/17 12:52 APTT 39 SECONDS (21-34) H 11/08/17 12:52 - Constitutional Appears: Well, No Acute Distress, Older Than Stated Age, Chronically Ill - Eye Exam Eye Exam: Normal appearance - ENT Exam ENT Exam: Mucous Membranes Moist - Respiratory Exam Respiratory Exam: Clear to Ausculation Bilateral, NORMAL BREATHING PATTERN - Cardiovascular Exam Cardiovascular Exam: REGULAR RHYTHM - GI/Abdominal Exam GI & Abdominal Exam: Soft, Normal Bowel Sounds. absent: Tenderness - Extremities Exam Extremities Exam: Normal Inspection - Back Exam Back Exam: NORMAL INSPECTION - Psychiatric Exam Psychiatric exam: Normal Affect, Normal Mood - Skin Skin Exam: Dry, Normal Color Assessment and Plan - Assessment and Plan (Free Text) Assessment: 52f with abdominal pain #Abdominal pain #H. pylori infection #Esophagitis/Gastritis #Chronic pancreatitis #GOV1 #HCV #Diverticulosis #ESRD on HD PLAN: -Abdominal u/s unremarkable -Continue quad. therapy for H. Pylori. Continue for 14 days. She will need to have stool Ag test 2 weeks s/p treatment -f/u HCV treatment as outpt. -Advance to low sodium regular diet. -Zofran IV prn -No endoscopic procedure needed at this time, however if symptoms continue or unable to tolerate diet with medical treatment, then EGD should be done. <Chris Zurita - Last Filed: 11/11/17 19:39> Objective - Vital Signs/Intake and Output Vital Signs (last 24 hours): Temp Pulse Resp BP Pulse Ox 98.2 F 72 20 144/84 100 11/11/17 16:00 11/11/17 16:00 11/11/17 16:00 11/11/17 16:00 11/11/17 16:00 Intake and Output: 11/11/17 11/12/17 18:59 06:59 Intake Total 380 Balance 380 - Medications Medications: Current Medications Albuterol (Ventolin Hfa 90 Mcg/Actuation (8 G)) 1 puff IH RQ6 [facility] Last Admin: 11/11/17 19:29 Dose: 1 puff Bismuth Subsalicylate (Pepto Bismol) 262 mg PO QID [facility] Last Admin: 11/11/17 17:39 Dose: Not Given Calcium Acetate (Phoslo) 667 mg PO TID [facility] Last Admin: 11/11/17 17:42 Dose: 667 mg Doxycycline Hyclate (Doryx) 100 mg PO Q12H [facility] PRN Reason: Protocol Last Admin: 11/11/17 14:44 Dose: 100 mg Ferrous Sulfate (Feosol) 325 mg PO DAILY [facility] Last Admin: 11/11/17 11:00 Dose: 325 mg Folic Acid (Folic Acid) 1 mg PO DAILY [facility] Last Admin: 11/11/17 10:59 Dose: 1 mg Gabapentin (Neurontin) 100 mg PO DAILY [facility] Last Admin: 11/11/17 11:00 Dose: 100 mg Heparin Sodium (Porcine) (Heparin) 5,000 units SC BID [facility] Last Admin: 11/11/17 17:39 Dose: 5,000 units Metronidazole (Flagyl) 500 mg PO BID [facility] PRN Reason: Protocol Last Admin: 11/11/17 17:39 Dose: 500 mg Morphine Sulfate (Morphine) 2 mg IV Q4 PRN PRN Reason: pain Last Admin: 11/11/17 18:40 Dose: 2 mg Ondansetron HCl (Zofran Inj) 4 mg IVP Q8H PRN PRN Reason: Nausea/Vomiting Pantoprazole Sodium (Protonix Ec Tab) 40 mg PO BID [facility] Last Admin: 11/11/17 17:42 Dose: 40 mg Thiamine HCl (Vitamin B1 Tab) 100 mg PO DAILY [facility] Last Admin: 11/11/17 10:59 Dose: 100 mg - Labs Labs: 11/11/17 07:41 11/11/17 07:41 PT 11.5 SECONDS (9.7-12.2) 11/08/17 12:52 INR 1.1 11/08/17 12:52 APTT 39 SECONDS (21-34) H 11/08/17 12:52 Attending/Attestation - Attestation I have personally seen and examined this patient.: Yes I have fully participated in the care of the patient.: Yes I have reviewed all pertinent clinical information, including history, physical exam and plan: Yes Notes (Text): 11/11/17 19:39 Chart reviewed. Patient interviewed and examined. Awake and alert. Agree with the findings on the exam. Assessment and recommendations, as documented above, were discussed with Dr. Gann.
[2017-11-12] MEDS: Albuterol HFA 90 mcg/actuation (8 g) IH SCH ×3 (01:41→14:17)
[2017-11-12] MEDS: Bismuth Subsalicylate 262 mg Chew Tab PO SCH ×3 (09:21→18:17)
[2017-11-12] MEDS: Pantoprazole 40 mg EC Tab PO SCH ×2 (09:21→18:15)
--- NOTE | 2017-11-12 11:03 | CP.PCM.PN ---
Subjective - Date & Time of Evaluation Date of Evaluation: 11/12/17 Time of Evaluation: 11:02 - Subjective Subjective: seen and examined no f/c/sob/n/v/d/dizziness/cp/cough Objective - Vital Signs/Intake and Output Vital Signs (last 24 hours): Temp Pulse Resp BP Pulse Ox 99.0 F 72 20 123/72 99 11/12/17 08:00 11/12/17 08:00 11/12/17 08:00 11/12/17 08:00 11/12/17 08:00 Intake and Output: 11/12/17 11/12/17 06:59 18:59 Intake Total 520 Balance 520 - Medications Medications: Current Medications Albuterol (Ventolin Hfa 90 Mcg/Actuation (8 G)) 1 puff IH RQ6 [facility] Last Admin: 11/12/17 08:03 Dose: 1 puff Bismuth Subsalicylate (Pepto Bismol) 262 mg PO QID [facility] Last Admin: 11/12/17 09:21 Dose: 262 mg Calcium Acetate (Phoslo) 667 mg PO TID [facility] Last Admin: 11/12/17 09:20 Dose: 667 mg Doxycycline Hyclate (Doryx) 100 mg PO Q12H [facility] PRN Reason: Protocol Last Admin: 11/12/17 02:08 Dose: 100 mg Ferrous Sulfate (Feosol) 325 mg PO DAILY [facility] Last Admin: 11/12/17 09:20 Dose: 325 mg Folic Acid (Folic Acid) 1 mg PO DAILY [facility] Last Admin: 11/12/17 09:21 Dose: 1 mg Gabapentin (Neurontin) 100 mg PO DAILY [facility] Last Admin: 11/12/17 09:20 Dose: 100 mg Metronidazole (Flagyl) 500 mg PO BID [facility] PRN Reason: Protocol Last Admin: 11/12/17 09:25 Dose: Not Given Morphine Sulfate (Morphine) 2 mg IV Q4 PRN PRN Reason: pain Last Admin: 11/12/17 01:18 Dose: 2 mg Ondansetron HCl (Zofran Inj) 4 mg IVP Q8H PRN PRN Reason: Nausea/Vomiting Pantoprazole Sodium (Protonix Ec Tab) 40 mg PO BID [facility] Last Admin: 11/12/17 09:21 Dose: 40 mg Thiamine HCl (Vitamin B1 Tab) 100 mg PO DAILY [facility] Last Admin: 11/12/17 09:21 Dose: 100 mg - Labs Labs: 11/11/17 07:41 11/11/17 07:41 PT 11.5 SECONDS (9.7-12.2) 11/08/17 12:52 INR 1.1 11/08/17 12:52 APTT 39 SECONDS (21-34) H 11/08/17 12:52 - Constitutional Appears: No Acute Distress, Cachectic, Chronically Ill - Head Exam Head Exam: NORMAL INSPECTION, NORMOCEPHALIC - Eye Exam Eye Exam: Normal appearance, PERRL - ENT Exam ENT Exam: Mucous Membranes Moist, Normal Exam - Neck Exam Neck Exam: Full ROM, Normal Inspection - Respiratory Exam Respiratory Exam: Clear to Ausculation Bilateral, NORMAL BREATHING PATTERN - Cardiovascular Exam Cardiovascular Exam: REGULAR RHYTHM, RRR - GI/Abdominal Exam GI & Abdominal Exam: Distended, Soft, Normal Bowel Sounds - Extremities Exam Extremities Exam: Normal Inspection (lue avf w/ thrill) - Back Exam Back Exam: NORMAL INSPECTION - Neurological Exam Neurological Exam: Alert, Awake, Oriented x3 - Psychiatric Exam Psychiatric exam: Normal Affect, Normal Mood - Skin Skin Exam: Dry, Intact Assessment and Plan (1) Abdominal pain Status: Acute (2) ESRD (end stage renal disease) Status: Acute (3) Pancreatitis Status: Acute - Assessment and Plan (Free Text) Assessment: hd today and tts pancreatic pseudocysts \ no intervention outpt f/u, stable from renal standpoint
--- NOTE | 2017-11-12 11:18 | CP.PCM.PN ---
<NavjotMelissa - Last Filed: 11/12/17 11:19> Subjective - Date & Time of Evaluation Date of Evaluation: 11/12/17 Time of Evaluation: 11:15 - Subjective Subjective: Gastroenterology Fellow/PGY6 Progress Note Patient notes improving abdominal pain occurring postprandial to "sugary foods" . Tolerating diet without vomiting. Last formed stool this morning. A 12-point review of systems negative except for as above. Objective - Vital Signs/Intake and Output Vital Signs (last 24 hours): Temp Pulse Resp BP Pulse Ox 99.0 F 72 20 123/72 99 11/12/17 08:00 11/12/17 08:00 11/12/17 08:00 11/12/17 08:00 11/12/17 08:00 Intake and Output: 11/12/17 11/12/17 06:59 18:59 Intake Total 520 Balance 520 - Medications Medications: Current Medications Albuterol (Ventolin Hfa 90 Mcg/Actuation (8 G)) 1 puff IH RQ6 [facility] Last Admin: 11/12/17 08:03 Dose: 1 puff Bismuth Subsalicylate (Pepto Bismol) 262 mg PO QID [facility] Last Admin: 11/12/17 09:21 Dose: 262 mg Calcium Acetate (Phoslo) 667 mg PO TID [facility] Last Admin: 11/12/17 09:20 Dose: 667 mg Doxycycline Hyclate (Doryx) 100 mg PO Q12H [facility] PRN Reason: Protocol Last Admin: 11/12/17 02:08 Dose: 100 mg Ferrous Sulfate (Feosol) 325 mg PO DAILY [facility] Last Admin: 11/12/17 09:20 Dose: 325 mg Folic Acid (Folic Acid) 1 mg PO DAILY [facility] Last Admin: 11/12/17 09:21 Dose: 1 mg Gabapentin (Neurontin) 100 mg PO DAILY [facility] Last Admin: 11/12/17 09:20 Dose: 100 mg Metronidazole (Flagyl) 500 mg PO BID [facility] PRN Reason: Protocol Last Admin: 11/12/17 09:25 Dose: Not Given Morphine Sulfate (Morphine) 2 mg IV Q4 PRN PRN Reason: pain Last Admin: 11/12/17 01:18 Dose: 2 mg Ondansetron HCl (Zofran Inj) 4 mg IVP Q8H PRN PRN Reason: Nausea/Vomiting Pantoprazole Sodium (Protonix Ec Tab) 40 mg PO BID [facility] Last Admin: 11/12/17 09:21 Dose: 40 mg Thiamine HCl (Vitamin B1 Tab) 100 mg PO DAILY [facility] Last Admin: 11/12/17 09:21 Dose: 100 mg - Labs Labs: 11/11/17 07:41 11/11/17 07:41 PT 11.5 SECONDS (9.7-12.2) 11/08/17 12:52 INR 1.1 11/08/17 12:52 APTT 39 SECONDS (21-34) H 11/08/17 12:52 - Constitutional Appears: Non-toxic, No Acute Distress - Head Exam Head Exam: ATRAUMATIC, NORMOCEPHALIC - Eye Exam Eye Exam: EOMI, PERRL Pupil Exam: PERRL. absent: Miosis, Mydriatic - ENT Exam ENT Exam: Mucous Membranes Moist, Normal Oropharynx - Neck Exam Neck Exam: Full ROM, Normal Inspection - Respiratory Exam Respiratory Exam: Clear to Ausculation Bilateral. absent: Rales, Rhonchi, Wheezes - Cardiovascular Exam Cardiovascular Exam: RRR, +S1, +S2. absent: Gallop, Rubs - GI/Abdominal Exam GI & Abdominal Exam: Soft, Tenderness, Normal Bowel Sounds. absent: Distended, Firm, Guarding, Rigid, Organomegaly, Rebound Additional comments: mild epigastric and LUQ tenderness to palpation - Extremities Exam Extremities Exam: Normal Inspection. absent: Pedal Edema - Neurological Exam Neurological Exam: Alert, Awake - Psychiatric Exam Psychiatric exam: Normal Affect, Normal Mood - Skin Skin Exam: Dry, Intact, Normal Color, Warm Assessment and Plan - Assessment and Plan (Free Text) Assessment: 52 year old female with PMH of HCV (treatment naive), chronic alcoholic pancreatitis, and ESRD on HD presenting with abdominal pain, vomiting, and diarrhea. Active treatment of resolving viral gastroenteritis and untreated H. pylori gastritis on EGD 05/29/17 with other findings of LAGA esophagitis and GOV1. No prior colonoscopy. Plan: -continue H. pylori quadruple therapy- counselled on adherence to therapy including Bismuth -outpatient follow up in 4 weeks post- 2 week treatment to confirm eradication -CT A/P 11/07/17- 2 psuedocysts noted with unchanged size compared to 10/12/17 and decreased in size compared to 05/2017 -continue to monitor for stable size and/or regression -outpatient follow up for HCV workup and discussion on treatment options -no signs of portal hypertension, GOV on EGD 05/2017 likely related to chronic pancreatitis -outpatient follow up for GOV and consideration for elective cross-imaging imaging with contrast to evaluate for SVT -started Pancreaze Lipase 42,000 units with meals TID, continue on discharge with recommendation for half dose with any additional snacks during the day -counselled on tobacco, alcoho, and marijuana cessation <Carmelo Isaacs - Last Filed: 11/12/17 11:49> Objective - Vital Signs/Intake and Output Vital Signs (last 24 hours): Temp Pulse Resp BP Pulse Ox 99.0 F 72 20 123/72 99 11/12/17 08:00 11/12/17 08:00 11/12/17 08:00 11/12/17 08:00 11/12/17 08:00 Intake and Output: 11/12/17 11/12/17 06:59 18:59 Intake Total 520 Balance 520 - Medications Medications: Current Medications Albuterol (Ventolin Hfa 90 Mcg/Actuation (8 G)) 1 puff IH RQ6 [facility] Last Admin: 11/12/17 08:03 Dose: 1 puff Bismuth Subsalicylate (Pepto Bismol) 262 mg PO QID [facility] Last Admin: 11/12/17 09:21 Dose: 262 mg Calcium Acetate (Phoslo) 667 mg PO TID [facility] Last Admin: 11/12/17 09:20 Dose: 667 mg Doxycycline Hyclate (Doryx) 100 mg PO Q12H [facility] PRN Reason: Protocol Last Admin: 11/12/17 02:08 Dose: 100 mg Ferrous Sulfate (Feosol) 325 mg PO DAILY [facility] Last Admin: 11/12/17 09:20 Dose: 325 mg Folic Acid (Folic Acid) 1 mg PO DAILY [facility] Last Admin: 11/12/17 09:21 Dose: 1 mg Gabapentin (Neurontin) 100 mg PO DAILY [facility] Last Admin: 11/12/17 09:20 Dose: 100 mg Metronidazole (Flagyl) 500 mg PO BID [facility] PRN Reason: Protocol Last Admin: 11/12/17 09:25 Dose: Not Given Morphine Sulfate (Morphine) 2 mg IV Q4 PRN PRN Reason: pain Last Admin: 11/12/17 01:18 Dose: 2 mg Ondansetron HCl (Zofran Inj) 4 mg IVP Q8H PRN PRN Reason: Nausea/Vomiting Pantoprazole Sodium (Protonix Ec Tab) 40 mg PO BID [facility] Last Admin: 11/12/17 09:21 Dose: 40 mg Thiamine HCl (Vitamin B1 Tab) 100 mg PO DAILY [facility] Last Admin: 11/12/17 09:21 Dose: 100 mg - Labs Labs: 11/11/17 07:41 11/11/17 07:41 PT 11.5 SECONDS (9.7-12.2) 11/08/17 12:52 INR 1.1 11/08/17 12:52 APTT 39 SECONDS (21-34) H 11/08/17 12:52 Attending/Attestation - Attestation I have personally seen and examined this patient.: Yes I have fully participated in the care of the patient.: Yes I have reviewed all pertinent clinical information, including history, physical exam and plan: Yes Notes (Text): 11/12/17 11:46 I have seen and examined patient with GI fellow. No acute events overnight, she reports mild epigastric discomfort following meal consumption but denies nausea, vomiting, fever/chills. Review of vitals from today are normal. ESRD on HD HCV Acute on chronic ETOH pancreatitis with pseudocyst lesions stable in size compared to prior imaging - Low fat diet as tolerated - Would add pancreatic enzyme replacement therapy TID with meals - Continue with antibiotic therapy for Hpylori treatment, suggest outpatient breath testing in 1 month following medication to confirm eradication - Patient would also benefit from outpatient evaluation of chronic HCV - No further planned GI interventions, will sign off case. Please reconsult as necessary, thank you.
[2017-11-12] MEDS ORDERED: LIPASE/PROTEASE/AMYLASE 21,000 U ECC PO SCH (14:00)
--- NOTE | 2017-11-12 14:00 | CP.PCM.DIS ---
Provider - Provider Date of Admission: 11/08/17 14:53 Attending physician: Azul Caceres MD Time Spent in preparation of Discharge (in minutes): 36 Hospital Course - Lab Results Lab Results: Most Recent Lab Values WBC 4.2 K/uL (4.8-10.8) L 11/11/17 07:41 RBC 2.84 Mil/uL (3.80-5.20) L 11/11/17 07:41 Hgb 9.8 g/dL (11.0-16.0) L 11/11/17 07:41 Hct 28.7 % (34.0-47.0) L 11/11/17 07:41 MCV 101.2 fL (81.0-99.0) H 11/11/17 07:41 MCH 34.4 pg (27.0-31.0) H 11/11/17 07:41 MCHC 34.0 g/dL (33.0-37.0) 11/11/17 07:41 RDW 14.6 % (11.5-14.5) H 11/11/17 07:41 Plt Count 191 K/uL (130-400) 11/11/17 07:41 MPV 8.8 fL (7.2-11.7) 11/11/17 07:41 Neut % (Auto) 83.1 % (50.0-75.0) H 11/08/17 12:52 Lymph % (Auto) 12.2 % (20.0-40.0) L 11/08/17 12:52 [place] % (Auto) 4.0 % (0.0-10.0) 11/08/17 12:52 Eos % (Auto) 0.2 % (0.0-4.0) 11/08/17 12:52 Baso % (Auto) 0.5 % (0.0-2.0) 11/08/17 12:52 Neut # (Auto) 5.0 K/uL (1.8-7.0) 11/08/17 12:52 Lymph # (Auto) 0.7 K/uL (1.0-4.3) L 11/08/17 12:52 [place] # (Auto) 0.2 K/uL (0.0-0.8) 11/08/17 12:52 Eos # (Auto) 0.0 K/uL (0.0-0.7) 11/08/17 12:52 Baso # (Auto) 0.0 K/uL (0.0-0.2) 11/08/17 12:52 PT 11.5 SECONDS (9.7-12.2) 11/08/17 12:52 INR 1.1 11/08/17 12:52 APTT 39 SECONDS (21-34) H 11/08/17 12:52 Sodium 139 mmol/L (132-148) 11/11/17 07:41 Potassium 4.5 mmol/L (3.6-5.2) 11/11/17 07:41 Chloride 103 mmol/L (98-107) 11/11/17 07:41 Carbon Dioxide 24 mmol/L (22-30) 11/11/17 07:41 Anion Gap 16 (10-20) 11/11/17 07:41 BUN 27 mg/dL (7-17) H 11/11/17 07:41 Creatinine 4.2 mg/dL (0.7-1.2) H 11/11/17 07:41 Est GFR ( Amer) 13 11/11/17 07:41 Est GFR (Non-Af Amer) 11 11/11/17 07:41 Random Glucose 99 mg/dL (65-105) 11/11/17 07:41 Calcium 9.8 mg/dl (8.6-10.4) 11/11/17 07:41 Phosphorus 3.9 mg/dL (2.5-4.5) 11/11/17 07:41 Magnesium 1.7 mg/dL (1.6-2.3) 11/11/17 07:41 Total Bilirubin 0.4 mg/dL (0.2-1.3) 11/11/17 07:41 AST 18 U/L (14-36) 11/11/17 07:41 ALT 20 U/L (9-52) 11/11/17 07:41 Alkaline Phosphatase 119 U/L (38-126) 11/11/17 07:41 Troponin I < 0.0120 ng/mL (0.00-0.120) 11/08/17 13:17 Total Protein 7.8 g/dL (6.3-8.3) 11/11/17 07:41 Albumin 4.1 g/dL (3.5-5.0) 11/11/17 07:41 Globulin 3.7 gm/dL (2.2-3.9) 11/11/17 07:41 Albumin/Globulin Ratio 1.1 (1.0-2.1) 11/11/17 07:41 Amylase 431 U/L (30-110) H 11/09/17 07:09 Lipase 196 U/L (23-300) 11/10/17 08:56 - Hospital Course Hospital Course: Patient admitted for emergency room complaining of abdominal pain nausea and vomiting. Patient took some alcohol a few days ago and since then patient been complaining of abdominal pain. In the emergency room patient had high amylase and lipase level. On further inquiry and review of old charts it is determined the patient is a chronic pancreatitis with pseudocyst and has frequent admissions in the hospital for alcohol abuse and pancreatitis. Patient also had an MRCP done the beginning of this year which did not reveal any stones. CT of the abdomen showed chronic pancreatitis with pseudocyst unchanged from the previous CAT scan which was also confirmed with ultrasound. GI consult was obtained and patient was given treatment for chronic pancreatitis, pancreas tablets and also patient had H. pylori and a quadruple therapy was given. Patient improved on above therapy there is no further nausea or vomiting or abdominal pain and patient is discharged with the following instructions. Preliminary alcohol, follow-up for H. pylori eradication treatment for HCV and follow-up aortic CAT scan for pseudocyst enlargement. Discharge Exam - Head Exam Head Exam: ATRAUMATIC, NORMOCEPHALIC Discharge Plan - Discharge Medications Prescriptions: Doxycycline Hyclate [Doryx] 100 mg PO Q12H #20 cap metroNIDAZOLE [Flagyl] 500 mg PO BID #20 tab Lipase/Protease/Amylase [Paul ALVAREZ 21,000U-54,700U-83,900U] 42,000 u PO TID # 90 ecc Famotidine [Pepcid] 40 mg PO DAILY #15 tablet Pantoprazole [Protonix EC Tab] 40 mg PO BID #20 ect - Follow Up Plan Condition: FAIR Disposition: HOME/ ROUTINE
[2017-11-12 17:42] VITALS: BP 136/79; PULSE 69; RESP 17; TEMP 97.7; O2SAT 100
--- NOTE | 2017-11-12 22:24 | CARD ---
APPROVED REPORT Date of service: 11/08/2017 EKG Measurement Heart [id number] <Conclusion> Normal sinus rhythm Possible Left atrial enlargement Borderline ECG
== END 2017-11-12 19:27 | disposition home or self-care (01) | DRG 557 ==
LOC: C.ER 11:10 → C.9E 14:53 → C.3T 16:25
PROVIDERS: ADMIT Internal Medicine Cardiovascular Disease; ATTEND Internal Medicine Cardiovascular Disease
PROC: 5A1D70Z Performance of Urinary Filtration, Intermittent, Less than 6 Hours Per Day (ICD-10-PCS; principal; 2017-11-09)
PROC: 5A1D70Z Performance of Urinary Filtration, Intermittent, Less than 6 Hours Per Day (ICD-10-PCS; 2017-11-12)
DX: K86.1 Other chronic pancreatitis (principal); K86.3 Pseudocyst of pancreas; E11.22 Type 2 diabetes mellitus with diabetic chronic kidney disease; I12.0 Hypertensive chronic kidney disease with stage 5 chronic kidney disease or end stage renal disease; N18.6 End stage renal disease; J45.909 Unspecified asthma, uncomplicated; K20.9 Esophagitis, unspecified; K29.70 Gastritis, unspecified, without bleeding; K44.9 Diaphragmatic hernia without obstruction or gangrene; Z99.2 Dependence on renal dialysis; F17.210 Nicotine dependence, cigarettes, uncomplicated

== ENCOUNTER 2017-12-20 23:00 | Inpatient (IN) | payer MEDICAID ==
[2017-12-20 23:00] VITALS: BMI 19.7
--- NOTE | 2017-12-20 23:05 | C.PDOC ---
History Of Present Illness Patient presents to the ED with abdominal pain for the past week associated with nausea, vomiting, and diarrhea. She is taking Flagyl for the last 3 weeks and had her last dialysis in the middle of November. Patient is on a Saturday/ / Saturday dialysis schedule. Denies any fever, chills, and SOB. Time Seen by Provider: 12/20/17 23:04 History Per: Patient History/Exam Limitations: no limitations Onset/Duration Of Symptoms: Days Current Symptoms Are (Timing): Still Present Severity: Moderate Pain Scale Rating Of: 4 Location Of Pain/Discomfort: Diffuse Radiation Of Pain To:: None Quality Of Discomfort: Unable To Describe Associated Symptoms: Nausea, Vomiting, Diarrhea. denies: Fever, Chills, Other (SOB) Exacerbating Factors: None Alleviating Factors: None Last Bowel Movement: Today Recent travel outside of the [place]: No Abnormal Vaginal Bleeding: No Past Medical History Reviewed: Historical Data, Nursing Documentation, Vital Signs - Medical History PMH: Asthma, HTN, Pancreatitis, End Stage Renal Disease, Chronic Kidney Disease - [facility] Procedures (11/08/17) EXCISION OF STOMACH, ENDO, DIAGN (05/27/17) FLUOROSCOPY OF SUPERIOR VENA CAVA, GUIDANCE (05/27/17) INSERTION OF INFUSION DEV INTO SUP VENA CAVA, PERC APPROACH (05/27/17) INSERTION OF VAD INTO CHEST SUBCU/FASCIA, PERC APPROACH (05/27/17) Family History: States: No Known Family Hx - Social History Hx Alcohol Use: Yes (occasionally) Hx Substance Use: Yes (marijuana) - Immunization History Hx Tetanus Toxoid Vaccination: No Hx Influenza Vaccination: Yes Hx Pneumococcal Vaccination: Yes Review Of Systems Constitutional: Negative for: Fever, Chills Eyes: Negative for: Redness Cardiovascular: Negative for: Chest Pain, Palpitations Respiratory: Negative for: Cough, Shortness of Breath Gastrointestinal: Positive for: Nausea, Vomiting, Abdominal Pain, Diarrhea Genitourinary: Negative for: Dysuria, Hematuria Musculoskeletal: Negative for: Back Pain Skin: Negative for: Rash Neurological: Negative for: Weakness Psych: Negative for: Anxiety Physical Exam - Physical Exam Appears: Non-toxic, Other (moderate discomfort) Skin: Warm, Dry Head: Normacephalic Eye(s): bilateral: Normal Inspection Oral Mucosa: Moist Neck: Supple Chest: Symmetrical, No Tenderness Cardiovascular: Rhythm Regular Respiratory: No Rales, No Rhonchi, No Wheezing Gastrointestinal/Abdominal: Soft, Tenderness (Diffuse), No Distention, Guarding (voluntary), No Rebound Back: Normal Inspection Extremity: Capillary Refill (<2 seconds), Other (Left arm dialysis shunt with good thrill and bruit) Extremity: Bilateral: Atraumatic, Normal Color And Temperature, Normal ROM Pulses: Left Radial: Normal, Right Radial: Normal, Left Dorsalis Pedis: Normal, Right Dorsalis Pedis: Normal Neurological/Psych: Oriented x3, Normal Speech, Normal Cognition Gait: Steady ED Course And Treatment - Laboratory Results Result Diagrams: 12/20/17 23:29 12/20/17 23:29 Progress Note: EKG, CXR, and blood work ordered. Administered Ketorolac and Ondansetron. Disposition Discussed With : Shlomo Barrios Comment: accepted the pt on his service and took o0ver the care at 12:05 AM Doctor Will See Patient In The: Hospital Counseled Patient/Family Regarding: Studies Performed, Diagnosis - Disposition Disposition: HOSPITALIZED Disposition Time: 23:05 Condition: FAIR - POA Present On Arrival: None - Clinical Impression Clinical Impression: Abdominal pain, Nausea, Vomiting, Diarrhea, Acute pancreatitis, Hypertensive CKD, ESRD on dialysis - Scribe Statement The provider has reviewed the documentation as recorded by the Scribe (Jake Stockton) All medical record entries made by the Scribe were at my direction and personally dictated by me. I have reviewed the chart and agree that the record accurately reflects my personal performance of the history, physical exam, medical decision making, and the department course for this patient. I have also personally directed, reviewed, and agree with the discharge instructions and disposition. Decision To Admit - Pt Status Changed To: Hospital Disposition Of: Inpatient - Admit Certification Admit to Inpatient:: After my assessment, the patient will require hospitalization for at least two midnights. This is because of the severity of symptoms shown, intensity of services needed, and/or the medical risk in this patient being treated as an outpatient. - InPatient: Physician Admission Certification:: After my assessment, the patient will require hospitalization for at least two midnights. This is because of the severity of symptoms shown, intensity of services needed, and/or the medical risk in this patient being treated as an outpatient. - . Bed Request Type: Regular Admitting Physician: Shlomo Barrios Patient Diagnosis: Abdominal pain, Nausea, Vomiting, Diarrhea, Acute pancreatitis, Hypertensive CKD, ESRD on dialysis
[2017-12-20 23:32] LABS: BASO % 0.7 % (0.0-2.0); EOS % 0.8 % (0.0-4.0); HEMOGLOBIN 9.6 g/dL (11.0-16.0); LYMPH # 1.1 K/uL (1.0-4.3); LYMPH % 20.7 % (20.0-40.0); MEAN CELL VOLUME 100.8 fL (81.0-99.0); MEAN CORPUSCULAR HEMOGLOBIN 34.5 pg (27.0-31.0); MEAN CORPUSCULAR HGB CONC 34.2 g/dL (33.0-37.0); MEAN PLATELET VOLUME 7.3 fL (7.2-11.7); MONO # 0.3 K/uL (0.0-0.8); MONO % 5.8 % (0.0-10.0); NEUT # 3.6 K/uL (1.8-7.0); RBC 2.8 Mil/uL (3.80-5.20); RED CELL DISTRIBUTION WIDTH 15.2 % (11.5-14.5); WHITE BLOOD COUNT 5.1 K/uL (4.8-10.8)
[2017-12-20 23:40] LABS: INR 1.1; PROTHROMBIN TIME 12.3 SECONDS (9.7-12.2)
[2017-12-20 23:43] LABS: ALB/GLOB RATIO 1.2 (1.0-2.1); ALBUMIN 4.6 g/dL (3.5-5.0); CALCIUM 9.1 mg/dl (8.6-10.4)
[2017-12-21 01:46] LABS: BARBITURATES, UR NEGATIVE (NEGATIVE); BENZODIAZEPINES, UR NEGATIVE (NEGATIVE); OPIATES, UR NEGATIVE (NEGATIVE); PHENCYCLIDINE, UR NEGATIVE (NEGATIVE)
[2017-12-21] MEDS: Dextrose 5%/0.45% NS 1,000 ML IV SCH ×2 (01:56→20:02)
[2017-12-21 07:49] LABS: AMYLASE 1002 U/L (30-110)
[2017-12-21 08:12] LABS: LIPASE 2961 U/L (23-300)
--- NOTE | 2017-12-21 08:44 | RAD ---
HISTORY: abd pain COMPARISON: Chest x-ray performed 11/07/17 TECHNIQUE: Chest, one view. FINDINGS: Right IJ approach dialysis catheter with distal tips at the cavoatrial junction/right atrium. LUNGS: No focal consolidation. Please note that chest x-ray has limited sensitivity for the detection of pulmonary masses. PLEURA: No significant pleural effusion identified. No definite pneumothorax . CARDIOVASCULAR: The cardiomediastinal silhouette appears within normal limits of size. OSSEOUS STRUCTURES: No acute osseous abnormality identified. VISUALIZED UPPER ABDOMEN: Unremarkable. OTHER FINDINGS: None. IMPRESSION: Right IJ approach dialysis catheter with distal tips at the cavoatrial junction/right atrium.
--- NOTE | 2017-12-21 11:53 | CP.PCM.CON ---
History of Present Illness - History of Present Illness History of Present Illness: renal consult for management of dialysis 52 yo AA female, HTN, ESRD, presents with diffuse abdominal pain. Labs suggestive of pancreatitis. No history of cholecystectomy. Denies ETOH use. Noncompliant with HD, no treatment in over a month. Has a mature AVF on left arm, using a permcath today during HD. Review of Systems - Constitutional Constitutional: absent: Fever, Lethargy - EENT Eyes: absent: Blurred Vision, Change in Vision Nose/Mouth/Throat: absent: Nasal Congestion, Nasal Discharge - Cardiovascular Cardiovascular: absent: Chest Pain, Claudication - Respiratory Respiratory: absent: Cough, Dyspnea - Gastrointestinal Gastrointestinal: Abdominal Pain, Diarrhea - Musculoskeletal Musculoskeletal: absent: Arthralgias, Back Pain - Neurological Neurological: absent: Confusion, Headaches Past Patient History - Past Medical History & Family History Past Medical History?: Yes - Past Social History Smoking Status: Light Smoker < 10 Cigarettes Daily - CARDIAC Hx Cardiac Disorders: Yes Hx Hypertension: Yes - PULMONARY Hx Respiratory Disorders: Yes Hx Asthma: Yes - NEUROLOGICAL Hx Neurological Disorder: Yes HX Cerebrovascular Accident: No - HEENT Hx HEENT Problems: No - RENAL Date of Last Dialysis Treatment: 11/12/17 - ENDOCRINE/METABOLIC Hx Endocrine Disorders: Yes Hx Diabetes Mellitus Type 2: Yes (but not on diabetic pills) - HEMATOLOGICAL/ONCOLOGICAL Hx Blood Disorders: Yes Hx Anemia: Yes Hx Hepatitis C: Yes - INTEGUMENTARY Hx Dermatological Problems: No - MUSCULOSKELETAL/RHEUMATOLOGICAL Hx Falls: Yes - GASTROINTESTINAL Hx Gastrointestinal Disorders: No Hx Pancreatitis: Yes - GENITOURINARY/GYNECOLOGICAL Hx Genitourinary Disorders: No - PSYCHIATRIC Hx Substance Use: Yes (marijuana) - SURGICAL HISTORY Hx Surgeries: Yes Hx Arteriovenous Shunt: Yes (LEFT ARM) Hx Vascular Surgery: Yes Other/Comment: RIGHT ARM SURGERY - BOIL. LEFT ARM AV SHUNT - ANESTHESIA Hx Anesthesia: Yes Hx Anesthesia Reactions: No Hx Malignant Hyperthermia: No Has any member of the family had a problem w/ anesthesia?: No Meds Allergies/Adverse Reactions: Allergies Allergy/AdvReac Type Severity Reaction Status Date / Time acetaminophen [From Tylenol] Allergy RASH Verified 11/08/17 11:18 tomato Allergy RASH Verified 11/08/17 11:18 - Medications Medications: Current Medications Famotidine (Pepcid) 20 mg IVP DAILY [facility] Heparin Sodium (Porcine) (Heparin) 5,000 units SC Q8 [facility] Last Admin: 12/21/17 05:49 Dose: 5,000 units Dextrose/Sodium Chloride (Dextrose 5%/0.45% Ns 1000 Ml) 1,000 mls @ 50 mls/hr IV .Q20H [facility] Last Admin: 12/21/17 01:56 Dose: 50 mls/hr Morphine Sulfate (Morphine) 2 mg IM Q6H PRN PRN Reason: pain Last Admin: 12/21/17 05:54 Dose: 2 mg Physical Exam - Constitutional Appears: Non-toxic, Chronically Ill - Head Exam Head Exam: ATRAUMATIC, NORMAL INSPECTION - Eye Exam Eye Exam: EOMI, Normal appearance - ENT Exam ENT Exam: Mucous Membranes Moist - Neck Exam Neck exam: Positive for: Full Rom. Negative for: Lymphadenopathy - Respiratory Exam Respiratory Exam: Clear to Auscultation Bilateral. absent: Decreased Breath Sounds - Cardiovascular Exam Cardiovascular Exam: REGULAR RHYTHM. absent: Rubs - GI/Abdominal Exam GI & Abdominal Exam: Distended, Tenderness. absent: Guarding - Extremities Exam Extremities exam: Negative for: pedal edema - Neurological Exam Neurological exam: Alert, Oriented x3 Results - Vital Signs Recent Vital Signs: Last Vital Signs Temp 97.5 F L 12/21/17 10:10 Pulse 77 12/21/17 10:10 Resp 18 12/21/17 10:10 BP 142/85 12/21/17 11:40 Pulse Ox 98 12/21/17 10:10 - Labs Result Diagrams: 12/20/17 23:29 12/20/17 23:29 Labs: Laboratory Results - last 24 hr 12/20/17 12/20/17 12/20/17 23:29 23:29 23:29 WBC 5.1 RBC 2.80 L Hgb 9.6 L Hct 28.2 L MCV 100.8 H MCH 34.5 H MCHC 34.2 RDW 15.2 H Plt Count 224 MPV 7.3 Neut % (Auto) 72.0 Lymph % (Auto) 20.7 [place] % (Auto) 5.8 Eos % (Auto) 0.8 Baso % (Auto) 0.7 Neut # (Auto) 3.6 Lymph # (Auto) 1.1 [place] # (Auto) 0.3 Eos # (Auto) 0.0 Baso # (Auto) 0.0 PT 12.3 H INR 1.1 APTT 38 H Sodium 143 Potassium 4.7 Chloride 109 H Carbon Dioxide 16 L Anion Gap 23 H BUN 41 H Creatinine 3.6 H Est GFR ( Amer) 16 Est GFR (Non-Af Amer) 13 Random Glucose 86 Calcium 9.1 Total Bilirubin 0.6 AST 33 ALT 20 Alkaline Phosphatase 150 H D Total Protein 8.5 H Albumin 4.6 Globulin 3.9 Albumin/Globulin Ratio 1.2 Amylase Lipase 3154 H Carcinoembryonic Ag CA 19-9 Antigen CA 125 Antigen Urine Opiates Screen Urine Methadone Screen Ur Barbiturates Screen Ur Phencyclidine Scrn Ur Amphetamines Screen U Benzodiazepines Scrn U Oth Cocaine Metabols U Cannabinoids Screen 12/21/17 12/21/17 12/21/17 01:25 06:00 06:00 WBC RBC Hgb Hct MCV MCH MCHC RDW Plt Count MPV Neut % (Auto) Lymph % (Auto) [place] % (Auto) Eos % (Auto) Baso % (Auto) Neut # (Auto) Lymph # (Auto) [place] # (Auto) Eos # (Auto) Baso # (Auto) PT INR APTT 35 H Sodium Potassium Chloride Carbon Dioxide Anion Gap BUN Creatinine Est GFR ( Amer) Est GFR (Non-Af Amer) Random Glucose Calcium Total Bilirubin AST ALT Alkaline Phosphatase Total Protein Albumin Globulin Albumin/Globulin Ratio Amylase 1002 H Lipase 2961 H Carcinoembryonic Ag CA 19-9 Antigen CA 125 Antigen Urine Opiates Screen Negative Urine Methadone Screen Negative Ur Barbiturates Screen Negative Ur Phencyclidine Scrn Negative Ur Amphetamines Screen Negative U Benzodiazepines Scrn Negative U Oth Cocaine Metabols Negative U Cannabinoids Screen Positive H 12/21/17 10:03 WBC RBC Hgb Hct MCV MCH MCHC RDW Plt Count MPV Neut % (Auto) Lymph % (Auto) [place] % (Auto) Eos % (Auto) Baso % (Auto) Neut # (Auto) Lymph # (Auto) [place] # (Auto) Eos # (Auto) Baso # (Auto) PT INR APTT Sodium Potassium Chloride Carbon Dioxide Anion Gap BUN Creatinine Est GFR ( Amer) Est GFR (Non-Af Amer) Random Glucose Calcium Total Bilirubin AST ALT Alkaline Phosphatase Total Protein Albumin Globulin Albumin/Globulin Ratio Amylase Lipase Carcinoembryonic Ag 1.4 CA 19-9 Antigen 40.8 H CA 125 Antigen < 5.5 Urine Opiates Screen Urine Methadone Screen Ur Barbiturates Screen Ur Phencyclidine Scrn Ur Amphetamines Screen U Benzodiazepines Scrn U Oth Cocaine Metabols U Cannabinoids Screen Assessment & Plan - Assessment and Plan (Free Text) Assessment: noncompliant with HD will check 24 hr urine to assess residual renal function us of abdomen GI eval check etoh level
--- NOTE | 2017-12-21 15:25 | US ---
HISTORY: abdominal pain COMPARISON: CT abdomen pelvis without IV contrast performed 11/07/17, abdominal ultrasound performed 11/09/17 TECHNIQUE: Sonographic evaluation of the abdomen. FINDINGS: LIVER: Measures 15.1 cm in sagittal dimension. Echogenic liver may be seen in setting of hepatic parenchymal disease or fatty infiltration. No focal hepatic mass identified. The main portal vein appears patent with normal directional flow. No intrahepatic bile duct dilatation. GALLBLADDER: No gallstones. No gallbladder wall thickening. Negative sonographic Michaels's sign as assessed by the yard clerk. COMMON BILE DUCT: Measures 3 mm. PANCREAS: Not well visualized. Limited visualization of the pancreatic duct which appears dilated measuring approximately 5 mm. Two anechoic cystic lesions measuring approximately 4 cm and 4.3 cm at the expected location of the pancreatic tail; possibly pseudocyst. RIGHT KIDNEY: Measures 8.0 x 3.7 x 4.2 cm. No obstructing calculus or hydronephrosis identified. Echogenic renal parenchyma. LEFT KIDNEY: Measures 8.0 x 3.6 x 4.0 cm. No obstructing calculus or hydronephrosis identified. 9 mm and 8 mm midpole renal cyst. Echogenic renal parenchyma. SPLEEN: Measures approximately 6.8 cm. AORTA: Limited views appear unremarkable. IVC: Limited views appear unremarkable. OTHER FINDINGS: None. IMPRESSION: Echogenic liver may be seen in setting of hepatic parenchymal disease or fatty infiltration. 4.3 and 4.0 cm probable pseudocysts at the level the pancreatic tail. These are seen to better advantage (including dense peripheral calcifications) on CT of the abdomen and pelvis performed without contrast on 11/07/17. Dilated pancreatic duct. Echogenic renal parenchyma may be seen in the setting of medical renal disease. Left renal cyst.
--- NOTE | 2017-12-21 15:49 | PN ---
DATE: 12/21/2017 LOCATION: 350, bed B. HISTORY OF PRESENT ILLNESS: This is a 52-year-old female initially seen for GI consultation on 12/20/2017 as requested by the admitting medical team, reexamined again today, appeared to be more awake and alert without reported active bleeding, actual chest pain or palpitation. It has to be mentioned that the patient's initial complaint was severe abdominal pain with recurrent episode of nausea and vomiting reported with diarrhea, without response to oral Flagyl intake. The patient is still on hemodialysis. The entire chart is reviewed including but not limited to the most recent lab and radiology study results, current and the previous medication list, current and the previous medical events. Case discussed with the staff at length. PHYSICAL EXAMINATION: GENERAL: A 52-year-old female. VITAL SIGNS: Afebrile with pulse of 70, respiratory rate 20 to 22, blood pressure of 140/74. HEENT: Showed pale dry oral mucous membrane. Nonicteric sclerae. LUNGS: Few scattered crepitation. Decreased air entry at bases. HEART: Positive S1 and S2. ABDOMEN: Soft with mild generalized tenderness. No mass or organomegaly. No rebound tenderness or guarding. RECTAL: Examination, the patient refused. EXTREMITIES: With slight lower extremity edematous changes. No clubbing or cyanosis. NEUROLOGIC: No reported new neurological deficits, sensory or motor. LABORATORY DATA: Today's lab result is still pending. However, the patient had low hemoglobin and hematocrit at the time of the admission with mildly elevated PT and PTT with CO2 content of 16 indicative of metabolic acidosis, BUN is 41, creatinine 3.6, alkaline phosphatase 150 with lipase of 3154. IMPRESSION: 1. Acute pancreatitis. 2. Known history of end-stage renal disease, on hemodialysis. 3. Re-exacerbation of peptic ulcer disease with episodes of nausea and vomiting. 4. Diarrhea, infectious versus mechanical, to rule out possible pseudomembranous colitis. To rule out drug induced. 5. To rule out hyperlipidemia inducing acute pancreatitis. SUGGESTIONS: 1. Agree with your plan. 2. Keep n.p.o. for now until more stable clinically. 3. Endoscopic evaluation of the GI tract when the patient is more stable clinically. 4. Cancer markers. 5. Correct any underlying electrolyte imbalance. 6. Further recommendation to follow and abdominal ultrasound to be ordered. Alfonos Kent MD [facility] # [id number]
--- NOTE | 2017-12-21 20:08 | CP.PCM.HP ---
Past Patient History - Past Medical History & Family History Past Medical History?: Yes - Past Social History Smoking Status: Light Smoker < 10 Cigarettes Daily - CARDIAC Hx Cardiac Disorders: Yes Hx Hypertension: Yes - PULMONARY Hx Respiratory Disorders: Yes Hx Asthma: Yes - NEUROLOGICAL Hx Neurological Disorder: Yes HX Cerebrovascular Accident: No - HEENT Hx HEENT Problems: No - RENAL Date of Last Dialysis Treatment: 11/12/17 - ENDOCRINE/METABOLIC Hx Endocrine Disorders: Yes Hx Diabetes Mellitus Type 2: Yes (but not on diabetic pills) - HEMATOLOGICAL/ONCOLOGICAL Hx Blood Disorders: Yes Hx Anemia: Yes Hx Hepatitis C: Yes - INTEGUMENTARY Hx Dermatological Problems: No - MUSCULOSKELETAL/RHEUMATOLOGICAL Hx Falls: Yes - GASTROINTESTINAL Hx Gastrointestinal Disorders: No Hx Pancreatitis: Yes - GENITOURINARY/GYNECOLOGICAL Hx Genitourinary Disorders: No - PSYCHIATRIC Hx Substance Use: Yes (marijuana) - SURGICAL HISTORY Hx Surgeries: Yes Hx Arteriovenous Shunt: Yes (LEFT ARM) Hx Vascular Surgery: Yes Other/Comment: RIGHT ARM SURGERY - BOIL. LEFT ARM AV SHUNT - ANESTHESIA Hx Anesthesia: Yes Hx Anesthesia Reactions: No Hx Malignant Hyperthermia: No Has any member of the family had a problem w/ anesthesia?: No Meds Allergies/Adverse Reactions: Allergies Allergy/AdvReac Type Severity Reaction Status Date / Time acetaminophen [From Tylenol] Allergy RASH Verified 11/08/17 11:18 tomato Allergy RASH Verified 11/08/17 11:18 Results - Vital Signs Recent Vital Signs: Last Vital Signs Temp 97.7 F 12/21/17 13:10 Pulse 85 12/21/17 13:10 Resp 20 12/21/17 13:10 BP 136/91 H 12/21/17 13:10 Pulse Ox 98 12/21/17 13:10 - Labs Result Diagrams: 12/20/17 23:29 12/20/17 23:29 Labs: Laboratory Results - last 24 hr 12/20/17 12/20/17 12/20/17 23:29 23:29 23:29 WBC 5.1 RBC 2.80 L Hgb 9.6 L Hct 28.2 L MCV 100.8 H MCH 34.5 H MCHC 34.2 RDW 15.2 H Plt Count 224 MPV 7.3 Neut % (Auto) 72.0 Lymph % (Auto) 20.7 [place] % (Auto) 5.8 Eos % (Auto) 0.8 Baso % (Auto) 0.7 Neut # (Auto) 3.6 Lymph # (Auto) 1.1 [place] # (Auto) 0.3 Eos # (Auto) 0.0 Baso # (Auto) 0.0 PT 12.3 H INR 1.1 APTT 38 H Sodium 143 Potassium 4.7 Chloride 109 H Carbon Dioxide 16 L Anion Gap 23 H BUN 41 H Creatinine 3.6 H Est GFR ( Amer) 16 Est GFR (Non-Af Amer) 13 Random Glucose 86 Calcium 9.1 Total Bilirubin 0.6 AST 33 ALT 20 Alkaline Phosphatase 150 H D Total Protein 8.5 H Albumin 4.6 Globulin 3.9 Albumin/Globulin Ratio 1.2 Amylase Lipase 3154 H Carcinoembryonic Ag CA 19-9 Antigen CA 125 Antigen Urine Opiates Screen Urine Methadone Screen Ur Barbiturates Screen Ur Phencyclidine Scrn Ur Amphetamines Screen U Benzodiazepines Scrn U Oth Cocaine Metabols U Cannabinoids Screen Alcohol, Quantitative 12/21/17 12/21/17 12/21/17 01:25 06:00 06:00 WBC RBC Hgb Hct MCV MCH MCHC RDW Plt Count MPV Neut % (Auto) Lymph % (Auto) [place] % (Auto) Eos % (Auto) Baso % (Auto) Neut # (Auto) Lymph # (Auto) [place] # (Auto) Eos # (Auto) Baso # (Auto) PT INR APTT 35 H Sodium Potassium Chloride Carbon Dioxide Anion Gap BUN Creatinine Est GFR ( Amer) Est GFR (Non-Af Amer) Random Glucose Calcium Total Bilirubin AST ALT Alkaline Phosphatase Total Protein Albumin Globulin Albumin/Globulin Ratio Amylase 1002 H Lipase 2961 H Carcinoembryonic Ag CA 19-9 Antigen CA 125 Antigen Urine Opiates Screen Negative Urine Methadone Screen Negative Ur Barbiturates Screen Negative Ur Phencyclidine Scrn Negative Ur Amphetamines Screen Negative U Benzodiazepines Scrn Negative U Oth Cocaine Metabols Negative U Cannabinoids Screen Positive H Alcohol, Quantitative 12/21/17 12/21/17 10:03 13:53 WBC RBC Hgb Hct MCV MCH MCHC RDW Plt Count MPV Neut % (Auto) Lymph % (Auto) [place] % (Auto) Eos % (Auto) Baso % (Auto) Neut # (Auto) Lymph # (Auto) [place] # (Auto) Eos # (Auto) Baso # (Auto) PT INR APTT Sodium Potassium Chloride Carbon Dioxide Anion Gap BUN Creatinine Est GFR ( Amer) Est GFR (Non-Af Amer) Random Glucose Calcium Total Bilirubin AST ALT Alkaline Phosphatase Total Protein Albumin Globulin Albumin/Globulin Ratio Amylase Lipase Carcinoembryonic Ag 1.4 CA 19-9 Antigen 40.8 H CA 125 Antigen < 5.5 Urine Opiates Screen Urine Methadone Screen Ur Barbiturates Screen Ur Phencyclidine Scrn Ur Amphetamines Screen U Benzodiazepines Scrn U Oth Cocaine Metabols U Cannabinoids Screen Alcohol, Quantitative < 10
[2017-12-22 07:58] LABS: AMYLASE 663 U/L (30-110); LIPASE 1605 U/L (23-300)
--- NOTE | 2017-12-22 12:37 | PN ---
DATE: 12/22/2017 LOCATION: 350, bed B. HISTORY OF PRESENT ILLNESS: This is a 52-year-old female seen and examined in rounds early today without significant clinical changes, but with abdominal pain with postprandial abdominal distention. The entire chart is reviewed including, but not limited to the most recent lab and radiology study results, current and the previous medication list, current and the previous medical events. Case discussed with the staff at length. The most recently done abdominal x-ray report is seen and today's lab result is still pending; however, the patient's PTT is persistently elevated with increased CA 19-9 to 40.8 with subsequent decrease of serum lipase and amylase level. PHYSICAL EXAMINATION: GENERAL: A 52-year-old female complaining of abdominal pain, but no chest pain. No significant shortness of breath or evidence of active bleeding. VITAL SIGNS: The patient is afebrile with heart rate of 72, respiratory rate 20 to 22, blood pressure of 130/66. HEENT: Showed pale, dry oral mucous membrane. Nonicteric sclerae. LUNGS: Few scattered crepitation. Decreased air entry at bases. HEART: Positive S1 and S2. ABDOMEN: Soft with mild generalized tenderness. No mass or organomegaly. No rebound tenderness or guarding. EXTREMITIES: Without significant clubbing, cyanosis or edema. NEUROLOGICAL: No reported new neurological deficits, sensory or motor. IMPRESSION: 1. Acute pancreatitis. 2. Known history of end-stage renal disease, on hemodialysis. 3. Recurrent episode of nausea and vomiting by recent history, which could be secondary to above versus re-exacerbation of peptic ulcer disease, to rule out gastric versus duodenal ulcer. 4. Diarrhea of unclear etiology so far. 5. To rule out hyperlipidemia induced by acute pancreatitis. SUGGESTIONS: 1. Agree with your plan. 2. Follow up on lipid profile. 3. The patient may need endoscopic evaluation of the GI tract when she is more stable clinically. Further evaluation to follow, awaiting complete stool workup. Alfonso Kent MD
[2017-12-22] MEDS: Dextrose 5%/0.45% NS 1,000 ML IV SCH ×2 (16:13→22:46)
--- NOTE | 2017-12-22 18:02 | CP.PCM.PN ---
Subjective - Subjective Subjective: dciated Objective - Vital Signs/Intake and Output Vital Signs (last 24 hours): Temp Pulse Resp BP Pulse Ox 98.3 F 76 20 127/77 100 12/22/17 16:00 12/22/17 16:00 12/22/17 16:00 12/22/17 16:00 12/22/17 16:00 Intake and Output: 12/22/17 12/22/17 06:59 18:59 Intake Total 800 400 Balance 800 400 - Medications Medications: Current Medications Calcium Acetate (Phoslo) 667 mg PO TIDCC [facility] Last Admin: 12/22/17 17:01 Dose: 667 mg Famotidine (Pepcid) 20 mg IVP DAILY [facility] Last Admin: 12/22/17 10:22 Dose: 20 mg Ferrous Sulfate (Feosol) 325 mg PO DAILY [facility] Last Admin: 12/22/17 10:22 Dose: 325 mg Folic Acid (Folic Acid) 1 mg PO DAILY [facility] Last Admin: 12/22/17 10:22 Dose: 1 mg Heparin Sodium (Porcine) (Heparin) 5,000 units SC Q8 [facility] Last Admin: 12/22/17 14:41 Dose: Not Given Dextrose/Sodium Chloride (Dextrose 5%/0.45% Ns 1000 Ml) 1,000 mls @ 50 mls/hr IV .Q20H [facility] Last Admin: 12/22/17 16:13 Dose: Not Given Influenza Virus Vaccine (Fluzone Quad [id number]) 60 mcg IM .ONCE ONE Stop: 12/25/17 10:01 Morphine Sulfate (Morphine) 2 mg IVP Q6 PRN PRN Reason: Pain, moderate (4-7) Last Admin: 12/22/17 17:10 Dose: 2 mg Thiamine HCl (Vitamin B1 Tab) 100 mg PO DAILY [facility] Last Admin: 12/22/17 10:23 Dose: 100 mg - Labs Labs: 12/20/17 23:29 12/20/17 23:29 PT 12.3 SECONDS (9.7-12.2) H 12/20/17 23:29 INR 1.1 12/20/17 23:29 APTT 35 SECONDS (21-34) H 12/21/17 06:00
--- NOTE | 2017-12-23 06:32 | CON ---
DATE: 12/20/[address] Kent to Dr. Shlomo Barrios. INDICATIONS: I was called for GI consultation by the admitting MD. The patient is seen and fully examined on 03/22/2017 as requested by the admitting MD. The entire chart is reviewed including, but not limited to most recent lab and radiology study results, current and the previous medication list, current and the previous medical events, allergy to medication list as well as all the available current and the previous medical records. Case discussed with the staff immediately before and after my GI consultation on 12/20/2017. HISTORY OF PRESENT ILLNESS: This is a 52-year-old female who was admitted to the hospital with generalized weakness and malaise, recurrent episodes of nausea and vomiting as well as diarrhea which was treated initially with Flagyl p.o., her hemodialysis without improvement. The patient was admitted with abdominal pain, postprandial abdominal distention, but no chest pain, palpitation, significant shortness of breath, chills, or fevers. PAST MEDICAL HISTORY: Including mainly, but not limited to: 1. End-stage renal disease, on hemodialysis. 2. Hypertension. 3. Peptic ulcer disease. 4. Previous episodes of acute pancreatitis. 5. History of bronchial asthma. 6. Deep venous thrombosis with status post superior vena cava device insertion. 7. Recent history of upper endoscopy done in 05/2017 as per record. FAMILY HISTORY: Unknown. SOCIAL HISTORY: Positive for alcohol intake and substance abuse of marijuana. CURRENT MEDICATIONS: Post admission medication lists were reviewed. ALLERGIC TO MEDICATIONS: UNCLEAR. LABORATORY DATA: After being admitted to the hospital, initial blood workup showed hemoglobin of 8.6, hematocrit 28.2, BUN of 41, creatinine 3.6 with CO2 content of 16 indicative of metabolic acidosis, but normal white blood cells and platelet count. Initial blood workup showed abnormal level of serum lipase and amylase level more than what the patient usually has to begin with. PHYSICAL EXAMINATION: GENERAL: A 52-year-old female complaining of abdominal pain, generalized, but mainly in the midepigastric area, appears to be awake, alert, oriented. VITAL SIGNS: Afebrile with stable vital signs at the time of my physical examination. HEENT: Showed pale dry oral mucous membrane. Nonicteric sclerae. LUNGS: Few scattered crepitation. Decreased air entry at bases. HEART: Positive S1 and S2. ABDOMEN: Soft with mild generalized, but diffuse tenderness, but mainly in the midepigastric and midabdominal line as well as left lower quadrant area. No mass or organomegaly. No rebound tenderness or guarding. LYMPH NODES: No lymphadenitis or lymphadenopathy. RECTAL EXAMINATION: The patient refused. EXTREMITIES: Slight lower extremity edematous changes. No clubbing or cyanosis. NEUROLOGICAL: No reported new neurological deficits, sensory or motor. IMPRESSION: 1. Acute pancreatitis. 2. Re-exacerbation of peptic ulcer disease, to rule out gastric versus duodenal ulcer. 3. Diarrhea, most likely infectious, to rule out pseudomembranous colitis, to rule out mechanical diarrhea. 4. Anemia, to rule out gastrointestinal blood loss upper versus lower versus anemia secondary to chronic disease. The possibility of occult gastrointestinal malignancy to be ruled in or out in this setting. 5. Multiple past medical history including mainly hypertension, end-stage renal disease, and bronchial asthma. SUGGESTIONS: 1. Agree with your plan. 2. Complete stool workup. 3. Flagyl 500 mg IV once a day. 4. Vancomycin 500 mg p.o. once a day due to the patient's known history of end-stage renal disease. 5. Keep the patient n.p.o. except medications until serum lipase and amylase level are normal or near normal. 6. Sectional abdominal and pelvic CAT scan. 7. Reglan IV. 8. Endoscopic evaluation of the GI tract when the patient is more stable clinically. Thank you for letting me participate in your patient's case management. Alfonso Kent MD
--- NOTE | 2017-12-23 06:42 | HP ---
CHIEF COMPLAINT: Abdominal pain. HISTORY OF PRESENT ILLNESS: This is a 52-year-old -[place] female, who is an extremely poor historian, and the patient is very vague about all the information she gave to me. The patient had been on hemodialysis since on more amount of time, and around the middle of November according to patient, there was an issue with transportation, and she stopped going for dialysis; and she has not been getting any hemodialysis, and on the day of admission, she came to the emergency room with abdominal pain for almost a week associated with nausea, vomiting and diarrhea. Other than that the patient is weak. She is cachectic. The patient is anxious, and she says she quit smoking and drinking, exact duration she does not know. She denies any history of diabetes. The patient does not know etiology of her renal failure. She does not know further details about her diagnosis. As per the ER records, there is no other symptomatology, and the patient is not giving any further information. PAST MEDICAL HISTORY: Hypertension, asthma, pancreatitis, end-stage renal disease, on hemodialysis. SOCIAL HISTORY: Quit smoking and alcohol and drugs for unknown amount of time, reliability unclear. FAMILY HISTORY: Not obtainable. PHYSICAL EXAMINATION: GENERAL: A middle aged female, weak. VITAL SIGNS: Blood pressure 136/91, pulse rate of 85, respiratory rate 20, temperature 97.7. SKIN: No turgor. No rashes. The patient has AV fistula in the left arm, and she has Sebastian catheter in the right infraclavicular fossa. HEENT: Cachectic. Positive pallor. Negative jaundice. Extraocular movements are intact. Atraumatic and normocephalic. NECK: Supple. Flat neck veins. No JVD. CHEST WALL: Bilateral symmetrical expansion. BREASTS: Refused. LUNGS: Clear. No rales. No rhonchi. CARDIOVASCULAR SYSTEM: S1, S2, regular. ABDOMEN: Epigastric tenderness. No guarding. No rigidity. No rebound. Bowel sounds are normoactive. RECTAL AND PELVIC: Refused. EXTREMITIES: Wasting of the muscles. No edema, no cyanosis. SALES [employer]: Awake, alert, oriented x3. Moves all extremities. ASSESSMENT: 1. Acute pancreatitis, most likely it is alcohol induced, rule out alcoholic gastritis, rule out peptic ulcer disease, rule out alcoholic hepatitis. 2. End-stage renal disease. 3. Hypertension. 4. Dehydration. PLAN: Admit. Detailed orders written. The patient is n.p.o. and GI has seen the patient. The patient has been seen by Nephrology, and she is for dialysis. The patient is n.p.o except meds. Monitor the patient. Shlomo Barrios MD
--- NOTE | 2017-12-23 06:48 | PN ---
DATE: 12/22/2017 SUBJECTIVE: The patient has decreased abdominal pain. No nausea or vomiting. Amylase and lipase has gone down substantially. PHYSICAL EXAMINATION: VITAL SIGNS: BP is 127/77, pulse 76, respiratory rate 20 and temperature 98.3. LUNGS: Clear. CARDIOVASCULAR SYSTEM: S1 and S2, regular. ABDOMEN: Decreased epigastric tenderness. ASSESSMENT: 1. Pancreatitis due to alcoholism plus uremia. 2. Chronic kidney disease, on hemodialysis. 3. Hypertension. 4. Substance abuse. PLAN: Clear liquid diet. Monitor clinically. Shlomo Barrios MD
[2017-12-23 07:48] LABS: AMYLASE 317 U/L (30-110); HDL CHOLESTEROL 54 mg/dL (30-70); LIPASE 397 U/L (23-300)
[2017-12-23 08:03] LABS: LDL CHOLESTEROL 62 mg/dL (0-129)
--- NOTE | 2017-12-23 12:47 | CP.PCM.PN ---
Subjective - Date & Time of Evaluation Date of Evaluation: 12/23/17 Time of Evaluation: 12:45 - Subjective Subjective: seen and examined s/p hd saturday labs noted tolerating po liquids, still w/ abdominal pain Objective - Vital Signs/Intake and Output Vital Signs (last 24 hours): Temp Pulse Resp BP Pulse Ox 98.8 F 75 20 138/63 100 12/23/17 07:31 12/23/17 07:31 12/23/17 07:31 12/23/17 07:31 12/23/17 07:31 Intake and Output: 12/23/17 12/23/17 06:59 18:59 Intake Total 400 Balance 400 - Medications Medications: Current Medications Calcium Acetate (Phoslo) 667 mg PO TIDCC [facility] Last Admin: 12/23/17 11:12 Dose: 667 mg Famotidine (Pepcid) 20 mg IVP DAILY [facility] Last Admin: 12/23/17 09:05 Dose: 20 mg Ferrous Sulfate (Feosol) 325 mg PO DAILY [facility] Last Admin: 12/23/17 09:05 Dose: 325 mg Folic Acid (Folic Acid) 1 mg PO DAILY [facility] Last Admin: 12/23/17 09:05 Dose: 1 mg Heparin Sodium (Porcine) (Heparin) 5,000 units SC Q8 [facility] Last Admin: 12/23/17 06:15 Dose: Not Given Dextrose/Sodium Chloride (Dextrose 5%/0.45% Ns 1000 Ml) 1,000 mls @ 50 mls/hr IV .Q20H [facility] Last Admin: 12/22/17 22:46 Dose: 50 mls/hr Influenza Virus Vaccine (Fluzone Quad [id number]) 60 mcg IM .ONCE ONE Stop: 12/25/17 10:01 Morphine Sulfate (Morphine) 2 mg IVP Q6 PRN PRN Reason: Pain, moderate (4-7) Last Admin: 12/23/17 09:08 Dose: 2 mg Thiamine HCl (Vitamin B1 Tab) 100 mg PO DAILY [facility] Last Admin: 12/23/17 09:05 Dose: 100 mg - Labs Labs: 12/20/17 23:29 12/20/17 23:29 PT 12.3 SECONDS (9.7-12.2) H 12/20/17 23:29 INR 1.1 12/20/17 23:29 APTT 35 SECONDS (21-34) H 12/21/17 06:00 - Constitutional Appears: No Acute Distress, Cachectic, Chronically Ill - Head Exam Head Exam: NORMAL INSPECTION, NORMOCEPHALIC - Eye Exam Eye Exam: Normal appearance, PERRL - ENT Exam ENT Exam: Mucous Membranes Moist, Normal Exam - Neck Exam Neck Exam: Full ROM, Normal Inspection - Respiratory Exam Respiratory Exam: Clear to Ausculation Bilateral, NORMAL BREATHING PATTERN - Cardiovascular Exam Cardiovascular Exam: REGULAR RHYTHM, RRR - GI/Abdominal Exam GI & Abdominal Exam: Soft, Tenderness, Normal Bowel Sounds - Extremities Exam Extremities Exam: Full ROM (lue avf w/ thrill. rt chest permcath), Normal I nspection - Neurological Exam Neurological Exam: Alert, Awake, Oriented x3 - Psychiatric Exam Psychiatric exam: Normal Affect, Normal Mood - Skin Skin Exam: Dry, Intact, Warm Assessment and Plan (1) Abdominal pain Status: Acute (2) Acute pancreatitis Status: Acute (3) Hypertensive CKD, ESRD on dialysis Status: Acute (4) Chronic pancreatitis Status: Acute (5) Dialysis patient, noncompliant Status: Acute - Assessment and Plan (Free Text) Assessment: awaiting 24 hour creatinine clearance, check bmp tomorrow am. may not need chronic hd improving pancreatitis bp acceptable tara w/ hd DC permcath tomorrow
[2017-12-23] MEDS: Dextrose 5%/0.45% NS 1,000 ML IV SCH ×2 (13:27→19:09)
[2017-12-23 16:44] LABS: URINE CREATININE 90.2 mg/dL
--- NOTE | 2017-12-23 20:39 | CARD ---
APPROVED REPORT Date of service: 12/20/2017 EKG Measurement Heart [id number] <Conclusion> Normal sinus rhythm Possible Left atrial enlargement Borderline ECG
--- NOTE | 2017-12-23 23:32 | PN ---
DATE: 12/23/2017 LOCATION: 350, bed B. SUBJECTIVE: This is a 52-year-old female, seen and examined in rounds without reported significant clinical changes or active bleeding but intermittent period of abdominal pain, tolerating some liquids orally but with persistent abdominal pain on and off. The entire chart is reviewed including but not limited to the most recent lab and radiology study results, current and the previous medication lists. Today's lab results showed creatinine of 3.4 with triglyceride 151, amylase still elevated to 317 and lipase went down to 397. The patient is still reported to have low hemoglobin and hematocrit with elevated CA19-9 to 40.8. PHYSICAL EXAMINATION: GENERAL: A 52-year-old female. VITAL SIGNS: Afebrile with pulse of 78, respiratory rate 20 to 22, blood pressure of 140/80. HEENT: Showed pale, dry oral mucous membrane. Nonicteric sclerae. LUNGS: Few scattered crepitation. Decreased air entry at bases. HEART: Positive S1 and S2. ABDOMEN: Soft with mild generalized tenderness. No mass or organomegaly. No rebound tenderness or guarding. EXTREMITIES: Without significant clubbing, cyanosis or edema. NEUROLOGIC: No reported new neurological deficits, sensory or motor. IMPRESSION: 1. Acute pancreatitis. 3. Re-exacerbation of peptic ulcer disease. 3. End-stage renal disease, on hemodialysis. 4. Recurrent episode of nausea and vomiting secondary to above most likely; however, the possibility of gastric versus duodenal ulcer to be ruled in or out. 5. Diarrhea, infectious versus mechanical. SUGGESTIONS: 1. Agree with your plan. 2. Repeat lipase and amylase level at a.m. 3. The patient may need endoscopic evaluation of the GI tract due to her anemia. Otherwise continue current management. 4. Further recommendation to follow. Alfonso Kent MD
--- NOTE | 2017-12-23 23:34 | CP.PCM.PN ---
Subjective - Subjective Subjective: dictated Objective - Vital Signs/Intake and Output Vital Signs (last 24 hours): Temp Pulse Resp BP Pulse Ox 98.8 F 81 20 162/83 H 98 12/23/17 16:41 12/23/17 16:41 12/23/17 16:41 12/23/17 16:41 12/23/17 16:41 Intake and Output: 12/23/17 12/24/17 18:59 06:59 Intake Total 760 750 Balance 760 750 - Medications Medications: Current Medications Calcium Acetate (Phoslo) 667 mg PO TIDCC [facility] Last Admin: 12/23/17 17:56 Dose: 667 mg Famotidine (Pepcid) 20 mg IVP DAILY [facility] Last Admin: 12/23/17 09:05 Dose: 20 mg Ferrous Sulfate (Feosol) 325 mg PO DAILY [facility] Last Admin: 12/23/17 09:05 Dose: 325 mg Folic Acid (Folic Acid) 1 mg PO DAILY [facility] Last Admin: 12/23/17 09:05 Dose: 1 mg Heparin Sodium (Porcine) (Heparin) 5,000 units SC Q8 [facility] Last Admin: 12/23/17 21:31 Dose: Not Given Dextrose/Sodium Chloride (Dextrose 5%/0.45% Ns 1000 Ml) 1,000 mls @ 50 mls/hr IV .Q20H [facility] Last Admin: 12/23/17 19:09 Dose: 50 mls/hr Influenza Virus Vaccine (Fluzone Quad [id number]) 60 mcg IM .ONCE ONE Stop: 12/25/17 10:01 Morphine Sulfate (Morphine) 2 mg IVP Q6 PRN PRN Reason: Pain, moderate (4-7) Last Admin: 12/23/17 16:22 Dose: 2 mg Thiamine HCl (Vitamin B1 Tab) 100 mg PO DAILY [facility] Last Admin: 12/23/17 09:05 Dose: 100 mg - Labs Labs: 12/20/17 23:29 12/23/17 15:56 PT 12.3 SECONDS (9.7-12.2) H 12/20/17 23:29 INR 1.1 12/20/17 23:29 APTT 35 SECONDS (21-34) H 12/21/17 06:00
[2017-12-24 07:30] LABS: CALCIUM 8.9 mg/dl (8.6-10.4)
--- NOTE | 2017-12-24 07:51 | PN ---
DATE: 12/23/2017 SUBJECTIVE: The patient's, Kevin, amylase and lipase went down, decreased abdominal pain. She is on renal diet. No fever. No chills. PHYSICAL EXAMINATION: VITAL SIGNS: Blood pressure 138/63, pulse 75, respiratory rate 20, temperature 98.8. LUNGS: Clear. CARDIOVASCULAR SYSTEM: S1 and S2, regular. ABDOMEN: Soft. ASSESSMENT: 1. Pancreatitis due to alcohol. 2. Chronic kidney disease, on hemodialysis. 3. Hypertension. PLAN: Medical management. Monitor the patient. Shlomo Barrios MD
--- NOTE | 2017-12-24 10:24 | CP.PCM.PN ---
Subjective - Date & Time of Evaluation Date of Evaluation: 12/24/17 Time of Evaluation: 10:22 - Subjective Subjective: seen and examined on hd no complaints creatinine clearance 6 ml/min , uop 375 cc. undercollection as per pt history Objective - Vital Signs/Intake and Output Vital Signs (last 24 hours): Temp Pulse Resp BP Pulse Ox 98.4 F 72 18 129/77 18 L 12/24/17 08:55 12/24/17 08:55 12/24/17 08:55 12/24/17 08:55 12/24/17 08:55 Intake and Output: 12/24/17 12/24/17 06:59 18:59 Intake Total 750 Balance 750 - Medications Medications: Current Medications Calcium Acetate (Phoslo) 667 mg PO TIDCC [facility] Last Admin: 12/24/17 07:45 Dose: 667 mg Famotidine (Pepcid) 20 mg PO DAILY [facility] Last Admin: 12/24/17 09:18 Dose: Not Given Ferrous Sulfate (Feosol) 325 mg PO DAILY [facility] Last Admin: 12/24/17 09:16 Dose: Not Given Folic Acid (Folic Acid) 1 mg PO DAILY [facility] Last Admin: 12/24/17 09:16 Dose: Not Given Heparin Sodium (Porcine) (Heparin) 5,000 units SC Q8 [facility] Last Admin: 12/24/17 05:29 Dose: 5,000 units Influenza Virus Vaccine (Fluzone Quad 1531-0241) 60 mcg IM .ONCE ONE Stop: 12/25/17 10:01 Morphine Sulfate (Morphine) 2 mg IVP Q6 PRN PRN Reason: Pain, moderate (4-7) Last Admin: 12/24/17 01:07 Dose: 2 mg Thiamine HCl (Vitamin B1 Tab) 100 mg PO DAILY [facility] Last Admin: 12/24/17 09:18 Dose: Not Given - Labs Labs: 12/20/17 23:29 12/24/17 06:40 PT 12.3 SECONDS (9.7-12.2) H 12/20/17 23:29 INR 1.1 12/20/17 23:29 APTT 35 SECONDS (21-34) H 12/21/17 06:00 - Constitutional Appears: No Acute Distress, Chronically Ill - Head Exam Head Exam: NORMAL INSPECTION, NORMOCEPHALIC - Eye Exam Eye Exam: Normal appearance, PERRL - ENT Exam ENT Exam: Mucous Membranes Moist, Normal Exam - Neck Exam Neck Exam: Full ROM, Normal Inspection - Respiratory Exam Respiratory Exam: Clear to Ausculation Bilateral, NORMAL BREATHING PATTERN - Cardiovascular Exam Cardiovascular Exam: REGULAR RHYTHM, RRR - GI/Abdominal Exam GI & Abdominal Exam: Distended, Soft - Extremities Exam Extremities Exam: Full ROM (lue avf w/ thrill. Rt chest permcath), Normal Inspection - Neurological Exam Neurological Exam: Alert, Awake, Oriented x3 - Psychiatric Exam Psychiatric exam: Normal Affect, Normal Mood - Skin Skin Exam: Dry, Intact Assessment and Plan (1) Abdominal pain Status: Acute (2) Acute pancreatitis Status: Acute (3) Hypertensive CKD, ESRD on dialysis Status: Acute (4) Chronic pancreatitis Status: Acute (5) Dialysis patient, noncompliant Status: Acute - Assessment and Plan (Free Text) Assessment: maintain hd twice a week repeat creatinine clearance outpt cannulate avf, dc permcath if no issues
[2017-12-24 16:07] VITALS: RESP 20
--- NOTE | 2017-12-24 18:50 | CP.PCM.PN ---
Subjective - Date & Time of Evaluation Date of Evaluation: 12/24/17 Time of Evaluation: 17:00 - Subjective Subjective: Surgery progress note for Dr. Luis Patient was seen and examined at bedside. patient successfully had dialysis today through AVF access. Called to remove the permacath. Patient denies any chest pain, fevers, or chills. Objective - Vital Signs/Intake and Output Vital Signs (last 24 hours): Temp Pulse Resp BP Pulse Ox 98.2 F 88 20 148/84 99 12/24/17 15:06 12/24/17 15:06 12/24/17 15:06 12/24/17 15:06 12/24/17 15:06 Intake and Output: 12/24/17 12/24/17 06:59 18:59 Intake Total 750 Balance 750 - Medications Medications: Current Medications Calcium Acetate (Phoslo) 667 mg PO TIDCC [facility] Last Admin: 12/24/17 16:28 Dose: 667 mg Famotidine (Pepcid) 20 mg PO DAILY [facility] Last Admin: 12/24/17 09:18 Dose: Not Given Ferrous Sulfate (Feosol) 325 mg PO DAILY [facility] Last Admin: 12/24/17 09:16 Dose: Not Given Folic Acid (Folic Acid) 1 mg PO DAILY [facility] Last Admin: 12/24/17 09:16 Dose: Not Given Heparin Sodium (Porcine) (Heparin) 5,000 units SC Q8 [facility] Last Admin: 12/24/17 13:24 Dose: 5,000 units Influenza Virus Vaccine (Fluzone Quad [id number]) 60 mcg IM .ONCE ONE Stop: 12/25/17 10:01 Morphine Sulfate (Morphine) 2 mg IVP Q4 PRN PRN Reason: Pain, moderate (4-7) Thiamine HCl (Vitamin B1 Tab) 100 mg PO DAILY [facility] Last Admin: 12/24/17 09:18 Dose: Not Given - Labs Labs: 12/20/17 23:29 12/24/17 06:40 PT 12.3 SECONDS (9.7-12.2) H 12/20/17 23:29 INR 1.1 12/20/17 23:29 APTT 35 SECONDS (21-34) H 12/21/17 06:00 - Constitutional Appears: Non-toxic, No Acute Distress, Chronically Ill - Head Exam Head Exam: ATRAUMATIC, NORMOCEPHALIC - Eye Exam Eye Exam: Normal appearance. absent: Conjunctival injection, Scleral icterus - ENT Exam ENT Exam: Mucous Membranes Moist, Normal Oropharynx - Respiratory Exam Respiratory Exam: NORMAL BREATHING PATTERN. absent: Accessory Muscle Use, Respiratory Distress - Cardiovascular Exam Cardiovascular Exam: RRR Additional comments: permacath tunneled under the skin of the right upper chest, no surrounding er ythema or any bleeding or drainage - GI/Abdominal Exam GI & Abdominal Exam: Soft, Tenderness (mild TTP in the epigastrium). absent: Distended - Extremities Exam Extremities Exam: absent: Calf Tenderness, Pedal Edema - Neurological Exam Neurological Exam: Alert, Awake, Oriented x3 - Psychiatric Exam Psychiatric exam: Normal Affect, Normal Mood - Skin Skin Exam: Dry, Normal Color, Warm Assessment and Plan - Assessment and Plan (Free Text) Assessment: 52F with ESRD s/p permacath placement and subsequent AVF creation, AVF now functioning well Plan: Permacath removed at bedside with minimal bleeding controlled by pressure, tolerated well by patient, permacath was examined after removal and was found to be completely intact Continue use of the AVF for HD as directed by nephrology monitor dressing for any sign of bleeding overnight No further surgical intervention, call surgical team for any further questions or concerns Discussed with Dr. Janelle Kaufman, PGY2
--- NOTE | 2017-12-24 22:30 | CP.PCM.PN ---
Subjective - Subjective Subjective: dictated Objective - Vital Signs/Intake and Output Vital Signs (last 24 hours): Temp Pulse Resp BP Pulse Ox 98.2 F 88 20 148/84 99 12/24/17 15:06 12/24/17 15:06 12/24/17 15:06 12/24/17 15:06 12/24/17 15:06 - Medications Medications: Current Medications Calcium Acetate (Phoslo) 667 mg PO TIDCC [facility] Last Admin: 12/24/17 16:28 Dose: 667 mg Famotidine (Pepcid) 20 mg PO DAILY [facility] Last Admin: 12/24/17 09:18 Dose: Not Given Ferrous Sulfate (Feosol) 325 mg PO DAILY [facility] Last Admin: 12/24/17 09:16 Dose: Not Given Folic Acid (Folic Acid) 1 mg PO DAILY [facility] Last Admin: 12/24/17 09:16 Dose: Not Given Heparin Sodium (Porcine) (Heparin) 5,000 units SC Q8 [facility] Last Admin: 12/24/17 21:38 Dose: Not Given Influenza Virus Vaccine (Fluzone Quad [id number]) 60 mcg IM .ONCE ONE Stop: 12/25/17 10:01 Morphine Sulfate (Morphine) 2 mg IVP Q4 PRN PRN Reason: Pain, moderate (4-7) Thiamine HCl (Vitamin B1 Tab) 100 mg PO DAILY [facility] Last Admin: 12/24/17 09:18 Dose: Not Given - Labs Labs: 12/20/17 23:29 12/24/17 06:40 PT 12.3 SECONDS (9.7-12.2) H 12/20/17 23:29 INR 1.1 12/20/17 23:29 APTT 35 SECONDS (21-34) H 12/21/17 06:00
--- NOTE | 2017-12-25 07:56 | PN ---
DATE: 12/24/2017 LOCATION: 350, bed B. SUBJECTIVE: This is a 52-year-old female seen and examined in rounds without significant clinical changes or reported active bleeding. Denied any chest pain or palpitation, but intermittent period of nausea with mild dyspepsia. The entire chart is reviewed including but not limited to the most recent lab and radiology study results, current and the previous medication list, current and the previous medical records. With subsequent complaint of much less abdominal pain. Today's lab results showed BUN of 21, creatinine 3.6, normal lipase 119 with subsequent decrease of serum amylase level as per yesterday, but with persistent low hemoglobin and hematocrit of unclear etiology. PHYSICAL EXAMINATION: GENERAL: A 52-year-old female, awake, alert, oriented. VITAL SIGNS: Afebrile with pulse of 70, respiratory rate of 18 to 20, and blood pressure of 140/72. HEENT: Showed pale dry oral mucous membrane. Nonicteric sclerae. LUNGS: Few scattered crepitation. Decreased air entry at bases. HEART: Positive S1 and S2. ABDOMEN: Soft with mild generalized tenderness, but less than before with slight distention. No mass or organomegaly. No rebound tenderness or guarding. EXTREMITIES: Without significant clubbing, cyanosis, or edema. NEUROLOGIC: No reported new neurological deficits, sensory or motor. IMPRESSION: 1. Acute pancreatitis, gradually improving. 2. Peptic ulcer disease. 3. Reported history of end-stage renal disease, on hemodialysis. 4. Diarrhea, improving gradually. 5. Anemia that could be secondary to chronic disease versus gastrointestinal blood loss, upper versus lower. The possibility of occult gastrointestinal malignancy, to rule out. SUGGESTIONS: 1. Continue current management. 2. Follow up cancer markers. 3. Endoscopic evaluation of the GI tract only when the patient is more stable clinically. 4. Further recommendation to follow. Alfonso Kent MD
--- NOTE | 2017-12-25 08:21 | PN ---
DATE: 12/24/2017 SUBJECTIVE: The patient has resolved abdominal pain. Waiting for outpatient spot for hemodialysis on renal diet. PHYSICAL EXAMINATION: VITAL SIGNS: Blood pressure 148/84, pulse 88, respiratory rate 20 and temperature 98.2. LUNGS: Clear. CARDIOVASCULAR SYSTEM: S1 and S2, regular. ABDOMEN: Soft. ASSESSMENT: 1. Alcohol induced pancreatitis, resolved. 2. Chronic kidney disease on hemodialysis. 3. Hypertension. PLAN: Awaiting outpatient spot for dialysis. Monitor the patient. Shlomo Barrios MD
[2017-12-25] MEDS ORDERED: Influenza Vaccine 60 MCG/0.5 ML SYR (3 yr & up) IM ONE (10:00)
--- NOTE | 2017-12-25 13:36 | CP.PCM.PN ---
Subjective - Date & Time of Evaluation Date of Evaluation: 12/25/17 Time of Evaluation: 13:34 - Subjective Subjective: c/o abdominal pain poor appetite permcath out no fever no chest pain no sob no rash no arthralgias Objective - Vital Signs/Intake and Output Vital Signs (last 24 hours): Temp Pulse Resp BP Pulse Ox 98.9 F 73 20 113/72 98 12/25/17 07:00 12/25/17 07:00 12/25/17 07:00 12/25/17 07:00 12/25/17 07:00 Intake and Output: 12/25/17 12/25/17 06:59 18:59 Intake Total 240 Balance 240 - Medications Medications: Current Medications Calcium Acetate (Phoslo) 667 mg PO TIDCC [facility] Last Admin: 12/25/17 12:06 Dose: 667 mg Famotidine (Pepcid) 20 mg PO DAILY [facility] Last Admin: 12/25/17 09:57 Dose: 20 mg Ferrous Sulfate (Feosol) 325 mg PO DAILY [facility] Last Admin: 12/25/17 09:57 Dose: 325 mg Folic Acid (Folic Acid) 1 mg PO DAILY [facility] Last Admin: 12/25/17 09:57 Dose: 1 mg Heparin Sodium (Porcine) (Heparin) 5,000 units SC Q8 [facility] Last Admin: 12/25/17 05:50 Dose: 5,000 units Morphine Sulfate (Morphine) 2 mg IVP Q4 PRN PRN Reason: Pain, moderate (4-7) Last Admin: 12/25/17 09:58 Dose: 2 mg Thiamine HCl (Vitamin B1 Tab) 100 mg PO DAILY [facility] Last Admin: 12/25/17 09:57 Dose: 100 mg - Labs Labs: 12/20/17 23:29 12/24/17 06:40 PT 12.3 SECONDS (9.7-12.2) H 12/20/17 23:29 INR 1.1 12/20/17 23:29 APTT 35 SECONDS (21-34) H 12/21/17 06:00 - Constitutional Appears: No Acute Distress, Chronically Ill - Eye Exam Eye Exam: EOMI, Normal appearance - ENT Exam ENT Exam: Mucous Membranes Moist - Neck Exam Neck Exam: Full ROM. absent: Normal Inspection - Respiratory Exam Respiratory Exam: Clear to Ausculation Bilateral. absent: Accessory Muscle Use - Cardiovascular Exam Cardiovascular Exam: REGULAR RHYTHM - GI/Abdominal Exam GI & Abdominal Exam: Distended, Tenderness. absent: Rebound - Extremities Exam Extremities Exam: absent: Pedal Edema - Neurological Exam Neurological Exam: Alert, Awake, Oriented x3 Assessment and Plan - Assessment and Plan (Free Text) Assessment: noncompliance with HD, now for biw chronic pancreatitis, pancreatic cysts Gi follow up recommended
[2017-12-25 13:52] LABS: HEPATITIS B SURFACE AG Negative (NEGATIVE)
[2017-12-25 13:58] LABS: HEPATITIS B CORE AB NEGATIVE (NEGATIVE)
--- NOTE | 2017-12-25 15:05 | CP.PCM.PN ---
Subjective - Date & Time of Evaluation Date of Evaluation: 12/25/17 Time of Evaluation: 11:40 - Subjective Subjective: Patient seen today, states abdominal pain and sob improved , denies any N/V/D , tolerating diet Objective - Vital Signs/Intake and Output Vital Signs (last 24 hours): Temp Pulse Resp BP Pulse Ox 98.9 F 73 20 113/72 98 12/25/17 07:00 12/25/17 07:00 12/25/17 07:00 12/25/17 07:00 12/25/17 07:00 Intake and Output: 12/25/17 12/25/17 06:59 18:59 Intake Total 600 Balance 600 - Medications Medications: Current Medications Calcium Acetate (Phoslo) 667 mg PO TIDCC [facility] Last Admin: 12/25/17 12:06 Dose: 667 mg Famotidine (Pepcid) 20 mg PO DAILY [facility] Last Admin: 12/25/17 09:57 Dose: 20 mg Ferrous Sulfate (Feosol) 325 mg PO DAILY [facility] Last Admin: 12/25/17 09:57 Dose: 325 mg Folic Acid (Folic Acid) 1 mg PO DAILY [facility] Last Admin: 12/25/17 09:57 Dose: 1 mg Heparin Sodium (Porcine) (Heparin) 5,000 units SC Q8 [facility] Last Admin: 12/25/17 14:11 Dose: Not Given Morphine Sulfate (Morphine) 2 mg IVP Q4 PRN PRN Reason: Pain, moderate (4-7) Last Admin: 12/25/17 09:58 Dose: 2 mg Thiamine HCl (Vitamin B1 Tab) 100 mg PO DAILY [facility] Last Admin: 12/25/17 09:57 Dose: 100 mg - Labs Labs: 12/20/17 23:29 12/24/17 06:40 PT 12.3 SECONDS (9.7-12.2) H 12/20/17 23:29 INR 1.1 12/20/17 23:29 APTT 35 SECONDS (21-34) H 12/21/17 06:00 Assessment and Plan - Assessment and Plan (Free Text) Assessment: A/P 52 YR female with pmhx of HTN, Pancreatitis, End Stage Renal Disease on HD admitted with Abdominal pain, Nausea, Vomiting, Diarrhea, Acute pancreatitis, and HD since November patient started on HD and sob improved amylase/lipase- improved - and tolerated diet As per SW transportation has been arranged her for her to HD on ,,sat AT [facility] D/w Dr. Barrios, cleared for discharge home today and continue HD as scheduled discharge plan discussed with patient who understands and agrees with plan Patient instructed to returns tO ED if symptoms returns or worsening symptoms
[2017-12-25 15:43] LABS: HEPATITIS C ANTIBODY REACTIVE (NEGATIVE)
[2017-12-25 16:16] VITALS: BP 153/76; PULSE 71; TEMP 97.5; O2SAT 97
--- NOTE | 2017-12-25 19:08 | CP.PCM.DIS ---
Provider - Provider Date of Admission: 12/21/17 00:04 Attending physician: Shlomo Barrios MD [facility] - Lab Results Lab Results: Most Recent Lab Values WBC 5.1 K/uL (4.8-10.8) 12/20/17: RBC 2.80 Mil/uL (3.80-5.20) L 12/20/17: Hgb 9.6 g/dL (11.0-16.0) L 12/20/17: Hct 28.2 % (34.0-47.0) L 12/20/17: MCV 100.8 fL (81.0-99.0) H 12/20/17: MCH 34.5 pg (27.0-31.0) H 12/20/17: MCHC 34.2 g/dL (33.0-37.0) 12/20/17: RDW 15.2 % (11.5-14.5) H 12/20/17: Plt Count 224 K/uL (130-400) 12/20/17: MPV 7.3 fL (7.2-11.7) 12/20/17: Neut % (Auto) 72.0 % (50.0-75.0) 12/20/17: Lymph % (Auto) 20.7 % (20.0-40.0) 12/20/17: [place] % (Auto) 5.8 % (0.0-10.0) 12/20/17: Eos % (Auto) 0.8 % (0.0-4.0) 12/20/17: Baso % (Auto) 0.7 % (0.0-2.0) 12/20/17: Neut # (Auto) 3.6 K/uL (1.8-7.0) 12/20/17: Lymph # (Auto) 1.1 K/uL (1.0-4.3) 12/20/17: [place] # (Auto) 0.3 K/uL (0.0-0.8) 12/20/17 23: Eos # (Auto) 0.0 K/uL (0.0-0.7) 12/20/17 23:29 Baso # (Auto) 0.0 K/uL (0.0-0.2) 12/20/17 23:29 PT 12.3 SECONDS (9.7-12.2) H 12/20/17 23:29 INR 1.1 12/20/17 23:29 APTT 35 SECONDS (21-34) H 12/21/17 06:00 Sodium 137 mmol/L (132-148) 12/24/17 06:40 Potassium 4.1 mmol/L (3.6-5.2) 12/24/17 06:40 Chloride 102 mmol/L (98-107) 12/24/17 06:40 Carbon Dioxide 23 mmol/L (22-30) 12/24/17 06:40 Anion Gap 16 (10-20) 12/24/17 06:40 BUN 21 mg/dL (7-17) H 12/24/17 06:40 Creatinine 3.6 mg/dL (0.7-1.2) H 12/24/17 06:40 Est GFR ( Amer) 16 12/24/17 06:40 Est GFR (Non-Af Amer) 13 12/24/17 06:40 Random Glucose 96 mg/dL (65-105) 12/24/17 06:40 Calcium 8.9 mg/dl (8.6-10.4) 12/24/17 06:40 Total Bilirubin 0.6 mg/dL (0.2-1.3) 12/20/17 23:29 AST 33 U/L (14-36) 12/20/17 23:29 ALT 20 U/L (9-52) 12/20/17 23:29 Alkaline Phosphatase 150 U/L (38-126) H D 12/20/17 23:29 Total Protein 8.5 g/dL (6.3-8.3) H 12/20/17 23:29 Albumin 4.6 g/dL (3.5-5.0) 12/20/17 23:29 Globulin 3.9 gm/dL (2.2-3.9) 12/20/17 23:29 Albumin/Globulin Ratio 1.2 (1.0-2.1) 12/20/17 23:29 Triglycerides 151 mg/dL (0-149) H 12/23/17 07:13 Cholesterol 140 mg/dL (0-199) 12/23/17 07:13 LDL Cholesterol Direct 62 mg/dL (0-129) 12/23/17 07:13 HDL Cholesterol 54 mg/dL (30-70) 12/23/17 07:13 Amylase 317 U/L (30-110) H D 12/23/17 07:13 Lipase 119 U/L (23-300) 12/24/17 06:40 Carcinoembryonic Ag 1.4 ng/mL (0-3.0) 12/21/17 10:03 CA 19-9 Antigen 40.8 U/mL (0-37) H 12/21/17 10:03 CA 125 Antigen < 5.5 U/mL (0-35) 12/21/17 10:03 Urine Collection Time 24 HRS 12/23/17 15:56 Urine Total Volume 375 mL 12/23/17 15:56 Creatinine Clearance 6.0 mL/min (87-107) L 12/23/17 15:56 Urine Opiates Screen Negative (NEGATIVE) 12/21/17 01:25 Urine Methadone Screen Negative (NEGATIVE) 12/21/17 01:25 Ur Barbiturates Screen Negative (NEGATIVE) 12/21/17 01:25 Ur Phencyclidine Scrn Negative (NEGATIVE) 12/21/17 01:25 Ur Amphetamines Screen Negative (NEGATIVE) 12/21/17 01:25 U Benzodiazepines Scrn Negative (NEGATIVE) 12/21/17 01:25 U Oth Cocaine Metabols Negative (NEGATIVE) 12/21/17 01:25 U Cannabinoids Screen Positive (NEGATIVE) H 12/21/17 01:25 Alcohol, Quantitative < 10 mg/dl (0-10) 12/21/17 13:53 Hep Bs Antigen Negative (NEGATIVE) 12/25/17 12:45 Hep Bs Antibody Negative (NEGATIVE) 12/25/17 12:45 Hep B Core IgM Ab Negative (NEGATIVE) 12/25/17 12:45 Hepatitis C Antibody Reactive (NEGATIVE) 12/25/17 12:45 Discharge Exam - Head Exam Head Exam: ATRAUMATIC, NORMOCEPHALIC Discharge Plan - Discharge Medications Prescriptions: Ferrous Sulfate [Feosol] 325 mg PO DAILY #30 tab Folic Acid 1 mg PO DAILY #30 tab Famotidine [Pepcid] 20 mg PO DAILY #30 tab Calcium Acetate [Phoslo] 667 mg PO TIDCC #90 tab - Follow Up Plan Condition: FAIR Disposition: HOME/ ROUTINE Instructions: Calcium Acetate, Famotidine, Ferrous Sulfate, Folic Acid, Di alysis and Diet, Pancreatitis (DC) Additional Instructions: Please f/u with Dr. Barrios office in 1 week Please f/u with HD at [facility] T,TH,SAT, transportation arranged , they will come and pick you up Continue medication as per med. rec. Referrals: Shlomo Barrios MD [Staff Provider] -
--- NOTE | 2017-12-25 21:41 | PN ---
DATE: 12/25/2017 LOCATION: 350, bed B. SUBJECTIVE: This is a 52-year-old female, seen and examined in rounds without significant clinical changes or reported active bleeding with less abdominal pain as well as less episodes of shortness of breath and dyspepsia. No reported active bleeding; and no reported chest pain, palpitation, or vomiting. No reported fever or chills. The patient somewhat tolerated oral intake. The entire chart is reviewed including but not limited to the most recent lab and radiology study results, current and the previous medication list, current and the previous medical events and the latest serum lipase level reported to be 119, and the patient's hepatitis profile reported to be positive for hepatitis B and C antibody for which she will be treated as outpatient. Infectious disease consultation to follow. PHYSICAL EXAMINATION: GENERAL: A 52-year-old female. VITAL SIGNS: Afebrile with pulse of 74, respiratory rate 20 to 22, blood pressure of 142/80. HEENT: Showed pale dry mucoid membrane. Nonicteric sclerae. LUNGS: Few scattered crepitation. Decreased air entry at bases. HEART: Positive S1 and S2. ABDOMEN: Soft with mild generalized tenderness. No mass or organomegaly. No rebound tenderness or guarding. EXTREMITIES: Without significant edema, clubbing, or cyanosis. NEUROLOGIC: No reported new neurological deficit, sensory or motor. IMPRESSION: 1. Re-exacerbation of peptic ulcer disease. 2. Recurrent acute pancreatitis, improved. 3. End-stage renal disease, on hemodialysis. 4. Known history of hyperlipidemia and hypertension. FURTHER RECOMMENDATION/SUGGESTIONS: 1. Agree with your plan. 2. Follow up on serum lipase, amylase level. 3. Hepatitis C infection treatment as outpatient. Alfonso Kent MD
--- NOTE | 2017-12-26 05:01 | DS ---
ADMISSION DIAGNOSIS: Pancreatitis. DISCHARGE DIAGNOSES: 1. Fall-induced pancreatitis. 2. Substance abuse. 3. Hypertension. 4. Chronic kidney disease, on hemodialysis. HISTORY OF PRESENT ILLNESS: The patient is a 52-year-old female with history of hypertension, CKD, on hemodialysis, noncompliant with dialysis. Missed her dialysis for several weeks. She came in because of abdominal pain as she was having alcohol use at home and using drug. The patient was found to have pancreatitis that resolved with conservative medical management. The patient is instructed to avoid any further alcohol in future. The patient is afebrile. She is for discharge. PHYSICAL EXAMINATION: VITAL SIGNS: Blood pressure 153/76, pulse 71, respiratory rate 20, and temperature 97.5. LUNGS: Clear. CVS: S1 and S2 regular. ABDOMEN: Soft. PLAN: Discharge the patient. Shlomo Barrios MD
== END 2017-12-25 18:35 | disposition home or self-care (01) | DRG 557 ==
LOC: C.ER 23:00 → C.9E 12-21 00:04 → C.3T 12-21 00:11
PROVIDERS: ADMIT Internal Medicine; ATTEND Internal Medicine
PROC: 5A1D70Z Performance of Urinary Filtration, Intermittent, Less than 6 Hours Per Day (ICD-10-PCS; principal; 2017-12-21)
PROC: 5A1D70Z Performance of Urinary Filtration, Intermittent, Less than 6 Hours Per Day (ICD-10-PCS; 2017-12-24)
DX: K85.20 Alcohol induced acute pancreatitis without necrosis or infection (principal); K86.2 Cyst of pancreas; N18.6 End stage renal disease; B19.10 Unspecified viral hepatitis B without hepatic coma; B19.20 Unspecified viral hepatitis C without hepatic coma; I12.0 Hypertensive chronic kidney disease with stage 5 chronic kidney disease or end stage renal disease; E86.0 Dehydration; E11.22 Type 2 diabetes mellitus with diabetic chronic kidney disease; R64 Cachexia; A09 Infectious gastroenteritis and colitis, unspecified; D64.9 Anemia, unspecified; F10.20 Alcohol dependence, uncomplicated; E78.5 Hyperlipidemia, unspecified; J45.909 Unspecified asthma, uncomplicated; K86.0 Alcohol-induced chronic pancreatitis; F17.210 Nicotine dependence, cigarettes, uncomplicated; Z87.11 Personal history of peptic ulcer disease; Z91.15 Patient's noncompliance with renal dialysis; Z99.2 Dependence on renal dialysis

== ENCOUNTER 2017-12-26 21:49 | Emergency (ER) | payer MEDICAID ==
[2017-12-26 21:50] VITALS: BMI 19.7
[2017-12-26 22:21] LABS: BASO % 0.4 % (0.0-2.0); EOS % 0.2 % (0.0-4.0); HEMOGLOBIN 9.8 g/dL (11.0-16.0); LYMPH # 0.5 K/uL (1.0-4.3); LYMPH % 4.6 % (20.0-40.0); MEAN CELL VOLUME 98.4 fL (81.0-99.0); MEAN CORPUSCULAR HEMOGLOBIN 32.5 pg (27.0-31.0); MEAN PLATELET VOLUME 8.2 fL (7.2-11.7); MONO # 0.5 K/uL (0.0-0.8); MONO % 4.1 % (0.0-10.0); NEUT % 90.7 % (50.0-75.0); PLATELET COUNT 289 K/uL (130-400); RBC 3.01 Mil/uL (3.80-5.20); RED CELL DISTRIBUTION WIDTH 14.3 % (11.5-14.5)
[2017-12-26 22:57] LABS: ALB/GLOB RATIO 1.1 (1.0-2.1); ALBUMIN 4.4 g/dL (3.5-5.0); ALT/SGPT 19 U/L (9-52); AST/SGOT 48 U/L (14-36); BANDS 5 % (0-2); BLOOD UREA NITROGEN 14 mg/dL (7-17); CALCIUM 9.6 mg/dl (8.6-10.4); GFR NON-AFRICAN AMERICAN 22; LIPASE 142 U/L (23-300); LYMPHOCYTE 8 % (20-40); MONOCYTE 3 % (0-10); NEUTROPHIL 84 % (50-75); PLATELET ESTIMATE NORMAL (NORMAL); TOTAL CELLS COUNTED 100
[2017-12-26 22:58] LABS: MICROCYTOSIS SLIGHT; SPHEROCYTES SLIGHT
[2017-12-27 00:54] VITALS: BP 132/77; PULSE 81; RESP 17; TEMP 98.1; O2SAT 98
--- NOTE | 2017-12-27 04:09 | C.PDOC ---
History Of Present Illness 52 year old female presents to the ER with a complaint of diffuse abdominal pain for the past one day associated with nausea. Patient was discharged from the hospital yesterday for abdominal pain and pancreatitis. She had dialysis today with no complications. Denies fever, chills, chest pain, SOB, or vomiting. Time Seen by Provider: 12/26/17 22:05 Chief Complaint (Nursing): Abdominal Pain History Per: Patient History/Exam Limitations: no limitations Onset/Duration Of Symptoms: Days (1) Current Symptoms Are (Timing): Still Present Location Of Pain/Discomfort: Diffuse Radiation Of Pain To:: None Quality Of Discomfort: Unable To Describe Associated Symptoms: Nausea. denies: Fever, Vomiting, Chest Pain, Other (SOB) Exacerbating Factors: None Alleviating Factors: None Recent travel outside of the [place]: No Abnormal Vaginal Bleeding: No Past Medical History Reviewed: Historical Data, Nursing Documentation, Vital Signs Vital Signs: Last Vital Signs Temp 98.1 F 12/27/17 00:52 Pulse 81 12/27/17 00:52 Resp 17 12/27/17 00:52 BP 132/77 12/27/17 00:52 Pulse Ox 98 12/27/17 00:52 - Medical History PMH: Anemia, Asthma, HTN, Hyperlipidemia, Pancreatitis, End Stage Renal Disease, Chronic Kidney Disease Denies: Kidney Stones - [facility] Procedures (12/21/17) EXCISION OF STOMACH, ENDO, DIAGN (05/27/17) FLUOROSCOPY OF SUPERIOR VENA CAVA, GUIDANCE (05/27/17) INSERTION OF INFUSION DEV INTO SUP VENA CAVA, PERC APPROACH (05/27/17) INSERTION OF VAD INTO CHEST SUBCU/FASCIA, PERC APPROACH (05/27/17) Family History: States: No Known Family Hx - Social History Hx Alcohol Use: Yes Hx Substance Use: Yes (marijuana) - Immunization History Hx Tetanus Toxoid Vaccination: No Hx Influenza Vaccination: Yes Hx Pneumococcal Vaccination: Yes Review Of Systems Constitutional: Negative for: Fever, Chills Cardiovascular: Negative for: Chest Pain, Palpitations Respiratory: Negative for: Cough, Shortness of Breath Gastrointestinal: Positive for: Nausea, Abdominal Pain. Negative for: Vomiting, Diarrhea Neurological: Negative for: Weakness, Numbness Physical Exam - Physical Exam Appears: Non-toxic Skin: Normal Color, Warm, Dry Head: Atraumatic, Normacephalic Eye(s): bilateral: Normal Inspection Oral Mucosa: Moist Neck: Normal, Supple Chest: Symmetrical, No Tenderness Cardiovascular: Rhythm Regular Respiratory: Normal Breath Sounds, No Rales, No Rhonchi, No Wheezing Gastrointestinal/Abdominal: Soft, Tenderness (Diffuse), No Guarding, No Rebound Extremity: Normal ROM (x4) Neurological/Psych: Oriented x3, Normal Speech ED Course And Treatment - Laboratory Results Result Diagrams: 12/26/17 22:18 12/26/17 22:18 ECG: Interpreted By Me, Viewed By Me ECG Rhythm: Sinus Rhythm ECG Interpretation: Normal Rate From EC O2 Sat by Pulse Oximetry: 98 (Room air) Pulse Ox Interpretation: Normal Progress Note: CT abd/pel, EKG, blood work, and urinalysis ordered. Pepcid and zofran administered. Disposition - Disposition Referrals: Vinnie Michael MD [Medical Doctor] - Disposition: HOME/ ROUTINE Disposition Time: 01:00 Condition: GOOD Additional Instructions: COLEEN RANKIN, thank you for letting us take care of you today. The emergency medical care you received today was directed at your acute symptoms. If you were prescribed any medication, please fill it and take as directed. It may take several days for your symptoms to resolve. Return to the Emergency Department if your symptoms worsen, do not improve, or if you have any other problems. Please contact your doctor or call one of the physicians/clinics you have been referred to that are listed on the Patient Visit Information form that is inclu ded in your discharge packet. Bring any paperwork you were given at discharge with you along with any medications you are taking to your follow up visit. Our treatment cannot replace ongoing medical care by a primary care provider outside of the emergency department. Thank you for allowing the [facility] team to be part of your care today. Follow up with your primary care doctor in 2-3 days for re-evaluation and further management. Prescriptions: Ondansetron ODT [Zofran ODT] 8 mg PO Q8 PRN #20 odt PRN Reason: Nausea/Vomiting Instructions: Acute Abdomen (Belly Pain), Adult (DC) Forms: [employer] (Yoruba) - Clinical Impression Clinical Impression: Abdominal pain - Scribe Statement The provider has reviewed the documentation as recorded by the Scribe [place] Amaro All medical record entries made by the Scribe were at my direction and personally dictated by me. I have reviewed the chart and agree that the record accurately reflects my personal performance of the history, physical exam, medical decision making, and the department course for this patient. I have also personally directed, reviewed, and agree with the discharge instructions and disposition.
--- NOTE | 2017-12-27 09:05 | CT ---
Date of service: 12/26/2017 PROCEDURE: CT Abdomen and Pelvis without intravenous contrast HISTORY: diffuse abd. pain h/o esrd COMPARISON: 11/07/2017 TECHNIQUE: Without contrast.. Contrast dose: 0 Radiation dose: Total exam DLP = 198.14 mGy-cm. This CT exam was performed using one or more of the following dose reduction techniques: Automated exposure control, adjustment of the mA and/or kV according to patient size, and/or use of iterative reconstruction technique. FINDINGS: LOWER THORAX: Unremarkable. LIVER: Normal size, contour and attenuation. No mass. No intrahepatic biliary ductal dilatation appreciated. GALLBLADDER AND BILE DUCTS: Unremarkable gallbladder. No calcified gallstones. There is dilatation of the common bile duct up to a diameter of approximately 8 mm. It the level of the junction of the distal common bile duct and pancreatic duct there is a 7 mm calculus. This may be an obstructing choledocholith. PANCREAS: Numerous coarse calcifications consistent with chronic pancreatitis. Two peripherally calcified fluid collections in the pancreatic tail region unchanged from prior examination. These measure approximately 3.9 cm and 4.3 cm in diameter, respectively. Likely intrapancreatic pseudocysts. Dilated pancreatic duct up to 4 mm in the pancreatic body. No peripancreatic fluid or inflammatory change noted. SPLEEN: Normal size. No mass. There is coarse calcifications seen along the left lateral aspect of the spleen superiorly. This is unchanged. Likely dystrophic. ADRENALS: Unremarkable. No mass. KIDNEYS AND URETERS: Unremarkable. No hydronephrosis. No solid mass. VASCULATURE: Unremarkable. No aortic aneurysm. BOWEL: Mild balbuena colonic diverticulosis. No evidence of diverticulitis. No bowel obstruction. APPENDIX: Unremarkable. Normal appendix. PERITONEUM: Unremarkable. No free fluid. No free air. LYMPH NODES: Unremarkable. No enlarged lymph nodes. BLADDER: Nondistended REPRODUCTIVE: Normal uterus BONES: No acute fracture. OTHER FINDINGS: Rounded soft tissue density in the left anterior abdominal wall likely the result of subcutaneous injection. IMPRESSION: Chronic pancreatitis. Dilated pancreatic duct and mild dilatation of common bile duct with 7 mm calculus at the junction of the pancreatic duct and common bile duct. Possible choledocholithiasis. No intrahepatic biliary dilatation noted. To peripherally calcified collections in the pancreatic tail region likely intrapancreatic pseudocysts unchanged from prior examination. Additional minor findings as above. The preliminary findings for this examination were reported by [facility] at 12:20 a.m. on 12/27/2017.. There is discordance of this report with the preliminary findings. Possible choledocholithiasis not described in the preliminary report. Pancreatic ductal dilatation and common bile duct dilatation not mentioned in the preliminary report.
--- NOTE | 2017-12-27 17:39 | CARD ---
APPROVED REPORT Date of service: 12/26/2017 EKG Measurement Heart [id number] [id number] <Conclusion> Normal sinus rhythm Minimal voltage criteria for LVH, may be normal variant Prolonged QT Abnormal ECG
== END 2017-12-27 01:33 | disposition home or self-care (01) ==
LOC: C.ER 21:49
DX: R10.9 Unspecified abdominal pain (principal); I12.0 Hypertensive chronic kidney disease with stage 5 chronic kidney disease or end stage renal disease; N18.6 End stage renal disease; F17.210 Nicotine dependence, cigarettes, uncomplicated; Z99.2 Dependence on renal dialysis; K85.90 Acute pancreatitis without necrosis or infection, unspecified
CPT/HCPCS: 74176; 80053; 80320; 83690; 84484; 85025; 93005; 96374; 96375; 99285; J2405